=== PATIENT | male | born 1955 | race Caucasian/White ===

== ENCOUNTER → 2017-07-12 09:44 | Outpatient (CLI) | payer OTHER, SELFPAY ==
[2017-07-12 12:01] LABS: Absolute Lymphocyte Count 2.06 X10^3/ul (0.83-4.51); Absolute Neutrophil Count 3.8 X10^3/uL (2.0-7.7); Basophil# 0.01 X10^3/uL; Basophil% 0.1 % (0-1); Eosinophil# 0.33 X10^3/uL; Eosinophils% 4.7 % (0-5); Hematocrit 49.2 % (40-54); Hemoglobin 16.9 g/dl (13.0-16.5); Lymphocyte # 2.06 X10^3/ul (4.0); Lymphocyte % 29.3 % (19-41); Mean Corp Hgb Conc 34.3 g/gl (32-36); Mean Corpuscular Hgb 29.8 pg (27.0-32.0); Mean Corpuscular Volume 86.8 fL (80-94); Monocyte# 0.81 X10^3/uL; Monocyte% 11.5 % (0-10); Neutrophil # 3.81 X10^3/uL (2.7-7.7); Neutrophil % 54.1 % (47-70); Platelet Count 178 K/mm3 (150-450); RBC Distribution Width SD 41.5 fl (35.1-43.9); Red Blood Count 5.67 M/mm3 (4.6-6.2)
[2017-07-12 12:05] LABS: POSITIVE COUNT NO; POSITIVE DIFFERENTIAL NO; POSITIVE MORPHOLOGY NO
[2017-07-12 12:14] LABS: AST(SGOT) 24 U/L (15-37); Alanine Aminotransfer ALT/SGPT 28 U/L (16-61); Albumin, Serum 3.8 g/dL (3.2-5.0); Alkaline Phosphatase 68 U/L (45-117); Anion Gap 7 (5-15); BUN 14 mg/dL (7-18); BUN/Creat Ratio 14.7 RATIO (10-20); Calcium,Total 8.7 mg/dL (8.5-10.1); Chloride 104 mmol/L (98-107); Cholesterol 196 mg/dL (200); Creatinine, Serum 0.95 mg/dL (0.70-1.30); EST Glomerular Filtration Rate 85 mL/min (>60); Est Glom Filt Rate - Afr Amer 103 mL/min (>60); Globulin 3.7 g/dL (2.2-4.2); Glucose 91 mg/dL (74-106); High Density Lipoprotein 44 mg/dL; Potassium 3.9 mmol/L (3.5-5.1); Protein, Total 7.5 g/dL (6.4-8.2); Sodium Level 140 mmol/L (136-145); Triglycerides 233 mg/dL; Very Low Density Lipoprotein 47 mg/dL (5-40)
[2017-07-12 16:10] LABS: Hemoglobin A1c 5.9 % (4.2-6.3)
== END ==
PROVIDERS: Family Provider Family Medicine; PCP Family Medicine; Visit Provider Family Medicine
DX: Z00.00 Encounter for general adult medical examination without abnormal findings (principal); I10 Essential (primary) hypertension; R73.01 Impaired fasting glucose; Z12.5 Encounter for screening for malignant neoplasm of prostate
CPT/HCPCS: 36415; 80053; 80061; 83036; 85025

== ENCOUNTER → 2017-09-20 15:49 | Outpatient (CLI) | payer OTHER, SELFPAY ==
[2017-09-20 18:16] LABS: PSA,Total - Annual Screen 2.82 ng/mL (0.00-4.00)
== END ==
PROVIDERS: Family Provider Family Medicine; PCP Family Medicine; Visit Provider Family Medicine
DX: Z12.5 Encounter for screening for malignant neoplasm of prostate (principal)
CPT/HCPCS: 36415; 84153; G0103

== ENCOUNTER → 2018-09-21 | Outpatient (CLI) | payer OTHER, SELFPAY ==
[2018-09-21 12:05] LABS: Absolute Lymphocyte Count 2.36 X10^3/ul (0.83-4.51); Absolute Neutrophil Count 4.3 X10^3/uL (2.0-7.7); Basophil# 0.02 X10^3/uL; Basophil% 0.3 % (0-1); Eosinophil# 0.28 X10^3/uL; Eosinophils% 3.6 % (0-5); Hematocrit 48.8 % (40-54); Hemoglobin 17.1 g/dl (13.0-16.5); Lymphocyte # 2.36 X10^3/ul (4.0); Lymphocyte % 30.2 % (19-41); Mean Corpuscular Hgb 29.6 pg (27.0-32.0); Mean Corpuscular Volume 84.6 fL (80-94); Mean Platelet Vol. 10.9 fl (6.2-12.0); Monocyte# 0.81 X10^3/uL; Monocyte% 10.4 % (0-10); Neutrophil # 4.33 X10^3/uL (2.7-7.7); Neutrophil % 55.2 % (47-70); Platelet Count 208 K/mm3 (150-450); RBC Distribution Width CV 12.9 % (11.6-14.6); RBC Distribution Width SD 39.6 fl (35.1-43.9); Red Blood Count 5.77 M/mm3 (4.6-6.2); White Blood Count 7.8 K/mm3 (4.4-11.0)
[2018-09-21 12:19] LABS: POSITIVE COUNT NO; POSITIVE DIFFERENTIAL NO; POSITIVE MORPHOLOGY NO
[2018-09-21 12:20] LABS: Microalbumin,Random Urine 17.1 mg/L (NO RANGE EST.); Microalbumin:Creatinine Ratio 18.4 mg/g CRE (<30 mg/g CRE)
[2018-09-21 12:47] LABS: AST(SGOT) 19 U/L (15-37); Alanine Aminotransfer ALT/SGPT 27 U/L (16-61); Albumin, Serum 3.7 g/dL (3.2-5.0); Alkaline Phosphatase 81 U/L (45-117); Anion Gap 7 (5-15); BUN 12 mg/dL (7-18); BUN/Creat Ratio 12.9 RATIO (10-20); Calcium,Total 8.9 mg/dL (8.5-10.1); Chloride 107 mmol/L (98-107); Cholesterol 182 mg/dL (200); Creatinine, Serum 0.93 mg/dL (0.70-1.30); EST Glomerular Filtration Rate 87 mL/min (>60); Est Glom Filt Rate - Afr Amer 105 mL/min (>60); Globulin 3.6 g/dL (2.2-4.2); Glucose 92 mg/dL (74-106); High Density Lipoprotein 46 mg/dL; Potassium 3.7 mmol/L (3.5-5.1); Protein, Total 7.3 g/dL (6.4-8.2); Sodium Level 141 mmol/L (136-145); Triglycerides 99 mg/dL; Very Low Density Lipoprotein 20 mg/dL (5-40)
== END | disposition home or self-care (01) ==
PROVIDERS: Family Provider Family Medicine; PCP Family Medicine; Visit Provider Family Medicine
DX: Z00.00 Encounter for general adult medical examination without abnormal findings (principal); I10 Essential (primary) hypertension; E78.1 Pure hyperglyceridemia
CPT/HCPCS: 36415; 80053; 80061; 82043; 82570; 85025

== ENCOUNTER 2018-12-02 05:30 | Emergency (ER) | payer OTHER, SELFPAY ==
[2018-12-02 05:31] VITALS: BP 185/113; PULSE 96; RESP 15; TEMP 36.7; O2SAT 96; BMI 29.2
--- NOTE | 2018-12-02 05:37 | EKG12_ITS ---
Test Reason : CP Blood Pressure : / mmHG Vent. Rate : 094 BPM Atrial Rate : 094 BPM P-R Int : 140 ms QRS Dur : 084 ms QT Int : 376 ms P-R-T Axes : 049 041 029 degrees QTc Int : 470 ms Normal sinus rhythm Nonspecific ST abnormality Abnormal ECG Confirmed by RUSSELL DEL TORO, PRASHANTH ([id number]), tape editor SHOBHA WOODRUFF ([id number]) on 12/04/2018 11:26:34 AM Referred By: LIVIA Confirmed By:PRASHANTH WELLS MD
--- NOTE | 2018-12-02 05:37 | RAD_ITS ---
STUDY: X-RAY CHEST REASON FOR EXAM: Male, 63 years old. Abdominal pain and pressure getting worse TECHNIQUE: Single AP portable view of the chest. 2 images COMPARISON: 04/05/2017 FINDINGS: There are superimposed monitor leads. The lungs are clear and expanded. There is no demonstrated pleural abnormality. Normal size heart. Normal mediastinum and cassidy. Normal visualized pulmonary arteries. Normal visualized aortic arch and descending thoracic aorta. There are diffuse degenerative changes of the visualized thoracic spine. Normal visualized ribs, clavicles, and shoulders. There is no demonstrated abnormality of the visualized soft tissue structures of the upper abdomen. RAD/Chest 1 View (Portable) IMPRESSION: No acute cardiopulmonary disease. No significant interval change. Electronically Signed: Micki Singleton MD at 6:04 EDT , Service support ,
--- NOTE | 2018-12-02 05:39 | ED.DCSUM_ITS ---
History of Present Illness Chief Complaint: Chest Pain Detail of Chief Complaint: Chest and upper abdominal pain Informant: Patient Onset: - - Years Current Severity: Mild Maximum Severity: Mild Narrative: Patient presents with complaint of chest pressure. He states he has chronic pressure in his upper abdomen that is been ongoing for years. He feels recently he has been getting more pressure into his lower chest and wanted to have it checked. He is also concerned about his blood pressure being high. He states that he was taken off of his blood pressure medication a year and a half ago because they thought it was causing problems with his stomach, but he has not been placed on anything else. He states when he goes to his doctor's office his systolic pressure is usually around 160. Patient denies personal history of cardiac disease. His last stress test was in 2012. He has not had recent change with activity tolerance. Past Medical History - Allergies and Home Meds Allergies/Adverse Reactions: Allergies Penicillins Allergy (Verified 04/05/17 07:06) Rash Primary Care Physician: Mckinley Ly DO [Primary Care Provider] - Prior records reviewed: Yes Past Medical History: - - Reviewed Smoking Status: Never smoker Review of Systems General: Denies: Chills, Fever Eyes: Denies: Visual changes - bilaterally ENT: Denies: Bilateral ear pain Cardiovascular: Reports: Chest pain, Palpitations - Palpitations in the right upper chest Respiratory: Denies: Dyspnea Gastrointestinal: Reports: Abdominal pain. Denies: Nausea, Vomiting, Diarrhea Genitourinary: Denies: Dysuria Musculoskeletal: Denies: Neck pain, Back pain Skin: Denies: Rash Neurological: Denies: Headache Endocrine: Denies: Polyuria, Polydipsia Hematologic: Denies: Easy bruising Allergy: Denies: Uticaria Physical Exam Vital Signs/Narrative: Vital Signs Temp Pulse Resp BP Pulse Ox 12/02/18 05:31 98.1 F 96 15 185/113 H 96 Inital Vital Signs reviewed: Yes General: Well nourished, Well developed Head: Normocephalic Eyes: EOMI ENT: Moist mucous membranes Neck: Supple Cardiovascular: Regular rate, Regular rhythm Respiratory: No distress, CTA bilaterally, Chest nontender Abdomen: Soft, Nontender Extremities: Nontender Skin: Normal color, No rash Neurological: Alert, Oriented x3, Normal Strength, Normal Sensation Psychological: Normal affect Diagnostic/Tx/Re-eval Impressions Chest X-Ray 12/02/18 05:37 IMPRESSION: No acute cardiopulmonary disease. No significant interval change. Electronically Signed: Micki Singleton MD at 6:04 EDT , Service support , 12/02/18 05:37 Chest 1 View (Portable) [RAD] Stat Laboratory Results 12/02/18 12/02/18 05:35 05:35 WBC 9.8 RBC 5.99 Hgb 18.2 H* Hct 52.0 MCV 86.8 MCH 30.4 MCHC 35.0 RDW Std Deviation 38.9 RDW Coeff of Alvaro 12.3 Plt Count 192 MPV 10.2 Immature Gran % (Auto) 0.300 Neut % (Auto) 47.1 Lymph % (Auto) 38.0 Edmonson % (Auto) 9.3 Eos % (Auto) 4.9 Baso % (Auto) 0.4 Absolute Neuts (auto) 4.6 Absolute Lymphs (auto) 3.72 Nucleated RBC % 0 Diff Path Review May foll Sodium 143 Potassium 3.6 Chloride 108 H Carbon Dioxide 28.0 Anion Gap 7 BUN 12 Creatinine 1.06 Estim Creat Clear Calc 66.69 Est GFR (MDRD) Af Amer 91 Est GFR (MDRD) Non-Af 75 BUN/Creatinine Ratio 11.3 Glucose 103 Calcium 8.6 Total Bilirubin 0.60 Direct Bilirubin 0.13 AST 26 ALT 36 Alkaline Phosphatase 80 Troponin I < 0.015 Total Protein 7.5 Albumin 3.6 Globulin 3.9 Lipase 252 - EKG Initial EKG Interpretation: Sinus Rhythm - Sinus at 94 with no acute change. - Medical Decision Making She was given aspirin on arrival. With no further intervention blood pressure went from 185/113 to 159/102. Patient has had no symptoms while here. I spoke with patient's primary care physician, Dr. Ly. He will review the patient's history when he goes to the office today and send a prescription in for blood pressure medication. Patient is to follow-up with him in the office in approximately 1 week. We also discussed the patient's elevated hemoglobin level and trends to run high. ED Disposition - Plan for ED Patient: Disposition: Home or Assisted Living Diagnosis: Atypical chest pain, Hypertension Instructions: HYPERTENSION, To Be Confirmed, CHEST PAIN, Uncertain Cause Referrals: Mckinley Ly DO [Primary Care Provider] - 1 Week Additional Instructions: Dr Ly will review your records and call in a prescription for your blood pressure.
[2018-12-02] MEDS: Aspirin 81 MG TAB.CHEW 324 MG PO (05:44)
[2018-12-02 05:46] LABS: Absolute Lymphocyte Count 3.72 X10^3/uL (0.83-4.51); Absolute Neutrophil Count 4.6 X10^3/uL (2.0-7.7); Basophil# 0.04 X10^3/uL; Basophil% 0.4 % (0-1); Eosinophil# 0.48 X10^3/uL; Eosinophils% 4.9 % (0-5); Lymphocyte # 3.72 X10^3/ul (4.0); Mean Corpuscular Hgb 30.4 pg (27.0-32.0); Mean Corpuscular Volume 86.8 fL (80-94); Mean Platelet Vol. 10.2 fl (6.2-12.0); Monocyte# 0.91 X10^3/uL; Monocyte% 9.3 % (0-10); NRBC Flagged by Analyzer 0 % (0-5); Neutrophil # 4.61 X10^3/uL (2.7-7.7); Neutrophil % 47.1 % (47-70); Platelet Count 192 K/mm3 (150-450); RBC Distribution Width CV 12.3 % (11.6-14.6); RBC Distribution Width SD 38.9 fl (35.1-43.9); Red Blood Count 5.99 M/mm3 (4.6-6.2); White Blood Count 9.8 K/mm3 (4.4-11.0)
[2018-12-02 05:57] LABS: Hemoglobin 18.2 g/dL (13.0-16.5)
[2018-12-02 06:01] LABS: AST(SGOT) 26 U/L (15-37); Alanine Aminotransfer ALT/SGPT 36 U/L (16-61); Albumin, Serum 3.6 g/dL (3.2-5.0); Alkaline Phosphatase 80 U/L (45-117); Anion Gap 7 (5-15); BUN 12 mg/dL (7-18); BUN/Creat Ratio 11.3 RATIO (10-20); Bilirubin, Direct 0.13 mg/dL (0.00-0.30); Calcium,Total 8.6 mg/dL (8.5-10.1); Chloride 108 mmol/L (98-107); Creatinine, Serum 1.06 mg/dL (0.70-1.30); EST Glomerular Filtration Rate 75 mL/min (>60); Est Glom Filt Rate - Afr Amer 91 mL/min (>60); Estimated Creatinine Clearance 66.69 ml/min; Globulin 3.9 g/dL (2.2-4.2); Glucose 103 mg/dL (74-106); Lipase 252 U/L (73-393); Potassium 3.6 mmol/L (3.5-5.1); Protein, Total 7.5 g/dL (6.4-8.2); Sodium Level 143 mmol/L (136-145)
[2018-12-02 06:29] VITALS: BP 159/102; PULSE 71; RESP 14; O2SAT 97
[2018-12-06 08:57] LABS: Pathologist Review Reviewed
== END 2018-12-02 06:34 | disposition home or self-care (01) ==
PROVIDERS: Emergency Provider Emergency Medicine; Family Provider Family Medicine; PCP Family Medicine
DX: R07.89 Other chest pain (principal); I10 Essential (primary) hypertension; Z79.899 Other long term (current) drug therapy
CPT/HCPCS: 71045; 80048; 80076; 83690; 84484; 85025; 93005; 99285; A4216

== ENCOUNTER → 2018-12-06 | Outpatient (CLI) | payer OTHER, SELFPAY ==
[2018-12-02 05:31] VITALS: BMI 29.2
[2018-12-08 13:08] LABS: Erythropoietin 6.1 mIU/mL (2.6-18.5)
[2018-12-09 09:32] LABS: Mumps Antibody,IgG 44.6 AU/mL (Immune >10.9); Rubeola IgG Ab 22.3 AU/mL (Immune >16.4)
== END | disposition home or self-care (01) ==
LOC: BFHLAB 10:01
PROVIDERS: Family Provider Family Medicine; PCP Family Medicine; Visit Provider Family Medicine
DX: D58.2 Other hemoglobinopathies (principal); Z91.89 Other specified personal risk factors, not elsewhere classified
CPT/HCPCS: 36415; 82668; 86735; 86762; 86765

== ENCOUNTER → 2018-12-21 | Outpatient (CLI) | payer OTHER, SELFPAY ==
[2018-12-02 05:31] VITALS: BMI 29.2
--- NOTE | 2018-12-21 08:07 | US_ITS ---
STUDY: ABDOMINAL ULTRASOUND REASON FOR EXAM: Male, 63 years old. Epigastric pain and pressure TECHNIQUE: Transabdominal ultrasound was performed with real-time and static boone scale imaging. TECHNICAL QUALITY: Limited. Examination limited by bowel gas. COMPARISON: None. FINDINGS: Liver: The liver measures 14.5 cm. There is increased echogenicity consistent with fatty infiltration. The bile ducts are within normal limits. There is hepatic color flow. The direction of portal flow is hepatopetal. There is no demonstrated mass lesion. Gallbladder: Normal distended gallbladder. The gallbladder wall measures 2.4 mm. There is a negative sonographic Hidalgo's sign. There is no pericholecystic fluid. There are no gallstones. Common Bile Duct (C.B.D.): The common bile duct measures 2.1 mm. Pancreas: There is suboptimal visualization of the pancreas. The visualized portions of pancreas appear within normal limits. Spleen: There is also limited visualization of the spleen. The spleen measures approximately 8.5 x 2.8 x 4.6 cm. Right Kidney: Normal size of the right kidney. The right kidney measures 11.2 x 5.5 x 6.1 cm. Normal renal cortex. The right cortex measures 1.5 cm. There is no demonstrated renal mass or cyst. There is no right hydronephrosis. There is a nonobstructing calculus of the mid pole measuring 7 x 4 x 4 mm. Left Kidney: Normal size of the left kidney. The left kidney measures 11.4 x 4.3 x 5.9 cm. Normal renal cortex. The left cortex measures 1.6 cm. There is a 1.0 cm cyst of the superior pole. There is no left hydronephrosis. Aorta: The abdominal aorta is normal in caliber and contour, and measures 1.9 x 1.8 cm in diameter proximally, 1.9 x 1.7 cm in the mid abdominal region, and 2.0 x 1.6 cm distally. I.V.C.: The IVC is patent. There is no ascites. US/Abdomen Complete IMPRESSION: Limited visualization of the pancreas and spleen. Nonobstructing right nephrolithiasis. 1.0 cm cyst of the left kidney. Increased hepatic echogenicity suggestive of steatosis. Electronically Signed: Xiang Valera MD at 21:27 EDT , Service support ,
== END | disposition home or self-care (01) ==
PROVIDERS: Family Provider Family Medicine; PCP Family Medicine; Referring Provider Family Medicine; Visit Provider Family Medicine
DX: R10.9 Unspecified abdominal pain (principal)
CPT/HCPCS: 76700

== ENCOUNTER → 2019-01-17 | Outpatient (CLI) | payer OTHER, SELFPAY | END | disposition home or self-care (01) | PROVIDERS: Family Provider Family Medicine; PCP Family Medicine; Referring Provider Family Medicine; Visit Provider Family Medicine | DX: G47.10 Hypersomnia, unspecified (principal) | CPT/HCPCS: 95810 ==

== ENCOUNTER → 2019-10-02 | Outpatient (CLI) | payer OTHER, SELFPAY ==
[2019-10-02 17:40] LABS: Basophil# 0.04 X10^3/uL; Basophil% 0.5 % (0-1); Eosinophil# 0.41 X10^3/uL; Eosinophils% 5.4 % (0-5); Hematocrit 48.1 % (40-54); Hemoglobin 16.3 g/dL (13.0-16.5); Lymphocyte % 32.7 % (19-41); Mean Corp Hgb Conc 33.9 g/dL (32-36); Mean Corpuscular Hgb 29.4 pg (27.0-32.0); Mean Corpuscular Volume 86.8 fL (80-94); Mean Platelet Vol. 10.8 fl (6.2-12.0); Monocyte# 0.74 X10^3/uL; Monocyte% 9.7 % (0-10); NRBC Flagged by Analyzer 0 % (0-5); Neutrophil # 3.95 X10^3/uL (2.7-7.7); Neutrophil % 51.6 % (47-70); Platelet Count 225 K/mm3 (150-450); RBC Distribution Width CV 12.7 % (11.6-14.6); Red Blood Count 5.54 M/mm3 (4.6-6.2); White Blood Count 7.7 K/mm3 (4.4-11.0)
[2019-10-02 18:10] LABS: Anion Gap 6 (5-15); BUN 12 mg/dL (7-18); BUN/Creat Ratio 12.8 RATIO (10-20); Calcium,Total 8.9 mg/dL (8.5-10.1); Chloride 106 mmol/L (98-107); Creatinine, Serum 0.94 mg/dL (0.70-1.30); EST Glomerular Filtration Rate 86 mL/min (>60); Est Glom Filt Rate - Afr Amer 104 mL/min (>60); Glucose 89 mg/dL (74-106); PSA,Total - Annual Screen 3.96 ng/mL (0.00-4.00); Potassium 3.3 mmol/L (3.5-5.1); Sodium Level 140 mmol/L (136-145)
[2019-10-02 18:12] LABS: Hemoglobin A1c 5.5 % (3.8-5.6)
== END | disposition home or self-care (01) ==
LOC: BFHLAB 15:52
PROVIDERS: PCP Family Medicine; Visit Provider Family Medicine
DX: I10 Essential (primary) hypertension (principal); D58.2 Other hemoglobinopathies; R73.01 Impaired fasting glucose; Z12.5 Encounter for screening for malignant neoplasm of prostate
CPT/HCPCS: 36415; 80048; 83036; 84153; 85025; G0103

== ENCOUNTER → 2020-03-19 16:12 | Outpatient (CLI) | payer OTHER, SELFPAY | PROVIDERS: PCP Family Medicine; Visit Provider Family Medicine | DX: Z20.828 Contact with and (suspected) exposure to other viral communicable diseases (principal) | CPT/HCPCS: 36415; 86769 ==

== ENCOUNTER → 2021-01-21 07:00 | Outpatient (CLI) | payer OTHER, SELFPAY ==
--- NOTE | 2021-01-21 12:50 | STRESSREP_ITS ---
Stress Test Report Exercise myocardial perfusion stress test. Resting EKG demonstrates sinus bradycardia with a rate of 59 bpm normal intervals are noted resting blood pressure is 138/78 mmHg. The patient exercised according to the regular Jayant protocol for total duration of 8 minutes. The maximum heart rate attained was 142 bpm which was 91% of maximum predicted heart rate the maximum workload was 10.1 metabolic equivalents. At rest there were no ST or T wave changes noted to suggest ischemia and at peak exercise upsloping ST changes were noted in lead II and aVF of approximately 1.9 mm. There was [address] depression noted in lead III. This however normalized during rest. No chest pain was noted the test was terminated due to dyspnea. The peak blood pressure was 200/62 mmHg which was a hypertensive response to exercise. Myocardial perfusion protocol. 13.6 mCi of technetium 99m sestamibi was injected at rest. The patient exe rcised according to regular Jayant protocol for 8 minutes and at peak exercise 39.1 mCi of technetium 99m sestamibi was injected stress images were obtained stress and rest images were reconstructed and compared in the short axis vertical long and horizontal long axis. Gated images were also obtained. Perfusion SPECT analysis: Review of the stress images demonstrate normal uptake of tracer noted in all areas of the myocardium. The resting images similarly demonstrate normal uptake of tracer noted in all areas of the myocardium. No areas of reversibility are noted to suggest ischemia and no previous infarct is noted. Gated SPECT analysis: The gated ejection fraction is 66%. Conclusion: Normal exercise myocardial perfusion stress test with no evidence of ischemia at a high workload. Preserved ejection fraction.
== END ==
PROVIDERS: PCP Family Medicine; Referring Provider Family Medicine; Visit Provider Family Medicine
DX: R07.9 Chest pain, unspecified (principal); I10 Essential (primary) hypertension
CPT/HCPCS: 78452; 93017; A9500

== ENCOUNTER → 2021-03-31 | Outpatient (CLI) | payer MEDICARE, BC, SELFPAY | END | disposition home or self-care (01) | LOC: LABSPEC 09:45 | PROVIDERS: PCP Family Medicine; Referring Provider Physician Assistant Surgical; Visit Provider Physician Assistant Surgical | DX: Z11.52 Encounter for screening for COVID-19 (principal) | CPT/HCPCS: 87635; U0005; U0003 ==

== ENCOUNTER → 2022-02-16 | Outpatient (CLI) | payer MEDICARE, BC, SELFPAY ==
[2022-02-16 13:02] LABS: Absolute Lymphocyte Count 2.82 X10^3/uL (0.83-4.51); Absolute Neutrophil Count 3.6 X10^3/uL (2.0-7.7); Basophil# 0.04 X10^3/uL; Basophil% 0.5 % (0-1); Eosinophil# 0.37 X10^3/uL; Eosinophils% 4.8 % (0-5); Hematocrit 51.4 % (40-54); Hemoglobin 17.8 g/dL (13.0-16.5); Lymphocyte # 2.82 X10^3/ul (0.83-4.51); Lymphocyte % 36.8 % (19-41); Mean Corp Hgb Conc 34.6 g/dL (32-36); Mean Corpuscular Hgb 30.2 pg (27.0-32.0); Mean Corpuscular Volume 87.3 fL (80-94); Mean Platelet Vol. 10.7 fl (6.2-12.0); Monocyte# 0.83 X10^3/uL; Monocyte% 10.8 % (0-10); NRBC Flagged by Analyzer 0 % (0-5); Neutrophil # 3.56 X10^3/uL (2.7-7.7); Neutrophil % 46.4 % (47-70); Platelet Count 211 K/mm3 (150-450); RBC Distribution Width CV 12.5 % (11.6-14.6); RBC Distribution Width SD 39.7 fl (35.1-43.9); Red Blood Count 5.89 M/mm3 (4.6-6.2); White Blood Count 7.7 K/mm3 (4.4-11.0)
[2022-02-16 13:15] LABS: ALB/GLOB Ratio 0.9 RATIO (0.9-2.4); AST(SGOT) 21 U/L (15-37); Alanine Aminotransfer ALT/SGPT 30 U/L (16-61); Albumin, Serum 3.6 g/dL (3.2-5.0); Alkaline Phosphatase 81 U/L (45-117); Anion Gap 4 (5-15); BUN 12 mg/dL (7-18); BUN/Creat Ratio 11.3 RATIO (10-20); Calcium,Total 8.7 mg/dL (8.5-10.1); Chloride 106 mmol/L (98-107); Cholesterol 179 mg/dL (200); Creatinine, Serum 1.06 mg/dL (0.70-1.30); EST Glomerular Filtration Rate 74 mL/min (>60); Est Glom Filt Rate - Afr Amer 90 mL/min (>60); Glucose 83 mg/dL (74-106); High Density Lipoprotein 49 mg/dL; PSA,Total - Annual Screen 5.64 ng/mL (0.00-4.00); Protein, Total 7.6 g/dL (6.4-8.2); Sodium Level 140 mmol/L (136-145); Triglycerides 129 mg/dL; Very Low Density Lipoprotein 26 mg/dL (5-40)
[2022-02-16 13:16] LABS: Hemoglobin A1c 5.5 % (3.8-5.6)
== END | disposition home or self-care (01) ==
LOC: BFHLAB 10:49
PROVIDERS: PCP Family Medicine; Visit Provider Family Medicine
DX: I10 Essential (primary) hypertension (principal); D58.2 Other hemoglobinopathies; K76.0 Fatty (change of) liver, not elsewhere classified; R73.01 Impaired fasting glucose; Z12.5 Encounter for screening for malignant neoplasm of prostate
CPT/HCPCS: 36415; 80053; 80061; 83036; 84153; 85025; G0103

== ENCOUNTER → 2022-07-02 | Outpatient (CLI) | payer MEDICARE, BC, SELFPAY ==
--- NOTE | 2022-07-02 14:50 | RAD_ITS ---
STUDY: X-RAY - PELVIS AND LEFT HIP REASON FOR EXAM: Male, 66 years old. Chronic left hip pain. TECHNIQUE: 3 views of the pelvis and hip. COMPARISON: None. FINDINGS: There is a non-specific bowel gas pattern. Normal visualized soft tissue structures. There are multiple calcified phleboliths. There is narrowing with cortical sclerosis and osteophyte formation of the sacroiliac joint consistent with degenerative osteoarthritic changes. Normal iliac wings and sacrum. Normal bilateral superior and inferior pubic rami. Normal pubic symphysis. Normal bilateral ischial tuberosities. Mild degenerative changes of the right hip. Normal visualized left femoral head. Normal left acetabulum. There is mild to moderate articular joint space narrowing of the left hip. RAD/HIP, UNI W/ Pelvis 2-3 Views IMPRESSION: Degenerative changes of the left hip. No fracture or dislocation. Electronically Signed: Yonatan Guevara DO at 17:28 EDT ,
[2022-07-02 18:12] LABS: PSA,Total- Diagnostic 6.02 ng/mL (0.0-4.0)
[2022-07-02 19:23] LABS: Vitamin B12 557 pg/mL (211-911)
== END | disposition home or self-care (01) ==
PROVIDERS: PCP Family Medicine; Referring Provider Family Medicine; Visit Provider Family Medicine
DX: R20.2 Paresthesia of skin (principal); R97.20 Elevated prostate specific antigen [PSA]; R10.32 Left lower quadrant pain
CPT/HCPCS: 36415; 73502; 82607; 84153

== ENCOUNTER → 2022-10-13 | Outpatient (CLI) | payer MEDICARE, BC, SELFPAY ==
--- NOTE | 2022-10-13 13:43 | MRI_ITS ---
STUDY: MR PELVIS WITH AND WITHOUT CONTRAST (PROSTATE) REASON FOR EXAM: Male, 67 years old. Elevated PSA with enlarged prostate gland TECHNIQUE: Standardized multiparametric prostate MRI with T1, T2, DWI/ADC sequences were obtained in 3 orthogonal planes, and dynamic contrast enhancement sequences. 15 ml of CLARISCAN contrast material was administered intravenously for the contrast portion of the examination. COMPARISON: None. FINDINGS: The prostate volume measures 52 mm3. The contours of the prostate gland are lobulated. There is mass effect on the bladder base. The transition zone is heterogenous. PI-RADS DWI score 1 - No abnormality (normal) on ADC or high b-value DWI. PI-RADS T2W score 2 - A mostly encapsulated nodule OR a homogeneous circumscribed nodule without encapsulation (atypical nodule) or a homogeneous mildly hypointense area between nodules.. Contrast enhancement no early or contemporaneous enhancement; or diffuse multifocal enhancement NOT corresponding to a focal finding on T2W and/or DWI or focal ehancement responding to a lesion demonstrating features of BPH onT2WI (including features of extruded BPH in the PZ). The peripheral zone is homogenous. PI-RADS DWI score 4 - Focal moderately hypointense on ADC and markedly hyperintense on high b-value DWI; <1.5cm on axial. PI-RADS T2W score 4 - Circumscribed, homogenous moderate hypointense focus/mass confined to prostate and < 1.5 cm in greatest dimension. Contrast enhancement (+) Focal, earlier or contemporaneous with enhancement of adjacent normal prostatic tissues, and corresponding to a suspicious finding on T2WI and/or DWI. 8.3 x 14.2 mm hypointense T2 nodule of the left mid to apical posterior peripheral zone evident on image 32 series 10 demonstrates restricted diffusion (image 109 and series 7, image 6 series 701. The seminal vesicles demonstrate normal margins and T2 signal pattern. No mass lesion or invasion depicted. The rectoprostatic angles are normal. Trabeculated urinary bladder suggesting chronic bladder outlet obstruction. Nonenhancing T1 dark and T2 dark dependent nodule the urinary bladder measures 8 mm on image 16 of series 10 without associated contrast enhancement. The vascular structures of the are normal. Small bilateral fat-containing inguinal hernias. Mildly enlarged left external iliac chain lymph node measures 1.1 x 1.5 cm on image 3 of series 10. The visualized hollow viscus structures are normal. No bone marrow edema or mass lesion depicted. MRI/Pelvis W/WO Contrast IMPRESSION: 1. PIRADS v2.1 2019 -- 4 - High (clinically significant cancer is likely). 2. Left posterior peripheral zone nodule, as above. 3. Subcentimeter left urinary bladder calculus versus wall nodule. 4. Mild left iliac chain adenopathy. Electronically Signed: Harrison Anaya (Brooks), at 15:42 EDT ,
[2022-10-13 14:15] LABS: EGFR FINGERSTICK > 60.0000 mL/min (>60)
== END | disposition home or self-care (01) ==
LOC: MRI 13:36
PROVIDERS: PCP Family Medicine; Referring Provider Urology; Visit Provider Urology
DX: R97.20 Elevated prostate specific antigen [PSA] (principal)
CPT/HCPCS: 72197; A9575

== ENCOUNTER → 2022-11-01 | Outpatient (CLI) | payer MEDICARE, BC, SELFPAY ==
--- NOTE | 2022-11-01 | IMM_PTH ---
PATIENT: CARYL LIAO LOC: [facility] U#:[id number] AGE/SX: 67/M ROOM: RE11/01/[address]: Dr. Deandre Davison MD : 1955 BED: DIS: 11/01/2022 SPEC #: [id number] RECD: 11/03/22 13:55 STATUS: MARZENA REQ #: [id number] MAKENNA: 11/01/22 00:[address]: Deandre Davison DEPT: IMMUNOHISTOCHEMISTRY RECD BY: Carmella Cole ENTERED: 11/03/22 13:56 SP TYPE: IMMUNO OTHR DR: Dr. Mckinley Ly DO Tissues: A - PROSTATE RIGHT B - PROSTATE RIGHT D - PROSTATE LEFT E - PROSTATE LEFT F - PROSTATE LEFT Procedures: 34BE12 (add) P40 (add) 34BE12 (initial) PHYSICIAN & INSTITUTION [place] [id number] SPECIMEN INFORMATION: Tissue Source: A - Right apex, B - Right mid, D - Left apex, E - Left mid, F - Left base Clinical Info: Elevated PSA Specimen Number: [id number] A, B, D-F CPT code: 17345, 24490 x9 METHODOLOGY: Deparaffinized sections of prefer/formalin-fixed tissue or PAP/DQ stained slides are incubated with monoclonal/polyclonal antibodies/oligonucleotide probes. Localization is made via biotin free immunoperoxidase method. Appropriate controls are performed and reacted as expected. Results on target cell population are indicated in the following table: RESULTS: ANTIBODY / CLONE RESULT Block A P40 (BC28) positive 34BE12 (34BE12) positive Block B P40 (BC28) positive 34BE12 (34BE12) positive Block D P40 (BC28) negative 34BE12 (34BE12) negative Block E P40 (BC28) positive 34BE12 (34BE12) positive Block F P40 (BC28) negative 34BE12 (34BE12) negative These tests were developed and their performance characteristics determined by [facility]. They may not have been cleared or approved by the U.S. Food and Drug Administration. The FDA has determined that such clearance or approval is not necessary. The above immunohistochemical/dualISH markers are ordered and reviewed by the Pathologist. INTERPRETATION: A. Right prostate, apex, core biopsy: Benign prostatic tissue. B. Right prostate, mid, core biopsy: Benign prostatic tissue. D. Left prostate, apex, core biopsy: Minute focus of adenocarcinoma. E. Left prostate, mid, core biopsy: Intraductal carcinoma. F. Left prostate, base, core biopsy: Adenocarcinoma. Intraductal carcinoma. AM:pako 11/04/2022 Case has been reviewed in consultation with Dr. Jacobo who concurs with the above diagnosis. IDC:SJ
--- NOTE | 2022-11-01 | PROSBIL_PTH ---
PATIENT: CARYL LIAO LOC: [facility] U#:[id number] AGE/SX: 67/M ROOM: RE11/01/[address]: Dr. Deandre Davison MD : 1955 BED: DIS: 11/01/2022 SPEC #: [id number] RECD: 11/01/22 15:00 STATUS: MARZENA AGUDELO #: [id number] MAKENNA: 11/01/22 00:[address]: Deandre Davison DEPT: SURGICAL PATHOLOGY RECD BY: Kellee Moreira ENTERED: 11/02/22 08:45 SP TYPE: PROST BX DARIO DR: Dr. Mckinley Ly, [facility] Tissues: A - PROSTATE RIGHT B - PROSTATE RIGHT C - PROSTATE RIGHT D - PROSTATE LEFT E - PROSTATE LEFT F - PROSTATE LEFT Procedures: PROSTATE BX HEADER OPERATION: Prostate biopsy PRE-OP DIAGNOSIS: Elevated PSA TISSUE SUBMITTED: A - Right apex, B - Right mid, C - Right base, D - Left apex, E - Left mid, F - Left base MICROSCOPIC DIAGNOSIS A. Right prostate, apex, core biopsy: Glandular atrophy and mild chronic inflammation. See comment. B. Right prostate, mid, core biopsy: Glandular atrophy and mild chronic inflammation. See comment. C. Right prostate, base, core biopsy: Glandular atrophy and mild chronic inflammation. D. Left prostate, apex, core biopsy: Adenocarcinoma. [place] grade: 6 (3+3) Cores involved: 2 out of 2 cores Tissue involved: 1.7%, discontinuous Greatest tumor length: 1.6 millimeters Focal high-grade prostatic intraepithelial neoplasia (HGPIN). See comment. E. Left prostate, mid, core biopsy: Intraductal carcinoma. Cores involved: 2 out of 2 cores Tissue involved: 50%, discontinuous Greatest tumor length: 4.5 millimeters See comment. F. Left prostate, base, core biopsy: Adenocarcinoma. [place] grade: 10 ((5+5) Cores involved: 2 out of 2 cores Tissue involved: 75% Greatest tumor length: 0.7 millimeters Other findings: Intraductal carcinoma.(5.0 mm in greatest length) See comment. AM:pako 11/03/2022 COMMENT A, B, D-F - Immunohistochemistry ([id number]) supports the above diagnosis. Case has been reviewed in consultation with Dr. Jacobo who concurs with the above diagnosis. IDC:SJ MICROSCOPIC DESCRIPTION Slides are reviewed. GROSS DESCRIPTION A - Received is one container designated prostate, right apex. The specimen consists of two elongated fragments of light correa-white soft tissue each measuring 1.5 cm in length and 0.1 cm in diameter. The specimen is totally submitted in one cassette. B - Received is one container designated prostate, right mid. The specimen consists of two elongated fragments of light correa-white soft tissue measuring 0.8 and 1.0 cm in length and 0.1 cm in diameter. The specimen is totally submitted in one cassette. C - Received is one container designated prostate, right base. The specimen consists of two elongated fragments of light correa-white soft tissue each measuring 1.5 cm in length and 0.1 cm in diameter. The specimen is totally submitted in one cassette. D - Received is one container designated prostate, left apex. The specimen consists of two elongated fragments of light correa-white soft tissue measuring 0.4 and 0.6 cm in length and 0.1 cm in diameter. The specimen is totally submitted in one cassette. E - Received is one container designated prostate, left mid. The specimen consists of two elongated fragments of light correa-white soft tissue each measuring 1.0 cm in length and 0.1 cm in diameter. The specimen is totally submitted in one cassette. F - Received is one container designated prostate, left base. The specimen consists of two elongated fragments of light correa-white soft tissue measuring 1.0 and 1.2 cm in length and 0.1 cm in diameter. The specimen is totally submitted in one cassette. / SJ:rg 11/02/2022 TC:0 CPT: G0146
== END | disposition home or self-care (01) ==
LOC: LABSPEC 16:55
PROVIDERS: PCP Family Medicine; Referring Provider Urology; Visit Provider Urology
DX: C61 Malignant neoplasm of prostate (principal); R97.20 Elevated prostate specific antigen [PSA]; N42.31 Prostatic intraepithelial neoplasia
CPT/HCPCS: 88305; 88341; 88342; G0416

== ENCOUNTER → 2022-11-16 | Outpatient (CLI) | payer MEDICARE, BC, SELFPAY ==
--- NOTE | 2022-11-16 07:50 | NM_ITS ---
CLINICAL: 67-year-old male with history of primary prostate carcinoma. WHOLE BODY 99m Tc MDP RADIONUCLIDE BONE SCINTIGRAPHY COMPARISON: None available FINDINGS: Following the intravenous administration of 25.4 mCi of 99m Tc MDP, whole body bone images reveal: 1. Increased tracer uptake is noted in the sternoclavicular compartment of the right shoulder, acromioclavicular compartments of both shoulders, the patellofemoral compartment of the right knee, the medial and lateral compartment of the left ankle, the fourth lumbar vertebra posteriorly on the right, fifth lumbar vertebra posteriorly on the left and right, the left hip, the mid cervical spine posteriorly on the left and right. 2. The remaining skeletal structures are scintigraphically unremarkable with normal-appearing renal images and urinary bladder activity identified. NM/Bone Scan Whole Body IMPRESSION: 1. Increased radiopharmaceutical concentration defined in the bilateral shoulder articulations, the right knee, the left ankle, the cervical and lumbar spine, the left hip articulation is most consistent with degenerative arthrosis. 2. There is no definitive scintigraphic evidence of distant metastatic disease on the current examination. Electronically Signed: Oneal Elliott, at 23:16 EDT ,
== END | disposition home or self-care (01) ==
LOC: NM 07:48
PROVIDERS: PCP Family Medicine; Referring Provider Urology; Visit Provider Urology
DX: C61 Malignant neoplasm of prostate (principal)
CPT/HCPCS: 78306; A9503

== ENCOUNTER → 2022-11-22 | Outpatient (CLI) | payer MEDICARE, BC, SELFPAY ==
--- NOTE | 2022-11-22 18:55 | CT_ITS ---
EXAM: CT ABDOMEN AND PELVIS WITH INTRAVENOUS CONTRAST CLINICAL INDICATION: PROSTATE CANCER TECHNIQUE: Helically acquired images were obtained of the abdomen and pelvis with intravenous contrast. This CT exam was performed using one or more of the following dose reduction techniques: automated exposure control, adjustment of the mA and/or kV according to patient size, and/or use of iterative reconstruction technique. CONTRAST: 100 cc of Isovue-370 IV. RADIATION DOSE: CTDIvol = 17.10 mGy, DLP = 1480.93 mGy-cm COMPARISON: No relevant prior studies available. FINDINGS: LOWER THORAX: Small hiatal hernia. Coronary artery calcifications. Lung bases are clear. No cardiomegaly. No significant pericardial effusion. ABDOMEN: LIVER: There is diffuse low-attenuation of the liver. GALLBLADDER AND BILE DUCTS: Unremarkable. No calcified gallstones. No gallbladder distention or wall edema. No intra- or extrahepatic biliary ductal dilation. PANCREAS: Unremarkable. No focal cystic or solid mass. SPLEEN: Unremarkable. Normal size without focal cystic or solid mass. ADRENALS: Unremarkable. No nodules. KIDNEYS AND URETERS: Unremarkable. Normal renal size and position. No hydronephrosis. STOMACH AND BOWEL: Unremarkable. No stomach or bowel distention. No focal inflammatory change. PELVIS: APPENDIX: No evidence of acute appendicitis. BLADDER: Small bladder stone measuring 8 x 4 x 8 mm. REPRODUCTIVE: Unremarkable as visualized. No mass. ABDOMEN and PELVIS: INTRAPERITONEAL SPACE: Unremarkable. No ascites or other fluid collection. No free air. BONES/JOINTS: Unremarkable. No suspicious lytic or blastic abnormality. SOFT TISSUES: Unremarkable. No discrete abdominal or pelvic wall hernia. VASCULATURE: See above. LYMPH NODES: Unremarkable. No enlarged lymph nodes. CT/Abdomen/Pelvis WITH Contrast IMPRESSION: 1. Fatty liver. 2. Small hiatal hernia. 3. Small bladder stone measuring 8 x 4 x 8 mm. 4. Coronary artery disease. 5. No acute abdominal pelvic abnormality. Electronically Signed: Carroll Alvarez MD at 6:03 EDT ,
[2022-11-22 19:18] LABS: EGFR FINGERSTICK > 60.0000 mL/min (>60)
== END | disposition home or self-care (01) ==
LOC: CT 18:53
PROVIDERS: PCP Family Medicine; Referring Provider Urology; Visit Provider Urology
DX: C61 Malignant neoplasm of prostate (principal)
CPT/HCPCS: 74177; Q9967

== ENCOUNTER 2023-01-05 14:38 | Observation (INO) | payer MEDICARE, BC, SELFPAY ==
--- NOTE | 2022-12-28 07:59 | EKG12_ITS ---
Test Reason : PREOP Blood Pressure : / mmHG Vent. Rate : 068 BPM Atrial Rate : 068 BPM P-R Int : 146 ms QRS Dur : 080 ms QT Int : 432 ms P-R-T Axes : 067 039 -13 degrees QTc Int : 459 ms Normal sinus rhythm Normal ECG Confirmed by RUSSELL DEL TORO, PRASHANTH ([id number]), commissioning editor JASWINDER SILVERIO ([id number]) on 12/28/2022 1:57:08 PM Referred By: Deandre Davison Confirmed By:PRASHANTH WELLS MD
[2022-12-28 10:12] LABS: Hemoglobin 17.6 g/dL (13.0-16.5); Mean Corp Hgb Conc 33.2 g/dL (32-36); Mean Corpuscular Hgb 29.4 pg (27.0-32.0); Mean Corpuscular Volume 88.6 fL (80-94); Mean Platelet Vol. 10.4 fl (6.2-12.0); Platelet Count 221 K/mm3 (150-450); RBC Distribution Width CV 12.5 % (11.6-14.6); RBC Distribution Width SD 40.6 fl (35.1-43.9); Red Blood Count 5.98 M/mm3 (4.6-6.2); White Blood Count 8.3 K/mm3 (4.4-11.0)
[2023-01-05] VITALS (11 sets, daily range): BP systolic 120–159; BP diastolic 60–92; PULSE 59–78; RESP 16–18; TEMP 36.6–37.1; O2SAT 93–99; BMI 27.2
[2023-01-05] MEDS: Lactated Ringers 1,000 ML 15 ML IV (09:32)
--- NOTE | 2023-01-05 10:48 | HP.PCM_ITS ---
HPI - General General Date of Service: 01/05/23 Chief Complaint: Prostate cancer HPI Narrative CARYL LIAO, is a 67 M who presents for a robotic prostatectomy bilateral nerve sparing he has prostate cancer we talked with the options of management with robotic surgery and radical move of the prostate to talk with the potential for bladder control problems incontinence leakage and loss of erections also understands is possible that surgery may not cure him of cancer and he may need more treatment in the future such as hormone therapy radiation therapy or chemotherapy. [facility] Medical History Arthritis Cancer Colitis Gastric reflux History of hiatal hernia History of stress test Hypertension Kidney stone Non-smoker Wears glasses Home Medications lansoprazole 30 mg capsule,delayed release 30 mg PO DAILY 12/02/18 [History Last Taken 01/03/23] amlodipine 5 mg tablet 5 mg PO DAILY 12/21/22 [History Last Taken 01/03/23] docusate sodium 100 mg capsule (DOK) 100 mg PO DAILY 12/21/22 [History Last Leonidas en 01/04/23] multivitamin (Daily Multi-Vitamin tablet) 1 tab PO DAILY 12/21/22 [History Last Taken 01/03/23] ciprofloxacin HCl 500 mg tablet (Cipro) 500 mg PO BID #20 tabs 01/05/23 [Rx Last Taken Unknown] docusate sodium 100 mg capsule (Colace) 100 mg PO BID #20 caps 01/05/23 [Rx Last Taken Unknown] oxycodone 5 mg tablet 5 mg PO Q6H PRN pain 7 days #14 tabs 01/05/23 [Rx Last Taken Unknown] Allergy/AdvReac Type Severity Reaction Status Date / Time Penicillins Allergy Rash Verified 01/05/23 09:14 Surgical History Hx of surgical procedure Social History Smoking Status: Never smoker ROS Constitutional Constitutional: Denies chills, fever(s) or malaise Eyes Eyes: Denies blurry vision or change in vision ENT HEENT: Reports none Cardiovascular Cardiovascular: Denies chest pain or palpitations Respiratory/Chest Respiratory/Chest: Denies cough or shortness of breath with exertion Gastrointestinal Gastrointestinal: Denies abdominal pain, constipation or diarrhea Musculoskeletal Musculoskeletal: Denies back pain, joint stiffness or joint swelling Integumentary Integumentary: Denies dry skin, jaundice, lesions or rash Neurologic Neurologic: Denies confusion, syncope or weakness Psychiatric Psychiatric: Reports none; Denies anxiety or depression Endocrine Endocrinology: Denies excessive sweating, fatigue or flushing Hematologic/Lymphatic Hematologic/Lymphatic: Denies anemia, easy bleeding or easy bruising Vital Signs Vital Signs Vital Signs: 01/05/23 09:26 01/05/23 09:26 Temperature 98.8 F Temperature Source Temporal Pulse Rate 77 Respiratory Rate 16 Respiratory Pattern Normal Blood Pressure 159/89 H Blood Pressure Mean 112 Blood Pressure Source Monitor Blood Pressure Position Semi-Fowlers Blood Pressure Location Left Arm Pulse Ox 99 Oxygen Delivery Method Room Air Weight Weight: 79 kg Body Mass Index (BMI) 27.2 Physical Exam Const alert and oriented x3 General Appearance: cooperative HEENT normocephalic, head/scalp atraumatic, EAC's normal and TM's normal bilaterally Eyes PERRL and EOMs intact bilaterally Pupil: sluggish Neck no lymphadenopathy, supple and no JVD General: trachea midline Lymph Lymphatic: no lymphadenopathy noted, lymphedema and lymphadenopathy Resp normal respiratory effort, normal air movement and clear to auscultation bilaterally Cardio regular rate, regular rhythm and peripheral pulses 2+ throughout GI soft to palpation, non-tender and non-distended Extremity normal capillary refill and no clubbing, cyanosis or edema General Extremity: no tenderness to palpation of joints or extremities Skin no rashes or lesions noted General Skin Exam: turgor normal Lesions: no lesions Rashes: no rashes Neuro CN's II-XII intact bilaterally Speech: speech normal Motor Exam: strength 5/5 throughout; Negative for general weakness Psych thought process normal, cooperative and affect normal Appearance: appropriate Results Medical Records Data Attestation: I reviewed the patient's medical records Lab / Micro Data 12/28/22 08:54 Assessment & Plan Assessment/Plan (1) Prostate cancer: PLAN: Plan for robotic radical prostatectomy
--- NOTE | 2023-01-05 10:50 | DCINST_ITS ---
Discharge Instructions Diet Discharge Diet: No restrictions, Light diet - advance as tolerated and Soft diet Activity Discharge Activity: Return to Normal Activity Lifting Restrictions: No lifting for 6 weeks Dressing / Incision Catheter: Coello to leg bag and Coello to large bag Drain: Iron Belt Follow Up Care Please Follow Up With: Deandre Davison MD When: 2 weeks for cath removal Test Results: Test results from this visit will be discussed in further detail at your follow- up appointment, if applicable. Discharge Plan Admission Primary Reason for Your Visit: Robotic radical prostatectomy Attending Provider: Deandre Davison Primary Care Provider: Mckinley Ly Discharge Orders/Prescriptions Prescriptions: New oxycodone 5 mg tablet 5 mg PO Q6H PRN (Reason: pain) 7 Days Qty: 14 0RF ciprofloxacin HCl [Cipro] 500 mg tablet 500 mg PO BID Qty: 20 0RF docusate sodium [Colace] 100 mg capsule 100 mg PO BID Qty: 20 0RF Continued lansoprazole 30 MG capsule,delayed release(DR/EC) 30 mg PO DAILY Patient Comments: TAKE 1 CAPSULE BY MOUTH EVERY DAY amlodipine 5 mg tablet 5 mg PO DAILY multivitamin [Daily Multi-Vitamin] Tablet 1 tab PO DAILY docusate sodium [DOK] 100 mg capsule 100 mg PO DAILY Referrals / Follow Up: Deandre Davison MD [Med Staff - Active Staff] - Mckinley Ly DO [Primary Care Provider] - Disposition Disposition (needs filled in before D/C Order can be placed): Home, Self Care
--- NOTE | 2023-01-05 11:05 | PROST_PTH ---
PATIENT: CARYL LIAO LOC: MS3 U#:[id number] AGE/SX: 67/M ROOM: [facility] RE01/05/[address]: Dr. Deandre Davison MD : 1955 BED: 1 DIS: 01/06/2023 SPEC #: [id number] RECD: 01/05/23 16:20 STATUS: MARZENA AGUDELO #: [id number] MAKENNA: 01/05/23 11:[address]: Deandre Davison DEPT: SURGICAL PATHOLOGY RECD BY: Kellee Moreira ENTERED: 01/06/23 07:36 SP TYPE: PROSTATE OTHR DR: Dr. Mckinley Ly, DO Tissues: A - Prostate, NOS B - Adipose tissue C - Lymph node of pelvis, NOS D - Lymph node of pelvis, NOS Procedures: Surgery Specimen Level IV Surgery Specimen Level V Surgery Specimen Level HEADER OPERATION: Lap robotic radical prostatectomy PRE-OP DIAGNOSIS: Prostate cancer TISSUE SUBMITTED: A - Prostate, B - Fat over prostate, C - Left pelvic lymph node, D - Right pelvic lymph node MICROSCOPIC DIAGNOSIS A. Prostate, radical prostatectomy: Prostatic adenocarcinoma. See cancer summary in the comment section. B. Fat over prostate, excision: Adipose tissue, negative for carcinoma. C. Left pelvic lymph node, regional dissection: Twelve out of twelve lymph nodes, negative for metastatic carcinoma. D. Right pelvic lymph node, regional dissection: Three out of three lymph nodes, negative for metastatic carcinoma. SJ:pako 01/10/2023 COMMENT A. PROSTATE CANCER (RADICAL) SUMMARY: Procedure: Radical Prostatectomy Prostate Size: Weight: 63 gm Size: 5.5 cm transversely, 3.8 cm anterior-posteriorly and 4.3 cm craniocaudally Histologic Type: Acinar adenocarcinoma Histologic Grade: Grade group 5, Katlin score 5+4=9 Focal area of tertiary pattern 3 is also noted. Invasive tumor, intraductal carcinoma and high-grade prostatic intraepithelial neoplasia are extensively intermixed with one another. Extensive intraductal carcinoma and high grade prostatic intraepithelial neoplasia are noted. Intraductal Carcinoma: Present, extensive Tumor Quantitation: Estimated percentage of prostate involved by tumor: ~25% Tumor size: Tumor predominantly involves left lobe of the prostate. Ii present in the apical, mid and basal portion of the left lobe measures approximately 3.0 x 2.0 x 1.5 cm (measured microscopically) and focal areas of apical and basal portion of the right lobe in discontinuous manner, measures approximately 0.5 x 0.5 cm (measured microscopically). Extraprostatic Extension: Present, focal Location of Extraprostatic Extension: Left posterior lateral (neurovascular bundle) Urinary Bladder Neck Invasion: Not identified Seminal Vesicle Invasion: Present, left Lymphvascular Invasion: Not identified Perineural Invasion: Present, frequent Margins: Uninvolved by invasive carcinoma. Focal area of intraductal carcinoma is present at the apical margin of the specimen. Treatment Effect: No known presurgical therapy. Regional Lymph Nodes: Number of lymph nodes involved by carcinoma: 0 Total number of lymph nodes examined: 15 Additional Pathologic Findings: - High-grade prostatic intraepithelial neoplasia (HGPIN). - Chronic inflammation. Ancillary Studies: Not performed Clinical History: Please make reference to previous specimen ([id number]) Left prostate, apex and base with diagnosis of adenocarcinoma and left prostate, mid with diagnosis of intraductal carcinoma. PATHOLOGIC STAGE: pT3a+b pN0 pMx The above summary is in compliance with [employer] (CAP) Cancer Protocols Checklist and [place] [employer] Committee on Cancer (AJCC), Staging Manual, 8th Ed. Case has been reviewed in consultation with Dr. Tom who concurs with the above diagnosis. IDC:AM MICROSCOPIC DESCRIPTION Slides are reviewed. GROSS DESCRIPTION A - Received in fixative is one container labeled with the patient's name and designated prostate. The specimen consists of a prostate and attached seminal vesicles. The prostate gland measures 5.5 cm transversely, 3.8 cm anterior-posteriorly and 4.3 cm craniocaudally. Palpation does not reveal distinct mass lesions. The gland weighs 63 gm. The specimen is differentially inked as follows: anterior surface - red, right half of gland - blue, left half - green and the entire posterior surface - black. Serial sections of the gland does not reveal mass lesions. [employer] sections are submitted as follows: 1 - seminal vesicles, 2 - distal urethral shaved margin, 3 - proximal urethral/bladder shave margin, 4 & 5 - most basal section of prostate, 6-11 - apical portion of gland, 12-15 - mid portion of gland, 16-20 - basal portion of gland. Note, serial sections are approximately 3-4 mm apart. The specimen is processed after additional fixation. / AM: 01/06/2023 B - Received in fixative is one container labeled with the patient's name and designated fat over prostate. The specimen consists of an irregular fragment of yellow fatty tissue measuring 3.5 x 2.2 x 0.7 cm. The specimen is totally submitted in one cassette. / AM: 01/06/2023 C - Received in fixative is one container labeled with the patient's name and designated left pelvic lymph node. The specimen consists of two irregular fragments of correa-yellow fatty tissue measuring in aggregate 5.5 x 4.0 x 1.2 cm. Sections reveal multiple nodules ranging in size from 0.3 to 2.0 cm. [employer] sections are submitted in five cassettes as follows: 1-4 - multiple nodules in each cassette, 5 - one nodule, bisected. / AM: 01/06/2023 D - Received in fixative is one container labeled with the patient's name and designated right pelvic lymph node. The specimen consists of a single irregular fragment of yellow fatty tissue measuring 4.0 x 4.0 x 1.0 cm. Serial sections reveal two firm nodules ranging in size from 1.5 to 3.6 cm. The specimen is totally submitted in four cassettes as follows: 1 & 2 - one nodule bisected, 3 - one nodule, 4 - remainder of the specimen. / AM: 01/06/2023 TC:0 CPT: 97872, 43650, 64994 x2
[2023-01-05] MEDS: Cefazolin 2 GM in 0.9% Normal Saline (100mL Bag) 100 ML IV (11:25)
--- NOTE | 2023-01-05 14:28 | PCM.OPRPT ---
Report of Operation Date of Procedure: 01/05/23 Pre-Operative Diagnosis: Prostate cancer, bladder stone BPH with obstruction Post-Operative Diagnosis: The same Surgery/Procedure Performed:: Laparoscopic robotic assisted radical prostatectomy with bilateral pelvic lymph node dissection and removal of bladder stones large Description of Surgical Findings:: This is a 67-year-old male was found to have Katlin 10 prostate cancer involving the left base of the prostate we talked about options of management including radiation and hormone therapy versus radical prostatectomy. He also has a bladder stone we plan to remove the bladder stones at the same time. He does have a very large prostate. Plan to proceed with removal of the prostate preop imaging with bone scan and CAT scan both demonstrated no evidence of metastatic disease. Patient understands with a high risk cancer is always possible he had [employer] metastatic disease always possible he is can need further treatment such as radiation treatment hormone therapy and other treatments in the future. Patient is taken back to the operating room and is with duction of general anesthesia he was placed in dorsolithotomy position. The penis and testicle and abdomen were shaved prepped and draped in usual sterile fashion. First made a infiltrated above the umbilicus with lidocaine, made a small incision and then placed the port above the umbilicus we then went into the abdomen inflate insufflated the abdomen and we placed a right arm trocar to left arm trocars air seal port and suction trocar. We then proceeded with the dissection. I first mobilized the colon off the lateral wall was able then then retract the colon out of the pelvis we then went below the bladder incised the peritoneum over the vas deferens traced the vas deferens down to the connection to the prostate on the right side and then also on the left side. I then dissected posterior to the prostate above Denonvilliers' fascia all the way to the apex and then carried this dissection laterally as far as possible and came back and then transected through the vas deferens and released the several vesicle using electrocautery on the blood vessels and then the same thing on the other side transected the vas deferens and released the seminal vesicles on the left side, we then pulled out of the pelvis we dropped the bladder created the space of Retzius with the bladder on traction I then went to the lymph nodes on the right side and performed a lymph node dissection using the vessel sealer and took out a large segment of lymph node and fatty tissue off the iliac veins and obturator space the limits of the dissection with the iliac vein internal iliac vein lateral wall and the obturator nerve once this was done on both sides we did a complete lymph node dissection on both sides and this was handed off as a specimen. We then pushed the prostate on traction laterally and dissected the endopelvic fascia freeing up the prostate laterally the lateral attachments and then we did this on the right both the right and left side I then opened up the peritoneum over the prostate and then opened up the endopelvic fascia over the dorsal vein complex we placed the placed a clamp on the dorsal vein complex and then then suture-ligated dorsal vein complex I then went back to the bladder prostate junction I then pulled the bladder on traction we then opened up the bladder away from the prostate in nature as far enough away not to get into the base of the prostate since there was a lot of high-grade cancer in the base of the prostate and then open the bladder and then there was a very large protruding prostate into the bladder. I did dissect around this very large cystotomy had to be made then the stone was also identified within the bladder the stone was then removed and put in an Endo Catch bag and this was done. And then I continued dissecting the prostate off the muscles of the bladder I think inferior and then we went to the left side we took the pedicle to the bladder and prostate junction with the vessel sealer and then I took the small vessels to the prostate with clips and then was able to free up the neurovascular bundle on the right side all the way up to the apex and freed this up so was able to spare the nerve on the right side. We then went to the left side we took the pedicle with the vessel sealer and then I was able to come through on the left side count of a more of a wider dissection but there was not any hard or sticky tissue but then weeks just To the prostate and then a nerve partial nerve sparing on the left side again he had very high-grade cancer in the left side so did not get as close to the prostate to do a full nerve sparing just a partial nerve sparing the left side we then transected through the dorsal vein complex circumflex circumferentially dissected around the urethra and then transected the urethra and had a nice urethral stump with good length prostate was then put in Endo Catch bag I then reconstructed the bladder neck on the bladder side and then the stone and I been removed and put in the Endo Catch bag and then at this point then we did anastomosis suspension of the urethra to the prostate after the reconstruction was done running stitches from the urethra to the bladder neck in a continuous fashion over a catheter after this was accomplished then robot was then docked we put the prostate on the middle trocar and then we extracted the prostate to the umbilicus the extraction site was closed with 2 [id number] stitches with 0 Vicryl we then closed all the other stitches with subcuticular stitches we closed a Marc Pitt was used to close the 1012 Marc 1012 trocar where the air seal port was and then the patient's anesthetic was reversed we flushed out the catheter blood loss was 200 cc and I was present for the entire case patient did well go talk to the family Surgeon: Deandre Davison Type of Anesthesia: General Drains: 18 fr chickaloon Estimated Blood Loss (mL): 200 Admit VTE Documentation VTE Present on Admission: No VTE Mechan Device Prophylaxis: SCD's VTE Pharm Prophylaxis ordered?: No
[2023-01-05] MEDS: Bupivacaine Mpf 0.5% 30 ML VIAL (14:30)
[2023-01-05] MEDS: 0.9% Saline Lock 10 ML Syringe IV (16:56)
[2023-01-05] MEDS: Ketorolac 30 MG/ML Syringe 15 MG IV ×2 (16:56→20:56)
[2023-01-05] MEDS: 0.9% Normal Saline (1000mL) 1,000 ML 125 ML IV (16:57)
[2023-01-05] MEDS: Docusate Sodium 100 MG Capsule 200 MG PO (20:55)
[2023-01-05] MEDS: Ciprofloxacin 500 MG Tablet PO (20:56)
[2023-01-06] MEDS: 0.9% Normal Saline (1000mL) 1,000 ML 125 ML IV (01:06)
[2023-01-06 03:06] VITALS: BP 137/81; PULSE 60; RESP 18; TEMP 36.8; O2SAT 96
[2023-01-06] MEDS: Ketorolac 30 MG/ML Syringe 15 MG IV ×2 (03:09→09:53)
[2023-01-06 06:35] LABS: Hematocrit 41.5 % (40-54); Hemoglobin 14.5 g/dL (13.0-16.5); Mean Corp Hgb Conc 34.9 g/dL (32-36); Mean Corpuscular Volume 88.9 fL (80-94); Mean Platelet Vol. 10.2 fl (6.2-12.0); Platelet Count 156 K/mm3 (150-450); RBC Distribution Width CV 12.6 % (11.6-14.6); RBC Distribution Width SD 40.9 fl (35.1-43.9); Red Blood Count 4.67 M/mm3 (4.6-6.2); White Blood Count 10.6 K/mm3 (4.4-11.0)
[2023-01-06 07:27] LABS: Anion Gap 5 (5-15); BUN 13 mg/dL (7-18); BUN/Creat Ratio 12.7 RATIO (10-20); Calcium,Total 7.6 mg/dL (8.5-10.1); Chloride 109 mmol/L (98-107); Creatinine, Serum 1.02 mg/dL (0.70-1.30); EST Glomerular Filtration Rate 77 mL/min (>60); Est Glom Filt Rate - Afr Amer 94 mL/min (>60); Glucose 97 mg/dL (74-106); Potassium 3.9 mmol/L (3.5-5.1); Sodium Level 140 mmol/L (136-145)
--- NOTE | 2023-01-06 07:29 | PN.URO_ITS ---
Subjective Subjective Postop day #1 status post radical prostatectomy he is doing well, we can Hep- Lock his IV fluids, out of bed ambulate regular diet. He can go home today with a catheter to leg bag he will need leg bag teaching follow-up in 2 weeks to cath catheter removed. Objective Data Objective Data Vital Signs: Vital Signs Temp Pulse Resp BP Pulse Ox O2 Del Method 98.2 F 60 18 137/81 H 96 Room Air 01/06/23 03:06 01/06/23 03:06 01/06/23 03:06 01/06/23 03:06 01/06/23 03:06 01/06/23 03:06 Oxygen Delivery Method Room Air Weight: 82.1 kg Body Mass Index (BMI) 27.2 Intake & Output: Intake and Output for Last 24 Hours 01/04/23 01/05/23 01/06/23 23:59 23:59 23:59 Intake Total 243.25 / 243.25 1000 / 1000 Output Total 1750 / 1750 350 / 350 Balance -1506.75 / -1506.75 650 / 650 Lab / Micro Data 01/06/23 05:25 01/06/23 05:25 Labs: Laboratory Results - last 24 hr 01/06/23 05:25: WBC 10.6, RBC 4.67, Hgb 14.5, Hct 41.5, MCV 88.9, MCH 31.0, MCHC 34.9, RDW Std Deviation 40.9, RDW Coeff of Alvaro 12.6, Plt Count 156, MPV 10.2, Sodium 140, Potassium 3.9, Chloride 109 H, Carbon Dioxide 26.0, Anion Gap 5, BUN 13, Creatinine 1.02, Estim Creat Clear Calc 65.70, Est GFR (MDRD) Af Amer 94, Est GFR (MDRD) Non-Af 77, BUN/Creatinine Ratio 12.7, Glucose 97, Calcium 7.6 L
[2023-01-06 08:13] VITALS: BP 132/79; PULSE 60; TEMP 36.9; O2SAT 95
[2023-01-06 09:00] VITALS: BP 141/83; PULSE 80; RESP 18; TEMP 36.4; O2SAT 97
--- NOTE | 2023-01-06 09:31 | CASEMGMT ---
RN CM into pt room, pt sitting up in chair with at bedside. Pt states he feels comfortable dc'ing with the sarabia catheter. states that she is going to learn to care for it. Pt is otherwise SBA and denies any homegoing needs.
[2023-01-06] MEDS: Docusate Sodium 100 MG Capsule 200 MG PO (09:42)
[2023-01-06] MEDS: Multivitamins,Therapeutic Tablet 1 TABLET PO (09:42)
[2023-01-06] MEDS: Ciprofloxacin 500 MG Tablet PO (09:42)
[2023-01-06] MEDS: amLODIPine 5 MG Tablet PO (09:42)
[2023-01-06] MEDS: Pantoprazole Sodium 40 MG Tablet PO (09:43)
--- NOTE | 2023-01-06 11:24 | PHA.DC_ITS ---
Pharmacy [facility] Pharmacy Service has performed discharge medication reconciliation and counseling for this patient. The patient was counseled on the following discharge medications and changes in medications for homegoing were reviewed. 1. CIPRO 2. OXYCODONE 3. DOCUSATE The Reason for Use, instructions for use, and potential side effects were reviewed for all new medications. The patient's questions regarding all of their medications were answered. The patient was able to verbally demonstrate an understanding of their discharge medications. The patient's discharge medication list was reviewed for discrepancies and discrepancies were resolved. Medications at Discharge Home Medications lansoprazole 30 mg capsule,delayed release 30 mg PO DAILY 12/02/18 amlodipine 5 mg tablet 5 mg PO DAILY 12/21/22 docusate sodium 100 mg capsule (DOK) 100 mg PO DAILY 12/21/22 multivitamin (Daily Multi-Vitamin tablet) 1 tab PO DAILY 12/21/22 ciprofloxacin HCl 500 mg tablet (Cipro) 500 mg PO BID #20 tabs 01/05/23 docusate sodium 100 mg capsule (Colace) 100 mg PO BID #20 caps 01/05/23 oxycodone 5 mg tablet 5 mg PO Q6H PRN pain 7 days #14 tabs 01/05/23
[2023-01-06 12:17] VITALS: BP 137/80; PULSE 70; RESP 18; TEMP 37; O2SAT 98
== END 2023-01-06 12:25 | disposition home or self-care (01) ==
LOC: SDC 15:20 → MS3 15:20
PROVIDERS: Anesthesiology; Admitting Provider Urology; PCP Family Medicine; Referring Provider Urology; Visit Provider Urology
PROC: 0VT04ZZ Resection of Prostate, Percutaneous Endoscopic Approach (ICD-10-PCS; CPT 55866; principal; 2023-01-05 10:45)
DX: C61 Malignant neoplasm of prostate (principal); N40.1 Benign prostatic hyperplasia with lower urinary tract symptoms; I10 Essential (primary) hypertension; N13.8 Other obstructive and reflux uropathy; M19.90 Unspecified osteoarthritis, unspecified site; K21.9 Gastro-esophageal reflux disease without esophagitis; Z79.899 Other long term (current) drug therapy
CPT/HCPCS: 55866; 00865; 51050; 36415; 80048; 85027; 86850; 86900; 86901; 88304; 88305; 88307; 88309; 93005; 94668; 96361; 96374; 96376; 99221; J7030; J7120; A4216; G0378; J2405

== ENCOUNTER → 2023-03-02 | Outpatient (CLI) | payer MEDICARE, BC, SELFPAY ==
[2023-03-02 12:57] LABS: PSA,Total- Diagnostic 3.16 ng/mL (0.0-4.0)
== END | disposition home or self-care (01) ==
PROVIDERS: PCP Family Medicine; Visit Provider Nurse Practitioner
DX: C61 Malignant neoplasm of prostate (principal)
CPT/HCPCS: 36415; 84153

== ENCOUNTER → 2023-04-28 | Outpatient (CLI) | payer MEDICARE, BC, SELFPAY ==
--- OUTSIDE RECORDS SUMMARY | 2023-04-28 12:14 | XMS RPT_ITS | CCD ---
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 Name Role Phone KATE SCHOFIELD Unavailable Unavailable KATE SCHOFIELD Unavailable Unavailable KIKE THRASHER (PRODUCT/DEVICE TECHNOLOGIST) Unavailable Unavailable Allergies Allergy Classification Reported Allergen(s) Allergy Type Date of Onset Reaction(s) Facility (1 source) Penicillins; Translations: [PENICILLINS] Propensity to adverse reactions to drug (disorder) 5 AOF [facility] Repository Problems Active Problems Problem Classification Problem Date Documented Da te Episodic/Chronic Esophageal disorders (1 source) Gastro-esophagea l reflux disease without esophagitis; Translations: [Gastro-esophage al reflux disease without esophagitis] Onset: 10-25-2016 Chronic Past or Other Problems Problem Classification Problem Date Documented Da te Episodic/Chronic Unclassified (1 source) Family history of malignant neoplasm of digestive organs; Translations: [Family history of malignant neoplasm of digestive organs] Onset: 10-25-2016 Episodic Results Test Name Value Interpretation Reference Range Facil ity Encounters Encounter Date Encounter Type Care Provider Facility Start: 10-25-2016 End: 10-25-2016 Ambulatory KATE SCHOFIELD [facility] Summary Purpose Family History No Family History Records Found Advance Directives No Advanced Directives Records Found Additional Source Comments (unrecognized sect ion and content) No Status Records Found INFORMATION SOURCE (unrecogn ized section and content) FOR RECORDS PERTAINING TO PATIENTS WHO ARE OR HAVE BEEN ENROLLED IN A CHEMICAL DEPENDENCY/SUBSTANCEABUSE PROGRAM, SOME INFORMATION MAY BE OMITTED. This clinical summary was aggregated from multiple sources. Caution should be exercised in using it in the provision of clinical care. This summary normalizes information from multiple sources, and as a consequence, information in this document may materially change the coding, format and clinical context of patient data. In addition, data may be omitted in some cases. CLINICAL DECISIONS SHOULD BE BASED ON THE PRIMARY CLINICAL RECORDS. [facility] provides no warranty or guarantee of the accuracy or completeness of information in this document.
--- NOTE | 2023-04-28 12:29 | MRI_ITS ---
STUDY: MR PROSTATE GLAND/ PELVIS WITH T WITHOUT CONTRAST REASON FOR EXAM: Male, 67 years old. persistent Post op PSA -- eval for pelvic prostate cancer INCREASING PSA LEVELS S/P SURGERY, NO NEW CONCERNS, 15CC CLARISCAN TECHNIQUE: Standardized fat and water weighted pulse sequences were obtained in all 3 orthogonal planes, pre-and post contrast administration. IV 15cc clariscan was administered for the contrast portion of the examination. COMPARISON: PET/CT dated March 29, 2023. CT of abdomen and pelvis dated April 28, 2023 FINDINGS: Prostate gland volume/size: Prior prostatectomy. No recurrent mass or cyst or fluid collection is seen in the prostate bed. No pelvic sidewall lymphadenopathy is present. Seminal vesicles: Small but grossly unremarkable Pelvic sidewall lymphadenopathy: None present on the current study Bony structures: No lytic or blastic lesions or marrow edema or abnormal enhancement. Mild circumferential bladder wall thickening and mild trabeculation. Surgical susceptibility artifact is seen in the base of the bladder. No bladder masses are present. Normal visualized small intestine. There are multiple colonic diverticula of the sigmoid colon consistent with chronic diverticulosis. There is no pelvic fluid. Normal osseous structures. Normal abdominal wall. MRI/Pelvis W/WO Contrast IMPRESSION: 1. Status post prostatectomy 2. No visualized recurrent prostate mass or cyst or fluid collection 3. PI-RADS 1: very low (clinically significant cancer is highly unlikely to be present) 4. No visualized pelvic lymphadenopathy or soft tissue masses. Reference information: Normal prostate tissue Benign prostatic hypertrophy cancer/tumor - low signal peripheral , transitional, and central zones malignancy appears as bright on DWI and low signal on ADC map Prostate imaging-reporting and data system (PI-RADS) PI-RADS 1: very low (clinically significant cancer is highly unlikely to be present) PI-RADS 2: low (clinically significant cancer is unlikely to be present) PI-RADS 3: intermediate (the presence of clinically significant cancer is equivocal) PI-RADS 4: high (clinically significant cancer is likely to be present) PI-RADS 5: very high (clinically significant cancer is highly likely to be present) PI-RADS X: component of exam technically inadequate or not performed Prostate malignancy distribution: Peripheral zone: 70-80% Transitional zone: 10-20% Central zone: 5% or less Electronically Signed: Yonatan Jean Baptiste MD at 13:12 EST Reading Location ID and State: [facility] / [place] , Service support ,
[2023-04-28 12:41] LABS: CREATININE FINGERSTICK < 1.0 mg/dL (0.70-1.30); EGFR FINGERSTICK > 60.0000 mL/min (>60)
== END | disposition home or self-care (01) ==
PROVIDERS: PCP Family Medicine; Referring Provider Student in an Organized Health Care Education/Training Program; Visit Provider Student in an Organized Health Care Education/Training Program
DX: C61 Malignant neoplasm of prostate (principal); R97.21 Rising PSA following treatment for malignant neoplasm of prostate; Z19.1 Hormone sensitive malignancy status
CPT/HCPCS: 72197; A9575

== ENCOUNTER → 2023-07-11 | Outpatient (CLI) | payer MEDICARE, BC, SELFPAY ==
[2023-07-11 16:28] LABS: PSA,Total- Diagnostic < 0.01 ng/mL (0.0-4.0)
== END | disposition home or self-care (01) ==
LOC: LAB 15:03
PROVIDERS: PCP Family Medicine; Visit Provider Nurse Practitioner
DX: C61 Malignant neoplasm of prostate (principal)
CPT/HCPCS: 36415; 84153

== ENCOUNTER 2023-07-14 16:38 | Inpatient (IN) | payer MEDICARE, BC, SELFPAY ==
[2023-07-14] VITALS (16 sets, daily range): BP systolic 89–148; BP diastolic 57–120; PULSE 48–87; RESP 14–22; TEMP 35.5–36.6; O2SAT 91–96; BMI 30.2; BMI 28.2
--- NOTE | 2023-07-14 16:40 | RAD_ITS ---
EXAM: XR CHEST, 1 VIEW CLINICAL INDICATION: stemi TECHNIQUE: Frontal view of the chest. COMPARISON: No relevant prior studies available. FINDINGS: LUNGS AND PLEURAL SPACES: Unremarkable. No consolidation or edema. No pneumothorax. No effusion. HEART: Unremarkable. Cardiac silhouette not enlarged. MEDIASTINUM: Central airways and mediastinal contour are unremarkable. BONES/JOINTS: Unremarkable. No acute fracture. SOFT TISSUES: Unremarkable. RAD/Chest 1 View (Portable) IMPRESSION: No radiographic evidence of acute cardiopulmonary disease. Electronically Signed: Noah Donovan MD at 17:29 EDT ,
--- NOTE | 2023-07-14 16:45 | EKG12_ITS ---
Test Reason : stemi Blood Pressure : / mmHG Vent. Rate : 052 BPM Atrial Rate : 052 BPM P-R Int : 148 ms QRS Dur : 094 ms QT Int : 476 ms P-R-T Axes : 089 035 -40 degrees QTc Int : 442 ms Critical Test Result: STEMI Sinus bradycardia Anteroseptal infarct , possibly acute Lateral injury pattern ACUTE NM / STEMI Abnormal ECG Confirmed by RUSSELL DEL TORO, PRASHANTH ([id number]), science editor SHOBHA WOODRUFF ([id number]) on 07/15/2023 9:15:03 AM Referred By: Kristin Jett Confirmed By:PRASHANTH WELLS MD
[2023-07-14] MEDS: 0.9% Normal Saline (1000mL) 1,000 ML 999 ML IV ×2 (16:53→16:57)
[2023-07-14] MEDS: Ondansetron 4 MG/2 ML Vial IV (16:54)
[2023-07-14] MEDS: Morphine 2 MG/ML Syringe IV ×2 (16:55→16:57)
--- NOTE | 2023-07-14 17:00 | EDS_ITS ---
HPI History of Present Illness Chief Complaint: Chest Pain Informant: patient and EMS Narrative Narrative: 67-year-old male presenting to the emergency room as a prehospital STEMI. Patient [employer] for lunch. He was at [employer] with a friend when he had a sudden onset of chest pain in the center of his chest. He notes diaphoresis and shortness of breath. Prehospital EKG showed ST elevation anteriorly with inferior depression. He received aspirin Brilinta and 4000 units heparin. Fluid bolus was started as he was hypotensive. Nitroglycerin was held. He is got a history of prostate cancer treated last fall. Not currently undergoing treatment. Patient denies any known coronary artery disease. He does note a history of hypertension. [facility] Medical History Arthritis Cancer Colitis Gastric reflux History of hiatal hernia History of stress test Hypertension Kidney stone Non-smoker Wears glasses Home Medications lansoprazole 30 mg capsule,delayed release 30 mg PO DAILY 12/02/18 [History Last Taken 01/03/23] amlodipine 5 mg tablet 5 mg PO DAILY 12/21/22 [History Last Taken 01/03/23] multivitamin (Daily Multi-Vitamin tablet) 1 tab PO DAILY 12/21/22 [History Last Taken 01/03/23] lutein 20 mg capsule 20 mg PO DAILY 03/24/23 [History Last Taken Unknown] losartan 50 mg tablet 50 mg PO DAILY 05/25/23 [History Last Taken Unknown] aspirin 81 mg chewable tablet 1 tab PO DAILY 07/14/23 [History Last Taken Unknown] Allergy/AdvReac Type Severity Reaction Status Date / Time lisinopril Allergy Unknown Nausea Verified 07/14/23 16:39 Penicillins Allergy Rash Verified 07/14/23 16:39 Family History Father Myocardial infarction Mother Cancer Surgical History Hx of surgical procedure Social History Smoking Status: Never smoker alcohol intake: never substance use type: does not use ROS ROS ED ROS Narrative Patient appears in significant mount of pain. Constitutional Constitutional ED: Denies chills, fever(s) or weight loss Eyes Eyes: Denies change in vision or diplopia ENT ENT ED: Denies ear pain, rhinorrhea or sore throat Cardiovascular Cardiovascular: Reports chest pain; Denies orthopnea, palpitations or racing heartbeat Respiratory/Chest Respiratory/Chest: Reports dyspnea; Denies cough or orthopnea Gastrointestinal Gastrointestinal: Denies abdominal pain, diarrhea, nausea or vomiting Genitourinary Genitourinary ED: Denies dysuria, hematuria or urinary frequency Musculoskeletal Musculoskeletal: Denies arthralgias or myalgias Integumentary Reports other Details: Diaphoresis ; Denies abscess or rash Neurologic Neurologic: Denies headache(s) or weakness Psychiatric Psychiatric: Denies anxiety, depression, suicidal ideation or suicidal thoughts Endocrine Endocrinology: Denies polydipsia, polyphagia or polyuria Allergic/Immunologic Allergic/Immunologic ED: Denies mouth swelling, tongue swelling or urticaria EXAM Physical Exam Narrative Exam Narrative: Patient appears in pain Const Vital Signs: 07/14/23 16:39 07/14/23 16:39 07/14/23 16:46 Temperature Temperature Source Pulse Rate 48 L Respiratory Rate 18 18 Respiratory Effort Normal Non-Labored Blood Pressure 148/120 H 148/120 H Blood Pressure Mean 129 Pulse Ox Oxygen Delivery Method Nasal Cannula Oxygen Flow Rate (L/min) 2 07/14/23 16:48 07/14/23 16:45 07/14/23 16:47 Temperature 96 F L Temperature Source Temporal Pulse Rate 68 Respiratory Rate 22 H Respiratory Effort Blood Pressure 148/120 H 98/57 L Blood Pressure Mean 129 70 Pulse Ox 91 Oxygen Delivery Method Nasal Cannula Nasal Cannula Oxygen Flow Rate (L/min) 3 4 07/14/23 16:58 07/14/23 17:02 07/14/23 17:09 Temperature 96 F L Temperature Source Pulse Rate 67 66 Respiratory Rate 21 H 18 Respiratory Effort Blood Pressure 89/67 L 92/68 92/68 Blood Pressure Mean 74 76 76 Pulse Ox 96 95 Oxygen Delivery Method Nasal Cannula Oxygen Flow Rate (L/min) 4 Positive well nourished and well developed General Appearance ED: well developed HEENT Reports normocephalic, head/scalp atraumatic and moist mucous membranes Eyes PERRL and EOMs intact bilaterally Neck no lymphadenopathy, supple and no JVD Resp normal respiratory effort and clear to auscultation bilaterally Cardio regular rate, regular rhythm and no murmurs GI normal to inspection, nondistended, normoactive bowel sounds and non-tender Palpation: soft Back/Spine no CVA tenderness and normal ROM Extremity normal to inspection General Extremety ED: Negative for edema General Extremity: Negative for edema Neuro oriented x3 and CN's II-XII intact bilaterally Sensorium / Orientation: alert Motor Exam: strength 5/5 throughout Psych mental status grossly normal Mood & Affect: Negative for depressed or tearful Skin no rashes or lesions noted and no wounds Skin Narrative: Diaphoretic pale Heart Score History: Highly Suspicious ECG: Significant ST-Depression Age: >/= 65 years Risk Factors: 1 or 2 Risk Factors Score: 7 MDM MDM MDM Narrative Medical decision making narrative: Prehospital STEMI team was called. I met the patient in the resuscitation bay. Patient will fluid boluses were ordered. My independent interpretation of the chest x-ray is No acute process normal mediastinal silhouette. Patient received morphine and Zofran for pain. I spoke with on-call interventionalists Dr. Jett. Blood work was ordered. Distilling Department Supervisor was ready patient was transferred to the Distilling Department Supervisor. History & Record Review Discussion w/independent historian: EMS personnel, Patient and Significant other Lab Data Attestation: I reviewed the patient's lab results. Labs: Laboratory Results - last 24 hr 07/14/23 16:25 WBC 7.6 RBC 4.97 Hgb 14.8 Hct 42.7 MCV 85.9 MCH 29.8 MCHC 34.7 RDW Std Deviation 42.5 RDW Coeff of Alvaro 13.9 Plt Count 228 MPV 9.4 Immature Gran % (Auto) 0.400 Neut % (Auto) 41.9 L Lymph % (Auto) 40.2 [place] % (Auto) 11.4 H Eos % (Auto) 5.4 H Baso % (Auto) 0.7 Absolute Neuts (auto) 3.2 Absolute Lymphs (auto) 3.06 Nucleated RBC % 0 PT 13.0 INR 1.0 APTT 23.3 L Sodium 141 Potassium 3.0 L Chloride 109 H Carbon Dioxide 23.0 Anion Gap 9 BUN 11 Creatinine 1.07 Estim Creat Clear Calc 70.78 Est GFR (MDRD) Af Amer 88 Est GFR (MDRD) Non-Af 73 BUN/Creatinine Ratio 10.3 Glucose 123 H Calcium 9.5 Troponin I High Sens 7 Radiography Diagnostic Testing: Clinical Impression(s) from Imaging Studies Chest X-Ray 07/14/23 16:40 IMPRESSION: No radiographic evidence of acute cardiopulmonary disease. Electronically Signed: Noah Donovan MD at 17:29 EDT , EKG Initial EKG: Attestation: I personally reviewed and interpreted this EKG as follows: Comments: Sinus bradycardia with a ventricular rate of [address] segments inferiorly and elevation anteriorly. Management Discussion w/another healthcare provider: Hospitalist and Stave Inspector (Dr. Jett) Critical Care Time Critical Care Time: Yes Critical care time (excluding procedures): Including time spent:, Discussing w/Patient &/or Family/Spud Grader, Discussing w/Consultants, Arranging Admission or Transfer, Performing Direct Patient Care at Bedside and - (20 minutes) Discharge Plan Dx/Rx/DC Orders Clinical Impression: ST elevation (STEMI) myocardial infarction, Hypertension Disposition Disposition: Acute Care Hospital [facility] Discharge Date/Time: 07/14/23 17:14
[2023-07-14 17:01] LABS: Absolute Lymphocyte Count 3.06 X10^3/uL (0.83-4.51); Absolute Neutrophil Count 3.2 X10^3/uL (2.0-7.7); Basophil# 0.05 X10^3/uL; Basophil% 0.7 % (0-1); Eosinophil# 0.41 X10^3/uL; Eosinophils% 5.4 % (0-5); Hematocrit 42.7 % (40-54); Hemoglobin 14.8 g/dL (13.0-16.5); Lymphocyte # 3.06 X10^3/ul (0.83-4.51); Lymphocyte % 40.2 % (19-41); Mean Corp Hgb Conc 34.7 g/dL (32-36); Mean Corpuscular Hgb 29.8 pg (27.0-32.0); Mean Corpuscular Volume 85.9 fL (80-94); Mean Platelet Vol. 9.4 fl (6.2-12.0); Monocyte# 0.87 X10^3/uL; Monocyte% 11.4 % (0-10); NRBC Flagged by Analyzer 0 % (0-5); Neutrophil % 41.9 % (47-70); Platelet Count 228 K/mm3 (150-450); RBC Distribution Width CV 13.9 % (11.6-14.6); RBC Distribution Width SD 42.5 fl (35.1-43.9); Red Blood Count 4.97 M/mm3 (4.6-6.2); White Blood Count 7.6 K/mm3 (4.4-11.0)
[2023-07-14 17:11] LABS: Partial Thromboplast Time 23.3 Seconds (24.1-36.2)
--- NOTE | 2023-07-14 17:15 | HP.PCM.HOS_ITS ---
HPI - General General Date of Admission: 07/14/23 Date of Service: 07/14/23 Chief Complaint: Chest pressure with prehospital STEMI alert HPI Narrative CARYL LIAO, is a 67 M came to ED by EMS for prehospital STEMI alert. Prior to that patient was eating lunch at [employer] but did not feel well. After that, he went to [employer] with his friend where he felt chest pressure/tightness at midsternal, localized without radiation, severe and acute in onset. Did not feel similar chest pain in the past although he had mild chest pain and VT was ruled out. Patient also had associated shortness of breath, feeling dizzy and diaphoresis but no fainting or passing out. There was no aggravating or relieving factor. Patient states he does swimming for 20 minutes every day. He is not a smoker. In ED, initially BP was 148/120, heart rate 48/min. Later on his blood pressure dropped to 98/57, 89/67 and 92/68. Most recent blood pressure is 115/82 and heart rate 69/min Prehospital EKG shows ST elevation in V1 to V4 with depressions in inferior leads.Repeat EKG in ED also shows ST elevation V1 to V4 and aVL with reciprocal ST depression in inferior leads, sinus bradycardia at 52 bpm. Prehospital STEMI alert was called and patient was taken to [facility] and he had urgent cardiac cath. Coronary angiogram showed totally occluded proximal LAD for which successful revascularization with PTCA/DEBORAH of the proximal LAD. 70% lesion found in the mid LAD. Also required PCI. Subsequently patient admitted to ICU. In ICU patient feels better but he complains of mild upper abdominal discomfort. Shortness of breath and chest pressure is relieved [facility] Medical History Arthritis Cancer Colitis Gastric reflux History of hiatal hernia History of stress test Hypertension Kidney stone Non-smoker Wears glasses Home Medications lansoprazole 30 mg capsule,delayed release 30 mg PO DAILY 12/02/18 [History Last Taken 01/03/23] amlodipine 5 mg tablet 5 mg PO DAILY 12/21/22 [History Last Taken 01/03/23] multivitamin (Daily Multi-Vitamin tablet) 1 tab PO DAILY 12/21/22 [History Last Taken 01/03/23] lutein 20 mg capsule 20 mg PO DAILY 12/14/23 [History Last Taken Unknown] losartan 50 mg tablet 50 mg PO DAILY 05/25/23 [History Last Taken Unknown] aspirin 81 mg chewable tablet 1 tab PO DAILY 07/14/23 [History Last Taken Unknown] Allergy/AdvReac Type Severity Reaction Status Date / Time lisinopril Allergy Unknown Nausea Verified 07/14/23 16:39 Penicillins Allergy Rash Verified 07/14/23 16:39 Family History Father Myocardial infarction Mother Cancer Surgical History Hx of surgical procedure Social History Smoking Status: Never smoker alcohol intake: never substance use type: does not use ROS ROS Narrative Constitutional: Reports fatigue and weakness. No fever. HEENT: Reports systems reviewed and no addt'l complaints, except as documented Respiratory/Chest: No COPD or chronic lung disease. Non-smoker. Respiratory discrimination CVS: As described in HPI Gastrointestinal: Sometimes he gets constipation and abdominal discomfort, chronic from prostate cancer radiation. 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 Denies coffee ground emesis, hematemesis or vomiting Genitourinary: History of prostate cancer status postradiation. Denies burning urination or new urinary tract symptoms Musculoskeletal: Denies acute joint pain or limited range of motion. No acute injury Neurologic: Denies seizure-like symptoms. skin: No ulcer. No rash Endocrinology: Reports systems reviewed and no addt'l complaints, except as documented Hematologic/Lymphatic: Reports systems reviewed and no addt'l complaints, except as documented Rest 14 ROS are negative except as mentioned in HPI Vital Signs Vital Signs Vital Signs: 07/14/23 16:39 07/14/23 16:39 07/14/23 16:46 Temperature Temperature Source Pulse Rate 48 L Respiratory Rate 18 18 Respiratory Effort Normal Non-Labored Blood Pressure 148/120 H 148/120 H Blood Pressure Mean 129 Pulse Ox Oxygen Delivery Method Nasal Cannula Oxygen Flow Rate (L/min) 2 07/14/23 16:48 07/14/23 16:45 07/14/23 16:47 Temperature 96 F L Temperature Source Temporal Pulse Rate 68 Respiratory Rate 22 H Respiratory Effort Blood Pressure 148/120 H 98/57 L Blood Pressure Mean 129 70 Pulse Ox 91 Oxygen Delivery Method Nasal Cannula Nasal Cannula Oxygen Flow Rate (L/min) 3 4 07/14/23 16:58 07/14/23 17:02 07/14/23 17:09 Temperature 96 F L Temperature Source Pulse Rate 67 66 Respiratory Rate 21 H 18 Respiratory Effort Blood Pressure 89/67 L 92/68 92/68 Blood Pressure Mean 74 76 76 Pulse Ox 96 95 Oxygen Delivery Method Nasal Cannula Oxygen Flow Rate (L/min) 4 Weight Weight: 193 lb 1.999 oz Body Mass Index (BMI) 30.2 Physical Exam Narrative General: Alert, Oriented x3, Cooperative HEENT: Atraumatic, PERRLA, EOMI, Normocephalic Oral: Oral mucosa dry. No Gingival or Mucosal Lesions/ Ulcerations Neck: Supple, No JVD, Negative Carotid Bruits Chest wall/Lungs: Air entry diminished in bilateral lung bases. No crepitation/rhonchi Cardiovascular: Regular rate, Regular Rhythm, Normal S1, Normal S2, No M/G/R Abdomen: Bowel Sounds Present/hypoactive, Soft, Non Tender, Non-Distended : No dysuria. No renal angle tenderness. No suprapubic tenderness. Extremities: No edema, Capillary Refill Less than 3 Seconds Skin: No rashes, No breakdown Musculoskeletal: No Tenderness to Palpation of Joints or Extremities Neurological: Cranial nerves II-XII grossly intact, DTR 2+/4. No acute focal neurological deficit. Psych/Mental Status: Flat affect. Results Lab / Micro Data 07/14/23 16:25 07/14/23 16:25 Labs: Laboratory Results - last 24 hr 07/14/23 16:25: WBC 7.6, RBC 4.97, Hgb 14.8, Hct 42.7, MCV 85.9, MCH 29.8, MCHC 34.7, RDW Std Deviation 42.5, RDW Coeff of Alvaro 13.9, Plt Count 228, MPV 9.4, Immature Gran % (Auto) 0.400, Neut % (Auto) 41.9 L, Lymph % (Auto) 40.2, [place] % (Auto) 11.4 H, Eos % (Auto) 5.4 H, Baso % (Auto) 0.7, Absolute Neuts (auto) 3.2, Absolute Lymphs (auto) 3.06, Nucleated RBC % 0, PT 13.0, INR 1.0, APTT 23.3 L Assessment & Plan Assessment/Plan (1) ST elevation (STEMI) myocardial infarction: QUALIFIERS: Involved coronary artery: LAD coronary artery Qualified Code(s): I21.02 - ST elevation (STEMI) myocardial infarction involving left anterior descending coronary artery PLAN: Plan This is a 87-year-old gentleman being admitted for anterior wall STEMI. 1. Anterior wall STEMI: Patient had successful revascularization of proximal and mid LAD with PTCA/DEBORAH. Heart rate and blood pressure is stabilized. Patient on baby aspirin, Integrilin drip, Brilinta, low-dose metoprolol and losartan and high intensity atorvastatin. 2D echo tomorrow a.m. fasting profile tomorrow AM. First troponin was normal. 2. Mild hypokalemia: Potassium replacement ordered. Serum magnesium and phosphorus ordered. 3. 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 Clinically abdomen is soft and nontender. 4. Prostate cancer status postradiation: Clinically seems in remission. 5. Hypertension: Home medication shows patient on amlodipine and losartan. He restarted on losartan low-dose 25 mg daily and metoprolol 12.5 mg twice daily. 6. DVT prophylaxis: Patient was on heparin drip prior to taken to [facility]. Currently on Integrilin. Lovenox 40 mg subcu daily after 24 hours of cardiac cath. Living will/advanced directive/end of life care: Patient does have living will or advanced directive. After discussion of benefits/risks procedures involved with full code, DNR CC arrest and DNR CC, the patient opted for full code. Patient does want artificial life support including intubation, tube feed, ventilator and/chest compression, central venous catheter, vasopressor and DC shock if needed Total time spent in [id number] encounter in discussion of advanced di rective 17 minutes. Laboratory Results 07/14/23 16:25: WBC 7.6, RBC 4.97, Hgb 14.8, Hct 42.7, MCV 85.9, MCH 29.8, MCHC 34.7, RDW Std Deviation 42.5, RDW Coeff of Alvaro 13.9, Plt Count 228, MPV 9.4, Immature Gran % (Auto) 0.400, Neut % (Auto) 41.9 L, Lymph % (Auto) 40.2, [place] % (Auto) 11.4 H, Eos % (Auto) 5.4 H, Baso % (Auto) 0.7, Absolute Neuts (auto) 3.2, Absolute Lymphs (auto) 3.06, Nucleated RBC % 0, PT 13.0, INR 1.0, APTT 23.3 L, Sodium 141, Potassium 3.0 L, Chloride 109 H, Carbon Dioxide 23.0, Anion Gap 9, BUN 11, Creatinine 1.07, Estim Creat Clear Calc 70.78, Est GFR (MDRD) Af Amer 88, Est GFR (MDRD) Non-Af 73, BUN/Creatinine Ratio 10.3, Glucose 123 H, Calcium 9.5, Troponin I High Sens 7 07/14/23 17:17: Activated Clotting Time 163 H 07/14/23 18:05: Activated Clotting Time 239 H Charges/Coding Visit Charges Inpatient E&M: 73459 Init Hosp L3 Procedures Hospitalists Procedures: 55675 Advncd Care Plan 30 Min
[2023-07-14 17:19] LABS: Anion Gap 9 (5-15); BUN 11 mg/dL (7-18); BUN/Creat Ratio 10.3 RATIO (10-20); Calcium,Total 9.5 mg/dL (8.5-10.1); Chloride 109 mmol/L (98-107); Creatinine, Serum 1.07 mg/dL (0.70-1.30); EST Glomerular Filtration Rate 73 mL/min (>60); Est Glom Filt Rate - Afr Amer 88 mL/min (>60); Estimated Creatinine Clearance 70.78 ml/min; Glucose 123 mg/dL (74-106); Sodium Level 141 mmol/L (136-145); Troponin-I HS 7 pg/mL (3.0-78.0)
[2023-07-14] MEDS: EPTIFIBATIDE 75 MG/100 ML VIAL 13.1 MG CONT INF (17:55)
--- NOTE | 2023-07-14 18:15 | CON.PCM.CA_ITS ---
Assessment & Plan Assessment/Plan (1) ST elevation (STEMI) myocardial infarction: PLAN: Patient was taken emergently to the cardiac catheterization lab. Coronary angiography revealed totally occluded proximal LAD. Successful revascular ization was performed with balloon angioplasty and drug-eluting stent to the proximal LAD. Also noted to have about 70% lesion in the mid LAD. That was also intervened upon with a drug-eluting stent. Excellent results were noted. Continue aspirin lifelong. Brilinta for at least 1 year. (2) Coronary artery disease: PLAN: See #1 above. Aspirin, ticagrelor, beta-blockers, ACEI. Statins. (3) Hypertension: PLAN: Beta-blockers, VAISHNAVI inhibitors. (4) Prostate cancer: PLAN: As per oncology. HPI Consult Data Date of Consult: 07/14/23 HPI Narrative Reason for Consultation: STEMI HPI Narrative: This gentleman has past medical history significant for hypertension and prostate cancer. He started having anterior chest discomfort early this evening. EMS was called. An EKG done in the field showed changes compatible with acute anterior myocardial infarction. Subsequently a STEMI alert was called. Patient denies any radiation of the discomfort to the arm neck or jaw. Denies any associated shortness of breath. Denies any previous history of cardiac disease. FORMERLY [facility] Medical History Arthritis Cancer Colitis Gastric reflux History of hiatal hernia History of stress test Hypertension Kidney stone Non-smoker Wears glasses Home Medications lansoprazole 30 mg capsule,delayed release 30 mg PO DAILY 12/02/18 [History Last Taken 01/03/23] amlodipine 5 mg tablet 5 mg PO DAILY 12/21/22 [History Last Taken 01/03/23] multivitamin (Daily Multi-Vitamin tablet) 1 tab PO DAILY 12/21/22 [History Last Taken 01/03/23] lutein 20 mg capsule 20 mg PO DAILY 03/24/23 [History Last Taken Unknown] losartan 50 mg tablet 50 mg PO DAILY 05/25/23 [History Last Taken Unknown] aspirin 81 mg chewable tablet 1 tab PO DAILY 07/14/23 [History Last Taken Unknown] Allergy/AdvReac Type Severity Reaction Status Date / Time lisinopril Allergy Unknown Nausea Verified 07/14/23 16:39 Penicillins Allergy Rash Verified 07/14/23 16:39 Family History Father Myocardial infarction Mother Cancer Surgical History Hx of surgical procedure Social History Smoking Status: Never smoker alcohol intake: never substance use type: does not use Physical Exam Narrative Appears moderately distressed. Heart sounds 1 and 2 are noted. Chest examination shows decreased breath sounds at bases. Alert oriented x 3. No ankle edema. Risk Stratification Risk Stratification Applicable: No Objective Data Vital Signs: Vital Signs Temp Pulse Resp BP Pulse Ox O2 Del Method O2 Flow Rate 96 F L 66 18 92/68 95 Nasal Cannula 4 07/14/23 17:02 07/14/23 17:02 07/14/23 17:02 07/14/23 17:09 07/14/23 17:02 07/14/23 16:58 07/14/23 16:58 Oxygen Flow Rate (L/min) 4 Oxygen Delivery Method Nasal Cannula Weight: 193 lb 1.999 oz Body Mass Index (BMI) 30.2 Intake & Output: Intake and Output for Last 24 Hours 07/12/23 07/13/23 07/14/23 23:59 23:59 23:59 Intake Total 66.6 / 66.6 Balance 66.6 / 66.6 Lab / Micro Data 07/14/23 16:25 07/14/23 16:25 Labs: Laboratory Results - last 24 hr 07/14/23 16:25: WBC 7.6, RBC 4.97, Hgb 14.8, Hct 42.7, MCV 85.9, MCH 29.8, MCHC 34.7, RDW Std Deviation 42.5, RDW Coeff of Alvaro 13.9, Plt Count 228, MPV 9.4, Immature Gran % (Auto) 0.400, Neut % (Auto) 41.9 L, Lymph % (Auto) 40.2, [place] % (Auto) 11.4 H, Eos % (Auto) 5.4 H, Baso % (Auto) 0.7, Absolute Neuts (auto) 3.2, Absolute Lymphs (auto) 3.06, Nucleated RBC % 0, PT 13.0, INR 1.0, APTT 23.3 L, Sodium 141, Potassium 3.0 L, Chloride 109 H, Carbon Dioxide 23.0, Anion Gap 9, BUN 11, Creatinine 1.07, Estim Creat Clear Calc 70.78, Est GFR (MDRD) Af Amer 88, Est GFR (MDRD) Non-Af 73, BUN/Creatinine Ratio 10.3, Glucose 123 H, Calcium 9.5, Troponin I High Sens 7 Cardiology Labs/Tests 07/14/23 16:25: WBC 7.6, RBC 4.97, Hgb 14.8, Hct 42.7, MCV 85.9, MCH 29.8, MCHC 34.7, Plt Count 228, MPV 9.4, Immature Gran % (Auto) 0.400, Neut % (Auto) 41.9 L , Lymph % (Auto) 40.2, [place] % (Auto) 11.4 H, Eos % (Auto) 5.4 H, Baso % (Auto) 0.7, Absolute Neuts (auto) 3.2, Nucleated RBC % 0, PT 13.0, INR 1.0, APTT 23.3 L , Sodium 141, Potassium 3.0 L, Chloride 109 H, Carbon Dioxide 23.0, Anion Gap 9, BUN 11, Creatinine 1.07, Est GFR (MDRD) Af Amer 88, Est GFR (MDRD) Non-Af 73, BUN/Creatinine Ratio 10.3, Glucose 123 H, Calcium 9.5 Rhythm: EKG: ECG done in the emergency room changes consistent with acute anterior ST elevation myocardial infarction. ECHO: Stress Test: Cardiac Cath: PCI: CT Surgery: Holter monitor: EPS: PPM: CXR: Chest CT Scan: Radiography Diagnostic Testing: Radiology Impression Chest X-Ray 07/14/23 16:40 IMPRESSION: No radiographic evidence of acute cardiopulmonary disease. Electronically Signed: Noah Donovan MD at 17:29 EDT ,
--- NOTE | 2023-07-14 18:39 | CL.I_ITS ---
Patient Name: CARYL LIAO Study Date: 07/14/2023 Performing: Kristin Jett MD Ht: 67 inches 170.18 cm : 1955 Wt: 193.12 lbs 87.6 kg Age: 67 Gender: male BSA: 1.99 PROCEDURE(S) PERFORMED DC01-(28775)LHC/COR/LV IC16-([id number]/[id number])AMI, DEBORAH OR PTCA, ARTERY/GRAFT, SINGLE VESSEL CLINICAL PROFILE AND CO-MORBIDITIES Indications: ACS <= 24 hrs Heart Failure: None CAD Presentations: STEMI. Symptom onset Date/Time: 07/14/2023 Time Not Available CONCLUSIONS 100% Prox LAD 70% Prox OM1 60% Prox, 70% distal RCA LVEF 35-40%. Apical akinesis Successful PTCA/DEBORAH Prox LAD using Layo Macdoel 3.0x26 mm, optimized proximally using 3.5 mm balloon Successful DEBORAH Mid LAD using Layo Macdoel 3.0x8 mm RECOMMENDATIONS ASA Indefinitley Brilinta for at least 12 months DESCRIPTION OF PROCEDURE The patient arrived to the procedure lab. The risks and benefits of the procedure as well as a full description of our services here and lack of surgical backup were fully explained to the patient and/or their significant other prior to the catheterization. The Timeout was completed, verifying the correct patient and procedure. The patient's procedural site was prepped and draped in the usual fashion. Local anesthetic was given subcutaneously to right radial region with Lidocaine 2%. Using a modified Seldinger technique, arterial access was obtained via the right radial artery, a 6Fr sheath was inserted.. Left Coronary Artery selective angiography was performed in multiple views using a 5 Fr. 4.0 [place] catheter. Right Coronary Artery selective angiography was then performed in multiple views using a 5 Fr. 4.0 [place] catheter. Left Ventriculography was performed in DIAMOND projection using a 5 Fr. Pigtail catheter. LV to AO pullback pressures were then recordedThe images were reviewed and options discussed. A decision was then made to proceed with an Intervention, IVUS or other adjunct procedure. xb 3.0 Guide catheter was inserted and engaged into the LCA. runthrough Guide wire was advanced to the LAD. emerge 2.5 x 15 Balloon catheter was advanced across lesion in the LAD, proximal PTCA balloon inflated at 6 atms for 16 secs. PTCA balloon inflated at 8 atms for 14 secs. PTCA balloon inflated at 8 atms for 14 secs. PTCA balloon inflated at 8 atms for 12 secs. Angiogram performed post balloon dilatation. frontier 3.0 x 26 Drug Eluting stent was advanced across the lesion in the LAD, proximal. Angiogram performed post stent deployment. frontier 3.0 x 8 Drug Eluting stent was advanced across the lesion in the LAD, mid. Angiogram performed post stent deployment. nc emerge 3.00 x 8 Balloon catheter was inserted post stent. Angiogram performed post balloon dilatation. Angiogram performed post balloon dilatation. runthrough Guide wire was advanced to the 1st Diagonal. nc euphora 3.5 x 6 Balloon catheter was inserted post stent. The arterial sheath was pulled and a TR Band was applied for hemostasis CORONARY ANGIOGRAPHY DOMINANCE: Right Dominant LEFT HEART ASSESSMENT Left Ventricular Ejection Fraction: by LV Gram 35 % LVEDP: 36 mmHg Apical Akinesis LEFT ANTERIOR DESCENDING ARTERY: LAD: Thrombus Calcified 100% Proximal lesion in LAD OM 1: Tubular 70% Proximal lesion in MARG1 OM 2: Tubular 70% Proximal lesion in MARG1 RIGHT CORONARY ARTERY: RCA: Tubular 60% Ostial lesion in RCA Tubular 70% Distal lesion in RCA INTERVENTION INFORMATION LESION SITE: LAD (Proximal) Lesion Complexity: High/C, lesion length: 24 mm, culprit lesion: Yes, thrombus present: Yes Pre Stenosis: 100 % Pre intervention AYDEN flow: 0 PROCEDURE: Drug Eluting Stent with pre and post dilatation Post Stenosis: 0 % Post intervention AYDEN flow: 3 Lesion Devices: Terumo .014 180cm Runthrough Extra Floppy straight Cordis 5F XB3 100cm Guide Catheter Gumaro Sci EMERGE MR 2.50x15 BALLOON Medtronic 3.0 x 26 LAYO FRONTIER DEBORAH Gumaro Sci NC EMERGE MR 3.00x08 BALLOON Medtronic NC EUPHORA RX 3.5x06 BALLOON LESION SITE: LAD (Mid) Lesion Complexity: Non-High/Non-C, thrombus present: Yes, lesion length: 6 mm Pre Stenosis: 70 % Pre intervention AYDEN flow: 3 PROCEDURE: Drug Eluting Stent with post dilatation Post Stenosis: 0 % Post intervention AYDEN flow: 3 Lesion Devices: Medtronic 3.0 x 08 LAYO FRONTIER DEBORAH Medtronic NC EUPHORA RX 3.5x06 BALLOON Lesion Devices: Gumaro Sci EMERGE MR 2.00x08 BALLOON COMPLICATIONS No Complications PROCEDURE MEDICATIONS Fentanyl 50 mcg IV Versed 2 mg IV Versed 2 mg IV Oxygen: 2 L/min via nasal cannula Heparin 6000 unit(s) IV 07/14/2023 17:22:12 Lasix 20 mg IV 07/14/2023 17:55:45 Verapamil 2.5mg, Ntg 200mcgs, given IA 07/14/2023 17:14:23 SUMMARY OF HEMODYNAMIC DATA Time AIR REST ECG 17:10:39 AO 124/82 (103) SA 17:25:04 AO 85/60 (72) 18:02:52 LV 89/22, 36 18:05:34 LV 93/24, 36 18:05:43 LVp 91/34, 39 18:08:21 AOp 88/65 (76) 18:08:28 18:36:44 Signed By Kristin Jett MD On 07/14/2023 18:39:04 Kristin Jett MD
--- NOTE | 2023-07-14 18:40 | ECHOCS_ITS ---
Reason For Study: STEMI, CAD/ASHD Procedure This was a 2D Doppler, Color Flow transthoracic echocardiogram. The study was technically difficult. Contrast injection was performed. Exam performed portable in ICU/CCU. Left Ventricle Normal size and thickness. Cannot exclude small apical LV thrombus. The left ventricular ejection fraction is 45 %. LV apical akinesis. Severe anterior septal hypokinesis to akinesis. Right Ventricle Normal right ventricle. Atria The left and right atria are normal. Mitral Valve Mild (1+) mitral valve insufficiency. Tricuspid Valve Mild tricuspid valve insufficiency. Right ventricular systolic pressure estimated to be 54 mmHg. Aortic Valve Trisinus/trileaflet aortic valve. Pulmonic Valve The pulmonic valve is not well visualized. Mild (1+) pulmonic valve insufficiency. Great Vessels Mildly dilated aortic root. Pericardium/Pleural No pericardial effusion. Medication Diluted definity 2.5ml given slow IV push to enhance endocardial definition. MMode/2D Measurements & Calculations LVIDd: 4.5 cm IVSd: 1.1 cm Ao root diam: 3.8 cm LVIDs: 3.1 cm LVPWd: 1.1 cm LA dimension: 4.4 cm RVDd: 3.9 cm FS: 32.4 % LAV(MOD-bp): 56.6 ml LVAd ap4: 30.1 cm2 SV(MOD-sp4): 44.6 ml LAV(MOD-bp) Indexed: 29.3 ml/m2 LVLd ap4: 8.5 cm LAV(MOD-sp2): 59.2 ml EDV(MOD-sp4): 85.3 ml LAV(MOD-sp4): 50.9 ml EDV(sp4-el): 90.4 ml LVAs ap4: 19.7 cm2 LVLs ap4: 7.5 cm ESV(MOD-sp4): 40.6 ml ESV(sp4-el): 43.8 ml EF(MOD-sp4): 52.3 % EF(sp4-el): 51.6 % SV(sp4-el): 46.6 ml LA A4 area: 18.4 cm2 RA A4 area: 14.7 cm2 TAPSE: 2.1 cm Time Measurements MV dec time: 0.14 sec Doppler Measurements & Calculations MV E max eduard: 72.9 cm/sec Lat Peak E' Eduard: 9.4 cm/sec Med Peak E' Eduard: 9.4 cm/sec MV A max eduard: 36.1 cm/sec E/E' lat: 7.8 E/E' med: 7.8 MV E/A: 2.0 MV V2 max: 94.1 cm/sec MV P1/2t max eduard: 94.9 cm/sec Ao V2 max: 111.0 cm/sec MV max P.5 mmHg MV P1/2t: 54.8 msec Ao max P.9 mmHg MV V2 mean: 39.2 cm/sec Ao V2 mean: 79.0 cm/sec MV mean P.80 mmHg MV dec slope: 507.1 cm/sec2 Ao mean P.9 mmHg MV V2 VTI: 21.8 cm MVA(P1/2t): 4.0 cm2 Ao V2 VTI: 22.3 cm LV V1 max: 78.1 cm/sec MR max eduard: 351.2 cm/sec PA V2 max: 90.7 cm/sec LV V1 max P.4 mmHg MR max P.3 mmHg TR max eduard: 313.4 cm/sec TR max P.3 mmHg ECHO/Echo Complete W/ Contrast Interpretation Summary There is a large sized apical, septal, and anteroseptal wall motion abnormality with hypokinesis to akinesis of the segments. The left ventricular ejection fraction is 45 %. Cannot exclude small apical LV thrombus. Mild (1+) mitral valve insufficiency. Mild tricuspid valve insufficiency. Right ventricular systolic pressure estimated to be 54 mmHg. Ordering Physician: Kristin Jett Referring Physician: Mckinley Ly Performed By: Huey Avelar RCS
[2023-07-14 18:46] LABS: ACT Activated Clotting Time 163 sec (74-137)
[2023-07-14 18:46] LABS: ACT Activated Clotting Time 239 sec (74-137)
[2023-07-14 20:46] LABS: Magnesium 2.2 mg/dL (1.6-2.6); Phosphorus 2.8 mg/dL (2.5-4.9)
[2023-07-14] MEDS: Potassium Chloride Oral Tablet 20 MEQ 40 MEQ PO ×2 (21:13→22:12)
[2023-07-14] MEDS: Metoprolol Tartrate 25 MG Tablet 12.5 MG PO (21:13)
[2023-07-14] MEDS: Atorvastatin Calcium 80 MG Tablet PO (21:13)
[2023-07-14] MEDS: 0.9% Normal Saline (1000mL) 1,000 ML 75 ML IV (21:14)
[2023-07-15] VITALS (29 sets, daily range): BP systolic 87–117; BP diastolic 52–75; PULSE 66–79; RESP 9–22; TEMP 36.3–36.8; O2SAT 90–97; BMI 28.3
[2023-07-15] MEDS: 0.9% Saline Lock 10 ML Syringe IV (04:21)
[2023-07-15] MEDS: Morphine 2 MG/ML Syringe IV (04:21)
[2023-07-15 04:33] LABS: Hematocrit 38.2 % (40-54); Hemoglobin 13.2 g/dL (13.0-16.5); Mean Corp Hgb Conc 34.6 g/dL (32-36); Mean Corpuscular Volume 86.8 fL (80-94); Mean Platelet Vol. 9.6 fl (6.2-12.0); Platelet Count 200 K/mm3 (150-450); RBC Distribution Width CV 14.5 % (11.6-14.6); RBC Distribution Width SD 44.8 fl (35.1-43.9); White Blood Count 12.7 K/mm3 (4.4-11.0)
[2023-07-15 05:34] LABS: ALB/GLOB Ratio 0.9 RATIO (0.9-2.4); AST(SGOT) 929 U/L (15-37); Alanine Aminotransfer ALT/SGPT 114 U/L (16-61); Alkaline Phosphatase 64 U/L (45-117); Anion Gap 9 (5-15); BUN 12 mg/dL (7-18); BUN/Creat Ratio 11.1 RATIO (10-20); Calcium,Total 8.5 mg/dL (8.5-10.1); Chloride 110 mmol/L (98-107); Creatinine, Serum 1.08 mg/dL (0.70-1.30); EST Glomerular Filtration Rate 72 mL/min (>60); Est Glom Filt Rate - Afr Amer 88 mL/min (>60); Estimated Creatinine Clearance 67.99 ml/min; Globulin 3.2 g/dL (2.2-4.2); Glucose 134 mg/dL (74-106); Potassium 4.1 mmol/L (3.5-5.1); Protein, Total 6.2 g/dL (6.4-8.2); Sodium Level 142 mmol/L (136-145)
[2023-07-15] MEDS: Aspirin E.C. 81 MG Tablet PO (08:41)
[2023-07-15] MEDS: TICAGRELOR 90 MG TABLET PO (08:41)
[2023-07-15] MEDS: Multivitamins,Therapeutic Tablet 1 TABLET PO (08:41)
[2023-07-15] MEDS: Metoprolol Tartrate 25 MG Tablet 12.5 MG PO ×2 (08:41→22:27)
[2023-07-15] MEDS: Pantoprazole Sodium 40 MG Tablet PO (08:42)
--- NOTE | 2023-07-15 09:30 | CRPHASE1 ---
Patient Communication Patient Information PHII Cardiac Rehab Discussed with Patient:: Yes Guide to Cardiac Rehab Given to Patient:: Yes Cardiac Rehab Facility Choice List Given to Patient:: Yes Communication to Cardiac Rehab Choice Program [facility] CR PHII:: Communication Given to CR [employer] Supervisor:: Kristin Jett Phase II Cardiac Rehab:: Yes Sessions:: 36 sessions - 3 days/wk, 12 weeks Cardiac Rehabilitation Info Program Information Cardiac Rehabilitation Program Information: Cardiac Rehab The cardiac rehab team at [facility] consists of highly skilled exercise physiologists, nurses, respiratory therapists and physicians working together with you. Our purpose is to help you have a full recovery and achieve the goals you set for yourself. Over the years many of our patients have returned to activities they assumed they would never do again! We can help restore your confidence and motivation to make lifestyle changes that can have a significant impact on your health and quality of life! We can help answer questions and concerns you may have about exercise, lifestyle, medications, diet, stress and anxiety which are common following a hospitalization. WE monitor ECG and vital signs during exercise and discuss your progress with you and report to your physician(s). Cardiac Rehab is proven to help reduce readmissions, improve functional capacity and lower recurrence of problems with your heart. Our Cardiac Rehab program is Certified by the [place] [employer]io-Vascular and Pulmonary [employer] (AACVPR) and Accredited by the [place] [employer] through our [facility]. You can contact us at . We invite you to call us with your questions or to get started in our program. If you have other questions or concerns be sure to ask your physician/provider during your follow-up visit. WE look forward to seeing you!
--- NOTE | 2023-07-15 09:31 | PN.CARD_ITS ---
Subjective Subjective Some chest pain overnight. Mild according to patient. No shortness of breath. Objective Data Vital Signs: Vital Signs Temp Pulse Resp BP Pulse Ox O2 Del Method O2 Flow Rate 97.8 F 73 15 108/72 93 Nasal Cannula 5 07/15/23 06:00 07/15/23 08:41 07/15/23 06:00 07/15/23 06:00 07/15/23 08:09 07/15/23 08:09 07/15/23 08:09 Oxygen Flow Rate (L/min) 5 Oxygen Delivery Method Nasal Cannula Weight: 180 lb 8.937 oz Body Mass Index (BMI) 28.3 Intake & Output: Intake and Output for Last 24 Hours 07/13/23 07/14/23 07/15/23 23:59 23:59 23:59 Intake Total 1345.2 / 1345.2 500 / 500 Output Total 550 / 550 950 / 950 Balance 795.2 / 795.2 -450 / -450 Lab / Micro Data 07/15/23 04:00 07/15/23 04:00 Labs: Laboratory Results - last 24 hr 07/14/23 16:25: WBC 7.6, RBC 4.97, Hgb 14.8, Hct 42.7, MCV 85.9, MCH 29.8, MCHC 34.7, RDW Std Deviation 42.5, RDW Coeff of Alvaro 13.9, Plt Count 228, MPV 9.4, Immature Gran % (Auto) 0.400, Neut % (Auto) 41.9 L, Lymph % (Auto) 40.2, [place] % (Auto) 11.4 H, Eos % (Auto) 5.4 H, Baso % (Auto) 0.7, Absolute Neuts (auto) 3.2, Absolute Lymphs (auto) 3.06, Nucleated RBC % 0, PT 13.0, INR 1.0, APTT 23.3 L, Sodium 141, Potassium 3.0 L, Chloride 109 H, Carbon Dioxide 23.0, Anion Gap 9, BUN 11, Creatinine 1.07, Estim Creat Clear Calc 70.78, Est GFR (MDRD) Af Amer 88, Est GFR (MDRD) Non-Af 73, BUN/Creatinine Ratio 10.3, Glucose 123 H, Calcium 9.5, Phosphorus 2.8, Magnesium 2.2, Troponin I High Sens 7 07/14/23 17:17: Activated Clotting Time 163 H 07/14/23 18:05: Activated Clotting Time 239 H 07/15/23 04:00: WBC 12.7 H, RBC 4.40 L, Hgb 13.2, Hct 38.2 L, MCV 86.8, MCH 30.0, MCHC 34.6, RDW Std Deviation 44.8 H, RDW Coeff of Alvaro 14.5, Plt Count 200, MPV 9.6, Sodium 142, Potassium 4.1, Chloride 110 H, Carbon Dioxide 23.0, Anion G ap 9, BUN 12, Creatinine 1.08, Estim Creat Clear Calc 67.99, Est GFR (MDRD) Af Amer 88, Est GFR (MDRD) Non-Af 72, BUN/Creatinine Ratio 11.1, Glucose 134 H, Calcium 8.5, Total Bilirubin 0.80, AST 929 H, ALT 114 H, Alkaline Phosphatase 64, Total Protein 6.2 L, Albumin 3.0 L, Globulin 3.2, Albumin/Globulin Ratio 0.9 Cardiology Labs/Tests 07/14/23 16:25: WBC 7.6, RBC 4.97, Hgb 14.8, Hct 42.7, MCV 85.9, MCH 29.8, MCHC 34.7, Plt Count 228, MPV 9.4, Immature Gran % (Auto) 0.400, Neut % (Auto) 41.9 L , Lymph % (Auto) 40.2, [place] % (Auto) 11.4 H, Eos % (Auto) 5.4 H, Baso % (Auto) 0.7, Absolute Neuts (auto) 3.2, Nucleated RBC % 0, PT 13.0, INR 1.0, APTT 23.3 L , Sodium 141, Potassium 3.0 L, Chloride 109 H, Carbon Dioxide 23.0, Anion Gap 9, BUN 11, Creatinine 1.07, Est GFR (MDRD) Af Amer 88, Est GFR (MDRD) Non-Af 73, BUN/Creatinine Ratio 10.3, Glucose 123 H, Calcium 9.5, Phosphorus 2.8, Magnesium 2.2 07/15/23 04:00: WBC 12.7 H, RBC 4.40 L, Hgb 13.2, Hct 38.2 L, MCV 86.8, MCH 30.0, MCHC 34.6, Plt Count 200, MPV 9.6, Sodium 142, Potassium 4.1, Chloride 110 H, Carbon Dioxide 23.0, Anion Gap 9, BUN 12, Creatinine 1.08, Est GFR (MDRD) Af Amer 88, Est GFR (MDRD) Non-Af 72, BUN/Creatinine Ratio 11.1, Glucose 134 H, Calcium 8.5, Total Bilirubin 0.80 Rhythm: EKG: Sinus rhythm. ST changes resolved. ECHO: Stress Test: Cardiac Cath: PCI: CT Surgery: Holter monitor: EPS: PPM: CXR: Chest CT Scan: Radiography Diagnostic Testing: Radiology Impression Chest X-Ray 07/14/23 16:40 IMPRESSION: No radiographic evidence of acute cardiopulmonary disease. Electronically Signed: Noah Donovan MD at 17:29 EDT Reading Location ID and State: [facility] / [place] , Service support , Physical Exam Narrative Comfortable. Lying flat in the bed. No apparent distress. Heart sounds 1 and 2 normal. No murmurs or rubs noted. Chest clear to auscultation bilaterally. Alert oriented x 3. No ankle edema. Assessment & Plan Assessment/Plan (1) ST elevation (STEMI) myocardial infarction: QUALIFIERS: Involved coronary artery: LAD coronary artery Qualified Code(s): I21.02 - ST elevation (STEMI) myocardial infarction involving left anterior descending coronary artery PLAN: Patient was taken emergently to the cardiac catheterization lab. Coronary angiography revealed totally occluded proximal LAD. Successful revascularization was performed with balloon angioplasty and drug-eluting stent to the proximal LAD. Also noted to have about 70% lesion in the mid LAD. That was also intervened upon with a drug-eluting stent. Excellent results were noted. Continue aspirin lifelong. Brilinta for at least 1 year. Residual chest discomfort. Apical LAD was totally occluded with no reflow. Also slow flow in the diagonal branch. Start on nitrates. (2) Coronary artery disease: PLAN: See #1 above. Aspirin, ticagrelor, beta-blockers, ACEI. Statins. (3) Hypertension: PLAN: Beta-blockers, VAISHNAVI inhibitors. (4) Prostate cancer: PLAN: As per oncology.
--- NOTE | 2023-07-15 09:31 | CRPH1.INSTRU ---
General Education Discussed with Patient CAD and cardiac anatomy and function:: Patient communicates acknowledgment Explanation of diagnoses and procedures:: Patient communicates acknowledgment Sign/Symptoms of AL:: Patient communicates acknowledgment Antiplatelet therapy: Patient communicates acknowledgment Proper use of NTG-SL: Patient communicates acknowledgment Emergency procedures and activation of EMS: Patient communicates acknowledgment Compliance of all prescribed medications: Patient communicates acknowledgment Dyslipidemia Risk Factors Patient Dyslipidemia Risk Factors Are:: Total Cholesterol, Triglycerides, HDL and LDL Recommendations Recommendations Include:: Lipid profile not available, Reviewed NCEP/ATP guidelines and Therapeutic Lifestyle Change dietary guidelines Response Code Dyslipidemia Response Code:: Patient communicates acknowledgment Overweight/Obesity Risk Factors Patient Overweight/Obesity Risk Factors Are:: Overweight = 26-29 Recommendations Recommendations Include:: Weight loss of 5-10%, Reduced calorie diet and Exercise 5-7 times/week Response Code Overweight/Obesity:: Patient communicates acknowledgment Hypertension Recommendations Recommendations Include:: Maintain BP <130/85, DASH dietary guidelines, Decrease/maintain normal body weight and Moderation of ETOH Response Code Hypertension:: Patient communicates acknowledgment Diabetes Risk Factors Patient Diabetes Risk Factors Are:: No documented hx of diabetes Metabolic Syndrome Risk Factors Patient Metabolic Syndrome Risk Factors Are [3 of 5]:: Fasting blood sugar > 100 mg/dL, Waist circumference > 35 [female] or 40 [male], High triglyceride >150, Hypertension and Low HDL <40 [male] or < 50 [female] Recommendations Recommendations Include:: Reinforce compliance to risk factor modifications and Encouraged follow-up with Primary Care Physician Response Code Metabolic Syndrome Response Code:: Patient communicates acknowledgment Sedentary Risk Factors Patient Sedentary Risk Factors Are:: Lack of regular exercise Recommendations Recommendations Include:: Aerobic exercise 5-7 times/week for 20-30 minutes continuously, Benefits of regular exercise, Discussed home walking program and Monitored Outpatient Cardiac Rehab Response Code Sedentary Response Code:: Patient communicates acknowledgment Stress Recommendations Recommendations Include:: Identification of stressors, and assessment of coping skills and Stress management techniques Response Code Stress Response Code:: Patient communicates acknowledgment
--- NOTE | 2023-07-15 09:35 | RAD_ITS ---
STUDY: X-RAY CHEST REASON FOR EXAM: Male, 67 years old. SOB, COUGH TECHNIQUE: Single AP portable view of the chest. COMPARISON: Comparison is made with prior examination dated July 14, 2023. FINDINGS: EKG electrodes are seen. Early right upper lobe infiltrate. There is no demonstrated pleural abnormality. Normal size heart. Normal mediastinum and cassidy. Normal visualized pulmonary arteries. Normal visualized aortic arch and descending thoracic aorta. Normal visualized thoracic spine. Normal visualized ribs, clavicles, and shoulders. There is no demonstrated abnormality of the visualized soft tissue structures of the upper abdomen. RAD/Chest 1 View (Portable) IMPRESSION: Early right upper lobe infiltrate. Electronically Signed: Varinder Maurice MD at 10:12 EDT ,
--- NOTE | 2023-07-15 10:34 | PCM.PN.BLA ---
Progress Note Possible small LV apical thrombus on echocardiogram. Will start on apixaban.
--- NOTE | 2023-07-15 10:41 | CASEMGMT ---
KEILA CHEUNG Assessment: Face to Face with pt for initial transition planning/care coordination assessment. KEILA CHEUNG introduced self and role at [facility], pt voices understanding and consents to assessment. Pt is A&O x4 and answers all questions appropriately at this time. Pt sitting up in chair in no distress, oxygen on, with and dtr at bedside. Care providers, pharmacy, and demographics verified/updated. Admitting Dx: STEMI PCP:Malachi Specialists:jenni Wood; iraida Davison Preferred Pharmacy: [facility] Prescription Benefit: yes LNOK: Cristina Thakur, Living Arrangements: Pt lives with in a split level home with 2 steps to enter. Pt reports he is I in ADL's and denies concerns at home. Transportation: Pt drives self and denies concerns with transportation. DME:Denies HHC/SNF: Denies hx of Pt states no concerns with going home at time of dc. Pt states he received information on cardiac rehab and plans to pursue this. Pt states no further concerns/needs. CM to follow. Advised pt to ask CM if any further question/concerns/needs arise, voices understanding. Pt Goal: Home Plan: Home, plans to do cardiac rehab Ana Lilia PEDRAZA CM
[2023-07-15] MEDS: Furosemide 40 MG Tablet PO (11:48)
[2023-07-15] MEDS: Isosorbide Mononitrate 30 MG Tablet PO (11:48)
[2023-07-15] MEDS: APIXABAN 5 MG TABLET PO ×2 (11:48→22:27)
--- NOTE | 2023-07-15 14:39 | PN_ITS ---
Subjective Subjective Patient seen and examined. HE still complained of mild chest pain. He denied any fever, chills, nausea, vomiting or any other symptoms. He had a stent inserted. Review of systems is otherwise negative. Review of systems is otherwise negative. Objective Data Objective Data Vital Signs: Vital Signs Temp Pulse Resp BP Pulse Ox O2 Del Method O2 Flow Rate 97.7 F L 69 14 95/63 96 Nasal Cannula 3 07/15/23 10:00 07/15/23 12:00 07/15/23 12:00 07/15/23 12:00 07/15/23 12:00 07/15/23 12:00 07/15/23 12:00 Oxygen Flow Rate (L/min) 3 Oxygen Delivery Method Nasal Cannula Weight: 180 lb 8.937 oz Body Mass Index (BMI) 28.3 Intake & Output: Intake and Output for Last 24 Hours 07/13/23 07/14/23 07/15/23 23:59 23:59 23:59 Intake Total 1345.2 / 1345.2 1000 / 1000 Output Total 550 / 550 950 / 950 Balance 795.2 / 795.2 50 / 50 Lab / Micro Data 07/15/23 04:00 07/15/23 04:00 Labs: Laboratory Results - last 24 hr 07/14/23 16:25: WBC 7.6, RBC 4.97, Hgb 14.8, Hct 42.7, MCV 85.9, MCH 29.8, MCHC 34.7, RDW Std Deviation 42.5, RDW Coeff of Alvaro 13.9, Plt Count 228, MPV 9.4, Immature Gran % (Auto) 0.400, Neut % (Auto) 41.9 L, Lymph % (Auto) 40.2, Glynn % (Auto) 11.4 H, Eos % (Auto) 5.4 H, Baso % (Auto) 0.7, Absolute Neuts (auto) 3.2, Absolute Lymphs (auto) 3.06, Nucleated RBC % 0, PT 13.0, INR 1.0, APTT 23.3 L, Sodium 141, Potassium 3.0 L, Chloride 109 H, Carbon Dioxide 23.0, Anion Gap 9, BUN 11, Creatinine 1.07, Estim Creat Clear Calc 70.78, Est GFR (MDRD) Af Amer 88, Est GFR (MDRD) Non-Af 73, BUN/Creatinine Ratio 10.3, Glucose 123 H, Calcium 9.5, Phosphorus 2.8, Magnesium 2.2, Troponin I High Sens 7 07/14/23 17:17: Activated Clotting Time 163 H 07/14/23 18:05: Activated Clotting Time 239 H 07/15/23 04:00: WBC 12.7 H, RBC 4.40 L, Hgb 13.2, Hct 38.2 L, MCV 86.8, MCH 30.0, MCHC 34.6, RDW Std Deviation 44.8 H, RDW Coeff of Alvaro 14.5, Plt Count 200, MPV 9.6, Sodium 142, Potassium 4.1, Chloride 110 H, Carbon Dioxide 23.0, Anion Gap 9, BUN 12, Creatinine 1.08, Estim Creat Clear Calc 67.99, Est GFR (MDRD) Af Amer 88, Est GFR (MDRD) Non-Af 72, BUN/Creatinine Ratio 11.1, Glucose 134 H, Calcium 8.5, Total Bilirubin 0.80, AST 929 H, ALT 114 H, Alkaline Phosphatase 64, B-Natriuretic Peptide 117.0 H, Total Protein 6.2 L, Albumin 3.0 L, Globulin 3.2, Albumin/Globulin Ratio 0.9 Radiography Diagnostic Testing: Radiology Impression Chest X-Ray 07/14/23 16:40 IMPRESSION: No radiographic evidence of acute cardiopulmonary disease. Electronically Signed: Noah Donovan MD at 17:29 EDT Reading Location ID and State: [facility][note 3] / [place] , Service support , Echocardiogram 07/14/23 18:40 Interpretation Summary There is a large sized apical, septal, and anteroseptal wall motion abnormality with hypokinesis to akinesis of the segments. The left ventricular ejection fraction is 45 %. Cannot exclude small apical LV thrombus. Mild (1+) mitral valve insufficiency. Mild tricuspid valve insufficiency. Right ventricular systolic pressure estimated to be 54 mmHg. Ordering Physician: Kristin Jett Referring Physician: Mckinley Ly Performed By: Huey Avelar RCS Chest X-Ray 07/15/23 09:35 IMPRESSION: Early right upper lobe infiltrate. Electronically Signed: Varinder Maurice MD at 10:12 EDT , Physical Exam Const alert, oriented x3 and well nourished General Appearance: cooperative and well developed HEENT normocephalic, head/scalp atraumatic, moist oral mucous membranes and oropharynx normal Eyes PERRL and EOMs intact bilaterally Neck no lymphadenopathy and supple Lymph Lymphatic: no lymphadenopathy noted and no lymphedema noted Resp normal respiratory effort, normal air movement and clear to auscultation bilaterally Cardio regular rate, regular rhythm, S1 normal heart sound, S2 normal heart sound and no murmurs GI normal to inspection, nondistended, normoactive bowel sounds, soft to palpation and non-tender Extremity normal capillary refill, no clubbing, cyanosis or edema and no calf tenderness General Extremity: no tenderness to palpation of joints or extremities Skin General Skin Exam: no breakdown Neuro CN's II-XII intact bilaterally, no focal motor deficits, no sensory deficits noted and deep tendon reflexes 2+ bilaterally Motor Exam: strength 5/5 throughout and general weakness Psych thought process normal, cooperative and affect normal Appearance: appropriate Assessment & Plan Assessment/Plan (1) Coronary artery disease: (2) Hypertension: (3) ST elevation (STEMI) myocardial infarction: QUALIFIERS: Involved coronary artery: LAD coronary artery Qualified Code(s): I21.02 - ST elevation (STEMI) myocardial infarction involving left anterior descending coronary artery PLAN: Plan #STEMI * admitted with a complaint of chest pain. He was found to have STEMI * on aspirin, metoprolol and high intensity statin. * he had cardiac cath with PCI to proximal and mid LAD and DEBORAH. * on metoprolol and losartan. * 2D echo ordered: * cardiology on board. 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 #Prostate cancer s/p radiation: Stable. Hypertension: On amlodipine and losartan. #DVT prophylaxis: on eliquis Disposition: for likely dc tomorrow. Charges/Coding Visit Charges Inpatient E&M: 49502 Subs Hosp L2
--- NOTE | 2023-07-15 16:02 | CHAPLAIN ---
Type of Pastoral Visit _x__ Initial Visit ___ Follow-up Visit ___ On-call Visit ___ General Patient Visit ___ Spiritual Assessment ___ Family Conference ___ Bereavement ___ Rapid Response ___ Code Blue ___ Other (describe below) Pastoral Care Referral From _x__ Patient ___ Family ___ Nurse ___ Physician ___ Sales Broker ___ Business Department Chair ___ Other (describe below) Sacrament/Intervention _x__ Active listening ___ Anointing ___ Methodist ___ Bereavement ___ Communion ___ Meg exploration ___ _x__ Life review _x__ Prayer ___ Reconciliation ___ Sacrament of Sick ___ Supportive presence ___ Wedding ___ Other (describe below) Pastoral Comments 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
[2023-07-15] MEDS: Atorvastatin Calcium 80 MG Tablet PO (22:27)
[2023-07-15] MEDS: Clopidogrel Bisulfate 300 MG Tablet PO (22:27)
[2023-07-16] VITALS (12 sets, daily range): BP systolic 89–112; BP diastolic 53–73; PULSE 63–84; RESP 12–25; TEMP 36.5–36.6; O2SAT 90–97; BMI 28.2
--- NOTE | 2023-07-16 04:20 | EKG12_ITS ---
Test Reason : AM EKG Blood Pressure : / mmHG Vent. Rate : 072 BPM Atrial Rate : 072 BPM P-R Int : 154 ms QRS Dur : 078 ms QT Int : 458 ms P-R-T Axes : 056 069 100 degrees QTc Int : 501 ms Critical Test Result: STEMI Normal sinus rhythm Anteroseptal infarct , possibly acute T wave abnormality, consider lateral ischemia Prolonged QT ACUTE MS / STEMI Confirmed by Carroll Oreilly ([id number]), general expeditor SHAW NORMAN ([id number]) on 07/18/2023 1:56:54 PM Referred By: Kristin Jett Confirmed By:Carroll Oreilly
[2023-07-16 05:27] LABS: Absolute Lymphocyte Count 0.79 X10^3/uL (0.83-4.51); Absolute Neutrophil Count 7.5 X10^3/uL (2.0-7.7); Basophil# 0.02 X10^3/uL; Basophil% 0.2 % (0-1); Eosinophil# 0.07 X10^3/uL; Eosinophils% 0.7 % (0-5); Hematocrit 35.1 % (40-54); Hemoglobin 12.1 g/dL (13.0-16.5); Lymphocyte # 0.79 X10^3/ul (0.83-4.51); Lymphocyte % 8.3 % (19-41); Mean Corp Hgb Conc 34.5 g/dL (32-36); Mean Corpuscular Volume 87.1 fL (80-94); Mean Platelet Vol. 9.5 fl (6.2-12.0); Monocyte# 1.15 X10^3/uL; NRBC Flagged by Analyzer 0 % (0-5); Neutrophil # 7.49 X10^3/uL (2.7-7.7); Neutrophil % 78.4 % (47-70); Platelet Count 153 K/mm3 (150-450); RBC Distribution Width CV 14.4 % (11.6-14.6); RBC Distribution Width SD 45.1 fl (35.1-43.9); Red Blood Count 4.03 M/mm3 (4.6-6.2); White Blood Count 9.6 K/mm3 (4.4-11.0)
[2023-07-16 05:41] LABS: Anion Gap 5 (5-15); BUN 13 mg/dL (7-18); BUN/Creat Ratio 14.4 RATIO (10-20); Chloride 109 mmol/L (98-107); EST Glomerular Filtration Rate 89 mL/min (>60); Est Glom Filt Rate - Afr Amer 108 mL/min (>60); Glucose 114 mg/dL (74-106); Potassium 3.5 mmol/L (3.5-5.1); Sodium Level 140 mmol/L (136-145)
[2023-07-16] MEDS: Potassium Chloride Oral Tablet 20 MEQ PO (07:57)
[2023-07-16] MEDS: APIXABAN 5 MG TABLET PO (07:58)
[2023-07-16] MEDS: Losartan Potassium 25 MG Tablet PO (07:58)
[2023-07-16] MEDS: Multivitamins,Therapeutic Tablet 1 TABLET PO (07:58)
[2023-07-16] MEDS: Pantoprazole Sodium 40 MG Tablet PO (07:59)
[2023-07-16] MEDS: Furosemide 40 MG Tablet PO (07:59)
[2023-07-16] MEDS: Isosorbide Mononitrate 30 MG Tablet PO (07:59)
[2023-07-16] MEDS: Metoprolol Tartrate 25 MG Tablet 12.5 MG PO (08:00)
[2023-07-16] MEDS: Clopidogrel Bisulfate 75 MG Tablet PO (08:03)
--- NOTE | 2023-07-16 10:04 | PCM.PN.CARD ---
Subjective Subjective Feels good. Denies any chest pains or shortness of breath. No palpitations. No orthopnea or PND. Objective Data Vital Signs: Vital Signs Temp Pulse Resp BP Pulse Ox O2 Del Method O2 Flow Rate 98 F 73 25 H 103/68 94 Room Air 1 07/16/23 04:00 07/16/23 08:00 07/16/23 07:00 07/16/23 08:00 07/16/23 07:00 07/16/23 07:00 07/15/23 21:00 Oxygen Flow Rate (L/min) 1 Oxygen Delivery Method Room Air Weight: 179 lb 10.828 oz Body Mass Index (BMI) 28.2 Intake & Output: Intake and Output for Last 24 Hours 07/14/23 07/15/23 07/16/23 23:59 23:59 23:59 Intake Total 1345.2 / 1345.2 1000 / 1000 Output Total 550 / 550 2250 / 2250 600 / 600 Balance 795.2 / 795.2 -1250 / -1250 -600 / -600 Lab / Micro Data 07/16/23 05:20 07/16/23 05:20 Labs: Laboratory Results - last 24 hr 07/15/23 04:00: WBC 12.7 H, RBC 4.40 L, Hgb 13.2, Hct 38.2 L, MCV 86.8, MCH 30.0, MCHC 34.6, RDW Std Deviation 44.8 H, RDW Coeff of Alvaro 14.5, Plt Count 200, MPV 9.6, B-Natriuretic Peptide 117.0 H 07/16/23 05:20: WBC 9.6, RBC 4.03 L, Hgb 12.1 L, Hct 35.1 L, MCV 87.1, MCH 30.0, MCHC 34.5, RDW Std Deviation 45.1 H, RDW Coeff of Alvaro 14.4, Plt Count 153, MPV 9.5, Immature Gran % (Auto) 0.400, Neut % (Auto) 78.4 H, Lymph % (Auto) 8.3 L, [place] % (Auto) 12.0 H, Eos % (Auto) 0.7, Baso % (Auto) 0.2, Absolute Neuts (auto) 7.5, Absolute Lymphs (auto) 0.79 L, Nucleated RBC % 0, Sodium 140, Potassium 3.5, Chloride 109 H, Carbon Dioxide 26.0, Anion Gap 5, BUN 13, Creatinine 0.90, Estim Creat Clear Calc 81.40, Est GFR (MDRD) Af Amer 108, Est GFR (MDRD) Non-Af 89, BUN/Creatinine Ratio 14.4, Glucose 114 H, Calcium 8.0 L Cardiology Labs/Tests 07/15/23 04:00: WBC 12.7 H, RBC 4.40 L, Hgb 13.2, Hct 38.2 L, MCV 86.8, MCH 30.0, MCHC 34.6, Plt Count 200, MPV 9.6, B-Natriuretic Peptide 117.0 H 07/16/23 05:20: WBC 9.6, RBC 4.03 L, Hgb 12.1 L, Hct 35.1 L, MCV 87.1, MCH 30.0, MCHC 34.5, Plt Count 153, MPV 9.5, Immature Gran % (Auto) 0.400, Neut % (Auto) 78.4 H, Lymph % (Auto) 8.3 L, [place] % (Auto) 12.0 H, Eos % (Auto) 0.7, Baso % (Auto) 0.2, Absolute Neuts (auto) 7.5, Nucleated RBC % 0, Sodium 140, Potassium 3.5, Chloride 109 H, Carbon Dioxide 26.0, Anion Gap 5, BUN 13, Creatinine 0.90, Est GFR (MDRD) Af Amer 108, Est GFR (MDRD) Non-Af 89, BUN/Creatinine Ratio 14.4, Glucose 114 H, Calcium 8.0 L Rhythm: EKG: ECG with evolutionary changes from his anterior IN. ECHO: Stress Test: Cardiac Cath: PCI: CT Surgery: Holter monitor: EPS: PPM: CXR: Chest CT Scan: Radiography Diagnostic Testing: Radiology Impression Echocardiogram 07/14/23 18:40 Interpretation Summary There is a large sized apical, septal, and anteroseptal wall motion abnormality with hypokinesis to akinesis of the segments. The left ventricular ejection fraction is 45 %. Cannot exclude small apical LV thrombus. Mild (1+) mitral valve insufficiency. Mild tricuspid valve insufficiency. Right ventricular systolic pressure estimated to be 54 mmHg. Ordering Physician: Kristin Jett Referring Physician: Mckinley Ly Performed By: Huey Avelar RCS Chest X-Ray 07/15/23 09:35 IMPRESSION: Early right upper lobe infiltrate. Electronically Signed: Varinder Maurice MD at 10:12 EDT , Assessment & Plan Assessment/Plan (1) ST elevation (STEMI) myocardial infarction: QUALIFIERS: Involved coronary artery: LAD coronary artery Qualified Code(s): I21.02 - ST elevation (STEMI) myocardial infarction involving left anterior descending coronary artery PLAN: Status post drug-eluting stents to the proximal and mid LAD. Stable. Continue clopidogrel. Started on apixaban for possible LV apical thrombus. (2) Coronary artery disease: PLAN: See #1 above. Apixaban, clopidogrel, beta-blockers, ARB, statins and nitrates (3) Left ventricular apical thrombus following IN: PLAN: Possible LV apical thrombus with apical akinesis. Started on apixaban. Discussed with patient. Risks benefits of apixaban explained. Understands and agrees. (4) Left ventricular systolic dysfunction (LVSD): PLAN: Apical akinesis on echocardiogram. Overall left ventricular systolic ejection fraction estimated at 45%. Beta-blockers. Changed to metoprolol extended release 25 mg once daily. Continue losartan. Start on Aldactone. (5) Hypertension: PLAN: Beta-blockers, ARB, nitrates, Aldactone (6) Prostate cancer: PLAN: As per oncology. PLAN: Plan Monitor blood pressure after first dose of Aldactone. If no significant drop in blood pressure, may discharge home later today. Recommend checking basic metabolic panel in 2 to 3 days. Follow-up in the office in 2 to 3 weeks.
--- NOTE | 2023-07-16 10:24 | DCINST_ITS ---
Discharge Instructions Diet Discharge Diet: Low fat / Low cholesterol Activity Discharge Activity: Return to Normal Activity Weight Bearing Status: Weight bearing as tolerated Dressing / Incision Call your doctor if you observe: Fever of 101 or Higher, Shortness of breath, Dizziness, Swelling in the ankles and Chest pain Follow Up Care Test Results: Test results from this visit will be discussed in further detail at your follow- up appointment, if applicable. Discharge Plan Admission Admit Date/Time: 07/14/23 17:16 Primary Reason for Your Visit: stemi Attending Provider: Meredith Sosa Primary Care Provider: Mckinley Ly Consulting Providers: Alpesh Jackson Instructions Patient Instructions: Heart Attack Dc, Exercising After a Heart Attack, Heart Attack Meds, Heart Attack: Leaving the Hospital, Heart Attack: Back at Home Discharge Orders/Prescriptions Prescriptions: New furosemide 40 mg Tablet 40 mg PO DAILY Qty: 30 2RF atorvastatin 80 mg Tablet 80 mg PO QHS Qty: 30 2RF isosorbide mononitrate 30 mg Tablet Extended Release 24 Hr 30 mg PO DAILY Qty: 30 2RF clopidogrel 75 mg Tablet 75 mg PO DAILY Qty: 30 2RF losartan 25 mg Tablet 25 mg PO DAILY Qty: 30 2RF metoprolol succinate 25 mg Tablet Extended Release 24 Hr 25 mg PO DAILY Qty: 30 2RF spironolactone 25 mg Tablet 12.5 mg PO DAILY Qty: 30 2RF potassium chloride 20 mEq Tablet,Er Particles/Crystals 20 meq PO DAILYCM Qty: 30 2RF Eliquis 5 mg Tablet 5 mg PO BID Qty: 60 2RF Continued lutein 20 mg capsule 20 mg PO DAILY Rx Instructions: give with meal/snack lansoprazole 30 MG capsule,delayed release(DR/EC) 30 mg PO DAILY Patient Comments: TAKE 1 CAPSULE BY MOUTH EVERY DAY multivitamin [Daily Multi-Vitamin] Tablet 1 tab PO DAILY Discontinued losartan 50 mg tablet 50 mg PO DAILY amlodipine 5 mg tablet 5 mg PO DAILY aspirin 81 mg tablet,chewable 1 tab PO DAILY Referrals / Follow Up: Kristin Jett MD [Med Staff - Active Staff] - Within 2 Weeks Mckinley Ly DO [Primary Care Provider] - Within 2 Weeks Disposition Disposition (needs filled in before D/C Order can be placed): Home, Self Care
--- NOTE | 2023-07-16 10:27 | DS.PCM_ITS ---
Providers Date of Admission: 07/14/23 Date of Discharge: 07/16/23 Primary Care Physician: Dr. Mckinley Ly DO Reason For Visit: STEMI Diagnosis Discharge Diagnosis (1) ST elevation (STEMI) myocardial infarction: Status: Acute Code(s): I21.3 - ST elevation (STEMI) myocardial infarction of unspecified site Qualifiers: Involved coronary artery: LAD coronary artery Qualified Code(s): I21.02 - ST elevation (STEMI) myocardial infarction involving left anterior descending coronary artery (2) Coronary artery disease: Status: Acute Code(s): I25.10 - Atherosclerotic heart disease of [place] coronary artery without angina pectoris (3) Left ventricular apical thrombus following [place]: Status: Acute Code(s): I23.6 - Thrombosis of atrium, auricular appendage, and ventricle as current complications following acute myocardial infarction (4) Left ventricular systolic dysfunction (LVSD): Status: Acute Code(s): I51.9 - Heart disease, unspecified (5) Hypertension: Status: Chronic Code(s): I10 - Essential (primary) hypertension (6) Prostate cancer: Status: Acute Code(s): C61 - Malignant neoplasm of prostate Plan #STEMI * admitted with a complaint of chest pain. He was found to have STEMI * on aspirin, metoprolol and high intensity statin. * he had cardiac cath with PCI to proximal and mid LAD and DEBORAH. * on metoprolol and losartan. * 2D echo ordered: * cardiology on board. 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 #Prostate cancer s/p radiation: Stable. Hypertension: On amlodipine and losartan. #DVT prophylaxis: on eliquis Disposition: for likely dc tomorrow. Medications at Discharge Home Medications lansoprazole 30 mg capsule,delayed release 30 mg PO DAILY 12/02/18 multivitamin (Daily Multi-Vitamin tablet) 1 tab PO DAILY 12/21/22 lutein 20 mg capsule 20 mg PO DAILY 03/24/23 apixaban 5 mg tablet (Eliquis) 5 mg PO BID #60 tabs 07/16/23 atorvastatin 80 mg tablet 80 mg PO QHS #30 tabs 07/16/23 clopidogrel 75 mg tablet 75 mg PO DAILY #30 tabs 07/16/23 furosemide 40 mg tablet 40 mg PO DAILY #30 tabs 07/16/23 isosorbide mononitrate 30 mg tablet,extended release 24 hr 30 mg PO DAILY #30 tabs 07/16/23 losartan 25 mg tablet 25 mg PO DAILY #30 tabs 07/16/23 metoprolol succinate 25 mg tablet,extended release 24 hr 25 mg PO DAILY #30 tabs 07/16/23 potassium chloride 20 mEq tablet,extended release(part/cryst) 20 meq PO DAILYCM #30 tabs 07/16/23 spironolactone 25 mg tablet 12.5 mg (1/2 x 25 mg) PO DAILY #30 tabs 07/16/23 Hospital Course Operations None Procedures 2-D Echocardiogram and Cardiac catheterization Summary of Care Provided Minutes Spent on Discharge: 55 Hospital Course: Patient is a 67 yea old male with a PMH as outlined who was admitted via the ED on 07/14/2023 STEMI alert was called outside the hospital. He was eating lunch at [employer] and did not feel well. He went to a [employer]'s restaurant with his friend later and said she felt chest tightness and pressure, without any radiation. He also had associated shortness of breath and felt dizzy with increased sweating. Review of systems was otherwise negative. Blood pressure was initially elevated at 148/120 but patient subsequently became hypotensive with blood pressure dropping as low as 92/68. He was also bradycardic with heart rate of 48. Prehospital EKG done in the community by the EMS showed ST e levation in V1 to V4 with depressions in inferior leads. On admission the ED, EKG showed ST elevation in V1 to V4 and aVL. He also had mild sinus bradycardia with heart rate of 52. STEMI alert was called he was taken emergently to the [facility] where coronary angiogram showed totally occluded proximal LAD for successful vascularization with drug-eluting stent insertion the proximal LAD was done. He also had a 70% occlusion in the mid LAD and required PCI. Was subsequently admitted to the ICU. He was placed on Plavix and also on Eliquis on account of concern for left apical thrombus. Consults were placed on high intensity statin and was started on p.o. metoprolol and losartan as well as spironolactone. 2D echo done showed EF of 45%, with LV apical kinesis and severe anterior septal hypokinesis to kinesis and RVSP of 54mmHg. He was also placed on PO furosemide 40mg daily. He is to follow up with his PCP within 1-2 weeks. Patient seen and examined prior to discharge. He had no complaints and had an uneventful night. Review of systems is otherwise negative. Labs and vitals revie tue. Home meds reviewed and reconciled. Physical Exam Const alert, oriented x3, no apparent distress and well nourished General Appearance: cooperative, comfortable, well kempt and well developed HEENT normocephalic, head/scalp atraumatic, hearing grossly normal bilaterally, moist oral mucous membranes and oropharynx normal Mouth: oral and palatal mucosa normal Eyes PERRL, EOMs intact bilaterally and conjunctivae normal Neck no lymphadenopathy, supple and no JVD Lymph Lymphatic: no lymphadenopathy noted and no lymphedema noted Resp normal respiratory effort, normal air movement and clear to auscultation bilaterally Cardio regular rate, regular rhythm, S1 normal heart sound, S2 normal heart sound and no murmurs GI normal to inspection, nondistended, normoactive bowel sounds, soft to palpation and non-tender Extremity normal to inspection, full ROM, normal capillary refill, no clubbing, cyanosis or edema and no calf tenderness General Extremity: no tenderness to palpation of joints or extremities Skin no rashes or lesions noted General Skin Exam: no breakdown Neuro oriented x3, CN's II-XII intact bilaterally, moves all extremities, no focal motor deficits, no sensory deficits noted and deep tendon reflexes 2+ bilaterally Sensorium / Orientation: awake Motor Exam: strength 5/5 throughout and general weakness Psych thought process normal, cooperative and affect normal Appearance: appropriate Weight / BMI Weight Weight: 179 lb 10.828 oz Body Mass Index (BMI) 28.2 ABG / Lab / Microbiology Data 07/16/23 05:20 07/16/23 05:20 Laboratory: Laboratory Results - last 24 hr 07/15/23 04:00: B-Natriuretic Peptide 117.0 H 07/16/23 05:20: WBC 9.6, RBC 4.03 L, Hgb 12.1 L, Hct 35.1 L, MCV 87.1, MCH 30.0, MCHC 34.5, RDW Std Deviation 45.1 H, RDW Coeff of Alvaro 14.4, Plt Count 153, MPV 9.5, Immature Gran % (Auto) 0.400, Neut % (Auto) 78.4 H, Lymph % (Auto) 8.3 L, [place] % (Auto) 12.0 H, Eos % (Auto) 0.7, Baso % (Auto) 0.2, Absolute Neuts (auto) 7.5, Absolute Lymphs (auto) 0.79 L, Nucleated RBC % 0, Sodium 140, Potassium 3.5, Chloride 109 H, Carbon Dioxide 26.0, Anion Gap 5, BUN 13, Creatinine 0.90, Estim Creat Clear Calc 81.40, Est GFR (MDRD) Af Amer 108, Est GFR (MDRD) Non-Af 89, BUN/Creatinine Ratio 14.4, Glucose 114 H, Calcium 8.0 L Radiography Diagnostic Testing: Radiology Impression Echocardiogram 07/14/23 18:40 Interpretation Summary There is a large sized apical, septal, and anteroseptal wall motion abnormality with hypokinesis to akinesis of the segments. The left ventricular ejection fraction is 45 %. Cannot exclude small apical LV thrombus. Mild (1+) mitral valve insufficiency. Mild tricuspid valve insufficiency. Right ventricular systolic pressure estimated to be 54 mmHg. Ordering Physician: Kristin Jett Referring Physician: Mckinley Ly Performed By: Huey Avelar RCS D/C Instructions Discharge Diet: Low fat / Low cholesterol Discharge Activity: Return to Normal Activity Weight Bearing Status: Weight bearing as tolerated Call your doctor if you observe: Fever of 101 or Higher, Shortness of breath, Dizziness, Swelling in the ankles and Chest pain Meaningful Use Info Meaningful Use Diagnoses (Choose all that apply): AMI AMI/Post PCI/Angioplasty Aspirin given w/in 24hrs of arrival?: Yes ASA at discharge?: No Reason ASA not ordered:: Drug Interaction Antiplatelet Therapy at Discharge:: Yes Statins at discharge?: Yes Roberto/ARB at discharge?: Yes Beta Chiki at discharge?: Yes Done w/ Acute [place] measure.: Yes Documented LVEF (%): 45 Discharge Plan Admission Admit Date/Time: 07/14/23 17:16 Primary Reason for Your Visit: stemi Attending Provider: Meredith Sosa Primary Care Provider: Mckinley Ly Consulting Providers: Alpesh Jackson Instructions Patient Instructions: Heart Attack Dc, Exercising After a Heart Attack, Heart Attack Meds, Heart Attack: Leaving the Hospital, Heart Attack: Back at Home Discharge Orders/Prescriptions Prescriptions: New furosemide 40 mg Tablet 40 mg PO DAILY Qty: 30 2RF atorvastatin 80 mg Tablet 80 mg PO QHS Qty: 30 2RF isosorbide mononitrate 30 mg Tablet Extended Release 24 Hr 30 mg PO DAILY Qty: 30 2RF clopidogrel 75 mg Tablet 75 mg PO DAILY Qty: 30 2RF losartan 25 mg Tablet 25 mg PO DAILY Qty: 30 2RF metoprolol succinate 25 mg Tablet Extended Release 24 Hr 25 mg PO DAILY Qty: 30 2RF spironolactone 25 mg Tablet 12.5 mg PO DAILY Qty: 30 2RF potassium chloride 20 mEq Tablet,Er Particles/Crystals 20 meq PO DAILYCM Qty: 30 2RF Eliquis 5 mg Tablet 5 mg PO BID Qty: 60 2RF Continued lutein 20 mg capsule 20 mg PO DAILY Rx Instructions: give with meal/snack lansoprazole 30 MG capsule,delayed release(DR/EC) 30 mg PO DAILY Patient Comments: TAKE 1 CAPSULE BY MOUTH EVERY DAY multivitamin [Daily Multi-Vitamin] Tablet 1 tab PO DAILY Discontinued losartan 50 mg tablet 50 mg PO DAILY amlodipine 5 mg tablet 5 mg PO DAILY aspirin 81 mg tablet,chewable 1 tab PO DAILY Referrals / Follow Up: Kristin Jett MD [Med Staff - Active Staff] - Within 2 Weeks Mckinley Ly DO [Primary Care Provider] - Within 2 Weeks Disposition Disposition (needs filled in before D/C Order can be placed): Home, Self Care Charges/Coding Visit Charges Inpatient E&M: 55477 Disch Hosp >30min
[2023-07-16] MEDS: Spironolactone 25 MG Tablet 12.5 MG PO (10:38)
--- NOTE | 2023-07-16 10:57 | CASEMGMT ---
Pt DC order placed. Pt prescribed Eliquis (new). TC to [facility]. [facility] states that she savings card has been applied.
--- NOTE | 2023-08-29 11:54 | ECQM.STEMI ---
STEMI STEMI ED Door Time / Other REG STEMI EKG Time (1) ST elevation (STEMI) myocardial infarction: Acute ~07/14/23 16:38 Balloon/Aspiration Date-Time Date of Balloon/Aspiration:: 07/14/23 Time of Balloon/Aspiration:: 17:29
== END 2023-07-16 12:07 | disposition home or self-care (01) | DRG 322 ==
LOC: ED 17:05 → ICU 17:14
PROVIDERS: Admitting Provider Internal Medicine; Emergency Provider Emergency Medicine; PCP Family Medicine; Referring Provider Internal Medicine Cardiovascular Disease; Visit Provider Student in an Organized Health Care Education/Training Program
DX: I21.02 ST elevation (STEMI) myocardial infarction involving left anterior descending coronary artery (principal); I23.6 Thrombosis of atrium, auricular appendage, and ventricle as current complications following acute myocardial infarction; I10 Essential (primary) hypertension; E87.6 Hypokalemia; I25.10 Atherosclerotic heart disease of native coronary artery without angina pectoris; K21.9 Gastro-esophageal reflux disease without esophagitis; R00.1 Bradycardia, unspecified; Z95.5 Presence of coronary angioplasty implant and graft; Z79.899 Other long term (current) drug therapy; Z85.46 Personal history of malignant neoplasm of prostate; Z92.3 Personal history of irradiation
CPT/HCPCS: 36415; 71045; 80048; 80053; 83735; 83880; 84100; 84153; 84484; 85025; 85027; 85347; 85610; 85730; 92941; 93005; 93306; 93458; 97802; 99152; 99153; 99284; C1725; C1887; J7030; Q9957; Q9967; A4216; C1769; C1874; C1894; C8929; C9606; J1327; J1940; J2405

== ENCOUNTER → 2023-07-18 | Outpatient (CLI) | payer MEDICARE, BC, SELFPAY ==
[2023-07-18 15:24] LABS: Absolute Lymphocyte Count 1.28 X10^3/uL (0.83-4.51); Absolute Neutrophil Count 4.5 X10^3/uL (2.0-7.7); Basophil# 0.03 X10^3/uL; Basophil% 0.4 % (0-1); Eosinophils% 4.2 % (0-5); Hematocrit 37.4 % (40-54); Hemoglobin 12.7 g/dL (13.0-16.5); Lymphocyte # 1.28 X10^3/ul (0.83-4.51); Lymphocyte % 18.1 % (19-41); Mean Corpuscular Hgb 30.5 pg (27.0-32.0); Mean Corpuscular Volume 89.7 fL (80-94); Mean Platelet Vol. 10.2 fl (6.2-12.0); Monocyte# 0.96 X10^3/uL; Monocyte% 13.6 % (0-10); NRBC Flagged by Analyzer 0 % (0-5); Neutrophil # 4.49 X10^3/uL (2.7-7.7); Neutrophil % 63.4 % (47-70); Platelet Count 208 K/mm3 (150-450); RBC Distribution Width CV 14.5 % (11.6-14.6); Red Blood Count 4.17 M/mm3 (4.6-6.2); White Blood Count 7.1 K/mm3 (4.4-11.0)
[2023-07-18 15:38] LABS: Anion Gap 7 (5-15); BUN 23 mg/dL (7-18); BUN/Creat Ratio 19.3 RATIO (10-20); Calcium,Total 8.7 mg/dL (8.5-10.1); Chloride 106 mmol/L (98-107); Creatinine, Serum 1.19 mg/dL (0.70-1.30); EST Glomerular Filtration Rate 65 mL/min (>60); Est Glom Filt Rate - Afr Amer 78 mL/min (>60); Glucose 90 mg/dL (74-106); Potassium 3.5 mmol/L (3.5-5.1); Sodium Level 138 mmol/L (136-145)
== END | disposition home or self-care (01) ==
LOC: BFHLAB 11:44
PROVIDERS: PCP Family Medicine; Visit Provider Family Medicine
DX: I25.10 Atherosclerotic heart disease of native coronary artery without angina pectoris (principal); D58.2 Other hemoglobinopathies
CPT/HCPCS: 36415; 80048; 85025

== ENCOUNTER → 2023-07-20 | Outpatient (CLI) | payer MEDICARE, BC, SELFPAY | END | disposition home or self-care (01) | LOC: BFHLAB 10:08 | PROVIDERS: PCP Family Medicine; Visit Provider Family Medicine | DX: I25.10 Atherosclerotic heart disease of native coronary artery without angina pectoris (principal) | CPT/HCPCS: 36415; 83695 ==

== ENCOUNTER → 2023-08-03 | Outpatient (CLI) | payer MEDICARE, BC, SELFPAY ==
--- NOTE | 2023-08-03 13:08 | PCM.CR.HP2 ---
CR - History & Physical General Arrival date:: 08/03/23 Arrival time:: 13:09 Date of Referral:: 07/20/23 Date of CR Evaluation:: 08/03/23 Referring Physician: Dr. Jett Primary Diagnosis: STEMI, PCI with coronary stent History of Present Cardiac Event Onset Date Acute Myocardial Infarction within 12 months:: Yes PTCA or coronary stenting:: Yes Vessel: onset 07/14/23 Medications Ambulatory Orders Medication Instructions Recorded lansoprazole 30 mg capsule,delayed 30 mg PO DAILY 12/02/18 release multivitamin (Daily Multi-Vitamin 1 tab PO DAILY 12/21/22 tablet) lutein 20 mg capsule 20 mg PO DAILY 03/24/23 apixaban 5 mg tablet (Eliquis) 5 mg PO BID #60 tabs 08/02/23 atorvastatin 80 mg tablet 80 mg PO QHS #90 tabs 08/02/23 clopidogrel 75 mg tablet 75 mg PO DAILY #90 tabs 08/02/23 furosemide 40 mg tablet 40 mg PO DAILY #90 tabs 08/02/23 isosorbide mononitrate 30 mg 30 mg PO DAILY #90 tabs 08/02/23 tablet,extended release 24 hr leuprolide 7.5 mg (1 month) 7.5 mg subcut .Q12 weeks 08/02/23 subcutaneous syringe ([employer]) losartan 25 mg tablet 25 mg PO DAILY #90 tabs 08/02/23 metoprolol succinate 25 mg 25 mg PO DAILY #90 tabs 08/02/23 tablet,extended release 24 hr potassium chloride 20 mEq 20 meq PO DAILYCM #90 tabs 08/02/23 tablet,extended release(part/cryst) spironolactone 25 mg tablet 12.5 mg (1/2 x 25 mg) PO DAILY #45 08/02/23 tabs Allergies Allergies lisinopril Allergy (Unknown, Verified 08/02/23 14:00) Nausea Penicillins Allergy (Verified 08/02/23 14:00) Rash Sleep Disorder Evaluation Hx of Sleep Apnea: No Do you snore loudly (louder than talking or can be heard through closed doors)?: No Do you often feel tired/ fatigued/ sleepy during daytime?: No Has anyone observed you stop breathing during sleep?: No History of Hypertension (for STOP score): Yes STOP Results: Negative Advanced Directives Advanced Directives Power of Claims Support Specialist: Yes Living Will: Yes Advance Directives Information Provided: Yes Advance Directives on File: Yes DNR Order?:: No Past Medical History Covid-19 Screening Physicial Symptoms Other Clinical Concerns Exposure Risk Pertinent Comorbidities 65 years or older:: Yes Past Medical Illness Past Medical History (Updated 08/02/23 @ 14:28 by Chelo Blackmon CROZE MACHINE OPERATOR, CROZE MACHINE OPERATOR-C) Arthritis M19.90 Cancer C80.1 SKIN CA Colitis K52.9 20 YRS AGO Coronary artery disease I25.10 Gastric reflux K21.9 History of hiatal hernia Z87.19 History of stress test Z92.89 01/21/2021 Hypertension I10 CONTROLLED ON MED Hypertension I10 Kidney stone N20.0 1992 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 Left ventricular systolic dysfunction (LVSD) I51.9 Non-smoker Z78.[address] elevation (STEMI) myocardial infarction I21.3 Wears glasses Z97.3 Past Surgical History Past Surgical History (Reviewed 08/02/23 @ 14:14 by Chelo Blackmon CROZE MACHINE OPERATOR, CROZE MACHINE OPERATOR-C) Hx of cardiac catheterization (~07/14/23) Z98.890 Hx of surgical procedure Z98.890 1965 ON TESTICLES UNSURE OF SURGERY Stented coronary artery (07/14/23) Z95.5 PTCA/DEBORAH Prox LAD using [place] 3.0x26 mm and DEBORAH Mid LAD using [place]ine [place] 3.0x 8 mm 07/14/23 Family History Summary Family History (Reviewed 08/02/23 @ 14:00 by Chelo Blackmon CROZE MACHINE OPERATOR, CROZE MACHINE OPERATOR-C) Father Myocardial infarction Mother Cancer Social History Smoking History Smoking Status: Never smoker Alcohol Use Alcohol Usage: No Substance Abuse Hx Substance Use: No Occupation Occupation (List type of work in comments):: Employed Hours worked per day:: 5 Hobbies, Recreation, Social Activities Hobbies: Sports Recreational Activities: I am able to engage in most, but not all activities Social Environment Status Marital Status: Current Living Arrangements Living Environment:: Spouse Children How many children do you have?: 2 Do any of your children live nearby?: No Safety Do you feel safe in your surroundings?: Yes Assistance Do you need any assistance at home?: no Review of Systems Review of Systems Hints Review of Present Symptoms: Reports Shortness of Breath with Exertion, Fatigue, Appetite - Normal and Sleep - Normal; Denies Shortness of Breath at Rest, PVD, Operative Discomfort, Angina, Wound Healing, Dizziness/Lightheadedness, Heart Arrhythmia/Irregularities, Appetite - Special Diet or Sexual Changes Pain Is Patient Pain Free?: No Pain Location: lower extremity Risk Factor Assessment Chief Complaint Chief Complaint: STEMI, PCI with coronary stent Vital Signs Pulse Ox: 94 Blood Pressure: 103/68 Pulse Pulse Rate: 73 Obesity Height: 5 ft 7 in Weight:: 179 lb Weight in Pounds: 179.0 lbs Body Mass Index (BMI): 28.0 Nutritional Referral for Obesity: No Physical Inactivity Physical Inactivity: Reg Exercise 30 min/day Risk Stratification Risk Guidelines: Lowest Risk: Risk Factor for Smoking, Risk Factor for Diabetes, Risk Factor for Obesity, Risk Factor for Hypertension, Risk Factor for Sedentary Lifestyle and Risk Factor for Depression and Moderate Risk: Risk Factor for Dyslipidemia For Smoking Smoking Risk Guidelines For Dyslipidemia Dyslipidemia Risk Guidelines For Diabetes Mellitus Diabetes Risk Guidelines For Obesity/Overweight Obesity/Overweight Risk Guidelines For Hypertension Hypertension Risk Guidelines For Sedentary Lifestyle Sedentary Lifestyle Risk Guidelines For Depression Depression Risk Guidelines Family History Family History Father Myocardial infarction Mother Cancer Motivation Motivation to Participate On a scale of 1 to 10, how prepared are you to commit to attending program?: 10 What do you see as barriers to successfully being able to complete the program?: nothing What do you see as the benefits of succesfully completing the program? In other words, what do you hope to get out of participating in the program?: healing of heart, confidence Are there issues you are dealing with that will interfere with completing the program?: no Do you have a spouse or signficant other, family or friends who will help support you to complete the program?: yes
[2023-08-03 13:16] VITALS: BP 103/68; PULSE 73; O2SAT 94
--- NOTE | 2023-08-03 13:16 | PCM.CR.ITP ---
Diagnosis General Information Admitting Diagnosis: STEMI, PCI with coronary stent Personal Learning Style:: Audio/Visual Stage of change r/t lifestyle modifications:: Contemplation Gave educational material for:: Treating Heart Disease, How The Heart Works, What it means to have Heart Disease, How Coronary Artery Disease is Diagnosed, Heart Procedures, What Heart Medications Do, Risk Factors & Modifications, Living an Active Life, Nutrition, Emotions & Heart Disease, Stress Management & Relaxation and Sleep Disorders & Heart Disease Education/Goals Cardiac Rehabilitation Goals Personal Goals: Initial Assessment: Improve management of stress and emotions, Improve energy level, Participate in home exercise program, Get back to work, or to resume activities faster, Improve knowledge of cardiac disease, Improve muscle strength and endurance, Improve diet and eating habits (eat healthier) and Control risk factors (learn risk factor modification) Scale for measuring improvement of personal goals Diagnosis & Disease Process Outcomes/Goals: Pt IDs own risk factors & lifestyle modifications by Session 10, Verbalizes symptoms of angina & response by session 3., Pt independently manages and Other Additional Outcomes/Goals: Plan/Interventions: Assist Pt to ID & engage in lifestyle modification to reduce CVD risk, Instruct on individual risk factors, Review symptoms of angina & emergency actions, Review secondary diagnosis & identify educational needs. and Other see comment 30 day Reassessments:: Not Met 30 day Reassessments:: Not Met 30 day Reassessments:: Not Met 30 day Reassessments:: Not Met Final Reassessments:: Not Met Safety Referral to Physical Therapy: No Referral to [facility] Case Management: No Fall Risk Assessed:: Yes Assistive Devices:: None Exercise - Initial Assessment Visit Date of Eval: 08/03/23 (initial eval ) Mets: Pre-: >3 METS for 30 minutes by discharge, >5 METS for 30 minutes by discharge, >7 METS for 30 minutes by discharge and Unable to meet goal due to: (see comment below) Physician Prescribed Exercise Modalities: Treadmill, Rower, Airdyne, NuStep, SciFit and Lateral Usps Letter Carrier Frequency: 2x/week for 18 weeks [36 sessions] and 3x/week for 12 weeks [36 sessions] Intensity: 60-80% of age predicted maximum heart rate reserve Duration: 30 - 45 minutes Current METSs:: 3 Target Heart Rate:: 100-115 Resting Blood Pressure: 103/68 EKG Type: SR Outcomes & Goals Goals:: Verbalizes understanding of THR, RPE & goal METS by session 6, Documents in home exercise log/reports 30 min aerobic 5 day/wk by DC, Demonstrates accurate pulse taking by DC and Other additional outcome/goals: see below Intervention & Plan Exercise Program Goals: Instruct on personal THR & RPE, Instruct on MET level & personal MET goal, Show patient to take own pulse /validate performance until accurate, Instruct on home exercise and Other additional plan/int Physical Activity Home Exercise Physical Activity - Home Exercise: Safe Exercise, Warm-up, Self-monitoring, Cool-Down, Home Exercise > 30 min Daily and Sitting Time <3 hours/daily Outcomes & Goals Outcomes/Goals: Demonstrates correct Warm-up/exercise Cool-Down (S3) if = 2.5 METs, Verbalizes symptoms of exercise intolerance by Session 3 (S3), Demonstrate safe equipment use (S3) & follows exercise prescrition (6) and Other: See below Intervention & Plan Plan/Intervention: Instruct warm-up & cool-down if exercising at > 2 METs, Instruct on symptoms of exercise intolerance & actions to take, Instruct & monitor on saf, Assess intial functional capacity & safety risk and Other See below Nutrition - Initial Assessment Program Goals Nutrition Program Goals Patient has diagnosis of Hyperlipidemia (ICD E78)?: No Visit Date of Eval: 08/03/23 (initial eval ) Cholesterol/Lipids (Other Core Measures) Determine presence & major risk factors that modify LDL goal: Hypertension or hypertensive medication, Low HDL cholesterol <40 mg/dL*, Family history of premature CHD in Male < 55 years: female <65 yearsFa and Age men > 45 years; women >/= 55 years Outcomes/Goals: Pt IDs own risk factors & lifestyle modifications by Session 10, Verbalizes symptoms of angina & response by session 3., Pt independently manages and Other Additional Outcomes/Goals: Intervention/Plan: Advocate for lipid panel cholesterol medication if applicable, Instruct on personal lipid levels & lipid goals/NCEP guidelines, Instruct on cholesterol and Other additional plan/int Referral to dietitian:: No Diabetes (Other Core Measures) Diabetes Type: Not Applicable Weight Mgt (Other Care) Height: 5 ft 7 in Weight:: 179 lb BMI: 28.0 Diagnosis Overweight/Obesity BMI> 30% ICD-10 E66: No Diagnosis High BMI/Morbid Obesity BMI> 35% ICD-10 Z68: No Outcomes/Goals: Pt sets, maintains & shows weight loss goal & trend during rehab and Other additional outcomes/goals Intervention/Plan: Instruct on ideal BMI & set weight loss goal w/patient, Assist pt to ID & incorporate diet changes for weight loss by S9, Refer to Structured Weight Loss program as appropriate, Encourage goal of using 250-300dcal per session for weight loss and Other additional plan/interventions Healthy Eating Habits Will attend diet classes:: Yes Outcomes/Goals:: Consume diet rich in vegs,fruits,whole grain/high fiber,fish,lean meat, Limit sat/trans fats,cholesterol & added salts & sugars and Other additional outcome/goals: Intervention/Plan:: Assess current eating habits and Other Additional plan/interventions Education Gave educational materials for:: Signs & symptoms of hypoglycemia, Signs & symptoms of hyperglycemia, Relate diabetes to coronary artery disease and Healthy eating Core - Initial Assessment Visit Date of Eval: 08/03/23 (initial eval ) Medication Compliance Preventative Medication(s):: Clopidogrel/P2Y12 inhibit, Statin/lipid, Beta heri and Eliquis H/O mental health issues: depression, anxiety, or addiction?: No Doesn?t believe in the benefits of treatment?: No Believes medications are unnecessary or harmful?: No Has a concern about medication side effects?: No Expresses concern over the cost of medications?: No Outcomes/Goals: Verbalizes medications,desired effect & common side effects @ DC, Pt self-reports following medication regimen, Keeps card in wallet w/medications listed by DC and Other additional outcome/goals: Interventions/plans: Instruct on medication effects & side effects, Review medication list w/patient every two weeks, Instruct importance of taking meds as ordered & assist problem solving and Other additional Tobacco Use Tobacco Use: Non-smoker Hypertension Resting Blood Pressure:: 103/68 [place] [employer] Hypertension Guidelines Outcomes/Goals: Able to verbalize/achieve optimal blood pressure <130/80, Incorporates diet changes & exercise for blood pressure control by DC and Other additional outcomes/goals Interventions/plan: Instruct on optimal blood pressure, hypertension & medications, Instruct on effects of sodium, alcohol, stress, exercise &hypertension and Other additional plan/interventions Tobacco Cessation Referral Smoking Cessation Referral:: No Individual Education/Counseling:: No Education Schedule Given:: Yes Psychosocial - Initial Assess VIsit Date of Eval: 08/03/23 (initial eval ) History of previous Mental disease:: No Target Goals Target Goals Outcomes/Goals: See list Psychosocial Outcomes/Goals:: ID's personal stressors & 2 strategies to manage stress by discharge and Other Additional outcome/goals: Intervention/Plan: See List Interventions/Plan:: Assess stressors,coping strategies & signs of derpression on admission, Instruct/assist pt to develop coping & personal stress Mgt strategies, Refer to Behavioral Health if appropriate, Refer to Physician if appropriate, Instruct patient to recognize signs & symptoms of depression, Instruct patient to recog and Other additional plan/intervention Patient Health Questionnaire PHQ-9 Screening Initial Assessment: 1. Little interest or pleasure in doing things: Not at all 2. Feeling down, depressed, or hopeless: Not at all 3. Trouble falling or staying asleep, or sleeping too much: Not at all 4. Feeling tired or having little energy: Several days 5. Poor appetite or overeating: Not at all 6. Feeling bad about yourself -- or that you are a failure or have let yourself or your family down: Not at all 7. Trouble concentrating on things, such as reading the newspaper or watching television: Not at all 8. Moving or speaking so slowly that other people could have noticed. Or the opposite - being so fidgety or restless that you have been moving around a lot more than usual: Not at all 9. Thoughts that you would be better off , or of hurting yourself in some way: Not at all How difficult have these problems made it for you to do your work, take care of things at home, or get along with other people?: Not difficult at all Total Score: 1 CRISTIANA-Q SV Test Statements CAD is a disease of the arteries in the heart: False Examples of risk factors for heart disease: True Angina is chest pain or discomfort: True The benefits of resistance training include: True Eating more meat and dairy products: False Anti-platelet medications such as aspirin are important: I Don't Know The only effective way to manage stress: False An exercise warm-up slowly increases heart rate: False Prepared, processed foods usually have high sodium: True Depression is common after a heart attack: I Don't Know The statin medications lower cholesterol: True To control blood pressure, lower the amount of sodium: True If someone gets chest discomfort during walking: False Transfats are partially hydrogenated vegetable oils: I Don't Know Sleep apnea that is not treated increases the risk: I Don't Know To control cholesterol, one should become a vegetarian: False Someone knows if he/she is exercising at the right level: True Diabetes cannot be prevented with exercise & health eating: False Stress is a large risk for heart attack: True A diet that can help lower blood pressure is rich in: True Total Score Total Correct Responses: 15 Self-Efficacy 6-Item Scale Initial Assessment: We would like to know how confident you are in doing certain activities. Please select your confidence level for: Fatigue Select Number: 9 Physical Discomfort or Pain Select Number: 8 Emotional Distress Select Number: 8 Other Symptoms or Health Problems Select Number: 8 Different Tasks and Activities Select Number: 8 Medication Select Number: 9 Total Score:: 8 Nutrition Survey Nutrition Survey Instructions Scoring Instructions Nutrition Survey Initial: Have you lost >10 lbs over the past 2 months without trying?: No Are you following a special diet at home for diabetes, low fat, or low salt?: No Are you interested in meeting with a dietitian for help understanding your diet?: Yes Do you eat less than 3 meals a day?: No Do you eat fatty meats (chen, sausage, ribs, etc), fried foods, desserts, large amounts of salad dressings, margarine, butter, or cheese most days?: No Do you have food allergies? [Enter types in comment field]: No Do you eat in restaurants more than 3 times a week?: Yes Do you season food with salt, seasoning salt, or garlic salt?: No Do you used canned, boxed, frozen meals, or soups, seasoning packets?: No Total Score:: 2 Exercise - Final/Discharge Physician Prescribed Exercise Modalities: Treadmill, Rower, Airdyne, NuStep, SciFit and Lateral Usps Letter Carrier Frequency: 2x/week for 18 weeks [36 sessions] and 3x/week for 12 weeks [36 sessions] Intensity: 60-80% of age predicted maximum heart rate reserve Current METSs:: 3 Target Heart Rate:: 100-115 Nutrition - 30-Day Assessment Weight Mgt (Other Care) Height: 5 ft 7 in Weight:: 179 lb BMI: 28.0 Nutrition - 60-Day Assessment Weight Mgt (Other Care) Height: 5 ft 7 in Weight:: 179 lb BMI: 28.0 Core - Final Assessment Hypertension Resting Blood Pressure:: 103/68 [place] [employer] Hypertension Guidelines Core - 60-Day Assessment Hypertension Resting Blood Pressure:: 103/68 [place] [employer] Hypertension Guidelines Psychosocial - 30-Day Assess Target Goals Target Goals Psychosocial - 60-Day Assess Target Goals Target Goals Psychosocial - 90-Day Assess Target Goals Target Goals Psychosocial - Final Assessmen Target Goals Target Goals Nutrition - 90-Day Assessment Weight Mgt (Other Care) Height: 5 ft 7 in Weight:: 179 lb BMI: 28.0 Nutrition - Final Assessment Program Goals Patient has diagnosis of Hyperlipidemia (ICD E78)?: No Weight Mgt (Other Care) Height: 5 ft 7 in Weight:: 179 lb BMI: 28.0
[2023-08-03 14:08] VITALS: BP 103/68; BMI 28.0
[2023-08-03 14:09] VITALS: BMI 28.0
== END | disposition home or self-care (01) ==
LOC: CR 13:03
PROVIDERS: PCP Family Medicine; Referring Provider Internal Medicine Cardiovascular Disease; Visit Provider Internal Medicine Cardiovascular Disease
DX: I21.3 ST elevation (STEMI) myocardial infarction of unspecified site (principal); Z95.5 Presence of coronary angioplasty implant and graft

== ENCOUNTER 2023-09-09 13:00 | Outpatient (RCR) | payer MEDICARE, BC, SELFPAY ==
[2023-08-03 14:08] VITALS: BMI 28.0
--- NOTE | 2023-08-22 14:00 | CRPH1.INSTRU ---
General Education Discussed with Patient CAD and cardiac anatomy and function:: Patient communicates acknowledgment Explanation of diagnoses and procedures:: Patient communicates acknowledgment Sign/Symptoms of MO:: Patient communicates acknowledgment Antiplatelet therapy: Patient communicates acknowledgment Proper use of NTG-SL: Patient communicates acknowledgment Emergency procedures and activation of EMS: Patient communicates acknowledgment Compliance of all prescribed medications: Patient communicates acknowledgment Dyslipidemia Response Code Dyslipidemia Response Code:: Patient communicates acknowledgment Hypertension Recommendations Recommendations Include:: Maintain BP <130/85 Response Code Hypertension:: Patient communicates acknowledgment
--- NOTE | 2023-09-02 08:56 | CR.ITP_ITS ---
Exercise - Initial Assessment Physician Prescribed Exercise Modalities: Treadmill, Rower and Schwinn Airdyne AD-7 Nutrition - Initial Assessment Weight Mgt (Other Care) Height: 5 ft 7 in Weight:: 170 lb BMI: 26.6 Psychosocial - Initial Assess Target Goals Target Goals Referral to Behavioral Health PS - Interventions: Yes: Attend Stress Management Classes and No: Referral to Behavioral Health if PHQ-9 score >9:, No: Referral to [facility] and No: Referral to Physician if PHQ-9 if score is 5-9: Patient Health Questionnaire PHQ-9 Screening 30-Day Re-eval Assessment: 1. Little interest or pleasure in doing things: Not at all 2. Feeling down, depressed, or hopeless: Not at all 3. Trouble falling or staying asleep, or sleeping too much: Not at all 4. Feeling tired or having little energy: Not at all 5. Poor appetite or overeating: Not at all 6. Feeling bad about yourself -- or that you are a failure or have let yourself or your family down: Not at all 7. Trouble concentrating on things, such as reading the newspaper or watching television: Not at all 8. Moving or speaking so slowly that other people could have noticed. Or the opposite - being so fidgety or restless that you have been moving around a lot more than usual: Not at all 9. Thoughts that you would be better off , or of hurting yourself in some way: Not at all How difficult have these problems made it for you to do your work, take care of things at home, or get along with other people?: Not difficult at all Total Score: 0 Self-Efficacy 6-Item Scale 30-Day Re-eval Assessment: We would like to know how confident you are in doing certain activities. Please select your confidence level for: Fatigue Select Number: 9 Physical Discomfort or Pain Select Number: 8 Emotional Distress Select Number: 8 Other Symptoms or Health Problems Select Number: 8 Different Tasks and Activities Select Number: 8 Medication Select Number: 9 Total Score:: 8 Nutrition Survey Nutrition Survey Instructions Scoring Instructions Exercise - 30-day Assessment Visit Date of Eval: 09/02/23 Session #:: 10 Physician Prescribed Exercise Modalities: Treadmill, Rower and Schwinn Airdyne AD-7 Frequency: 3x/week for 12 weeks [36 sessions] Intensity: 60-80% of age predicted maximum heart rate reserve Duration: 30 - 45 minutes Current METSs:: 5.0 Target Heart Rate:: 100-115 Current RPE:: 11-12 Maximum Excercise HR:: 103 Resting Blood Pressure: 96/60 Maximum Exercise Blood Pressure: 126/80 EKG Type: NSR w/ occasional PVCs, rare PAC Current Physical Activity or Exercising minutes: 35:40 Outcomes & Goals Goals:: Verbalizes understanding of THR, RPE & goal METS by session 6, Documents in home exercise log/reports 30 min aerobic 5 day/wk by DC and Demonstrates accurate pulse taking by DC Intervention & Plan Exercise Program Goals: Instruct on personal THR & RPE, Instruct on MET level & personal MET goal, Show patient to take own pulse /validate performance until accurate and Instruct on home exercise 30-day Reassessments 30 day Reassessments:: Met Physical Activity Home Exercise Physical Activity - Home Exercise: Safe Exercise, Warm-up, Self-monitoring, Cool-Down, Home Exercise > 30 min Daily and Sitting Time <3 hours/daily Outcomes & Goals Outcomes/Goals: Demonstrates correct Warm-up/exercise Cool-Down (S3) if = 2.5 METs, Verbalizes symptoms of exercise intolerance by Session 3 (S3) and Demonstrate safe equipment use (S3) & follows exercise prescrition (6) Intervention & Plan Plan/Intervention: Instruct warm-up & cool-down if exercising at > 2 METs, Instruct on symptoms of exercise intolerance & actions to take, Instruct & monitor on saf and Assess intial functional capacity & safety risk 30-day Reassessments 30 day Reassessments:: Met Exercise - 60-day Assessment Physician Prescribed Exercise Modalities: Treadmill, Rower and Schwinn Airdyne AD-7 Exercise - 90-day Assessment Physician Prescribed Exercise Modalities: Treadmill, Rower and Schwinn Airdyne AD-7 Exercise - Final/Discharge Physician Prescribed Exercise Modalities: Treadmill, Rower and Schwinn Airdyne AD-7 Nutrition - 30-Day Assessment Program Goals Nutrition Program Goals Patient has diagnosis of Hyperlipidemia (ICD E78)?: Yes Visit Date of Eval: 09/02/23 Session #:: 10 Cholesterol/Lipids (Other Core Measures) Lipid Medication: Yes, lab work not available on [place] Determine presence & major risk factors that modify LDL goal: Hypertension or hypertensive medication and Age men > 45 years; women >/= 55 years Outcomes/Goals: Pt IDs own risk factors & lifestyle modifications by Session 10, Verbalizes symptoms of angina & response by session 3. and Pt independently manages Intervention/Plan: Instruct on personal lipid levels & lipid goals/NCEP guidelines and Instruct on cholesterol Referral to dietitian:: Yes 30-day Reassessments:: Progressing Diabetes (Other Core Measures) Diabetes Type: Not Applicable Weight Mgt (Other Care) Not Applicable: Yes Height: 5 ft 7 in Weight:: 170 lb BMI: 26.6 Diagnosis Overweight/Obesity BMI> 30% ICD-10 E66: No Diagnosis High BMI/Morbid Obesity BMI> 35% ICD-10 Z68: No Outcomes/Goals: Pt sets, maintains & shows weight loss goal & trend during rehab Intervention/Plan: Instruct on ideal BMI & set weight loss goal w/patient 30 day Reassessments:: Met Healthy Eating Habits Will attend diet classes:: Yes Outcomes/Goals:: Consume diet rich in vegs,fruits,whole grain/high fiber,fish,lean meat and Limit sat/trans fats,cholesterol & added salts & sugars Intervention/Plan:: Assess current eating habits 30-day Reassessments:: Met Education Gave educational materials for:: Healthy eating Nutrition - 60-Day Assessment Weight Mgt (Other Care) Height: 5 ft 7 in Weight:: 170 lb BMI: 26.6 Core - 30-Day Assessment Visit Date of Eval: 09/02/23 Medication Compliance Preventative Medication(s):: Aspirin, Clopidogrel/P2Y12 inhibit, Statin/lipid, Beta heri and Eliquis H/O mental health issues: depression, anxiety, or addiction?: No Doesn?t believe in the benefits of treatment?: No Believes medications are unnecessary or harmful?: No Has a concern about medication side effects?: No Expresses concern over the cost of medications?: No Outcomes/Goals: Verbalizes medications,desired effect & common side effects @ DC, Pt self-reports following medication regimen and Keeps card in wallet w/medications listed by DC Interventions/plans: Instruct on medication effects & side effects, Review medication list w/patient every two weeks and Instruct importance of taking meds as ordered & assist problem solving 30-day Reassessments:: Met Tobacco Use Tobacco Use: Non-smoker Hypertension Hypertension Diagnosis:: Hypertension ICD-10 I10 Resting Blood Pressure:: 96/60 [place] [employer] Hypertension Guidelines Peak Exercise Blood Pressure:: 126/80 Outcomes/Goals: Able to verbalize/achieve optimal blood pressure <130/80 and Incorporates diet changes & exercise for blood pressure control by DC Interventions/plan: Instruct on optimal blood pressure, hypertension & medications and Instruct on effects of sodium, alcohol, stress, exercise &hypertension 30 day Reassessments:: Met Tobacco Cessation Referral Smoking Cessation Referral:: No Individual Education/Counseling:: No Education Schedule Given:: Yes Psychosocial - 30-Day Assess VIsit Date of Eval: 09/02/23 Session #:: 10 Not Applicable: Yes History of previous Mental disease:: No Target Goals Target Goals Psychosocial Test Tool Used:: PHQ-9 Questionnaire phq-9 Severity Referral to Behavioral Health PS - Interventions: Yes: Attend Stress Management Classes and No: Referral to Behavioral Health if PHQ-9 score >9:, No: Referral to [facility] and No: Referral to Physician if PHQ-9 if score is 5-9: Outcomes/Goals: See list Psychosocial Outcomes/Goals:: ID's personal stressors & 2 strategies to manage stress by discharge Intervention/Plan: See List Interventions/Plan:: Assess stressors,coping strategies & signs of derpression on admission, Instruct/assist pt to develop coping & personal stress Mgt strategies, Instruct patient to recognize signs & symptoms of depression and Instruct patient to recog 30-day Reassessments: 30 day Reassessments:: Met Psychosocial - 60-Day Assess Target Goals Target Goals Referral to Behavioral Health PS - Interventions: Yes: Attend Stress Management Classes and No: Referral to Behavioral Health if PHQ-9 score >9:, No: Referral to [facility] and No: Referral to Physician if PHQ-9 if score is 5-9: Outcomes/Goals: See list Psychosocial Outcomes/Goals:: ID's personal stressors & 2 strategies to manage stress by discharge Psychosocial - 90-Day Assess Target Goals Target Goals Referral to Behavioral Health PS - Interventions: Yes: Attend Stress Management Classes and No: Referral to Behavioral Health if PHQ-9 score >9:, No: Referral to [facility] and No: Referral to Physician if PHQ-9 if score is 5-9: Psychosocial - Final Assessmen Target Goals Target Goals Referral to Behavioral Health PS - Interventions: Yes: Attend Stress Management Classes and No: Referral to Behavioral Health if PHQ-9 score >9:, No: Referral to [facility] and No: Referral to Physician if PHQ-9 if score is 5-9: Nutrition - 90-Day Assessment Weight Mgt (Other Care) Height: 5 ft 7 in Weight:: 170 lb BMI: 26.6 Nutrition - Final Assessment Weight Mgt (Other Care) Height: 5 ft 7 in Weight:: 170 lb BMI: 26.6
[2023-09-02 08:58] VITALS: BP 96/60
[2023-09-02 09:02] VITALS: BMI 26.6
[2023-09-02 09:07] VITALS: BP 96/60
== END 2023-09-09 23:59 ==
LOC: CR 13:00
PROVIDERS: PCP Family Medicine; Referring Provider Internal Medicine Cardiovascular Disease; Visit Provider Internal Medicine Cardiovascular Disease
DX: I21.02 ST elevation (STEMI) myocardial infarction involving left anterior descending coronary artery (principal); Z95.5 Presence of coronary angioplasty implant and graft
CPT/HCPCS: 93798

== ENCOUNTER → 2023-10-06 | Outpatient (CLI) | payer MEDICARE, BC, SELFPAY ==
[2023-10-03 05:51] VITALS: BMI 26.6
[2023-10-06 18:31] LABS: AST(SGOT) 25 U/L (15-37); Alanine Aminotransfer ALT/SGPT 29 U/L (16-61); Albumin, Serum 3.6 g/dL (3.2-5.0); Alkaline Phosphatase 87 U/L (45-117); Bilirubin, Direct 0.18 mg/dL (0.00-0.30); Globulin 3.9 g/dL (2.2-4.2); Protein, Total 7.5 g/dL (6.4-8.2)
[2023-10-06 18:32] LABS: Vitamin B12 498 pg/mL (211-911)
== END | disposition home or self-care (01) ==
LOC: BFHLAB 16:35
PROVIDERS: PCP Family Medicine; Referring Provider Family Medicine; Visit Provider Family Medicine
DX: Z51.81 Encounter for therapeutic drug level monitoring (principal)
CPT/HCPCS: 36415; 80076; 82607

== ENCOUNTER 2023-10-07 13:00 | Outpatient (RCR) | payer MEDICARE, BC, SELFPAY ==
[2023-09-02 09:02] VITALS: BMI 26.6
[2023-09-10 00:21] VITALS: BP 96/60
--- NOTE | 2023-10-03 05:40 | CR.ITP_ITS ---
Exercise - Initial Assessment Physician Prescribed Exercise Modalities: Treadmill, Rower and Schwinn Airdyne AD-7 Nutrition - Initial Assessment Weight Mgt (Other Care) Height: 5 ft 7 in Weight:: 170 lb 8 oz BMI: 26.6 Psychosocial - Initial Assess Target Goals Target Goals Referral to Behavioral Health PS - Interventions: Yes: Attend Stress Management Classes and No: Referral to Behavioral Health if PHQ-9 score >9:, No: Referral to [facility] and No: Referral to Physician if PHQ-9 if score is 5-9: Patient Health Questionnaire PHQ-9 Screening 60-Day Re-eval Assessment: 1. Little interest or pleasure in doing things: Not at all 2. Feeling down, depressed, or hopeless: Not at all 3. Trouble falling or staying asleep, or sleeping too much: Not at all 4. Feeling tired or having little energy: Not at all 5. Poor appetite or overeating: Not at all 6. Feeling bad about yourself -- or that you are a failure or have let yourself or your family down: Not at all 7. Trouble concentrating on things, such as reading the newspaper or watching television: Not at all 8. Moving or speaking so slowly that other people could have noticed. Or the opposite - being so fidgety or restless that you have been moving around a lot more than usual: Not at all 9. Thoughts that you would be better off , or of hurting yourself in some way: Not at all How difficult have these problems made it for you to do your work, take care of things at home, or get along with other people?: Not difficult at all Total Score: 0 Self-Efficacy 6-Item Scale 60-Day Re-eval Assessment: We would like to know how confident you are in doing certain activities. Please select your confidence level for: Fatigue Select Number: 10 Physical Discomfort or Pain Select Number: 9 Emotional Distress Select Number: 9 Other Symptoms or Health Problems Select Number: 9 Different Tasks and Activities Select Number: 9 Medication Select Number: 10 Total Score:: 9 Nutrition Survey Nutrition Survey Instructions Scoring Instructions Exercise - 30-day Assessment Physician Prescribed Exercise Modalities: Treadmill, Rower and Schwinn Airdyne AD-7 Exercise - 60-day Assessment Visit Date of Eval: 10/03/23 Session #:: 19 Comments:: Patient has missed 3 sessions due to conflict with previous scheduled appointments. Physician Prescribed Exercise Modalities: Treadmill, Rower and Schwinn Airdyne AD-7 Frequency: 3x/week for 12 weeks [36 sessions] Intensity: 60-80% of age predicted maximum heart rate reserve Current METSs:: 6.5 Target Heart Rate:: Increased to 114-130 Current RPE:: 12 Maximum Excercise HR:: 114 Resting Blood Pressure: 108/62 Maximum Exercise Blood Pressure: 122/72 EKG Type: NSr to sinus tach wtih occasional PACs and PVCs. Current Physical Activity or Exercising minutes: 38:04 Outcomes & Goals Goals:: Verbalizes understanding of THR, RPE & goal METS by session 6, Documents in home exercise log/reports 30 min aerobic 5 day/wk by DC and Demonstrates accurate pulse taking by DC Intervention & Plan Exercise Program Goals: Instruct on personal THR & RPE, Instruct on MET level & personal MET goal, Show patient to take own pulse /validate performance until accurate and Instruct on home exercise 30-day Reassessments 30 day Reassessments:: Met Physical Activity Home Exercise Physical Activity - Home Exercise: Safe Exercise, Warm-up, Self-monitoring, Cool-Down, Home Exercise > 30 min Daily and Sitting Time <3 hours/daily Outcomes & Goals Outcomes/Goals: Demonstrates correct Warm-up/exercise Cool-Down (S3) if = 2.5 METs, Verbalizes symptoms of exercise intolerance by Session 3 (S3) and Demonstrate safe equipment use (S3) & follows exercise prescrition (6) Intervention & Plan Plan/Intervention: Instruct warm-up & cool-down if exercising at > 2 METs, Instruct on symptoms of exercise intolerance & actions to take, Instruct & monitor on saf and Assess intial functional capacity & safety risk 30-day Reassessments 30 day Reassessments:: Met Exercise - 90-day Assessment Physician Prescribed Exercise Modalities: Treadmill, Rower and Schwinn Airdyne AD-7 Exercise - Final/Discharge Physician Prescribed Exercise Modalities: Treadmill, Rower and Schwinn Airdyne AD-7 Nutrition - 30-Day Assessment Weight Mgt (Other Care) Height: 5 ft 7 in Weight:: 170 lb 8 oz BMI: 26.6 Nutrition - 60-Day Assessment Program Goals Nutrition Program Goals Patient has diagnosis of Hyperlipidemia (ICD E78)?: Yes Visit Date of Eval: 10/03/23 Session #:: 19 Cholesterol/Lipids (Other Core Measures) Determine presence & major risk factors that modify LDL goal: Hypertension or hypertensive medication and Age men > 45 years; women >/= 55 years Outcomes/Goals: Pt IDs own risk factors & lifestyle modifications by Session 10, Verbalizes symptoms of angina & response by session 3. and Pt independently manages Intervention/Plan: Instruct on personal lipid levels & lipid goals/NCEP juan jose bey and Instruct on cholesterol Referral to dietitian:: Yes 30-day Reassessments:: Progressing Diabetes (Other Core Measures) Diabetes Type: Not Applicable Weight Mgt (Other Care) Not Applicable: Yes Height: 5 ft 7 in Weight:: 170 lb 8 oz BMI: 26.6 Diagnosis Overweight/Obesity BMI> 30% ICD-10 E66: No Diagnosis High BMI/Morbid Obesity BMI> 35% ICD-10 Z68: No Outcomes/Goals: Pt sets, maintains & shows weight loss goal & trend during rehab Intervention/Plan: Instruct on ideal BMI & set weight loss goal w/patient 30 day Reassessments:: Met Healthy Eating Habits Will attend diet classes:: Yes Outcomes/Goals:: Consume diet rich in vegs,fruits,whole grain/high fiber,fish,lean meat and Limit sat/trans fats,cholesterol & added salts & sugars Intervention/Plan:: Assess current eating habits 30-day Reassessments:: Met Education Gave educational materials for:: Healthy eating Core - 60-Day Assessment Visit Date of Eval: 10/03/23 Session #:: 19 Medication Compliance Preventative Medication(s):: Aspirin, Clopidogrel/P2Y12 inhibit, Statin/lipid, Beta heri and Eliquis H/O mental health issues: depression, anxiety, or addiction?: No Doesn?t believe in the benefits of treatment?: No Believes medications are unnecessary or harmful?: No Has a concern about medication side effects?: No Expresses concern over the cost of medications?: No Outcomes/Goals: Verbalizes medications,desired effect & common side effects @ DC, Pt self-reports following medication regimen and Keeps card in wallet w/medications listed by DC Interventions/plans: Instruct on medication effects & side effects, Review medication list w/patient every two weeks and Instruct importance of taking meds as ordered & assist problem solving 30-day Reassessments:: Met Tobacco Use Tobacco Use: Non-smoker Hypertension Hypertension Diagnosis:: Hypertension ICD-10 I10 Resting Blood Pressure:: 108/62 [place] [employer] Hypertension Guidelines Peak Exercise Blood Pressure:: 122/72 Outcomes/Goals: Able to verbalize/achieve optimal blood pressure <130/80 and Incorporates diet changes & exercise for blood pressure control by DC Interventions/plan: Instruct on optimal blood pressure, hypertension & medications and Instruct on effects of sodium, alcohol, stress, exercise &hypertension 30 day Reassessments:: Met Tobacco Cessation Referral Smoking Cessation Referral:: No Individual Education/Counseling:: No Education Schedule Given:: Yes Psychosocial - 30-Day Assess Target Goals Target Goals Referral to Behavioral Health PS - Interventions: Yes: Attend Stress Management Classes and No: Referral to Behavioral Health if PHQ-9 score >9:, No: Referral to [facility] and No: Referral to Physician if PHQ-9 if score is 5-9: Outcomes/Goals: See list Psychosocial Outcomes/Goals:: ID's personal stressors & 2 strategies to manage stress by discharge Psychosocial - 60-Day Assess VIsit Date of Eval: 10/03/23 Session #:: 19 Not Applicable: Yes History of previous Mental disease:: No Target Goals Target Goals Psychosocial Test Tool Used:: PHQ-9 Questionnaire phq-9 Severity Referral to Behavioral Health PS - Interventions: Yes: Attend Stress Management Classes and No: Referral to Behavioral Health if PHQ-9 score >9:, No: Referral to [facility] and No: Referral to Physician if PHQ-9 if score is 5-9: Outcomes/Goals: See list Psychosocial Outcomes/Goals:: ID's personal stressors & 2 strategies to manage stress by discharge Intervention/Plan: See List Interventions/Plan:: Instruct/assist pt to develop coping & personal stress Mgt strategies, Instruct patient to recognize signs & symptoms of depression and Instruct patient to recog 30-day Reassessments: 30 day Reassessments:: Met Psychosocial - 90-Day Assess Target Goals Target Goals Referral to Behavioral Health PS - Interventions: Yes: Attend Stress Management Classes and No: Referral to Behavioral Health if PHQ-9 score >9:, No: Referral to [facility] and No: Referral to Physician if PHQ-9 if score is 5-9: Psychosocial - Final Assessmen Target Goals Target Goals Referral to Behavioral Health PS - Interventions: Yes: Attend Stress Management Classes and No: Referral to Behavioral Health if PHQ-9 score >9:, No: Referral to [facility] and No: Referral to Physician if PHQ-9 if score is 5-9: Nutrition - 90-Day Assessment Weight Mgt (Other Care) Height: 5 ft 7 in Weight:: 170 lb 8 oz BMI: 26.6 Nutrition - Final Assessment Weight Mgt (Other Care) Height: 5 ft 7 in Weight:: 170 lb 8 oz BMI: 26.6
[2023-10-03 05:51] VITALS: BP 108/62; BMI 26.6
== END 2023-10-09 23:59 ==
LOC: CR 13:00
PROVIDERS: PCP Family Medicine; Referring Provider Internal Medicine Cardiovascular Disease; Visit Provider Internal Medicine Cardiovascular Disease
DX: I21.02 ST elevation (STEMI) myocardial infarction involving left anterior descending coronary artery (principal); Z95.5 Presence of coronary angioplasty implant and graft; I21.3 ST elevation (STEMI) myocardial infarction of unspecified site
CPT/HCPCS: 93798

== ENCOUNTER → 2023-10-17 | Outpatient (CLI) | payer MEDICARE, BC, SELFPAY ==
[2023-10-03 05:51] VITALS: BMI 26.6
[2023-10-17 16:21] LABS: PSA,Total- Diagnostic < 0.01 ng/mL (0.0-4.0)
== END | disposition home or self-care (01) ==
LOC: LAB 15:08
PROVIDERS: PCP Family Medicine; Referring Provider Urology; Visit Provider Urology
DX: C61 Malignant neoplasm of prostate (principal)
CPT/HCPCS: 36415; 84153

== ENCOUNTER → 2023-11-01 | Outpatient (CLI) | payer MEDICARE, BC, SELFPAY ==
[2023-10-03 05:51] VITALS: BMI 26.6
--- NOTE | 2023-11-01 13:55 | ECHOLC_ITS ---
Reason For Study: ATRIAL THROMBOSIS Procedure This was a limited 2D transthoracic echocardiogram. The study was technically limited. Limited views were obtained. Exam performed in department. Left Ventricle Normal LV size. Anterior and apical akinesis. Estimated LVEF 35 to 40%. No LV thrombus noted. Right Ventricle Normal right ventricle. Atria The left and right atria are normal. Mitral Valve Mild mitral annular calcification. Tricuspid Valve Normal tricuspid valve. Aortic Valve Mild diffuse aortic valve thickening. Pulmonic Valve The pulmonic valve is not well visualized. Great Vessels Mildly dilated aortic root. Pericardium/Pleural No pericardial effusion. Medication 22 gauge I.V. with prn adaptor inserted into right arm. Diluted definity 2.5ml given slow IV push to enhance endocardial definition. MMode/2D Measurements & Calculations LVIDd: 5.0 cm IVSd: 0.82 cm Ao root diam: 3.7 cm LVIDs: 3.6 cm LVPWd: 0.98 cm RVDd: 3.4 cm FS: 28.1 % LAV(MOD-bp): 60.2 ml LVAd ap4: 34.4 cm2 SV(MOD-sp4): 56.3 ml LAV(MOD-bp) Indexed: 32.2 ml/m2 LVLd ap4: 9.1 cm LAV(MOD-sp2): 61.6 ml EDV(MOD-sp4): 105.2 ml LAV(MOD-sp4): 61.1 ml EDV(sp4-el): 110.0 ml LVAs ap4: 21.5 cm2 LVLs ap4: 7.7 cm ESV(MOD-sp4): 48.8 ml ESV(sp4-el): 51.0 ml EF(MOD-sp4): 53.6 % EF(sp4-el): 53.6 % SV(sp4-el): 59.0 ml LA A4 area: 20.2 cm2 LA dimension(2D): 4.6 cm RA A4 area: 12.5 cm2 ECHO/Echo Limited w/Contrast Interpretation Summary Anterior and apical akinesis. Estimated LVEF 35 to 40%. No LV thrombus noted. Mild mitral annular calcification. Mild diffuse aortic valve thickening. Ordering Physician: Chelo Blackmon Referring Physician: Mckinley Ly Performed By: Jessi Lino RDCS, RVT
== END | disposition home or self-care (01) ==
LOC: CVS 13:54
PROVIDERS: PCP Family Medicine; Referring Provider Nurse Practitioner Gerontology; Visit Provider Nurse Practitioner Gerontology
DX: I23.6 Thrombosis of atrium, auricular appendage, and ventricle as current complications following acute myocardial infarction (principal)
CPT/HCPCS: 93308; Q9957; A4216; C8924

== ENCOUNTER → 2023-11-07 | Outpatient (CLI) | payer MEDICARE, BC, SELFPAY ==
[2023-10-03 05:51] VITALS: BMI 26.6
--- NOTE | 2023-11-02 08:25 | PCM.CR.ITP ---
Exercise - Initial Assessment Physician Prescribed Exercise Modalities: Treadmill, Rower and Schwinn Airdyne AD-7 Nutrition - Initial Assessment Weight Mgt (Other Care) Height: 5 ft 7 in Weight:: 169 lb BMI: 26.4 Psychosocial - Initial Assess Target Goals Target Goals Patient Health Questionnaire PHQ-9 Screening 90-Day Re-eval Assessment: 1. Little interest or pleasure in doing things: Not at all 2. Feeling down, depressed, or hopeless: Not at all 3. Trouble falling or staying asleep, or sleeping too much: Not at all 4. Feeling tired or having little energy: Not at all 5. Poor appetite or overeating: Not at all 6. Feeling bad about yourself -- or that you are a failure or have let yourself or your family down: Not at all 7. Trouble concentrating on things, such as reading the newspaper or watching television: Not at all 8. Moving or speaking so slowly that other people could have noticed. Or the opposite - being so fidgety or restless that you have been moving around a lot more than usual: Not at all 9. Thoughts that you would be better off , or of hurting yourself in some way: Not at all How difficult have these problems made it for you to do your work, take care of things at home, or get along with other people?: Not difficult at all Total Score: 0 Self-Efficacy 6-Item Scale 90-Day Re-eval Assessment: We would like to know how confident you are in doing certain activities. Please select your confidence level for: Fatigue Select Number: 10 Physical Discomfort or Pain Select Number: 9 Emotional Distress Select Number: 9 Other Symptoms or Health Problems Select Number: 9 Different Tasks and Activities Select Number: 9 Medication Select Number: 10 Total Score:: 9 Nutrition Survey Nutrition Survey Instructions Scoring Instructions Exercise - 30-day Assessment Physician Prescribed Exercise Modalities: Treadmill, Rower and Pablo Perezne AD-7 Exercise - 60-day Assessment Physician Prescribed Exercise Modalities: Treadmill, Rower and Schwinjeny Perezne AD-7 Exercise - 90-day Assessment Visit Date of Eval: 11/02/23 Session #:: 33 Physician Prescribed Exercise Modalities: Treadmill, Rower and Schwinn dyne AD-7 Frequency: 3x/week for 12 weeks [36 sessions] Intensity: 60-80% of age predicted maximum heart rate reserve Duration: 30 - 45 minutes Current METSs:: 6.5 Target Heart Rate:: 114-130 Current RPE:: 12-13 Maximum Excercise HR:: 110 Resting Blood Pressure: 102/60 Maximum Exercise Blood Pressure: 110/60 EKG Type: NSR with occas PAC's/PVC's Outcomes & Goals Goals:: Verbalizes understanding of THR, RPE & goal METS by session 6, Documents in home exercise log/reports 30 min aerobic 5 day/wk by DC, Demonstrates accurate pulse taking by DC and Other additional outcome/goals: see below Intervention & Plan Exercise Program Goals: Instruct on personal THR & RPE, Instruct on MET level & personal MET goal, Show patient to take own pulse /validate performance until accurate, Instruct on home exercise and Other additional plan/int 30-day Reassessments 30 day Reassessments:: Met Physical Activity Home Exercise Physical Activity - Home Exercise: Safe Exercise, Warm-up, Self-monitoring, Cool-Down, Home Exercise > 30 min Daily and Sitting Time <3 hours/daily Outcomes & Goals Outcomes/Goals: Demonstrates correct Warm-up/exercise Cool-Down (S3) if = 2.5 METs, Verbalizes symptoms of exercise intolerance by Session 3 (S3), Demonstrate safe equipment use (S3) & follows exercise prescrition (6) and Other: See below Intervention & Plan Plan/Intervention: Instruct warm-up & cool-down if exercising at > 2 METs, Instruct on symptoms of exercise intolerance & actions to take, Instruct & monitor on saf, Assess intial functional capacity & safety risk and Other See below 30-day Reassessments 30 day Reassessments:: Met Exercise - Final/Discharge Physician Prescribed Exercise Modalities: Treadmill, Rower and Schwinn Airdyne AD-7 Nutrition - 30-Day Assessment Weight Mgt (Other Care) Height: 5 ft 7 in Weight:: 169 lb BMI: 26.4 Nutrition - 60-Day Assessment Weight Mgt (Other Care) Height: 5 ft 7 in Weight:: 169 lb BMI: 26.4 Core - 90 Day Assessment Visit Date of Eval: 11/02/23 Session #:: 33 Medication Compliance Preventative Medication(s):: Aspirin, Clopidogrel/P2Y12 inhibit, Statin/lipid, Beta heri and Eliquis H/O mental health issues: depression, anxiety, or addiction?: No Doesn?t believe in the benefits of treatment?: No Believes medications are unnecessary or harmful?: No Has a concern about medication side effects?: No Expresses concern over the cost of medications?: No Outcomes/Goals: Verbalizes medications,desired effect & common side effects @ DC, Pt self-reports following medication regimen, Keeps card in wallet w/medications listed by DC and Other additional outcome/goals: Interventions/plans: Instruct on medication effects & side effects, Review medication list w/patient every two weeks, Instruct importance of taking meds as ordered & assist problem solving and Other additional 30-day Reassessments:: Met Tobacco Use Tobacco Use: Non-smoker Hypertension Hypertension Diagnosis:: Hypertension ICD-10 I10 Resting Blood Pressure:: 102/60 [place] [employer] Hypertension Guidelines Peak Exercise Blood Pressure:: 110/60 Outcomes/Goals: Able to verbalize/achieve optimal blood pressure <130/80, Incorporates diet changes & exercise for blood pressure control by DC and Other additional outcomes/goals Interventions/plan: Instruct on optimal blood pressure, hypertension & medications, Instruct on effects of sodium, alcohol, stress, exercise &hypertension and Other additional plan/interventions 30 day Reassessments:: Met Tobacco Cessation Referral Smoking Cessation Referral:: No Individual Education/Counseling:: No Education Schedule Given:: Yes Psychosocial - 30-Day Assess Target Goals Target Goals Psychosocial - 60-Day Assess Target Goals Target Goals Psychosocial - 90-Day Assess VIsit Date of Eval: 11/02/23 Session #:: 33 History of previous Mental disease:: No Target Goals Target Goals Outcomes/Goals: See list Psychosocial Outcomes/Goals:: ID's personal stressors & 2 strategies to manage stress by discharge and Other Additional outcome/goals: Intervention/Plan: See List Interventions/Plan:: Assess stressors,coping strategies & signs of derpression on admission, Instruct/assist pt to develop coping & personal stress Mgt strategies, Refer to Behavioral Health if appropriate, Refer to Physician if appropriate, Instruct patient to recognize signs & symptoms of depression, Instruct patient to recog and Other additional plan/intervention 30-day Reassessments: 30 day Reassessments:: Met Psychosocial - Final Assessmen Target Goals Target Goals Nutrition - 90-Day Assessment Program Goals Nutrition Program Goals Patient has diagnosis of Hyperlipidemia (ICD E78)?: Yes Visit Date of Eval: 11/02/23 Session #:: 33 Cholesterol/Lipids (Other Core Measures) Determine presence & major risk factors that modify LDL goal: Hypertension or hypertensive medication, Low HDL cholesterol <40 mg/dL*, Family history of premature CHD in Male < 55 years: female <65 yearsFa and Age men > 45 years; women >/= 55 years Outcomes/Goals: Pt IDs own risk factors & lifestyle modifications by Session 10, Verbalizes symptoms of angina & response by session 3., Pt independently manages and Other Additional Outcomes/Goals: Intervention/Plan: Advocate for lipid panel cholesterol medication if applicable, Instruct on personal lipid levels & lipid goals/NCEP guidelines, Instruct on cholesterol and Other additional plan/int 30-day Reassessments:: Met Diabetes (Other Core Measures) Diabetes Type: Not Applicable Weight Mgt (Other Care) Height: 5 ft 7 in Weight:: 169 lb BMI: 26.4 Diagnosis Overweight/Obesity BMI> 30% ICD-10 E66: No Diagnosis High BMI/Morbid Obesity BMI> 35% ICD-10 Z68: No Outcomes/Goals: Pt sets, maintains & shows weight loss goal & trend during rehab and Other additional outcomes/goals Intervention/Plan: Instruct on ideal BMI & set weight loss goal w/patient, Assist pt to ID & incorporate diet changes for weight loss by S9, Refer to Structured Weight Loss program as appropriate, Encourage goal of using 250-300dcal per session for weight loss and Other additional plan/interventions 30 day Reassessments:: Met Healthy Eating Habits Will attend diet classes:: Yes Outcomes/Goals:: Consume diet rich in vegs,fruits,whole grain/high fiber,fish,lean meat, Limit sat/trans fats,cholesterol & added salts & sugars and Other additional outcome/goals: Intervention/Plan:: Assess current eating habits and Other Additional plan/interventions 30-day Reassessments:: Met Education Gave educational materials for:: Signs & symptoms of hypoglycemia, Signs & symptoms of hyperglycemia, Relate diabetes to coronary artery disease and Healthy eating Nutrition - Final Assessment Weight Mgt (Other Care) Height: 5 ft 7 in Weight:: 169 lb BMI: 26.4
[2023-11-02 08:33] VITALS: BP 102/60; BMI 26.4
--- NOTE | 2023-11-07 09:38 | ART_ITS ---
Reason For Study: PVD Procedure A bilateral lower extremity continuous wave Doppler with analog waveform analysis and ankle brachial indexes. Left Segmental Pressures Left brachial= 118mmHg. Left posterior tibial artery = 146mmHg. Left dorsalis pedis artery = 137mmHg. Left digit = 89 mmHg. Right Segmental Pressures Right brachial= 118mmHg. Right posterior tibial artery = 158mmHg. Right dorsalis pedis artery = 132mmHg. Right digit = 99 mmHg. Indices The right ankle brachial index by the posterior tibial artery is 1.34. The right ankle brachial index by the dorsalis pedis is 1.12. The right digital-brachial index is 0.84. The left ankle brachial index by the posterior tibial artery is 1.24. The left ankle brachial index by the dorsalis pedis is 1.16. The left digital-brachial index is 0.75. VL/Ankle Brachial Index Interpretation Summary Right ANDI 1.34, normal. TBI and Doppler/PVR waveforms of the right leg normal a t rest. Left ANDI 1.24, normal. TBI and Doppler/PVR waveforms of the left leg normal at rest. Ordering Physician: Neptali Ly Referring Physician: NEPTALI LY DO Performed By: Fara Guerrero RDCS/RVT
== END | disposition home or self-care (01) ==
LOC: CVS 09:38
PROVIDERS: PCP Family Medicine; Referring Provider Family Medicine; Visit Provider Family Medicine
DX: I73.9 Peripheral vascular disease, unspecified (principal); Z79.899 Other long term (current) drug therapy
CPT/HCPCS: 93922

== ENCOUNTER 2023-11-09 13:00 | Outpatient (RCR) | payer MEDICARE, BC, SELFPAY ==
[2023-10-03 05:51] VITALS: BMI 26.6
[2023-10-10 00:31] VITALS: BP 108/62; BP 96/60
[2023-11-02 08:33] VITALS: BMI 26.4
== END 2023-11-09 23:59 ==
LOC: CR 13:00
PROVIDERS: PCP Family Medicine; Referring Provider Internal Medicine Cardiovascular Disease; Visit Provider Internal Medicine Cardiovascular Disease
DX: I21.02 ST elevation (STEMI) myocardial infarction involving left anterior descending coronary artery (principal); Z95.5 Presence of coronary angioplasty implant and graft; I21.3 ST elevation (STEMI) myocardial infarction of unspecified site
CPT/HCPCS: 93798

== ENCOUNTER → 2023-11-10 | Outpatient (CLI) | payer MEDICARE, BC, SELFPAY ==
[2023-11-02 08:33] VITALS: BMI 26.4
[2023-11-10 10:00] LABS: ALB/GLOB Ratio 0.9 RATIO (0.9-2.4); AST(SGOT) 29 U/L (15-37); Alanine Aminotransfer ALT/SGPT 26 U/L (16-61); Albumin, Serum 3.2 g/dL (3.2-5.0); Alkaline Phosphatase 87 U/L (45-117); Anion Gap 5 (5-15); BUN 18 mg/dL (7-18); BUN/Creat Ratio 15.8 RATIO (10-20); Bilirubin, Direct 0.18 mg/dL (0.00-0.30); Chloride 109 mmol/L (98-107); Cholesterol 150 mg/dL (200); Creatinine, Serum 1.14 mg/dL (0.70-1.30); EST Glomerular Filtration Rate 68 mL/min (>60); Est Glom Filt Rate - Afr Amer 82 mL/min (>60); Globulin 3.6 g/dL (2.2-4.2); Glucose 109 mg/dL (74-106); High Density Lipoprotein 40 mg/dL; Protein, Total 6.8 g/dL (6.4-8.2); Sodium Level 141 mmol/L (136-145); Triglycerides 179 mg/dL; Very Low Density Lipoprotein 36 mg/dL (5-40)
== END | disposition home or self-care (01) ==
LOC: LAB 08:27
PROVIDERS: PCP Family Medicine; Referring Provider Nurse Practitioner Gerontology; Visit Provider Nurse Practitioner Gerontology
DX: I25.10 Atherosclerotic heart disease of native coronary artery without angina pectoris (principal); Z95.5 Presence of coronary angioplasty implant and graft
CPT/HCPCS: 36415; 80053; 80061; 82248

== ENCOUNTER 2023-11-11 07:13 | Outpatient (RCR) | payer MEDICARE, BC, SELFPAY ==
[2023-11-02 08:33] VITALS: BMI 26.4
[2023-11-10 00:42] VITALS: BP 108/62; BP 96/60
== END 2023-12-10 23:59 ==
LOC: CR 07:13
PROVIDERS: PCP Family Medicine; Referring Provider Internal Medicine Cardiovascular Disease; Visit Provider Internal Medicine Cardiovascular Disease
DX: I21.02 ST elevation (STEMI) myocardial infarction involving left anterior descending coronary artery (principal); Z95.5 Presence of coronary angioplasty implant and graft
CPT/HCPCS: 93798

== ENCOUNTER → 2023-12-23 | Outpatient (CLI) | payer MEDICARE, BC, SELFPAY ==
[2023-11-02 08:33] VITALS: BMI 26.4
== END | disposition home or self-care (01) ==
LOC: CVS 06:04
PROVIDERS: PCP Family Medicine; Referring Provider Nurse Practitioner Gerontology; Visit Provider Nurse Practitioner Gerontology
DX: R07.9 Chest pain, unspecified (principal); I23.6 Thrombosis of atrium, auricular appendage, and ventricle as current complications following acute myocardial infarction; I25.10 Atherosclerotic heart disease of native coronary artery without angina pectoris; Z95.5 Presence of coronary angioplasty implant and graft
CPT/HCPCS: 78452; 93017; A9500; A4216

== ENCOUNTER → 2024-02-08 | Outpatient (CLI) | payer MEDICARE, BC, SELFPAY ==
[2023-11-02 08:33] VITALS: BMI 26.4
--- NOTE | 2023-12-26 11:56 | STRESSREP ---
Stress Test Report Date: 12/23/2023 Procedure: Exercise tolerance test/imaging study Indications: CAD Consent: Per the patient Procedure: The patient exercised on a Jayant protocol for 8 minutes achieving a peak heart rate of 142 bpm (93% predicted maximal heart rate) with a peak blood pressure 122/62 mmHg and a peak MET capacity of 10.1 METs. The baseline ECG demonstrated sinus rhythm. The peak exercise ECG demonstrated no ischemic changes. No significant cardiac dysrhythmias pretest, during exercise or in recovery. The functional capacity was considered good. There was no complaint of chest discomfort during exercise or recovery. The examination was discontinued secondary to target heart rate being achieved. The patient was injected with 11.8 mCi of technetium 99m Cardiolite and subsequently rest SPECT Cardiolite nuclear imaging was obtained in the horizontal long, vertical long, and short axis views. Post-exercise, the patient was injected with 34.3 mCi of technetium 99m Cardiolite and subsequently stress SPECT Cardiolite nuclear imaging was obtained in the horizontal long, vertical long, and short axis views. A gated Cardiolite study at peak stress was obtained. Rest and stress SPECT Cardiolite nuclear imaging status post realignment, normalization, and attenuation correction, demonstrates a large fixed apical and anterior defect consistent with prior infarct. The gated Cardiolite study demonstrates apical akinesis with mid to distal anterior akinesis. The reported LVEF is 39%. Impression: 1. Technically adequate (percent predicted maximal heart rate greater than 85%) exercise tolerance test 2. Peak exercise ECG 3. There were no cardiac dysrhythmias pretest, during exercise, or recovery 4. Rest and stress SPECT Cardiolite nuclear imaging demonstrate prior anterior apical infarct with minimal gerson-infarct ischemia. 5. The gated Cardiolite study reports an LVEF of 39%. This note was generated with [employer] software. It may contain incorrect words, spelling, and punctuation that were not noted in checking the note before signing.
--- NOTE | 2024-02-08 08:03 | ECHOLC_ITS ---
Reason For Study: Left Ventricular Systolic Dysfunction Procedure This was a limited 2D transthoracic echocardiogram. Contrast injection was performed. Exam performed in department. Left Ventricle Normal LV size. Mild concentric left ventricular hypertrophy. Anterior septal and apical severe hypokinesis to akinesis. An approximately 2 x 2 cm pedunculated apical thrombus noted. LVEF estimated at 35%. Right Ventricle Normal right ventricle. Atria The left and right atria are normal. Mitral Valve The mitral valve is structurally normal. No prolapse or stenosis seen. Trivial mitral valve insufficiency. Tricuspid Valve Trivial tricuspid valve insufficiency. Aortic Valve Trisinus/trileaflet aortic valve. Pulmonic Valve The pulmonic valve is not well visualized. Great Vessels The aortic root is not well visualized. Medication 22 gauge I.V. with prn adaptor inserted into right arm. Diluted definity 3ml given slow IV push to enhance endocardial definition. MMode/2D Measurements & Calculations LVIDd: 4.0 cm IVSd: 1.1 cm LVAd ap4: 46.3 cm2 LVIDs: 3.3 cm LVPWd: 1.2 cm LVLd ap4: 9.0 cm RVDd: 4.0 cm FS: 19.0 % EDV(MOD-sp4): 192.1 ml EDV(sp4-el): 202.4 ml LVAs ap4: 31.3 cm2 LVLs ap4: 7.7 cm ESV(MOD-sp4): 104.0 ml ESV(sp4-el): 107.5 ml EF(MOD-sp4): 45.9 % EF(sp4-el): 46.9 % SV(MOD-sp4): 88.1 ml SV(sp4-el): 95.0 ml SI(MOD-sp4): 46.4 ml/m2 Doppler Measurements & Calculations MR max tony: 440.7 cm/sec MR max P.7 mmHg ECHO/Echo Limited w/Contrast Interpretation Summary Anterior septal and apical severe hypokinesis to akinesis. An approximately 2 x 2 cm pedunculated apical thrombus noted. LVEF estimated at 35%. Ordering Physician: Chelo Blackmon Referring Physician: Chelo Blackmon Performed By: Huey Avelar RCS
== END | disposition home or self-care (01) ==
LOC: CVS 08:03
PROVIDERS: PCP Family Medicine; Referring Provider Nurse Practitioner Gerontology; Visit Provider Nurse Practitioner Gerontology
DX: I51.9 Heart disease, unspecified (principal)
CPT/HCPCS: 93308; Q9957; A4216; C8924

== ENCOUNTER → 2024-03-12 | Outpatient (CLI) | payer MEDICARE, BC, SELFPAY ==
[2023-11-02 08:33] VITALS: BMI 26.4
[2024-03-12 17:56] LABS: Color, Urine Yellow (Yellow); Glucose, Dipstick 1000 mg/dl (Normal); Ketone-Dipstick Negative (Negative); Leukocyte Esterase-Dipstick Negative /ul (Negative); Nitrite-Dipstick Negative (Negative); Occult Blood-Urine 50 /ul (Negative); Protein-Dipstick 15 mg/dl (Negative); Specific Gravity, Urine 1.025 (1.002-1.030); Urine Bilirubin Dipstick Negative (Negative); Urine Clarity Sl. Cloudy (Clear); Urine Urobilinogen Normal (Normal)
== END | disposition home or self-care (01) ==
LOC: BFHLAB 13:13 → LABSPEC 13:15
PROVIDERS: PCP Family Medicine; Referring Provider Family Medicine; Visit Provider Family Medicine
DX: R31.9 Hematuria, unspecified (principal)
CPT/HCPCS: 81002

== ENCOUNTER → 2024-04-03 | Outpatient (CLI) | payer MEDICARE, BC, SELFPAY ==
[2023-11-02 08:33] VITALS: BMI 26.4
--- NOTE | 2024-04-03 13:44 | CT_ITS ---
STUDY: CT ABDOMEN AND PELVIS WITH AND WITHOUT CONTRAST REASON FOR EXAM: Male, 68 years old. Abdominal pain, hematuria RADIATION DOSAGE (If Supplied By Facility): CTDIvol = ( 20.16 ) mGy, DLP = ( 1696.29 ) mGycm TECHNIQUE: Transaxial images were obtained from the dome of the diaphragm to the symphysis pubis without oral contrast. IV 100mL Isovue-300 was administered. Sagittal and coronal images were reconstructed. Individualized dose optimization techniques were used for this CT. COMPARISON: None. FINDINGS: The visualized lung bases are unremarkable aside from dependent atelectasis.. The visualized portions of the heart are within normal limits. Normal liver. Normal gallbladder and extrahepatic biliary system. Normal spleen. Normal pancreas. Normal bilateral adrenal glands. No obstructive uropathy, or suspicious solid renal lesion, there are punctate nonobstructing renal stones. Normal visualized stomach. Nondistended fluid-filled small bowel loops are noted consistent with ileus. There are scattered colonic diverticula. In the mid sigmoid colon there is subtle submucosal thickening of the sigmoid colon with pericolonic inflammatory stranding consistent with acute focal diverticulitis. No perforation or abscess is noted. Appendix not visualized Normal abdominal aorta. Normal inferior vena cava. Normal retroperitoneum. Normal urinary bladder. Normal abdominal wall. There are diffuse degenerative changes of the visualized lumbar spine, and pelvis. CT/CT Abd/Pelvis W/WO Contrast IMPRESSION: Acute sigmoid diverticulitis without perforation or abscess Small bowel ileus Nonobstructing nephrolithiasis Electronically Signed: Federico Parra MD at 16:25 EST ,
[2024-04-03 14:17] LABS: CREATININE FINGERSTICK < 1.0 mg/dL (0.70-1.30); EGFR FINGERSTICK > 60.0000 mL/min (>60)
== END | disposition home or self-care (01) ==
LOC: CT 13:42
PROVIDERS: PCP Family Medicine; Referring Provider Family Medicine; Visit Provider Family Medicine
DX: R10.33 Periumbilical pain (principal); R31.9 Hematuria, unspecified; Z85.46 Personal history of malignant neoplasm of prostate
CPT/HCPCS: 74178; Q9967

== ENCOUNTER → 2024-05-03 | Outpatient (CLI) | payer MEDICARE, BC, SELFPAY ==
[2023-11-02 08:33] VITALS: BMI 26.4
[2024-05-03 16:09] LABS: PSA,Total- Diagnostic < 0.01 ng/mL (0.0-4.0)
== END | disposition home or self-care (01) ==
LOC: LAB 14:27
PROVIDERS: PCP Family Medicine; Referring Provider Urology; Visit Provider Urology
DX: C61 Malignant neoplasm of prostate (principal)
CPT/HCPCS: 36415; 84153

== ENCOUNTER → 2024-05-18 | Outpatient (CLI) | payer MEDICARE, BC, SELFPAY ==
[2023-11-02 08:33] VITALS: BMI 26.4
[2024-05-18 10:29] LABS: Absolute Lymphocyte Count 1.67 X10^3/uL (0.83-4.51); Basophil# 0.04 X10^3/uL; Basophil% 0.7 % (0-1); Eosinophil# 0.42 X10^3/uL; Eosinophils% 7.3 % (0-5); Hematocrit 43.7 % (40-54); Hemoglobin 14.6 g/dL (13.0-16.5); Lymphocyte # 1.67 X10^3/ul (0.83-4.51); Mean Corp Hgb Conc 33.4 g/dL (32-36); Mean Corpuscular Hgb 29.7 pg (27.0-32.0); Monocyte# 0.63 X10^3/uL; Monocyte% 10.9 % (0-10); NRBC Flagged by Analyzer 0 % (0-5); Neutrophil # 2.98 X10^3/uL (2.7-7.7); Neutrophil % 51.8 % (47-70); Platelet Count 208 K/mm3 (150-450); RBC Distribution Width SD 42.1 fl (35.1-43.9); Red Blood Count 4.91 M/mm3 (4.6-6.2); White Blood Count 5.8 K/mm3 (4.4-11.0)
[2024-05-18 10:48] LABS: International Normalized Ratio 1.1; Partial Thromboplast Time 27.5 Seconds (24.1-36.2); Prothrombin Time (Protime)PT. 14.2 SECONDS (11.7-14.9)
[2024-05-18 11:02] LABS: ALB/GLOB Ratio 0.9 RATIO (0.9-2.4); AST(SGOT) 19 U/L (15-37); Alanine Aminotransfer ALT/SGPT 22 U/L (16-61); Albumin, Serum 3.4 g/dL (3.2-5.0); Alkaline Phosphatase 102 U/L (45-117); Anion Gap 9 (5-15); BUN 14 mg/dL (7-18); BUN/Creat Ratio 13.2 RATIO (10-20); Calcium,Total 9.1 mg/dL (8.5-10.1); Chloride 104 mmol/L (98-107); Creatinine, Serum 1.06 mg/dL (0.70-1.30); EST Glomerular Filtration Rate 74 mL/min (>60); Est Glom Filt Rate - Afr Amer 89 mL/min (>60); Globulin 3.7 g/dL (2.2-4.2); Glucose 110 mg/dL (74-106); Magnesium 2.1 mg/dL (1.6-2.6); Potassium 3.8 mmol/L (3.5-5.1); Protein, Total 7.1 g/dL (6.4-8.2); Sodium Level 141 mmol/L (136-145)
[2024-05-20 15:23] LABS: Hemoglobin A1c 5.8 % (3.8-5.6)
== END | disposition home or self-care (01) ==
LOC: LAB 09:48
PROVIDERS: PCP Family Medicine; Referring Provider Family Medicine; Visit Provider Family Medicine
DX: R10.9 Unspecified abdominal pain (principal); R53.83 Other fatigue; R73.01 Impaired fasting glucose; E83.42 Hypomagnesemia; T14.8XXA Other injury of unspecified body region, initial encounter; X58.XXXA Exposure to other specified factors, initial encounter
CPT/HCPCS: 36415; 80053; 83036; 83735; 84443; 85025; 85610; 85730

== ENCOUNTER → 2024-06-29 | Outpatient (CLI) | payer MEDICARE, BC, SELFPAY ==
[2023-11-02 08:33] VITALS: BMI 26.4
[2024-06-29 11:50] LABS: ALB/GLOB Ratio 1.4 RATIO (0.9-2.4); AST(SGOT) 15 U/L (<=37); Alanine Aminotransfer ALT/SGPT 14 U/L (<=46); Alkaline Phosphatase 99 U/L (40-129); Anion Gap 10 (5-15); BUN 12 mg/dL (4-19); BUN/Creat Ratio 13.5 RATIO (10-20); CPK Total, Creatine Kinase 87 U/L (24-195); Calcium,Total 9.3 mg/dL (7.6-11.0); Carbon Dioxide 25.3 mmol/L (21.0-32.0); Chloride 104 mmol/L (98-108); Cholesterol 87 mg/dL (<=200); Creatinine, Serum 0.92 mg/dL (0.70-1.20); EST Glomerular Filtration Rate 91 (>60); Globulin 2.8 g/dL (2.2-4.2); Glucose 104 mg/dL (70-99); High Density Lipoprotein 47 mg/dL; Low Density Lipoprotein Calc. 9 mg/dL; Potassium 3.7 mmol/L (3.3-5.1); Protein, Total 6.8 g/dL (5.9-8.4); Sodium Level 139 mmol/L (133-145); Total Bilirubin 0.57 mg/dL (0.00-1.30); Triglycerides 160 mg/dL; Very Low Density Lipoprotein 32 mg/dL (5-40); cholesterol:hdl ratio screen 1.87
== END | disposition home or self-care (01) ==
LOC: LAB 09:38
PROVIDERS: PCP Family Medicine; Referring Provider Internal Medicine Cardiovascular Disease; Visit Provider Internal Medicine Cardiovascular Disease
DX: I10 Essential (primary) hypertension (principal); I21.02 ST elevation (STEMI) myocardial infarction involving left anterior descending coronary artery; I42.8 Other cardiomyopathies; I25.5 Ischemic cardiomyopathy; I25.10 Atherosclerotic heart disease of native coronary artery without angina pectoris; E78.5 Hyperlipidemia, unspecified
CPT/HCPCS: 36415; 80053; 80061; 82550

== ENCOUNTER → 2024-07-18 | Outpatient (CLI) | payer MEDICARE, BC, SELFPAY ==
[2023-11-02 08:33] VITALS: BMI 26.4
--- NOTE | 2024-07-18 06:49 | ECHOCS_ITS ---
Reason For Study Reason For Study: CAD/ASHD Procedure This was a 2D Doppler, Color Flow transthoracic echocardiogram. The study was technically difficult. Contrast injection was performed. Exam performed in department. Left Ventricle Normal size and thickness. Severe anterior septal hypokinesis to akinesis. Estimated LVEF 35%. Stage I diastolic dysfunction. LV apical thrombus. 1.2 x 1.2 cm. As compared to previous study from 02/08/2024, the clot size has significantly decreased. Right Ventricle Normal right ventricle. Atria The left atrium is mildly enlarged. Normal right atrium. Mitral Valve Mild (1+) mitral valve insufficiency. Tricuspid Valve Mild tricuspid valve insufficiency. Normal pulmonary artery pressure. Aortic Valve Trisinus/trileaflet aortic valve. Trivial aortic valve insufficiency. Pulmonic Valve The pulmonic valve is not well visualized. Great Vessels Mildly dilated aortic root. Pericardium/Pleural No pericardial effusion. Medication 22 gauge I.V. with prn adaptor inserted into right arm. Diluted definity 3.5ml given slow IV push to enhance endocardial definition. Patient has had Definity on previous echoes, this time they had a reaction with flank pain and chest discomfort. MMode/2D Measurements & Calculations LVIDd: 5.0 cm IVSd: 0.82 cm Ao root diam: 3.9 cm LVIDs: 3.6 cm LVPWd: 0.93 cm RVDd: 4.3 cm FS: 27.0 % LAV(MOD-bp): 70.1 ml LVAd ap4: 41.9 cm2 SV(MOD-sp4): 57.7 ml LAV(MOD-bp) Indexed: 37.0 ml/m2 LVLd ap4: 8.9 cm SI(MOD-sp4): 30.4 ml/m2 LAV(MOD-sp2): 79.7 ml EDV(MOD-sp4): 159.9 ml LAV(MOD-sp4): 52.7 ml EDV(sp4-el): 166.8 ml LVAs ap4: 32.7 cm2 LVLs ap4: 8.4 cm ESV(MOD-sp4): 102.2 ml ESV(sp4-el): 107.6 ml EF(MOD-sp4): 36.1 % EF(sp4-el): 35.5 % SV(sp4-el): 59.2 ml LA A4 area: 20.4 cm2 LA dimension(2D): 3.9 cm RA A4 area: 16.3 cm2 TAPSE: 2.1 cm Time Measurements MV dec time: 0.23 sec Doppler Measurements & Calculations MV E max eduard: 51.6 cm/sec Lat Peak E' Eduard: 6.7 cm/sec Med Peak E' Eduard: 7.4 cm/sec MV A max eduard: 48.5 cm/sec E/E' lat: 7.7 E/E' med: 7.0 MV E/A: 1.1 MV V2 max: 62.1 cm/sec MV P1/2t max eduard: 62.1 cm/sec Ao V2 max: 115.9 cm/sec MV max P.5 mmHg MV P1/2t: 90.2 msec Ao max P.4 mmHg MV V2 mean: 36.6 cm/sec MV dec slope: 201.7 cm/sec2 Ao V2 mean: 85.2 cm/sec MV mean P.62 mmHg MVA(P1/2t): 2.4 cm2 Ao mean P.3 mmHg MV V2 VTI: 22.6 cm Ao V2 VTI: 29.4 cm AV (velocity ratio): 0.88 LV V1 max: 116.8 cm/sec MR max eduard: 478.0 cm/sec PA V2 max: 97.9 cm/sec LV V1 max P.5 mmHg MR max P.4 mmHg PA V2 mean: 67.9 cm/sec LV V1 mean P.0 mmHg LV V1 mean: 81.3 cm/sec LV V1 VTI: 25.9 cm TR max eduard: 259.1 cm/sec TR max P.9 mmHg ECHO/Echo Complete W/ Contrast Interpretation Summary LV apical thrombus. 1.2 x 1.2 cm. As compared to previous study from 02/08/2024 , the clot size has significantly decreased. The left atrium is mildly enlarged. Mild (1+) mitral valve insufficiency. Mildly dilated aortic root. Severe anterior septal hypokinesis to akinesis. Estimated LVEF 35%. Stage I koko stolic dysfunction. Ordering Physician: Kristin Jett Referring Physician: Mckinley Ly Performed By: Huey Avelar RCS
--- NOTE | 2024-07-18 10:17 | STRESSREP ---
Stress Test Report Date: 07/18/2024 Procedure: Pharmacologic stress nuclear imaging study Indications: Coronary artery disease Consent: Per the patient Procedure: The patient underwent pharmacologic (Regadenoson 0.4mg ) evaluation with a peak heart rate of 76 beats per minute (50%predicted maximal heart rate) and a peak blood pressure of 110/68 mmHg. The baseline ECG demonstrated sinus rhythm. The peak pharmacologic ECG no ischemic change. There were no cardiac dysrhythmias pretest, during pharmacologic infusion, or recovery. There was no complaint of chest discomfort during pharmacologic infusion or recovery. The patient was injected with 11.5 millicuries of technetium 99m Cardiolite and subsequently rest SPECT Cardiolite nuclear imaging was obtained in the horizontal long, vertical long, and short axis views. The patient underwent pharmacologic (Regadenoson) evaluation. The patient was injected with 36.0 millicuries of technetium 99m Cardiolite and subsequently stress SPECT Cardiolite nuclear imaging was obtained in the horizontal long, vertical long, and short axis views. A gated Cardiolite study at peak stress was obtained. The examination was stopped secondary to completion of protocol. Rest and stress SPECT Cardiolite nuclear imaging status post realignment, normalization, and attenuation correction demonstrate large fixed perfusion defect of the anterior wall, apex and apical inferior wall compatible with prior infarct. No significant gerson-infarct ischemia. Anterior and apical severe hypokinesis to akinesis. The reported LVEF is 34%. Impression: 1. Pharmacologic (Regadenoson) evaluation 2. Peak pharmacologic ECG with no ischemic changes. 3. There were no cardiac dysrhythmias pretest, during pharmacologic infusion, or recovery. 5. Large anterior, apical and inferior apical fixed defect compatible with prior infarct. 6. The gated Cardiolite study reports an LVEF of 34%. This note was generated with [employer] software. It may contain incorrect words, spelling, and punctuation that were not noted in checking the note before signing.
== END | disposition home or self-care (01) ==
LOC: CVS 06:48
PROVIDERS: PCP Family Medicine; Referring Provider Internal Medicine Cardiovascular Disease; Visit Provider Internal Medicine Cardiovascular Disease
DX: I25.5 Ischemic cardiomyopathy (principal); I25.10 Atherosclerotic heart disease of native coronary artery without angina pectoris; Z95.5 Presence of coronary angioplasty implant and graft
CPT/HCPCS: 78452; 93017; 93306; A9500; Q9957; A4216; C8929; J2785

== ENCOUNTER → 2024-10-02 | Outpatient (CLI) | payer MEDICARE, BC, SELFPAY ==
[2023-11-02 08:33] VITALS: BMI 26.4
[2024-10-02 10:27] LABS: Anion Gap 10 (5-15); BUN 13 mg/dL (4-19); BUN/Creat Ratio 13.2 RATIO (10-20); Calcium,Total 9.4 mg/dL (7.6-11.0); Chloride 105 mmol/L (98-108); Creatinine, Serum 0.98 mg/dL (0.70-1.20); EST Glomerular Filtration Rate 83 (>60); Glucose 112 mg/dL (70-99); Sodium Level 140 mmol/L (133-145)
--- OUTSIDE RECORDS SUMMARY | 2024-10-02 20:40 | XMS RPT_ITS | CCD ---
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 Neptali Josue Primary Care Provider [phone] Dr. Arcadio Avila Attending Provider Dr. Deandre Davison Referring Provider Dr. Neptali Josue Primary Care Provider [phone] Iris Blackmon Attending Provider Unavailable Dr. Sal Wood Attending Provider Dr. Deandre Davison Referring Provider [phone] Dr. Neptali Josue Referring Provider SARAH Jansen Attending Provider Dr. Neptali Josue Primary Care Provider [phone] Iris Blackmon Attending Provider Unavailable Dr. Sal Wood Attending Provider [phone] Deandre Davison Referring Provider Dr. Neptali Josue Referring Provider [phone] SARAH Jansen Attending Provider Dr. Sal Wood Referring Provider [phone] Kristin Jett Attending Provider Dr. Kristin Jett Referring Provider Dr. Yared Whaley Emergency Provider Manuel, Dr. Betts Admit Provider Dr. Alpesh Jackson Other Provider Ian, Dr. Meredith Escobedo Other Provider Ian, Dr. Meredith Escobedo Attending Provider Dr. Neptali Josue Primary Care Provider Dr. Neptali Josue Primary Care Provider Dr. Sal Wood Attending Provider Dr. Neptali Josue Primary Care Provider Dr. Neptali Josue Referring Provider Neymar ANDRE, TIE TAMPER-C Chelo Attending Provider Malachi ORTA, Dr. Sen Primary Care Provider Malachi ORTA, Dr. Sen Attending Provider Malachi ORTA, Dr. Sen Referring Provider [phone] Adolfo Jansen Attending Provider Laney DEL TORO, Dr. Deandre Biswas Attending Provider [phone] Laney DEL TORO, Dr. Deandre Biswas Referring Provider Cesar ANDRE-Caryl August Other Provider Johnie DEL TORO, Dr. Foster Attending Provider Dr. Kristin Jett MD Referring Provider Dr. Neptali Josue DO Primary Care Provider Dr. Neptali Josue DO Attending Provider Malachi ORTA, Dr. Sen Referring Provider Dr. Kristin Jett MD Other Provider Malachi ORTA, Dr. Sen Primary Care Provider Dr. Neptali Josue DO Referring Provider Dr. Sal Wood DO Attending Provider Israel ORTA, Dr. Huang Referring Provider Kristin Jett Attending Unavailable Kristin Jett Referring Unavailable Malachi, Neptali Primary Care Unavailable Neymar TIE TAMPER, Chelo Referring Unavailable Cabrales TIE TAMPER, Chelo Attending Unavailable Malachi, Neptali Primary Care Unavailable Malachi, Neptali Primary Care Unavailable Deandre Davison Attending Unavailable Laney, Dimitry Referring Unavailable Malachi, Neptali Primary Care Unavailable Laney, Dimitry Referring Unavailable Laney, Deandre Biswas Attending Unavailable Johnie, Kristin Attending Unavailable Johnie, Kristin Referring Unavailable Malachi, Neptali Primary Care Unavailable Malachi, Neptali Attending Unavailable Malachi, Neptali Primary Care Unavailable Malachi, Neptali Referring Unavailable Malachi, Neptali Primary Care Unavailable Malachi, Neptali Attending Unavailable Malachi, Neptali Referring Unavailable Johnie, Kristin Attending Unavailable Malachi, Neptali Primary Care Unavailable Neymar TIE TAMPER, Chelo Referring Unavailable Neymar TIE TAMPER, Chelo Attending Unavailable Malachi, Neptali Primary Care Unavailable Neymar TIE TAMPER, Chelo Attending Unavailable Neymar TIE TAMPER, Chelo Referring Unavailable Malachi, Neptali Primary Care Unavailable Neymar TIE TAMPER, Chelo Attending Unavailable Cabrales TIE TAMPER, Chelo Referring Unavailable Malachi, Neptali Primary Care Unavailable Malachi, Neptali Primary Care Unavailable Malachi, Neptali Referring Unavailable Malachi Neptali Attending Unavailable Malachi, Neptali Primary Care Unavailable Malachi Neptali VEE Referring Unavailable Malachi, Neptali Attending Unavailable Johnie, Kristin Attending Unavailable Johnie, Kristin Referring Unavailable Malachi, Neptali Primary Care Unavailable IsraelSal hathaway Referring Unavailable Malachi, Neptali Primary Care Unavailable Sal Wood Attending Unavailable Johnie, Kristin Attending Unavailable Johnie, Kristin Referring Unavailable Malachi, Neptali Primary Care Unavailable Johnie, Kristin Attending Unavailable Malachi, Neptali Primary Care Unavailable Malachi, Neptali Referring Unavailable IsraelSal hathaway Attending Unavailable Malachi, Neptali Primary Care Unavailable Malachi, Neptali Referring Unavailable Johnie, Kristin Attending Unavailable Malachi, Neptali Primary Care Unavailable Malachi, Neptali Referring Unavailable IsraelSal hathaway Attending Unavailable Malachi, Neptali Primary Care Unavailable Malachi, Neptali Referring Unavailable Malachi, Neptali Referring Unavailable Malachi, Neptali Primary Care Unavailable Cesar ANDRE, Caryl Garland Unavailable MalachiNeptali Attending Unavailable Neymar TIE TAMPER, Chelo Attending Unavailable Malachi, Neptali Primary Care Unavailable Malachi, Neptali Referring Unavailable Maryanne Timmons Referring Unavail able Malachi, Neptali Primary Care Unavailable Maryanne Timmons Attending Unavail able Neymar ANDRE, Chelo Attending Unavailable Malachi, Neptali Primary Care Unavailable Neymar TIE TAMPER, Chelo Attending Unavailable Malachi, Neptali Primary Care Unavailable Neymar ANDRE, Chelo Referring Unavailable Johnie, Kristin Attending Unavailable Malachi, Neptali Primary Care Unavailable Neymar ANDRE, Chelo Consulting Unavailable Neymar TIE TAMPER, Chelo Referring Unavailable Johnie, Kristin Attending Unavailable Malachi, Neptali Primary Care Unavailable Johnie, Kristin Attending Unavailable Johnie, Kristin Consulting Unavailable Johnie, Kristin Referring Unavailable Malachi, Neptali Primary Care Unavailable William Hernandez Attending Unavailable Malachi, Neptali Primary Care Unavailable Malachi, Neptali Referring Unavailable Johnie, Kristin Attending Unavailable Malachi, Neptali Primary Care Unavailable Neymar ANDRE, Chelo Attending Unavailable Malachi, Neptali Primary Care Unavailable Maryanne Timmons Attending Unavail able Malachi, Neptali Primary Care Unavailable Malachi, Neptali Referring Unavailable Malachi, Neptali Referring Unavailable Malachi, Neptali Primary Care Unavailable Adolfo Jansen Attending Unavailable Johnie, Kristin Attending Unavailable Johnie, Kristin Referring Unavailable Malachi, Neptali Primary Care Unavailable Johnie, Kristin Referring Unavailable Malachi, Neptali Primary Care Unavailable Johnie, Kristin Attending Unavailable Allergies Allergy Classification Reported Allergen(s) Allergy Type Date of Onset Reaction(s) Facility (17 sources) Penicillins; Translations: [PENICILLINS] Propensity to adverse reactions to drug (disorder) 5 AOF, Rash [facility] Repository (10 sources) Lisinopril Drug Allergy 3 Nausea [facility] (1 source) Lisinopril Drug Allergy 5 [facility] Repository Medications Current Medications Medication Drug Class(es) Dates Sig (Normalized) Sig (Original) atorvastatin 80 mg oral tablet (14 sources) HMG-CoA Reductase Inhibitor Start: 01-31-2024 Atorvastatin 80 mg tablet Active 40 mg PO AT BEDTIME January 31, 2024 1:28pm Start: 07-16-2023 End: 01-31-2024 take 1 tablet by mouth at bedtime Atorvastatin 80 mg tablet Discontinued 80 mg PO AT BEDTIME August 02, 2023 2:29pm January 31, 2024 1:28pm clopidogrel 75 mg oral tablet (12 sources) P2Y12 Platelet Inhibitor Start: 07-16-2023 End: 08-27-2024 take 1 tablet by mouth once daily Clopidogrel 75 mg tablet Active 75 mg PO DAILY August 27, 2024 5:07pm dapagliflozin 10 mg oral tablet (3 sources) Sodium-Glucose Cotransporter 2 Inhibitor Start: 02-08-2024 take 1 tablet by mouth once daily in the morning Dapagliflozin Propanediol (Farxiga) 10 mg tablet Active 10 mg PO EVERY MORNING February 08, 2024 12:00am furosemide 40 mg oral tablet (12 sources) Loop Diuretic Start: 07-16-2023 End: 08-27-2024 take 1 tablet by mouth once daily Furosemide 40 mg tablet Active 40 mg PO DAILY August 27, 2024 5:07pm lansoprazole 30 mg delayed release oral capsule (15 sources) Proton Pump Inhibitor Start: 12-02-2018 take 1 capsule by mouth once daily Lansoprazole 30 MG capsule,delayed release(DR/EC) Active 30 mg PO DAILY December 02, 2018 12:00am 0.25 ml leuprolide acetate 30 mg/ml prefilled syringe (4 sources) Gonadotropin Releasing Hormone Receptor Agonist Start: 08-02-2023 Leuprolide (Eligard) 7.5 mg (1 month) syringe Active 7.5 mg SC .Q12 weeks August 02, 2023 12:00am lutein 20 mg oral capsule (10 sources) Start: 03-24-2023 take 1 capsule by mouth once daily Lutein 20 mg capsule Active 20 mg PO DAILY March 24, 2023 1:00am give with meal/snack 24 hr metoprolol succinate 25 mg extended release oral tablet (12 sources) beta-Adrenergic Chiki Start: 07-16-2023 End: 08-27-2024 take 1 tablet by mouth once daily Metoprolol Succinate 25 mg tablet extended release 24 hr Active 25 mg PO DAILY August 27, 2024 5:06pm Multivitamin (Daily Multi-Vitamin) tablet (11 sources) Start: 12-21-2022 Multivitamin (Daily Multi-Vitamin) tablet Active 1 {tbl} PO DAILY December 21, 2022 12:00am Start: 12-21-2022 take 1 tablet by hardik once daily Multivitamin (Daily Multi-Vitamin) tablet Active 1 TABLET PO DAILY December 21, 2022 12:00am Start: 12-21-2022 take 1 tablet by hardik th once daily Multivitamin (Daily Multi-Vitamin) tablet Active 1 TABLET PO DAILY December 20, 2022 11:00pm rivaroxaban 20 mg oral tablet (2 sources) Factor Xa Inhibitor Start: 07-19-2024 take 1 tablet by mouth once daily at dinner Rivaroxaban (Xarelto) 20 mg tablet Active 20 mg PO daily 60 July 19, 2024 12:00am must administer with evening meal sacubitril 49 mg / valsartan 51 mg oral tablet (13 sources) Angiotensin 2 Receptor Chiki Start: 09-20-2024 Sacubitril-Valsart an 49-51 mg tablet Active 1 {tbl} PO TWICE A DAY 180 September 20, 2024 4:43pm Start: 06-25-2024 End: 09-20-2024 Sacubitril-Valsartan 49-51 m g tablet Discontinued 1 {tbl} PO TWICE A DAY 180 June 25, 2024 12:00am September 20, 2024 4:43pm Start: 06-25-2024 Sacubitril-Miriam sartan 49-51 mg tablet Active 1 {tbl} PO TWICE A DAY 180 June 25, 2024 12:00am Start: 11-07-2023 End: 06-25-2024 Sacubitril-Valsartan (Entres to) 24-26 mg tablet Discontinued 1 {tbl} PO TWICE A DAY 180 February 08, 2024 11:46am June 25, 2024 3:23pm spironolactone 25 mg oral tablet (12 sources) Aldosterone Antagonist Start: 07-16-2023 End: 09-19-2024 Spironolactone 25 mg tablet Active 12.5 mg PO DAILY 45 September 19, 2024 12:39pm Start: 07-16-2023 End: 08-02-2023 take 12.5 mg by mouth once daily Spironolactone Active 12.5 MG PO DAILY 45 August 02, 2023 2:31pm Completed/Discontinued Medications Medication Drug Class(es) Dates Sig (Normalized) Sig (Original) amLODIPine 5 mg oral tablet (11 sources) Dihydropyridine Calcium Channel Chiki Start: 12-21-2022 End: 07-16-2023 take 1 tablet by mouth once daily Amlodipine 5 mg tablet Discontinued 5 mg PO DAILY December 21, 2022 12:00am July 16, 2023 10:13am apixaban 5 mg oral tablet (20 sources) Factor Xa Inhibitor Start: 02-08-2024 End: 07-19-2024 take 1 tablet by mouth twice daily Apixaban (Eliquis) 5 mg tablet Discontinued 5 mg PO TWICE A DAY 60 May 30, 2024 5:58pm July 19, 2024 3:59pm Start: 07-16-2023 End: 11-02-2023 take 1 tablet by mouth twice daily Apixaban (Eliquis) 5 mg tablet Discontinued 5 mg PO TWICE A DAY 60 August 15, 2023 1:19pm November 02, 2023 3:14pm aspirin 81 mg chewable tablet (9 sources) Platelet Aggregation Inhibitor, Nonsteroidal Anti-inflammatory Drug Start: 07-14-2023 End: 07-16-2023 Aspirin 81 mg tablet,chewable Discontinued 1 {tbl} PO DAILY July 14, 2023 12:00am July 16, 2023 10:23am ciprofloxacin 500 mg oral tablet (11 sources) Quinolone Antimicrobial Start: 01-05-2023 End: 03-24-2023 take 1 tablet by mouth twice daily Ciprofloxacin Hcl (Cipro) 500 mg tablet Discontinued 500 mg PO TWICE A DAY January 05, 2023 12:00am March 24, 2023 2:39pm docusate sodium 100 mg oral capsule (20 sources) Start: 01-05-2023 End: 04-01-2023 take 1 capsule by mouth twice daily Docusate Sodium (Colace) 100 mg capsule Discontinued 100 mg PO TWICE A DAY January 05, 2023 12:00am April 01, 2023 1:38pm Start: 12-21-2022 End: 03-24-2023 take 1 capsule by mouth once daily Docusate Sodium (Dok) 100 mg capsule Discontinued 100 mg PO DAILY December 21, 2022 12:00am March 24, 2023 2:39pm 1 ml evolocumab 140 mg/ml auto-injector (9 sources) PCSK9 Inhibitor Start: 11-07-2023 End: 01-31-2024 Evolocumab (Repatha Sureclick) 140 mg/mL pen injector Discontinued 140 mg SC every 2 weeks November 07, 2023 3:12pm January 31, 2024 1:24pm 24 hr isosorbide mononitrate 30 mg extended release oral tablet (11 sources) Nitrate Vasodilator Start: 07-16-2023 End: 08-27-2024 take 1 tablet by mouth once daily, then take 1 tablet by mouth every twenty-four hours Isosorbide Mononitrate 30 mg tablet extended release 24 hr Discontinued 30 mg PO DAILY August 02, 2023 2:30pm August 27, 2024 5:07pm On Hold: hypotension losartan potassium 25 mg oral tablet (20 sources) Angiotensin 2 Receptor Chiki Start: 07-16-2023 End: 11-07-2023 take 1 tablet by mouth once daily Losartan 25 mg tablet Discontinued 25 mg PO DAILY August 02, 2023 2:30pm November 07, 2023 1:37pm Start: 05-25-2023 End: 07-16-2023 take 1 tablet by mouth once daily Losartan 50 mg tablet Discontinued 50 mg PO DAILY May 25, 2023 1:00am July 16, 2023 10:13am oxyCODONE hydrochloride 5 mg oral tablet (11 sources) Opioid Agonist Start: 01-05-2023 End: 03-24-2023 take 1 tablet by mouth every six hours as needed for pain Oxycodone 5 mg tablet Discontinued 5 mg PO EVERY 6 HOURS as needed for pain 14 7 January 05, 2023 March 24, 2023 2:39pm microencapsulated potassium chloride 20 meq extended release oral tablet (11 sources) Start: 07-16-2023 End: 03-02-2024 take 1 tablet by mouth once daily at mealtime Potassium Chloride 20 mEq tablet,ER particles/crystals Discontinued 20 meq PO DAILY WITH MEALS August 02, 2023 2:32pm March 02, 2024 5:06pm Problems Active Problems Problem Classification Problem Date Documented Da te Episodic/Chronic Acute myocardial infarction (15 sources) Myocardial infarction; Translations: [ST elevation (STEMI) myocardial infarction of unspecified site] Onset: 07-11-2023 07-14-2023 Chronic Cancer of prostate (20 sources) Malignant tumor of prostate; Translations: [Malignant neoplasm of prostate] Onset: 07-26-2024 01-05-2023 Chronic Coronary atherosclerosis and other heart disease (20 sources) Coronary arteriosclerosis; Translations: [Atherosclerotic heart disease of [place] coronary artery without angina pectoris] Onset: 08-02-2024 07-14-2023 Chronic Comment on above: Status post anterior [place]. Status post DEBORAH to the proximal and mid LAD. Coronary atherosclerosis and other heart disease (13 sources) Stented coronary artery; Translations: [Presence of coronary angioplasty implant and graft] Onset: 07-14-2023 07-20-2023 Episodic Comment on above: PTCA/DEBORAH Prox LAD us ing Kristopher [place] 3.0x26 mm and DEBORAH Mid LAD using Kristopher [place] 3.0x 8 mm 07/14/23 Disorders of lipid metabolism (8 sources) Dyslipidemia; Translations: [Hyperlipidemia, unspecified] Onset: 09-25-2024 06-25-2024 Chronic Esophageal disorders (1 source) Gastro-esophageal reflux disease without esophagitis; Translations: [Gastro-esophageal reflux disease without esophagitis] Onset: 10-25-2016 Chronic Essential hypertension (20 sources) Hypertensive disorder; Translations: [Essential (primary) hypertension] Onset: 09-25-2024 12-03-2018 Chronic Other and ill-defined heart disease (7 sources) Left ventricular systolic dysfunction; Translations: [Heart disease, unspecified] 07-16-2023 Chronic Other and ill-defined heart disease (11 sources) Mural thrombus of left ventricle; Translations: [Thrombosis of atrium, auricular appendage, and ventricle as current complications following acute myocardial infarction] 07-16-2023 Chronic Other and ill-defined heart disease (5 sources) Thrombosis of atrium, auricular appendage, and ventricle as current complications following acute myocardial infarction; Translations: [Certain sequelae of myocardial infarction, not elsewhere classified, other] Onset: 09-25-2024 07-16-2023 Chronic Other and ill-defined heart disease (5 sources) Heart disease, unspecified; Translations: [Heart disease, unspecified] Onset: 02-29-2024 07-16-2023 Chronic Other ear and sense organ disorders (10 sources) Impacted cerumen; Translations: [Impacted cerumen, bilateral] 04-01-2023 Episodic Other ear and sense organ disorders (6 sources) Impacted cerumen, bilateral; Translations: [Impacted cerumen] 04-01-2023 Episodic Other screening for suspected conditions (not mental disorders or infectious disease) (2 sources) Rising PSA following treatment for malignant neoplasm of prostate; Translations: [Rising PSA following treatment for malignant neoplasm of prostate] Onset: 07-26-2024 Episodic Other upper respiratory infections (5 sources) Acute upper respiratory infection; Translations: [Acute upper respiratory infection, unspecified] 04-27-2024 Episodic Sarah-; endo-; and myocarditis; cardiomyopathy (except that caused by tuberculosis or sexually transmitted disease) (3 sources) Cardiomyopathy; Translations: [Other cardiomyopathies] 06-25-2024 Chronic Peripheral and visceral atherosclerosis (1 source) Peripheral vascular disease, unspecified; Translations: [Peripheral vascular disease, unspecified] Onset: 11-29-2023 Chronic Past or Other Problems Problem Classification Problem Date Documented Da te Episodic/Chronic Abdominal pain (2 sources) Unspecified abdominal pain; Translations: [Periumbilical pain] Onset: 05-02-2024 Episodic Genitourinary symptoms and ill-defined conditions (1 source) Hematuria, unspecified; Translations: [Hematuria, unspecified] Onset: 04-10-2024 Episodic Nonspecific chest pain (19 sources) Atypical chest pain; Translations: [Other chest pain] Onset: 01-16-2024 12-03-2018 Episodic Other aftercare (1 source) Encounter for therapeutic drug level monitoring; Translations: [Encounter for therapeutic drug level monitoring] Onset: 10-13-2023 Episodic Unclassified (1 source) Family history of malignant neoplasm of digestive organs; Translations: [Family history of malignant neoplasm of digestive organs] Onset: 10-25-2016 Episodic Results Test Name Value Interpretation Reference Range Facility Cardiology Visit Reporton Cardiology Visit Report [facility] [address] [place] [address] OFFICE VISIT Date of Service: 09/25/24 MR#: [id number] Acct: [id number] Name: CARYL THAKUR Rep #: [id number] : 1955 Provider: Dr. Kristin Jett MD Age/Sex: 69/M Location: [facility] [place] Status: Signed HPI HPI History of Present Illness Details: This gentleman with history of anterior [place], status post percutaneous intervention to the LAD with DEBORAH, ischemic cardiomyopathy, LV apical thrombus, hypertension and dyslipidemia is here for follow- up visit. Denies any complaints. Denies any chest pains or shortness of breath. No palpitations. No orthopnea or PND. No ankle edema. He does complain of occasional epigastric burning sensation that lasts for few seconds only. Tolerating rivaroxaban well. Denies any bleeding issues. Tolerating atorvastatin well. Denies any muscle aches or pains. 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 Accompanied by: Self Is patient in pain?: No Allergies lisinopril Allergy (Unknown, Verified 09/25/24 08:59) Nausea Penicillins Allergy (Verified 09/25/24 08:59) Rash Medications ???Medication ???Instructions ???Recorded ???Confirmed ???Type lansoprazole 30 mg capsule,delayed 30 mg PO DAILY 12/02/18 09/25/24 History release multivitamin (Daily Multi-Vitamin 1 tab PO DAILY 12/21/22 09/25/24 History tablet) lutein 20 mg capsule 20 mg PO DAILY 03/24/23 09/25/24 H istory leuprolide 7.5 mg (1 month) 7.5 mg subcut .Q12 weeks 08/02/23 09/25/24 History subcutaneous syringe (Eligard) atorvastatin 80 mg tablet 40 mg (1/2 x 80 mg) PO QHS #90 tab s 01/31/24 09/25/24 Rx evolocumab 140 mg/mL subcutaneous 140 mg subcut Q2W #2 mL 01/31/24 09/25/24 Rx pen injector (Repatha SureClick) dapagliflozin propanediol 10 mg 10 mg PO QAM #90 tabs 02/08/24 Rx tablet (Farxiga) rivaroxaban 20 mg tablet (Xarelto) 20 mg PO QDAY #60 tabs 07/19/24 09/25/24 Rx clopidogrel 75 mg tablet 75 mg PO DAILY #90 tabs 05/19/25 0 09/25/24 Rx furosemide 40 mg tablet 40 mg PO DAILY #90 tabs 08/27/24 0 09/25/24 Rx metoprolol succinate 25 mg 25 mg PO DAILY #90 tabs 08/27/24 0 09/25/24 Rx tablet,extended release 24 hr spironolactone 25 mg tablet 12.5 mg (1/2 x 25 mg) PO DAILY #45 09/19/24 09/25/24 Rx tabs sacubitril 49 mg-valsartan 51 mg 1 tab PO BID #180 tabs 09/20/24 Rx tablet Have you fallen in the past year?: No PFSH Medical History Arthritis Cancer Colitis Coronary artery disease Gastric reflux History of hiatal hernia History of stress test Hypertension Hypertension Kidney stone Left ventricular apical thrombus following [place] Left ventricular systolic dysfunction (LVSD) Non-smoker Prostate cancer ST elevation (STEMI) myocardial infarction ( 07/14/23) Wears glasses Surgical History Hx of cardiac catheterization ( 07/14/23) Hx of surgical procedure Stented coronary artery (07/14/23) Family History Father Myocardial infarction Mother Cancer Social History Smoking Status: Never smoker alcohol intake: never substance use type: does not use ROS Const Const: Positive for fatigue and weakness; Negative for headache(s) or weight gain ENT ENT: Negative for headache(s), dizziness, Nosebleed/epistaxis or balance problems Cardio Chest Pain: Yes Frequency: weekly Character: other (pressure/burning) Onset: at rest Location: epigastric and mid sternal Duration: minutes (2-3mins) Palpitations: No Edema: None Muscle aches with walking: None Resp Respiratory: Negative for SOB with activity, SOB at rest or SOB orthopnea SOB lying down GI GI: Positive for heartburn; Negative nausea or vomiting Musc Musc: Positive for muscle aches/ myalgia (BLE in AM) and muscle weakness (BLE in AM); Negative for joint pain or balance problems Neuro Neuro: Positive for weakness; Negative for dizziness, lightheadedness, near syncope, syncope or headache(s) Endo Endo: Positive for fatigue Cardiology Exam Const Appearance: comfortable and no acute distress Nutritional Appearance: well nourished Neck Neck: no JVD Carotids: Negative b (more content not included)... Normal [facility] PSA,Total- Diagnosticon 04-1 PSA, DIAGNOSTIC < 0.02 Normal 0.00-4.00 [facility] Comment on above: Result Comment: This test was performed using the [employer]OOWALK tPSA method. Measured values of a patient??sample can vary depending on the testing procedure used. PSA values determined on patient samples by different testing procedures cannot be used interchangeably. If there is a change in PSA assays while monitoring therapy, sequential testing should be performed to confirm baseline values. Performed By: #### L [phone] ####[facility] [id number] [place], [place], [id number] Radiation Oncology Visiton 0 07-26-2024 Radiation Oncology Visit [facility] [address] [place] [address] OFFICE VISIT Date of Service: 07/26/24 1433 MR#: [id number] Acct: [id number] Name: CARYL THAKUR Rep #: [id number] : 1955 From: Sal Wood DO Age/Sex: 68/M Location[place] [facility] [place] Status: Signed Intake Vital Signs 01/26/24 14:03 06/25/24 08:16 07/26/24 14:35 Height 5 ft 7 in 5 ft 7 in 5 ft 7 in Weight: 175 lb 8 oz BMI 27.4 BP 101/63 Blood Pressure Location Lt brachial Position Sitting Respiration 16 Pulse 60 Pulse Source Monitor Temp 97.5 F L Temperature Source Temporal Artery Pulse Oximetry (%) 97 Oxygen Delivery Method room air Intake Visit Reasons: 6 MONTH F/U PROSTATE, PSA PRIOR Is patient in pain?: No Allergies lisinopril Allergy (Unknown, Verified 07/26/24 14:36) Nausea Penicillins Allergy (Verified 07/26/24 14:36) Rash Medications ???Medication ???Instructions ???Recorded ???Confirmed ???Type lansoprazole 30 mg capsule,delayed 30 mg PO DAILY 12/02/18 07/26/24 History release multivitamin (Daily Multi-Vitamin 1 tab PO DAILY 12/21/22 07/26/24 History tablet) lutein 20 mg capsule 20 mg PO DAILY 03/24/23 07/26/24 H istory clopidogrel 75 mg tablet 75 mg PO DAILY #90 tabs 08/02/23 0 07/26/24 Rx furosemide 40 mg tablet 40 mg PO DAILY #90 tabs 08/02/23 0 07/26/24 Rx isosorbide mononitrate 30 mg 30 mg PO DAILY #90 tabs 08/02/23 0 07/26/24 Rx tablet,extended release 24 hr Held on 08/15/23. Instructions: hypotension leuprolide 7.5 mg (1 month) 7.5 mg subcut .Q12 weeks 08/02/23 07/26/24 History subcutaneous syringe (Liquiteria) metoprolol succinate 25 mg 25 mg PO DAILY #90 tabs 08/02/23 0 07/26/24 Rx tablet,extended release 24 hr spironolactone 25 mg tablet 12.5 mg (1/2 x 25 mg) PO DAILY #45 08/02/23 07/26/24 Rx tabs atorvastatin 80 mg tablet 40 mg (1/2 x 80 mg) PO QHS #90 tab s 01/31/24 07/26/24 Rx evolocumab 140 mg/mL subcutaneous 140 mg subcut Q2W #2 mL 01/31/24 07/26/24 Rx pen injector (Meghana Nunez) dapagliflozin propanediol 10 mg 10 mg PO QAM #90 tabs 02/08/24 Rx tablet (Farxiga) sacubitril 49 mg-valsartan 51 mg 1 tab PO BID #180 tabs 06/25/24 Rx tablet rivaroxaban 20 mg tablet (Xarelto) 20 mg PO QDAY #60 tabs 07/19/24 07/26/24 Rx Have you fallen in the past year?: No PFSH PFSH Medical History Coronary artery disease Hypertension Left ventricular systolic dysfunction (LVSD) Left ventricular apical thrombus following [place] ST elevation (STEMI) myocardial infarction ( 07/14/23) Prostate cancer Wears glasses Cancer Arthritis Kidney stone History of hiatal hernia Colitis Gastric reflux Non-smoker Hypertension History of stress test Home Medications ???Medication ???Instructions ???Recorded ???Last Taken ???Type lansoprazole 30 mg capsule,delayed 30 mg PO DAILY 12/02/18 01/03/23 History release multivitamin (Daily Multi-Vitamin 1 tab PO DAILY 12/21/22 01/03/23 History tablet) lutein 20 mg capsule 20 mg PO DAILY 03/24/23 Unknown Hi story clopidogrel 75 mg tablet 75 mg PO DAILY #90 tabs 08/02/23 U nknown Rx furosemide 40 mg tablet 40 mg PO DAILY #90 tabs 08/02/23 U nknown Rx isosorbide mononitrate 30 mg 30 mg PO DAILY #90 tabs 08/02/23 U nknown Rx tablet,extended release 24 hr Held on 08/15/23. Instructions: hypotension leuprolide 7.5 mg (1 month) 7.5 mg subcut .Q12 weeks 08/02/23 Unknown History subcutaneous syringe ([employer]) metoprolol succinate 25 mg 25 mg PO DAILY #90 tabs 08/02/23 U nknown Rx tablet,extended release 24 hr spironolactone 25 mg tablet 12.5 mg (1/2 x 25 mg) PO DAILY #45 08/02/23 Unknown Rx tabs atorvastatin 80 mg tablet 40 mg (1/2 x 80 mg) PO QHS #90 tab s 01/31/24 Unknown Rx evolocumab 140 mg/mL subcutaneous 140 mg subcut Q2W #2 mL 01/31/24 Unknown Rx pen injector (Meghana Nunez) dapagliflozin propanediol 10 mg 10 mg PO QAM #90 tabs 02/08/24 Unk nown Rx tablet (Farxiga) sacubitril 49 mg-valsartan 51 mg 1 tab PO BID #180 tabs 06/25/24 Un known Rx tablet rivaroxaban 20 mg tablet (Xarelto) 20 mg PO QDAY #60 tabs 07/19/24 Unknown Rx Allergy/AdvReac Type Severity Reaction Status Date / Time lisinopril Allergy Unknown Nausea Verified 07/26/24 14:36 Penicillins Allergy Rash Verified 07/26/24 14:36 Family History Father Myocardial infarction Mother Cancer Surgical History Hx of cardiac catheterization ( 07/14/23) Stented coronary artery (07/14/23) Hx of surgical procedure Social History (more content not included)... Normal [facility] Cardiovascular stress test r eportOrdered By: Kristin Jett on 07-18-2024 Study report [facility] [address] [place] [address] MR#: [id number] Acct: [id number] Name: CARYL THAKUR Rep #: [id number] : 1955 68 From: Kristin Jett MD Primary Care: Dr. Neptali Josue, Statu s: REG CLI Referring Dr: Kristin Jett MD Sex: M C Stress Test Report Date: 07/18/2024 Procedure: Pharmacologic stress nuclear imaging study Indications: Coronary artery disease Consent: Per the patient Procedure: The patient underwent pharmacologic (Regadenoson 0.4mg ) evaluation with a peak heart rate of 76 beats per minute (50%predicted maximal heart rate) and a peak blood pressure of 110/68 mmHg. The baseline ECG demonstrated sinus rhythm. The peak pharmacologic ECG no ischemic change. There were no cardiac dysrhythmias pretest, during pharmacologic infusion, or recovery. There was no complaint of chest discomfort during pharmacologic infusion or recovery. The patient was injected with 11.5 millicuries of technetium 99m Cardiolite and subsequently rest SPECT Cardiolite nuclear imaging was obtained in the horizontal long, vertical long, and short axis views. The patient underwent pharmacologic (Regadenoson) evaluation. The patient was injected with 36.0 millicuries of technetium 99m Cardiolite and subsequently stress SPECT Cardiolite nuclear imaging was obtained in the horizontal long, vertical long, and short axis views. A gated Cardiolite study at peak stress was obtained. The examination was stopped secondary to completion of protocol. Rest and stress SPECT Cardiolite nuclear imaging status post realignment, normalization, and attenuation correction demonstrate large fixed perfusion defect of the anterior wall, apex and apical inferior wall compatible with priorinfarct. No significant sarah-infarct ischemia. Anterior and apical severe hypokinesis to akinesis. The reported LVEF is 34%. Impression: 1. Pharmacologic (Regadenoson) evaluation 2. Peak pharmacologic ECG with no ischemic changes. 3. There were no cardiac dysrhythmias pretest, during pharmacologic infusion, or recovery. 5. Large anterior, apical and inferior apical fixed defect compatible with prior infarct. 6. The gated Cardiolite study reports an LVEF of 34%. This note was generated with Aviaryation software. It may contain incorrectwords, spelling, and punctuation that were not noted in checking the note beforesigning. 07/18/24 1019 Date _ Kristin Jett MD CC: Dr. Kristin Jett MD; Dr. Neptali Josue, ~ Date Dictated: 07/18/24 1017 Date Transcribed: 07/18/24 1017 Superintendent Transportation: NARESH [place] [facility] Work Phone: Echo Complete W/ Contraston 07-18-2024 Echo Complete W/ Contrast [facility] Cardi[facility] Services [address] [place] [address] Echo Complete W/ Contrast 07/18/24 0859 MR#: [id number] Acct: [id number] Name: CARYL THAKUR Rep #: [id number] : 1955 68 From: Kristin Jett MD Attending Dr: Dr. Kristin Jett MD Status: REG CLI Ordering Dr: Kristin Jett MD Date: 07/18/24 Location: [facility] Sex: M C Admitted: Reason For Study Reason For Study: CAD/ASHD Procedure This was a 2D Doppler, Color Flow transthoracic echocardiogram. The study was technically difficult. Contrast injection was performed. Exam performed in department. Left Ventricle Normal size and thickness. Severe anterior septal hypokinesis to akinesis. Estimated LVEF 35%. Stage I diastolic dysfunction. LV apical thrombus. 1.2 x 1.2 cm. As compared to previous study from 02/08/2024, the clot size has significantly decreased. Right Ventricle Normal right ventricle. Atria The left atrium is mildly enlarged. Normal right atrium. Mitral Valve Mild (1+) mitral valve insufficiency. Tricuspid Valve Mild tricuspid valve insufficiency. Normal pulmonary artery pressure. Aortic Valve Trisinus/trileaflet aortic valve. Trivial aortic valve insufficiency. Pulmonic Valve The pulmonic valve is not well visualized. Great Vessels Mildly dilated aortic root. Pericardium/Pleural No pericardial effusion. Medication 22 gauge I.V. with prn adaptor inserted into right arm. Diluted definity 3.5ml given slow IV push to enhance endocardial definition. Patient has had Definity on previous echoes, this time they had a reaction with flank pain and chest discomfort. MMode/2D Measurements Calculations LVIDd: 5.0 cm IVSd: 0.82 cm Ao root diam: 3.9 cm LVIDs: 3.6 cm LVPWd: 0.93 cm RVDd: 4.3 cm FS: 27.0 % LAV(MOD-bp): 70.1 ml LVAd ap4: 41.9 cm2 SV(MOD-sp4): 57.7 ml LAV(MOD-bp) Indexed: 37.0 ml/m2 LVLd ap4: 8.9 cm SI(MOD-sp4): 30.4 ml/m2 LAV(MOD-sp2): 79.7 ml EDV(MOD-sp4): 159.9 ml LAV(MOD-sp4): 52.7 ml EDV(sp4-el): 166.8 ml LVAs ap4: 32.7 cm2 LVLs ap4: 8.4 cm ESV(MOD-sp4): 102.2 ml ESV(sp4-el): 107.6 ml EF(MOD-sp4): 36.1 % EF(sp4-el): 35.5 % SV(sp4-el): 59.2 ml LA A4 area: 20.4 cm2 LA dimension(2D): 3.9 cm RA A4 area: 16.3 cm2 TAPSE: 2.1 cm Time Measurements MV dec time: 0.23 sec Doppler Measurements Calculations MV E max tony: 51.6 cm/sec Lat Peak E' Tony: 6.7 cm/sec Med Peak E' Tony: 7.4 cm/sec MV A max tony: 48.5 cm/sec E/E' lat: 7.7 E/E' med: 7.0 MV E/A: 1.1 MV V2 max: 62.1 cm/sec MV P1/2t max tony: 62.1 cm/sec Ao V2 max: 115.9 cm/sec MV max P.5 mmHg MV P1/2t: 90.2 msec Ao max P.4 mmHg MV V2 mean: 36.6 cm/sec MV dec slope: 201.7 cm/sec2 Ao V2 mean: 85.2 cm/sec MV mean P.62 mmHg MVA(P1/2t): 2.4 cm2 Ao mean P.3 mmHg MV V2 VTI: 22.6 cm Ao V2 VTI: 29.4 cm AV (velocity ratio): 0.88 LV V1 max: 116.8 cm/sec MR max tony: 478.0 cm/sec PA V2 max: 97.9 cm/sec LV V1 max P.5 mmHg MR max P.4 mmHg PA V2 mean: 67.9 cm/sec LV V1 mean P.0 mmHg LV V1 mean: 81.3 cm/sec LV V1 VTI: 25.9 cm TR max tony: 259.1 cm/sec TR max P.9 mmHg ECHO/Echo Complete W/ Contrast Interpretation Summary LV apical thrombus. 1.2 x 1.2 cm. As compared to previous study from 02/08/2024, the clot size has significantly decreased. The left atrium is mildly enlarged. Mild (1+) mitral valve insufficiency. Mildly dilated aortic root. Severe anterior septal hypokinesis to akinesis. Estimated LVEF 35%. Stage I diastolic dysfunction. Ordering Physician: Kristin Jett Referring Physician: Neptali Josue Performed By: Huey Avelar RCS 07/18/24 1114 Date Kristin Jett MD CC: Dr. Kristin Jett MD; Dr. Neptali Josue, Date Dictated: 07/18/2459 Date Transcribed: 07/18/24 111 Superintendent Transportation: Signed Normal [facility] Echocardiogram study reportO rdered By: Kristin Jett on 07-18-2024 Study report [facility] [address] [facility] [place] [address] Echo Complete W/ Contrast 07/18/2459 MR#: [id number] Acct: [id number] Name: CARYL THAKUR Rep #:[id number] : 1955 68 From: Kristin Jett MD Attending Dr: Dr. Kristin Jett MD Status: REG CLI Ordering Dr: Kristin Jett MD Date: Location: [facility] Sex: M C Admitted: Reason For Study Reason For Study: CAD/ASHD Procedure This was a 2D Doppler, Color Flow transthoracic echocardiogram. The study was technically difficult. Contrast injection was performed. Exam performed in department. Left Ventricle Normal size and thickness. Severe anterior septal hypokinesis to akinesis. Estimated LVEF 35%. Stage I diastolic dysfunction. LV apical thrombus. 1.2 x 1.2 cm. As compared to previous study from 02/08/2024,the clot size has significantly decreased. Right Ventricle Normal right ventricle. Atria The left atrium is mildly enlarged. Normal right atrium. Mitral Valve Mild (1+) mitral valve insufficiency. Tricuspid Valve Mild tricuspid valve insufficiency. Normal pulmonary artery pressure. Aortic Valve Trisinus/trileaflet aortic valve. Trivial aortic valve insufficiency. Pulmonic Valve The pulmonic valve is not well visualized. Great Vessels Mildly dilated aortic root. Pericardium/Pleural No pericardial effusion. Medication 22 gauge I.V. with prn adaptor inserted into right arm. Diluted definity 3.5ml given slow IV push to enhance endocardial definition. Patient has had Definity on previous echoes, this time they had a reaction with flank pain and chest discomfort. MMode/2D Measurements & Calculations LVIDd: 5.0 cm IVSd: 0.82 cm Ao root diam: 3.9 cm LVIDs: 3.6 cm LVPWd: 0.93 cm RVDd: 4.3 cm FS: 27.0 % LAV(MOD-bp): 70.1 ml LVAd ap4: 41.9 cm2 SV(MOD-sp4): 57.7 ml LAV(MOD-bp) Indexed: 37.0 ml/m2 LVLd ap4: 8.9 cm SI(MOD-sp4): 30.4 ml/m2 LAV(MOD-sp2): 79.7 ml EDV(MOD-sp4): 159.9 ml LAV(MOD-sp4): 52.7 ml EDV(sp4-el): 166.8 ml LVAs ap4: 32.7 cm2 LVLs ap4: 8.4 cm ESV(MOD-sp4): 102.2 ml ESV(sp4-el): 107.6 ml EF(MOD-sp4): 36.1 % EF(sp4-el): 35.5 % SV(sp4-el): 59.2 ml LA A4 area: 20.4 cm2 LA dimension(2D): 3.9 cm RA A4 area: 16.3 cm2 TAPSE: 2.1 cm Time Measurements MV dec time: 0.23 sec Doppler Measurements & Calculations MV E max tony: 51.6 cm/sec Lat Peak E' Tony: 6.7 cm/sec Med Peak E' Tony: 7.4 cm/sec MV A max tony: 48.5 cm/sec E/E' lat: 7.7 E/E' med: 7.0 MV E/A: 1.1 MV V2 max: 62.1 cm/sec MV P1/2t max tony: 62.1 cm/sec Ao V2 max: 115.9 cm/sec MV max P.5 mmHg MV P1/2t: 90.2 msec Ao max P.4 mmHg MV V2 mean: 36.6 cm/sec MV dec slope: 201.7 cm/sec2 Ao V2 mean: 85.2 cm/sec MV mean P.62 mmHg MVA(P1/2t): 2.4 cm2 Ao mean P.3 mmHg MV V2 VTI: 22.6 cm Ao V2 VTI: 29.4 cm AV (velocity ratio): 0.88 LV V1 max: 116.8 cm/sec MR max tony: 478.0 cm/sec PA V2 max: 97.9 cm/sec LV V1 max P.5 mmHg MR max P.4 mmHg PA V2 mean: 67.9 cm/sec LV V1 mean P.0 mmHg LV V1 mean: 81.3 cm/sec LV V1 VTI: 25.9 cm TR max tony: 259.1 cm/sec TR max P.9 mmHg ECHO/Echo Complete W/ Contrast Interpretation Summary LV apical thrombus. 1.2 x 1.2 cm. As compared to previous study from 02/08/2024,the clot size has significantly decreased. The left atrium is mildly enlarged. Mild (1+) mitral valve insufficiency. Mildly dilated aortic root. Severe anterior septal hypokinesis to akinesis. Estimated LVEF 35%. Stage I diastolic dysfunction. Ordering Physician: Kristin Jett Referring Physician: Neptali Josue Performed By: Huey Avelar RCS 07/18/24 1114 Date _ Kristin Jett MD CC: Dr. Kristin Jett MD; Dr. Neptali Josue DO ~ Date Dictated: 07/18/2459 Date Transcribed: 07/18/24 111 Superintendent Transportation: Signed [facility] Work Phone: Stress Reporton 07-18-2024 Stress Report [facility] Cardi[facility] Services [address] [place] [address] MR#: [id number] Acct: [id number] Name: CARYL THAKUR Rep #: [id number] : 1955 68 From: Kristin Jett MD Primary Care: Dr. Neptali Josue DO Status: REG CLI Referring Dr: Kristin Jett MD Sex: M C Stress Test Report Date: 07/18/2024 Procedure: Pharmacologic stress nuclear imaging study Indications: Coronary artery disease Consent: Per the patient Procedure: The patient underwent pharmacologic (Regadenoson 0.4mg ) evaluation with a peak heart rate of 76 beats per minute (50%predicted maximal heart rate) and a peak blood pressure of 110/68 mmHg. The baseline ECG demonstrated sinus rhythm. The peak pharmacologic ECG no ischemic change. There were no cardiac dysrhythmias pretest, during pharmacologic infusion, or recovery. There was no complaint of chest discomfort during pharmacologic infusion or recovery. The patient was injected with 11.5 millicuries of technetium 99m Cardiolite and subsequently rest SPECT Cardiolite nuclear imaging was obtained in the horizontal long, vertical long, and short axis views. The patient underwent pharmacologic (Regadenoson) evaluation. The patient was injected with 36.0 millicuries of technetium 99m Cardiolite and subsequently stress SPECT Cardiolite nuclear imaging was obtained in the horizontal long, vertical long, and short axis views. A gated Cardiolite study at peak stress was obtained. The examination was stopped secondary to completion of protocol. Rest and stress SPECT Cardiolite nuclear imaging status post realignment, normalization, and attenuation correction demonstrate large fixed perfusion defect of the anterior wall, apex and apical inferior wall compatible with prior infarct. No significant sarah-infarct ischemia. Anterior and apical severe hypokinesis to akinesis. The reported LVEF is 34%. Impression: 1. Pharmacologic (Regadenoson) evaluation 2. Peak pharmacologic ECG with no ischemic changes. 3. There were no cardiac dysrhythmias pretest, during pharmacologic infusion, or recovery. 5. Large anterior, apical and inferior apical fixed defect compatible with prior infarct. 6. The gated Cardiolite study reports an LVEF of 34%. This note was generated with Aviaryation software. It may contain incorrect words, spelling, and punctuation that were not noted in checking the note before signing. 07/18/24 1019 Date Kristin Jett MD CC: Dr. Kristin Jett MD; Dr. Neptali Josue DO Date Dictated: 07/18/24 1017 Date Transcribed: 07/18/24 1017 Superintendent Transportation: NARESH Signed Normal [facility] Anion gap in Serum or Plasma Ordered By: Kristin Jett on 06-29-2024 Anion gap [Moles/Vol] 10 mmol/L 5-15 [facility] BUN/creatinine ratioOrdered By: Kristin Jett on 06-29-2024 Urea nitrogen/Creatinine [Mass ratio] 13.5 mg/mg 10-20 [facility] Bilirubin, totalOrdered By: Kristin Jett on 06-29-2024 Bilirubin [Mass/Vol] 0.57 mg/dL 0.00-1.30 [facility] CPK Total, Creatine Kinaseon 06-29-2024 CPK TOTAL 87 U/L Normal 24-195 [facility] Comment on above: Performed By: #### L 500.4050, L500.4100, L501.3620 ####[facility] [address] [place], [address] Calculated very low density lipoprotein (VLDL) cholesterol measurementOrdered By: Kristin Jett on 06-29-2024 Calculated very low density lipoprotein (VLDL) cholesterol measurement 32 mg/dL 5-40 [facility] VLDL Cholesterol 32 mg/dL 5-40 [facility] Carbon dioxide, total [Moles /volume] in Central venous bloodOrdered By: Kristin Jett on 06-29-2024 CO2 [Moles/Vol] 25.3 mmol/L 21.0-32.0 [facility] Chloride assayOrdered By: Naresh Jett on 06-29-2024 Chloride [Moles/Vol] 104 mmol/L 98-108 [facility] Comprehensive Metabolic Prof ilon 06-29-2024 Albumin [Mass/Vol] 4.0 g/dL Normal 3.4-4.8 [facility] Comment on above: Performed By: #### L 500.4050, L500.4100, L501.3620 ####[facility] [address] [place], [address] Albumin/Globulin [Mass ratio] 1.4 {ratio} Normal 0.9-2.4 [facility] Comment on above: Performed By: #### L 500.4050, L500.4100, L501.3620 ####[facility] [address] [place], [address] ALK PHOS 99 U/L Normal 40-129 [facility] Comment on above: Performed By: #### L 500.4050, L500.4100, L501.3620 ####[facility] [address] [place], [address] ALT [Catalytic activity/Vol] 14 U/L Normal <=46 [facility] Comment on above: Performed By: #### L 500.4050, L500.4100, L501.3620 ####[facility] [address] [place], [address] AST [Catalytic activity/Vol] 15 U/L Normal <=37 [facility] Comment on above: Performed By: #### L 500.4050, L500.4100, L501.3620 ####[facility] [address] [place], [address] Bilirubin [Mass/Vol] 0.57 mg/dL Normal 0.00-1.30 [facility] Comment on above: Performed By: #### L 500.4050, L500.4100, L501.3620 ####[facility] [address] [place], [address] BUN/CRE 13.5 RATIO Normal 10-20 [facility] Comment on above: Performed By: #### L 500.4050, L500.4100, L501.3620 ####[facility] [address] [place], [address] Calcium [Mass/Vol] 9.3 mg/dL Normal 7.6-11.0 [facility] Comment on above: Performed By: #### L 500.4050, L500.4100, L501.3620 ####[facility] [address] [place], [address] Chloride [Moles/Vol] 104 mmol/L Normal 98-108 [facility] Comment on above: Performed By: #### L 500.4050, L500.4100, L501.3620 ####[facility] [address] [place], [address] CO2 [Moles/Vol] 25.3 mmol/L Normal 21.0-32.0 [facility] Comment on above: Performed By: #### L 500.4050, L500.4100, L501.3620 ####[facility] [address] [place], [address] Creatinine [Mass/Vol] 0.92 mg/dL Normal 0.70-1.20 [facility] Comment on above: Performed By: #### L 500.4050, L500.4100, L501.3620 ####[facility] [address] [place], [address] GAP 10 Normal 5-15 [facility] Comment on above: Performed By: #### L 500.4050, L500.4100, L501.3620 ####[facility] [address] [place], [address] GFR/1.73 sq M.predicted among non-blacks MDRD (S/P/Bld) [Vol rate/Area] 91 mL/min/{1.73_m2} Normal >60 [facility] Comment on above: Result Comment: mL/m in/1.73m2 CKD-EPI Creatinine Equation (2020) Performed By: #### L 500.4050, L500.4100, L501.3620 ####[facility] [address] [place], [address] Globulin (S) [Mass/Vol] 2.8 g/dL Normal 2.2-4.2 [facility] Comment on above: Performed By: #### L 500.4050, L500.4100, L501.3620 ####[facility] [address] [place], [address] Glucose [Mass/Vol] 104 mg/dL High 70-99 [facility] Comment on above: Performed By: #### L 500.4050, L500.4100, L501.3620 ####[facility] [address] [place], [address] Potassium [Moles/Vol] 3.7 mmol/L Normal 3.3-5.1 [facility] Comment on above: Performed By: #### L 500.4050, L500.4100, L501.3620 ####[facility] [address] [place], [address] Sodium [Moles/Vol] 139 mmol/L Normal 133-145 [facility] Comment on above: Performed By: #### L 500.4050, L500.4100, L501.3620 ####[facility] [address] [place], [address] T PROT 6.8 g/dL Normal 5.9-8.4 [facility] Comment on above: Performed By: #### L 500.4050, L500.4100, L501.3620 ####[facility] [address] [place], [address] Urea nitrogen [Mass/Vol] 12 mg/dL Normal 4-19 [facility] Comment on above: Performed By: #### L 500.4050, L500.4100, L501.3620 ####[facility] [address] [place], [address] GFR/1.73 sq M.predicted natalie g non-blacks MDRD (S/P/Bld) [Vol rate/Area]Ordered By: Kristin Jett on 06-29-2024 Estimated GFR (MDRD) Non-Af Amer 91 >60 [facility] Comment on above: mL/min/1.73m2 CKD-EP I Creatinine Equation (2020) Glomerular filtration rate ( GFR) estimation/1.73 sq m using serum, plasma, or whole bOrdered By: Kristin Jett on 06-29-2024 GFR/1.73 sq M.predicted among non-blacks MDRD (S/P/Bld) [Vol rate/Area] 91 mL/min/{1.73_m2} >60 [facility] Comment on above: mL/min/1.73m2 CKD-EP I Creatinine Equation (2020) LDL calc ser/plasOrdered By: Kristin Jett on 06-29-2024 Cholesterol in LDL [Mass/Vol] 9 mg/dL [facility] Comment on above: Dnplwbstmm=550-064 m g/dL & Higher Ofdq=395 mg/dL or greater LDL Cholesterol, Calculated 9 mg/dL [facility] Comment on above: Fwykwycoko=901-068 m g/dL & Higher Lnfx=869 mg/dL or greater Laboratory - Chemistry and C hemistry - challengeOrdered By: Kristin Jett on 06-29-2024 AST [Catalytic activity/Vol] 15 U/L <38 [facility] Lipid Profileon 06-29-2024 CHOL:HDL 1.87 Normal [facility] [facility] Comment on above: Performed By: #### L 500.4050, L500.4100, L501.3620 ####[facility] [address] [place], [address] Cholesterol [Mass/Vol] 87 mg/dL Normal <=200 [facility] Comment on above: Result Comment: Chol esterol level, Desirable <200 mg/dL Borderline high cholesterol 200-239 mg/dL High cholesterol >=240 mg/dL Recommendations of the NCEP Adult Treatment Panel for the following risk-cutoff thresholds for the [place] population. Performed By: #### L 500.4050, L500.4100, L501.3620 ####[facility] [address] [place], [address] Cholesterol in HDL [Mass/Vol] 47 mg/dL Normal [facility] Comment on above: Result Comment: Shahnaz onal Cholesterol Education Program (NCEP) guidelines: <40 mg/dL: Low HDL-cholesterol (major risk factor for CHD) >= 60 mg/dL: High HDL-cholesterol (negative risk factor for CHD) HDL-cholesterol is affected by a number of factors, e.g. smoking, exercise, hormones, sex and age. Performed By: #### L 500.4050, L500.4100, L501.3620 ####[facility] [address] [place], [address] Cholesterol in LDL [Mass/Vol] 9 mg/dL Normal [facility] Comment on above: Result Comment: Bord gofmfp=688-985 mg/dL Higher Htwr=449 mg/dL or greater Performed By: #### L 500.4050, L500.4100, L501.3620 ####[facility] [address] [place], [address] Cholesterol in VLDL [Mass/Vol] 32 mg/dL Normal 5-40 [facility] Comment on above: Performed By: #### L 500.4050, L500.4100, L501.3620 ####[facility] [address] [place], [address] Triglyceride [Mass/Vol] 160 mg/dL Normal [facility] Comment on above: Result Comment: The drugs N-Acetylcysteine and Metamizole may falsely depress this assay. Normal range: <150 mg/dL Borderline High: 150-199 mg/dL High: 200-499 mg/dL Very High: >500 mg/dL Performed By: #### L 500.4050, L500.4100, L501.3620 ####[facility] [address] [place], [address] Potassium (Unsp spec) [Mass/ Vol]Ordered By: Kristin Jett on 06-29-2024 Potassium [Moles/Vol] 3.7 mmol/L 3.3-5.1 [facility] Potassium measurement (mass/ volume)Ordered By: Kristin Jett on 06-29-2024 Potassium (Unsp spec) [Mass/Vol] 3.7 mmol/L 3.3-5.1 [facility] Screening total cholesterol/ high density lipoprotein (HDL) cholesterol ratioOrdered By: Kristin Jett on 06-29-2024 Cholesterol.total/Chol esterol in HDL [Mass ratio] 1.87 {ratio} [facility] Serum creatinine measurement (mass/volume)Ordered By: Kristin Jett on 06-29-2024 Creatinine [Mass/Vol] 0.92 mg/dL 0.70-1.20 [facility] Serum globulin measurementOr dered By: Kristin Jett on 06-29-2024 Globulin (S) [Mass/Vol] 2.8 g/dL 2.2-4.2 [facility] Serum glucose measurement (m ass/volume)Ordered By: Kristin Jett on 06-29-2024 Glucose [Mass/Vol] 104 mg/dL High 70-99 [facility] Serum or plasma alanine moreno otransferase (ALT) measurementOrdered By: Kristin Jett on 06-29-2024 ALT [Catalytic activity/Vol] 14 U/L <47 [facility] Serum or plasma albumin keyanna urement (mass/volume)Ordered By: Kristin Jett on 06-29-2024 Albumin [Mass/Vol] 4.0 g/dL 3.4-4.8 [facility] Serum or plasma albumin/glob ulin mass ratioOrdered By: Kristin Johnie on 06-29-2024 Albumin/Globulin [Mass ratio] 1.4 {ratio} 0.9-2.4 [facility] Serum or plasma alkaline chrystal sphatase measurementOrdered By: Kristin Johnie on 06-29-2024 ALP [Catalytic activity/Vol] 99 U/L 40-129 [facility] Serum or plasma calcium keyanna urement (mass/volume)Ordered By: Kristin Jett 06-29-2024 Calcium [Mass/Vol] 9.3 mg/dL 7.6-11.0 [facility] Serum or plasma cholesterol in HDL measurement (mass/volume)Ordered By: Kristin Johnie 06-29-2024 Cholesterol in HDL [Mass/Vol] 47 mg/dL >40 [facility] Comment on above: National Cholesterol Education Program (NCEP) guidelines:<40 mg/dL: Low HDL-cholesterol (major risk factor for CHD)>= 60 mg/dL: High HDL-cholesterol (negative risk factor for CHD)HDL-cholesterol is affected by a number of factors, e.g. smoking, exercise, hormones, sex and age. Serum or plasma cholesterol measurement (mass/volume)Ordered By: Kristin Jett on 06-29-2024 Cholesterol [Mass/Vol] 87 mg/dL <201 [facility] Comment on above: Cholesterol level, D esirable <200 mg/dLBorderline high cholesterol 200-239 mg/dLHigh cholesterol >=240 mg/dLRecommendations of the NCEP Adult Treatment Panel for the following risk-cutoff thresholds for the [place] population. Serum or plasma creatine kin ase activityOrdered By: Kristin Jett on 06-29-2024 CK [Catalytic activity/Vol] 87 U/L 24-195 [facility] Serum or plasma urea nitroge n measurement (mass/volume)Ordered By: Kristin Jett on 06-29-2024 Urea nitrogen [Mass/Vol] 12 mg/dL 4-19 [facility] Sodium levelOrdered By: Genaro Jett on 06-29-2024 Sodium [Moles/Vol] 139 mmol/L 133-145 [facility] Total proteinOrdered By: Vanessa Jett on 06-29-2024 Protein [Mass/Vol] 6.8 g/dL 5.9-8.4 [facility] Triglycerides measurementOrd ered By: Kristin Jett on 06-29-2024 Triglyceride [Mass/Vol] 160 mg/dL <199 [facility] Comment on above: The drugs N-Acetylcy steine and Metamizole may falsely depress this assay. Normal range: <150 mg/dLBorderline High: 150-199 mg/dLHigh: 200-499 mg/dLVery High: >500 mg/dL Cardiology Visit Reporton Cardiology Visit Report [facility] [address] [place] [address] OFFICE VISIT Date of Service: 06/25/24 MR#: [id number] Acct: [id number] Name: CARYL THAKUR Rep #: [id number] : 1955 Provider: Dr. 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 Status post drug-eluting stents to the proximal and mid LAD. LVEF 25%. Apical akinesis. There was suspicion for an LV thrombus on his echocardiography during his index hospitalization with anterior WY. Subsequently he was treated with anticoagulants for 3 months. The second echocardiogram showed resolution of his LV thrombus. His apixaban was therefore discontinued. However on another echocardiogram done 3 months later, patient was noted to have a large apical LV thrombus. Since then, he has been continuing on his apixaban. Denies any chest pains or shortness of breath. He does however complain of occasional epigastric/retrosternal chest discomfort. According to him, this feels better with exercise. No associated shortness of breath. Denies orthopnea or PND. No ankle edema. Tolerating atorvastatin well and denies any muscle aches or pains. 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 Accompanied by: Self Is patient in pain?: No Allergies lisinopril Allergy (Unknown, Verified 06/25/24 14:19) Nausea Penicillins Allergy (Verified 06/25/24 14:19) Rash Medications ???Medication ???Instructions ???Recorded ???Confirmed ???Type lansoprazole 30 mg capsule,delayed 30 mg PO DAILY 12/02/18 06/25/24 History release multivitamin (Daily Multi-Vitamin 1 tab PO DAILY 12/21/22 06/25/24 History tablet) lutein 20 mg capsule 20 mg PO DAILY 03/24/23 06/25/24 H istory clopidogrel 75 mg tablet 75 mg PO DAILY #90 tabs 08/02/23 0 06/25/24 Rx furosemide 40 mg tablet 40 mg PO DAILY #90 tabs 08/02/23 0 06/25/24 Rx isosorbide mononitrate 30 mg 30 mg PO DAILY #90 tabs 08/02/23 0 06/25/24 Rx tablet,extended release 24 hr Held on 08/15/23. Instructions: hypotension leuprolide 7.5 mg (1 month) 7.5 mg subcut .Q12 weeks 08/02/23 06/25/24 History subcutaneous syringe (Eligard) metoprolol succinate 25 mg 25 mg PO DAILY #90 tabs 08/02/23 0 06/25/24 Rx tablet,extended release 24 hr spironolactone 25 mg tablet 12.5 mg (1/2 x 25 mg) PO DAILY #45 08/02/23 06/25/24 Rx tabs atorvastatin 80 mg tablet 40 mg (1/2 x 80 mg) PO QHS #90 tab s 01/31/24 06/25/24 Rx evolocumab 140 mg/mL subcutaneous 140 mg subcut Q2W #2 mL 01/31/24 06/25/24 Rx pen injector (Repjose alfredo Alonsoick) dapagliflozin propanediol 10 mg 10 mg PO QAM #90 tabs 02/08/24 Rx tablet (Farxiga) sacubitril 24 mg-valsartan 26 mg 1 tab PO BID #180 tabs 02/08/24 Rx tablet (Entresto) apixaban 5 mg tablet (Eliquis) 5 mg PO BID #60 tabs 05/30/2406/09 Rx Ejection fraction %: 35 Have you fallen in the past year?: No PFSH Medical History (Updated 06/25/24 @ 14:[address] Kristin Jett MD) Coronary artery disease Hypertension Left ventricular systolic dysfunction (LVSD) Left ventricular apical thrombus following [place] ST elevation (STEMI) myocardial infarction ( 07/14/23) Prostate cancer Wears glasses Cancer Arthritis Kidney stone History of hiatal hernia Colitis Gastric reflux Non-smoker Hypertension History of stress test Surgical History (Updated 06/25/24 @ 14:[address] Kristin Jett MD) Hx of cardiac catheterization ( 07/14/23) Stented coronary artery (07/14/23) Hx of surgical procedure Family History Father Myocardial infarction Mother Cancer Social History Smoking Status: Never smoker alcohol intake: never substance use type: does not use ROS Const Const: Negative for fatigue, weakness, headache(s) or weight gain ENT ENT: Negative for headache(s), dizziness, Nosebleed/epistaxis or balance problems Cardio Chest Pain: Yes (burning, pt unable to determine if related to heartburn; sometimes pressure) Frequency: daily Character: other (burning to pressure) Palpitations: No Edema: None Muscle aches with walking: None Resp Respiratory: Negative for SOB with activity, SOB at rest or SOB orthopnea SOB lying down GI GI: Negative nausea, vomiting or heartburn Musc Musc: Negative for muscle aches/ myalgia, muscle weakness, joint (more content not included)... Normal [facility] Hemoglobin A1con 02-09-2025 HbA1c (Bld) [Mass fraction] 5.8 % High 3.8-5.6 [facility] Comment on above: Result Comment: Norm al < 5.7 % Prediabetic 5.7 - 6.4 % Diabetic >or= 6.5 % Please note range changes. Performed By: #### L 501.4700, L500.4050, L500.4100 #### [facility] [address] [place], [place], [id number] Absolute neutrophil countOrd ered By: Neptali Josue on 05-18-2024 Neutrophils (Bld) [#/Vol] 3.0 10*3/uL 2.0-7.7 [facility] Albumin to globulin ratioOrd ered By: Neptali Josue on 05-18-2024 Albumin/Globulin [Mass ratio] 0.9 {ratio} 0.9-2.4 [facility] Basophil percentageOrdered B y: Neptali Josue on 05-18-2024 Basophils/100 WBC (Bld) 0.7 % 0-1 [facility] Bilirubin, totalOrdered By: Neptali Josue on 05-18-2024 Bilirubin [Mass/Vol] 0.40 mg/dL 0.20-1.00 [facility] Comment on above: For patients on eltr ombopag therapy, use of Dimension [place] TBIL is not recommended. Blood urea nitrogen (BUN)/cr eatinine ratioOrdered By: Neptali Josue on 05-18-2024 Urea nitrogen/Creatinine [Mass ratio] 13.2 mg/mg 10-20 [facility] CBC W/Diff, Automatedon Absolute Lymph 1.67 X10 3/uL Normal 0.83-4.51 [facility] Comment on above: Performed By: #### L 100.0100, L500.4050, L501.5200, L300.3900, L501.9985, L300.4310, L501.9520 ####[facility] [address] [place], [address] Absolute Neut 3.0 X10 3/uL Normal 2.0-7.7 [facility] Comment on above: Performed By: #### L 100.0100, L500.4050, L501.5200, L300.3900, L501.9985, L300.4310, L501.9520 ####[facility] [address] [place], [address] Basophils/100 WBC (Bld) 0.7 % Normal 0-1 [facility] Comment on above: Performed By: #### L 100.0100, L500.4050, L501.5200, L300.3900, L501.9985, L300.4310, L501.9520 ####[facility] [address] [place], [address] Eosinophils/100 WBC (Bld) 7.3 % High 0-5 [facility] Comment on above: Performed By: #### L 100.0100, L500.4050, L501.5200, L300.3900, L501.9985, L300.4310, L501.9520 ####[facility] [address] [place], [address] Erythrocyte distribution width (RBC) [Ratio] 13.0 % Normal 11.6-14.6 [facility] Comment on above: Performed By: #### L 100.0100, L500.4050, L501.5200, L300.3900, L501.9985, L300.4310, L501.9520 ####[facility] [address] [place], [address] Hematocrit (Bld) [Volume fraction] 43.7 % Normal 40-54 [facility] Comment on above: Performed By: #### L 100.0100, L500.4050, L501.5200, L300.3900, L501.9985, L300.4310, L501.9520 ####[facility] [address] [place], [address] Hemoglobin (Bld) [Mass/Vol] 14.6 g/dL Normal 13.0-16.5 [facility] Comment on above: Performed By: #### L 100.0100, L500.4050, L501.5200, L300.3900, L501.9985, L300.4310, L501.9520 ####[facility] [address] [place], [address] IG% 0.300 Normal 0.0-0.9 [facility] Comment on above: Result Comment: IG% - Immature Granulocytes (promyelocytes, myelocytes and metamyelocytes) > 1% indicates that a LEFT SHIFT is Present. Performed By: #### L 100.0100, L500.4050, L501.5200, L300.3900, L501.9985, L300.4310, L501.9520 ####[facility] [address] [place], [address] Lymphocytes/100 WBC (Bld) 29.0 % Normal 19-41 [facility] Comment on above: Performed By: #### L 100.0100, L500.4050, L501.5200, L300.3900, L501.9985, L300.4310, L501.9520 ####[facility] [address] [place], [address] MCH (RBC) [Entitic mass] 29.7 pg Normal 27.0-32.0 [facility] Comment on above: Performed By: #### L 100.0100, L500.4050, L501.5200, L300.3900, L501.9985, L300.4310, L501.9520 ####[facility] [address] [place], [address] MCHC (RBC) [Mass/Vol] 33.4 g/dL Normal 32-36 [facility] Comment on above: Performed By: #### L 100.0100, L500.4050, L501.5200, L300.3900, L501.9985, L300.4310, L501.9520 ####[facility] [address] [place], [address] MCV (RBC) [Entitic vol] 89.0 fL Normal 80-94 [facility] Comment on above: Performed By: #### L 100.0100, L500.4050, L501.5200, L300.3900, L501.9985, L300.4310, L501.9520 ####[facility] [address] [place], [address] Monocytes/100 WBC (Bld) 10.9 % High 0-10 [facility] Comment on above: Performed By: #### L 100.0100, L500.4050, L501.5200, L300.3900, L501.9985, L300.4310, L501.9520 ####[facility] [address] [place], [address] Neutrophils/100 WBC (Bld) 51.8 % Normal 47-70 [facility] Comment on above: Performed By: #### L 100.0100, L500.4050, L501.5200, L300.3900, L501.9985, L300.4310, L501.9520 ####[facility] [address] [place], [address] Nucleated RBC (Bld) [#/Vol] 0 10*3/uL Normal 0-5 [facility] Comment on above: Performed By: #### L 100.0100, L500.4050, L501.5200, L300.3900, L501.9985, L300.4310, L501.9520 ####[facility] [address] [place], [address] Platelet mean volume (Bld) [Entitic vol] 10.0 fL Normal 6.2-12.0 [facility] Comment on above: Performed By: #### L 100.0100, L500.4050, L501.5200, L300.3900, L501.9985, L300.4310, L501.9520 ####[facility] [address] [place], [address] Platelets (Bld) [#/Vol] 208 10*3/uL Normal 150-450 [facility] Comment on above: Performed By: #### L 100.0100, L500.4050, L501.5200, L300.3900, L501.9985, L300.4310, L501.9520 ####[facility] [address] [place], [address] RBC (Bld) [#/Vol] 4.91 10*6/uL Normal 4.6-6.2 [facility] Comment on above: Performed By: #### L 100.0100, L500.4050, L501.5200, L300.3900, L501.9985, L300.4310, L501.9520 ####[facility] [address] [place], [address] RDW SD 42.1 fl Normal 35.1-43.9 [facility] Comment on above: Performed By: #### L 100.0100, L500.4050, L501.5200, L300.3900, L501.9985, L300.4310, L501.9520 ####[facility] [address] [place], [address] WBC (Bld) [#/Vol] 5.8 10*3/uL Normal 4.4-11.0 [facility] Comment on above: Performed By: #### L 100.0100, L500.4050, L501.5200, L300.3900, L501.9985, L300.4310, L501.9520 ####[facility] [address] [place], [address] Carbon dioxide measurementOr dered By: Neptali Josue on 05-18-2024 CO2 [Moles/Vol] 28.0 mmol/L 21.0-32.0 [facility] Chloride measurementOrdered By: Neptali Josue on 05-18-2024 Chloride [Moles/Vol] 104 mmol/L 98-107 [facility] Comprehensive Metabolic Prof ilon 05-18-2024 Albumin [Mass/Vol] 3.4 g/dL Normal 3.2-5.0 [facility] Comment on above: Performed By: #### L 501.4700, L500.4050, L500.4100 #### [facility] [address] [place], [address] Albumin/Globulin [Mass ratio] 0.9 {ratio} Normal 0.9-2.4 [facility] Comment on above: Performed By: #### L 501.4700, L500.4050, L500.4100 #### [facility] [address] [place], [address] ALK P 102 U/L Normal 45-117 [facility] Comment on above: Performed By: #### L 501.4700, L500.4050, L500.4100 #### [facility] [address] [place], [address] ALT [Catalytic activity/Vol] 22 U/L Normal 16-61 [facility] Comment on above: Performed By: #### L 501.4700, L500.4050, L500.4100 #### [facility] [address] [place], [address] AST [Catalytic activity/Vol] 19 U/L Normal 15-37 [facility] Comment on above: Performed By: #### L 501.4700, L500.4050, L500.4100 #### [facility] [address] [place], [address] Bilirubin [Mass/Vol] 0.40 mg/dL Normal 0.20-1.00 [facility] Comment on above: Result Comment: For patients on eltrombopag therapy, use of Dimension [place] TBIL is not recommended. Performed By: #### L 501.4700, L500.4050, L500.4100 #### [facility] [address] [place], [address] BUN/CRE 13.2 RATIO Normal 10-20 [facility] Comment on above: Performed By: #### L 501.4700, L500.4050, L500.4100 #### [facility] [address] [place], [address] CA,Total 9.1 mg/dL Normal 8.5-10.1 [facility] Comment on above: Performed By: #### L 501.4700, L500.4050, L500.4100 #### [facility] [address] [place], [address] Chloride [Moles/Vol] 104 mmol/L Normal 98-107 [facility] Comment on above: Performed By: #### L 501.4700, L500.4050, L500.4100 #### [facility] [address] [place], [address] CO2 [Moles/Vol] 28.0 mmol/L Normal 21.0-32.0 [facility] Comment on above: Performed By: #### L 501.4700, L500.4050, L500.4100 #### [facility] [address] [place], [address] Creatinine [Mass/Vol] 1.06 mg/dL Normal 0.70-1.30 [facility] Comment on above: Result Comment: The validity of the calculated GFR GFRAA in patients over 70 years has not been determined. Clinical correlation is essential. Performed By: #### L 501.4700, L500.4050, L500.4100 #### [facility] [address] [place], [address] EST GFR - AA 89 mL/min Normal >60 [facility] Comment on above: Result Comment: Afri can German GFR Calc Performed By: #### L 501.4700, L500.4050, L500.4100 #### [facility] [address] [place], [address] GAP 9 Normal 5-15 [facility] Comment on above: Performed By: #### L 501.4700, L500.4050, L500.4100 #### [facility] [address] [place], [address] GFR/1.73 sq M.predicted among non-blacks MDRD (S/P/Bld) [Vol rate/Area] 74 mL/min/{1.73_m2} Normal >60 [facility] Comment on above: Result Comment: Non- GFR Calc Performed By: #### L 501.4700, L500.4050, L500.4100 #### [facility] [address] [place], [address] Globulin (S) [Mass/Vol] 3.7 g/dL Normal 2.2-4.2 [facility] Comment on above: Performed By: #### L 501.4700, L500.4050, L500.4100 #### [facility] [address] [place], [address] Glucose [Mass/Vol] 110 mg/dL High 74-106 [facility] Comment on above: Result Comment: Fast ing Glucose result from 100 to 125 mg/dL suggests IMPAIRED HOMEOSTASIS per A.D.A. criteria. Performed By: #### L 501.4700, L500.4050, L500.4100 #### [facility] [address] [place], [address] Potassium [Moles/Vol] 3.8 mmol/L Normal 3.5-5.1 [facility] Comment on above: Performed By: #### L 501.4700, L500.4050, L500.4100 #### [facility] [address] [place], [address] Sodium [Moles/Vol] 141 mmol/L Normal 136-145 [facility] Comment on above: Performed By: #### L 501.4700, L500.4050, L500.4100 #### [facility] [address] [place], [address] T PROT 7.1 g/dL Normal 6.4-8.2 [facility] Comment on above: Performed By: #### L 501.4700, L500.4050, L500.4100 #### [facility] [address] [place], [address] Urea nitrogen [Mass/Vol] 14 mg/dL Normal 7-18 [facility] Comment on above: Performed By: #### L 501.4700, L500.4050, L500.4100 #### [facility] [address] [place], [address] Eosinophil percentageOrdered By: Neptali Josue on 05-18-2024 Eosinophils/100 WBC (Bld) 7.3 % High 0-5 [facility] Erythrocyte distribution wid th ratioOrdered By: Neptali Josue on 05-18-2024 Erythrocyte distribution width (RBC) [Ratio] 13.0 % 11.6-14.6 [facility] Erythrocyte distribution wid th standard deviationOrdered By: Neptali Josue on 05-18-2024 Erythrocyte distribution width (RBC) [Entitic vol] 42.1 fL 35.1-43.9 [facility] Estimated glomerular filtrat ion rate (GFR) AmericanOrdered By: Neptali Josue on 05-18-2024 Estimated GFR (MDRD) Amer 89 mL/min >60 [facility] Comment on above: GFR Calc Glomerular filtration rate ( GFR) estimationOrdered By: Neptali Josue on 05-18-2024 Estimated GFR (MDRD) Non-Af Amer 74 mL/min >60 [facility] Comment on above: Non- GFR Calc Glucose measurementOrdered B y: Neptali Josue on 05-18-2024 Glucose [Mass/Vol] 110 mg/dL High 74-106 [facility] Comment on above: Fasting Glucose resu lt from 100 to 125 mg/dL suggests IMPAIRED HOMEOSTASIS per A.D.A. criteria. Hematocrit Auto (Bld) [Volum e fraction]Ordered By: Neptali Josue on 05-18-2024 Hematocrit (Bld) [Volume fraction] 43.7 % 40-54 [facility] Hemoglobin A1c percentageOrd ered By: Neptali Josue on 05-18-2024 HbA1c (Bld) [Mass fraction] 5.8 % High 3.8-5.6 [facility] Comment on above: Normal < 5.7 % Predi abetic 5.7 - 6.4 % Diabetic >or= 6.5 % Please note range changes. Hemoglobin measurementOrdere d By: Neptali Josue on 05-18-2024 Hemoglobin (Bld) [Mass/Vol] 14.6 g/dL 13.0-16.5 [facility] Immature granulocytes/100 WB C Auto (Bld)Ordered By: Neptali Josue on 05-18-2024 Immature granulocytes/100 WBC (Bld) 0.300 % 0.0-0.9 [facility] Comment on above: IG% - Immature Granu locytes (promyelocytes, myelocytes and metamyelocytes) > 1% indicates that a LEFT SHIFT is Present. International normalized rat io (INR) calculationOrdered By: Neptali Josue on 05-18-2024 INR Coag (Bld) [Relative time] 1.1 {INR} [facility] Laboratory - Chemistry and C hemistry - challengeOrdered By: Neptali Josue on 05-18-2024 AST [Catalytic activity/Vol] 19 U/L 15-37 [facility] Lymphocytes Auto (Unsp spec) [#/Vol]Ordered By: Neptali Josue on 05-18-2024 Lymphocytes (Bld) [#/Vol] 1.67 10*3/uL 0.83-4.51 [facility] Lymphocytes/100 WBC Auto (Un sp spec)Ordered By: Neptali Josue on 05-18-2024 Lymphocytes/100 WBC (Bld) 29.0 % 19-41 [facility] MCV (mean corpuscular volume ) determinationOrdered By: Neptali Josue on 05-18-2024 MCV (RBC) [Entitic vol] 89.0 fL 80-94 [facility] Magnesiumon 05-18-2024 Magnesium [Mass/Vol] 2.1 mg/dL Normal 1.6-2.6 [facility] Comment on above: Performed By: #### L 501.4700, L500.4050, L500.4100 #### [facility] Laboratory [facility] [place], [address] Magnesium measurementOrdered By: Neptali Josue on 05-18-2024 Magnesium [Mass/Vol] 2.1 mg/dL 1.6-2.6 [facility] Mean corpuscular hemoglobin (MCH) determinationOrdered By: Neptali Josue on 05-18-2024 MCH (RBC) [Entitic mass] 29.7 pg 27.0-32.0 [facility] Mean corpuscular hemoglobin concentration (MCHC) determinationOrdered By: Neptali Josue on 05-18-2024 MCHC (RBC) [Mass/Vol] 33.4 g/dL 32-36 [facility] Mean platelet volume determi nationOrdered By: Neptali Josue on 05-18-2024 Platelet mean volume (Bld) [Entitic vol] 10.0 fL 6.2-12.0 [facility] Monocyte percentageOrdered B y: Neptali Josue on 05-18-2024 Monocytes/100 WBC (Bld) 10.9 % High 0-10 [facility] Neutrophil percentageOrdered By: Neptali Josue on 05-18-2024 Neutrophils/100 WBC (Bld) 51.8 % 47-70 [facility] Nucleated red blood cell per centageOrdered By: Neptali Josue on 05-18-2024 Nucleated RBC/100 WBC (Bld) [Ratio] 0 % 0-5 [facility] Partial Thromboplast Timeon 05-18-2024 aPTT Coag (Bld) [Time] 27.5 s Normal 24.1-36.2 [facility] Comment on above: Performed By: #### L 501.4700, L500.4050, L500.4100 #### [facility] Laboratory [address] [place], [address] Platelet countOrdered By: Joey Josue on 05-18-2024 Platelets (Bld) [#/Vol] 208 10*3/uL 150-450 [facility] Potassium measurementOrdered By: Neptali Josue on 05-18-2024 Potassium [Moles/Vol] 3.8 mmol/L 3.5-5.1 [facility] Prothrombin Time w/INRon INR Coag (PPP) [Relative time] 1.1 {INR} Normal [facility] Comment on above: Performed By: #### L 100.0100, L500.4050, L501.5200, L300.3900, L501.9985, L300.4310, L501.9520 ####[facility] [address] [place], [address] PT Coag (PPP) [Time] 14.2 s Normal 11.7-14.9 [facility] Comment on above: Performed By: #### L 100.0100, L500.4050, L501.5200, L300.3900, L501.9985, L300.4310, L501.9520 ####[facility] [address] [place], [address] Prothrombin timeOrdered By: Neptali Josue on 05-18-2024 PT Coag (PPP) [Time] 14.2 s 11.7-14.9 [facility] RBC Auto (Bld) [#/Vol]Ordere d By: Neptali Josue on 05-18-2024 RBC (Bld) [#/Vol] 4.91 10*6/uL 4.6-6.2 [facility] Serum anion gap measurementO rdered By: Neptali Josue on 05-18-2024 Anion gap [Moles/Vol] 9 mmol/L 5-15 [facility] Serum globulin measurementOr dered By: Neptali Josue on 05-18-2024 Globulin (S) [Mass/Vol] 3.7 g/dL 2.2-4.2 [facility] Serum or plasma alanine moreno otransferase (ALT) measurementOrdered By: Neptali Josue on 05-18-2024 ALT [Catalytic activity/Vol] 22 U/L 16-61 [facility] Serum or plasma albumin keyanna urement (mass/volume)Ordered By: Neptali Josue on 05-18-2024 Albumin [Mass/Vol] 3.4 g/dL 3.2-5.0 [facility] Serum or plasma alkaline chrystal sphatase measurementOrdered By: Neptali Josue on 05-18-2024 ALP [Catalytic activity/Vol] 102 U/L 45-117 [facility] Serum or plasma calcium keyanna urement (mass/volume)Ordered By: Neptali Josue on 05-18-2024 Calcium [Mass/Vol] 9.1 mg/dL 8.5-10.1 [facility] Serum or plasma creatinine m easurement (mass/volume)Ordered By: Neptali Josue on 05-18-2024 Creatinine [Mass/Vol] 1.06 mg/dL 0.70-1.30 [facility] Comment on above: The validity of the calculated GFR & GFRAA in patients over 70 years has not been determined. Clinical correlation is essential. Serum or plasma urea nitroge n measurement (mass/volume)Ordered By: Neptali Josue on 05-18-2024 Urea nitrogen [Mass/Vol] 14 mg/dL 7-18 [facility] Sodium levelOrdered By: Neptali Josue on 05-18-2024 Sodium [Moles/Vol] 141 mmol/L 136-145 [facility] TSH QnOrdered By: Neptali kaur on 05-18-2024 Thyroid Stimulating Hormone (TSH) 1.300 uIU/mL 0.358-3.74 0 [facility] Thyroid Stim Hormone (TSH)on 05-18-2024 TSH 1.300 uIU/mL Normal 0.358-3.74 0 [facility] Comment on above: Performed By: #### L 501.4700, L500.4050, L500.4100 #### [facility] Laboratory [address] [place], [place], [address] Total proteinOrdered By: Nkechi Josue on 05-18-2024 Protein [Mass/Vol] 7.1 g/dL 6.4-8.2 [facility] White blood cell (WBC) count Ordered By: Neptali Josue on 05-18-2024 WBC (Bld) [#/Vol] 5.8 10*3/uL 4.4-11.0 [facility] aPTT Coag (PPP) [Time]Ordere d By: Neptali Josue on 05-18-2024 aPTT Coag (Bld) [Time] 27.5 s 24.1-36.2 [facility] Diagnostic total prostate sp ecific antigen (PSA) measurementOrdered By: Deandre Davison on 05-03-2024 Prostate Specific Antigen Total < 0.01 ng/mL 0.0-4.0 [facility] Comment on above: This test was perfor med using the TPSA assay method for the[employer] chemistry system. Values obtained with differentassay methods cannot be used interchangably.When changing PSA assays in the course of monitoring apatient, additional sequential testing should be carriedout to confirm baseline values. PSA,Total- Diagnosticon 04-12 PSA, DIAGNOSTIC < 0.01 Normal 0.0-4.0 [facility] Comment on above: Result Comment: This test was performed using the TPSA assay method for the [employer] chemistry system. Values obtained with different assay methods cannot be used interchangably. When changing PSA assays in the course of monitoring a patient, additional sequential testing should be carried out to confirm baseline values. Performed By: #### L 501.9940 #### [facility] Laboratory [address] [place], [place], [id number] Urgent Care Visit Reporton 0 04-27-2024 Urgent Care Visit Report [facility] [address], [address] [place] [address] OFFICE VISIT Date of Service: 04/27/24 MR#: [id number] Acct: [id number] Name: CARYL THAKUR Rep #: [id number] : 1955 Provider: SARAH Peter Age/Sex: 68/M Location: [facility] Status: Signed Intake Vital Signs 01/31/24 12:59 04/27/24 09:33 Height 5 ft 7 in BP 124/60 H Blood Pressure Location Rt brachial Position Sitting Respiration 15 Pulse 58 L Pulse Source NIBP Temp 98.3 F Temp Source Oral Pulse Oximetry (%) 98 Oxygen Delivery Method room air Intake Visit Reasons: Cough Chief Complaint: cough Edger Machine 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 denies HENDRICK[place], ST, BA, congestion, fever. pt is not concerned, family would like him evaluated based on [place] in July 2023 [facility] Medical History Left ventricular systolic dysfunction (LVSD) Left ventricular apical thrombus following [place] Coronary artery disease Hypertension ST elevation (STEMI) myocardial infarction ( 07/14/23) Prostate cancer Wears glasses Cancer Arthritis Kidney stone History of hiatal hernia Colitis Gastric reflux Non-smoker Hypertension History of stress test Surgical History Hx of cardiac catheterization ( 07/14/23) Stented coronary artery (07/14/23) Hx of surgical procedure Family History Father Myocardial infarction Mother Cancer Social History Smoking Status: Never smoker alcohol intake: never substance use type: does not use HPI HPI Chief Complaint: cough Details: CARYL THAKUR, is a 68 M who presents to the office today for complaint of cough and congestion for the past week. Patient states that he feels fine otherwise however his family wanted him checked out as he had a heart attack last year. He denies hemoptysis, shortness of breath or difficulty breathing. No fever, chills, sweats. No nausea, vomiting or diarrhea. No loss of taste or smell. No other associated symptoms or alleviating/aggravating factors. ROS Const Constitutional: No other (6 system ROS completed with pertinent findings in the HPI otherwise normal.) Exam Const General: cooperative and well developed HENOH Head: normal to inspection and atraumatic Ears: hearing grossly normal bilaterally Nose: nasal discharge clear Face and sinus: normal facial exam Mouth: oral mucosae normal Throat: abnormal tonsil bilaterally hypertrophy 1+ Resp Effort Inspection: normal respiratory effort and no audible wheezes Auscultation: Bilateral: Clear to Auscultation Cardio Palpation: normal PMI Rate: regular rate Rhythm: regular rhythm Neuro General: patient alert and CN's II-XI intact bilaterally Psych Appearance: grossly normal Mental Status: mental status grossly normal Coding Level of Care Code Off vis,new,level 3 Diagnoses Acute upper respiratory infection J06.9 Assessment and Plan Assessment and Plan (1) Acute upper respiratory infection: Status: Acute Plan: Encouraged to get plenty of rest, drink lots of clear liquids, and use Tylenol or Ibuprofen (unless contraindicated) for fever and comfort. Patient also educated on other symptomatic management techniques. To be seen in 7-10 days if no improvement; sooner if worsening of symptoms. Patient advised of potential red flags and when appropriate to report to the ED. Patient verbalized understanding and agreement with all the above. Clinical Quality Measures Falls Risk Screening/Assistive Devices Have you fallen in the past year?: No 04/27/24 1005 Date Adolfo Kline Signature: Date (if applicable) CC: Normal [facility] CREATININE FINGERSTICKon CREATININE WB < 1.0 Normal 0.70-1.30 [facility] Comment on above: Performed By: #### L 9100.0200 #### [facility] Laboratory [address] [place], [place], [address] EGFR WB > 60.0000 Normal >60 [facility] Comment on above: Performed By: #### L 9100.0200 #### [facility] Laboratory [address] [place], [place], [address] CT Abd/Pelvis W/WO Contrasto n 04-03-2024 CT Abd/Pelvis W/WO Contrast [facility] Imaging Services [address] [place], [place] [address] CT Abd/Pelvis W/WO Contrast MR#: [id number] Acct: [id number] Name: CARYL THAKUR Rep #: [id number] : 1955 M 68 From: Irwin Parra MD PCP: Dr. Neptali Josue DO Status: REG CLI Study: CT Abd/Pelvis W/WO Contrast Date of Exam: 03/12 08/02 Exam# [id number] Ordering Dr: Neptali Josue DO :[id number] STUDY: CT ABDOMEN AND PELVIS WITH AND WITHOUT CONTRAST REASON FOR EXAM: Male, 68 years old. Abdominal pain, hematuria RADIATION DOSAGE (If Supplied By Facility): CTDIvol = ( 20.16 ) mGy, DLP = ( 1696.29 ) mGycm TECHNIQUE: Transaxial images were obtained from the dome of the diaphragm to the symphysis pubis without oral contrast. IV 100mL Isovue-300 was administered. Sagittal and coronal images were reconstructed. Individualized dose optimization techniques were used for this CT. COMPARISON: None. FINDINGS: The visualized lung bases are unremarkable aside from dependent atelectasis.. The visualized portions of the heart are within normal limits. Normal liver. Normal gallbladder and extrahepatic biliary system. Normal spleen. Normal pancreas. Normal bilateral adrenal glands. No obstructive uropathy, or suspicious solid renal lesion, there are punctate nonobstructing renal stones. Normal visualized stomach. Nondistended fluid-filled small bowel loops are noted consistent with ileus. There are scattered colonic diverticula. In the mid sigmoid colon there is subtle submucosal thickening of the sigmoid colon with pericolonic inflammatory stranding consistent with acute focal diverticulitis. No perforation or abscess is noted. Appendix not visualized Normal abdominal aorta. Normal inferior vena cava. Normal retroperitoneum. Normal urinary bladder. Normal abdominal wall. There are diffuse degenerative changes of the visualized lumbar spine, and pelvis. CT/CT Abd/Pelvis W/WO Contrast IMPRESSION: Acute sigmoid diverticulitis without perforation or abscess Small bowel ileus Nonobstructing nephrolithiasis Electronically Signed: Federico Parra MD at 16:25 EST , CC: Dr. Neptali Josue, Superintendent Transportation: Signed Normal [facility] Creatinine measurement at be dsideOrdered By: Neptali Josue on 04-03-2024 Bedside Creatinine < 1.0 mg/dL 0.70-1.30 [facility] EGFROrdered By: Neptali fermin on 04-03-2024 Bedside Estimated GFR (eGFR) > 60.0000 mL/min >60 [facility] Bilirubin Test strip Ql (U)O rdered By: Neptali Josue on 03-12-2024 Bilirubin Ql (U) Negative Negative [facility] Glucose Ql (U)Ordered By: Joey Josue on 03-12-2024 Glucose (U) [Mass/Vol] 1000 mg/dL High Normal [facility] Ketones Test strip Ql (U)Ord ered By: Neptali Josue on 03-12-2024 Ketones Ql (U) Negative Negative [facility] Nitrite Test strip Ql (U)Ord ered By: Neptlai Josue on 03-12-2024 Nitrite Ql (U) Negative Negative [facility] Protein Test strip Ql (U)Ord ered By: Neptali Josue on 03-12-2024 Protein Ql (U) 15 mg/dl High Negative [facility] Urinalysis, Routine (Dipstic k)on 03-12-2024 BILIRUBIN URINE Negative Normal Negative [facility] Comment on above: Order Comment: Urine , Random Performed By: #### L 400.2010 #### [facility] Laboratory [address] [place], [address] Clarity (U) Sl. Cloudy Normal Clear [facility] Comment on above: Order Comment: Urine , Random Performed By: #### L 400.2010 #### [facility] Laboratory [address] [place], [address] Color (U) Yellow Normal Yellow [facility] Comment on above: Order Comment: Urine , Random Performed By: #### L 400.2010 #### [facility] Laboratory [address] [place], [address] GLUCOSE, UR 1000 mg/dl Abnormal Normal [facility] Comment on above: Order Comment: Urine , Random Performed By: #### L 400.2010 #### [facility] Laboratory [address] [place], [address] KETONE UR Negative Normal Negative [facility] Comment on above: Order Comment: Urine , Random Performed By: #### L 400.2010 #### [facility] Laboratory [address] [place], [address] LEUK ESTERASE Negative Normal Negative [facility] Comment on above: Order Comment: Urine , Random Performed By: #### L 400.2010 #### [facility] Laboratory [address] [place], [address] Nitrite Ql (U) Negative Normal Negative [facility] Comment on above: Order Comment: Urine , Random Performed By: #### L 400.2010 #### [facility] Laboratory [address] [place], [address] OCCULT BLOOD-UR 50 /ul Abnormal Negative [facility] Comment on above: Order Comment: Urine , Random Performed By: #### L 400.2010 #### [facility] Laboratory [address] [place], [address] pH UR 5.0 Normal 5.0 - 8.0 [facility] Comment on above: Order Comment: Urine , Random Performed By: #### L 400.2010 #### [facility] Laboratory [address] [place], [address] PROT DIPSTX 15 mg/dl Abnormal Negative [facility] Comment on above: Order Comment: Urine , Random Performed By: #### L 400.2010 #### [facility] Laboratory [address] [place], [address] SP.GR. DIPSTX 1.025 Normal 1.002-1.03 0 [facility] Comment on above: Order Comment: Urine , Random Performed By: #### L 400.2010 #### [facility] Laboratory [address] [place], [address] UROBILI Normal Normal Normal [facility] Comment on above: Order Comment: Urine , Random Performed By: #### L 400.2010 #### [facility] [address] [place], [address] Urine blood detectionOrdered By: Neptali Josue on 03-12-2024 Urine Occult Blood 50 /ul High Negative [facility] Urine clarityOrdered By: Nkechi Josue on 03-12-2024 Clarity (U) Sl. Cloudy Clear [facility] Urine color determinationOrd ered By: Neptali Josue on 03-12-2024 Color (U) Yellow Yellow [facility] Urine leukocyte esterase det ection by dipstickOrdered By: Neptali Josue on 03-12-2024 Leukocyte esterase Test strip Ql (U) Negative Negative [facility] Urine pHOrdered By: Neptali culp on 03-12-2024 pH (U) 5.0 [pH] 5.0 - 8.0 [facility] Urine specific gravity measu rementOrdered By: Neptali Josue on 03-12-2024 Specific gravity (U) [Rel density] 1.025 1.002-1.03 0 [facility] Urobilinogen Ql (U)Ordered B y: Neptali Josue on 03-12-2024 Urine Urobilinogen Normal mg/dl Normal [facility] Echo Limited w/Contraston Echo Limited w/Contrast [facility] [address] [place] [address] Echo Limited w/Contrast 02/08/24 0810 MR#: [id number] Acct: [id number] Name: CARYL THAKUR Rep #: [id number] : 1955 68 From: Kristin Jett MD Attending Dr: Chelo Cabrales NP-C Status: REG C Ordering Dr: Chelo Cabrales TIE TAMPER TIE TAMPER-C Date: 02/08/24 Location: [facility] Sex: M C Admitted: Reason For Study: Left Ventricular Systolic Dysfunction Procedure This was a limited 2D transthoracic echocardiogram. Contrast injection was performed. Exam performed in department. Left Ventricle Normal LV size. Mild concentric left ventricular hypertrophy. Anterior septal and apical severe hypokinesis to akinesis. An approximately 2 x 2 cm pedunculated apical thrombus noted. LVEF estimated at 35%. Right Ventricle Normal right ventricle. Atria The left and right atria are normal. Mitral Valve The mitral valve is structurally normal. No prolapse or stenosis seen. Trivial mitral valve insufficiency. Tricuspid Valve Trivial tricuspid valve insufficiency. Aortic Valve Trisinus/trileaflet aortic valve. Pulmonic Valve The pulmonic valve is not well visualized. Great Vessels The aortic root is not well visualized. Medication 22 gauge I.V. with prn adaptor inserted into right arm. Diluted definity 3ml given slow IV push to enhance endocardial definition. MMode/2D Measurements Calculations LVIDd: 4.0 cm IVSd: 1.1 cm LVAd ap4: 46.3 cm2 LVIDs: 3.3 cm LVPWd: 1.2 cm LVLd ap4: 9.0 cm RVDd: 4.0 cm FS: 19.0 % EDV(MOD-sp4): 192.1 ml EDV(sp4-el): 202.4 ml LVAs ap4: 31.3 cm2 LVLs ap4: 7.7 cm ESV(MOD-sp4): 104.0 ml ESV(sp4-el): 107.5 ml EF(MOD-sp4): 45.9 % EF(sp4-el): 46.9 % SV(MOD-sp4): 88.1 ml SV(sp4-el): 95.0 ml SI(MOD-sp4): 46.4 ml/m2 Doppler Measurements Calculations MR max tony: 440.7 cm/sec MR max P.7 mmHg ECHO/Echo Limited w/Contrast Interpretation Summary Anterior septal and apical severe hypokinesis to akinesis. An approximately 2 x 2 cm pedunculated apical thrombus noted. LVEF estimated at 35%. Ordering Physician: Chelo Cabrales Referring Physician: Chelo Cabrales Performed By: Huey Avelar RCS 02/08/24903 Date Kristin Jett MD CC: TIE TAMPER-C Chelo Cabrales; Dr. Neptali Josue DO Date Dictated: 02/08/24809 Date Transcribed: 02/08/24903 Superintendent Transportation: Signed Normal [facility] Cardiology Visit Reporton Cardiology Visit Report [facility] [address] [place] [address] OFFICE VISIT Date of Service: 01/31/24 MR#: [id number] Acct: [id number] Name: CARYL THAKUR Rep #: [id number] : 1955 Provider: SARAH Mccauley Age/Sex: 68/M Location: [facility] Status: Signed HPI HPI History of Present Illness Details: Caryl Thakur is a 68 year old male who presents to the office today for a cardiovascular follow-up visit. He presented to the emergency room on 07/14/2023 with complaints of chest pain. He was at [facility] with a friend when he had a sudden onset of chest pain in the center of his chest. He notes diaphoresis and shortness of breath. Prehospital EKG showed ST elevation anteriorly with inferior depression. He underwent emergent cardiac cath, which demonstrated 100% stenosis of his proximal LAD, 70% stenosis of his proximal OM1, 60% stenosis in his proximal RCA, and 70% stenosis in his distal RCA. He did undergo a successful DEBORAH to the mid LAD, and successful PTCA/DEBORAH to his proximal LAD. His left ventricular systolic function was noted to be 35 to 40%. His echocardiogram from 07/14/2023 demonstrated an ejection fraction of 45%. He has a history of hypertension. Pt has been having issues with muscle aches at night. He cut his statin back. He does sometimes have chest heaviness, he thinks that this is similar to what he has had for years. It is not brought on by anything in particular. Recent stress test demonstrated previous infarct with mild periinfarct ischemia. He does not have any worsening SOB. He denies dizziness, lightheadedness, syncopal or near syncopal episodes, and headaches. He continues to be active with swimming. Intake Vital Signs 11/07/23 13:05 01/26/24 14:03 01/31/24 12:58 01/31/24 12:59 Height 5 ft 7 in 5 ft 7 in 5 ft 7 in 5 ft 7 in Weight: 173 lb 1 oz 172 lb BMI 27.1 26.9 BP 122/73 H 103/70 Blood Pressure Location Rt brachial Lt brachial Position Sitting Sitting Respiration 16 18 Pulse 62 62 Pulse Source Monitor Monitor Temp 97.3 F L Temperature Source Temporal Artery Pulse Oximetry (%) 96 98 Oxygen Delivery Method room air Intake Visit Reasons: 3 M FU Edger Machine Helper Required: No Is patient in pain?: No Allergies lisinopril Allergy (Unknown, Verified 01/31/24 12:59) Nausea Penicillins Allergy (Verified 01/31/24 12:59) Rash Medications ???Medication ???Instructions ???Recorded ???Confirmed ???Type lansoprazole 30 mg capsule,delayed 30 mg PO DAILY 12/02/18 01/31/24 History release multivitamin (Daily Multi-Vitamin 1 tab PO DAILY 12/21/22 01/31/24 History tablet) lutein 20 mg capsule 20 mg PO DAILY 03/24/23 01/31/24 History clopidogrel 75 mg tablet 75 mg PO DAILY #90 tabs 08/02/23 01/31/24 Rx furosemide 40 mg tablet 40 mg PO DAILY #90 tabs 08/02/23 01/31/24 Rx isosorbide mononitrate 30 mg 30 mg PO DAILY #90 tabs 08/02/23 01/31/24 Rx tablet,extended release 24 hr leuprolide 7.5 mg (1 month) 7.5 mg subcut .Q12 weeks 08/02/23 01/31/24 History subcutaneous syringe (Eligard) metoprolol succinate 25 mg 25 mg PO DAILY #90 tabs 08/02/23 01/31/24 Rx tablet,extended release 24 hr potassium chloride 20 mEq 20 meq PO DAILYCM #90 tabs 08/02/23 01/31/24 Rx tablet,extended release(part/cryst) spironolactone 25 mg tablet 12.5 mg (1/2 x 25 mg) PO DAILY #45 08/02/23 01/31/24 Rx tabs sacubitril 24 mg-valsartan 26 mg 1 tab PO BID #60 tabs 11/07/23 01/26/24 Rx tablet (Entresto) atorvastatin 80 mg tablet 40 mg (1/2 x 80 mg) PO QHS #90 tabs 01/31/24 01/31/24 Rx evolocumab 140 mg/mL subcutaneous 140 mg subcut Q2W #2 mL 01/31/24 01/31/24 Rx pen injector (Meghana Nunez) Have you fallen in the past year?: No Nurse's Note: patient does not know if he still taking Entresto or not [facility] Medical History Left ventricular systolic dysfunction (LVSD) Left ventricular apical thrombus following [place] Coronary artery disease Hypertension ST elevation (STEMI) myocardial infarction ( 07/14/23) Prostate cancer Wears glasses Cancer Arthritis Kidney stone History of hiatal hernia Colitis Gastric reflux Non-smoker Hypertension History of stress test Surgical History Hx of cardiac catheterization ( 07/14/23) Stented coronary artery (07/14/23) Hx of surgical procedure Family History Father Myocardial infarction Mother Cancer Social History Smoking Status: Never smoker alcohol intake: never substance use type: does not use ROS Const Const: Negative for weakness, fever(s), headache(s), (more content not included)... Normal [facility] PSA,Total- Diagnosticon 01-09 PSA, DIAGNOSTIC < 0.01 Normal 0.0-4.0 [facility] Comment on above: Result Comment: This test was performed using the TPSA assay method for the [employer] chemistry system. Values obtained with different assay methods cannot be used interchangably. When changing PSA assays in the course of monitoring a patient, additional sequential testing should be carried out to confirm baseline values. Performed By: #### L 501.9940 ####[facility] [id number] [place], [address] Radiation Oncology Visiton 1 Radiation Oncology Visit [facility] [address] [place] [address] OFFICE VISIT Date of Service: 01/26/24 1402 MR#: [id number] Acct: [id number] Name: KESHAWN,CARYL LINARES Rep #: [id number] : 1955 From: Sal Wood DO Age/Sex: 68/M Location: [facility] Status: Signed Intake Vital Signs 07/28/23 14:04 11/07/23 13:05 01/26/24 14:03 Height 5 ft 7 in 5 ft 7 in 5 ft 7 in Weight: 173 lb 1 oz BMI 27.1 BP 122/73 H Blood Pressure Location Rt brachial Position Sitting Respiration 16 Pulse 62 Pulse Source Monitor Temp 97.3 F L Temperature Source Temporal Artery Pulse Oximetry (%) 96 Oxygen Delivery Method room air Intake Visit Reasons: 6 MONTH F/U PROSTATE Is patient in pain?: No Allergies lisinopril Allergy (Unknown, Verified 01/26/24 14:08) Nausea Penicillins Allergy (Verified 01/26/24 14:08) Rash Medications ???Medication ???Instructions ???Recorded ???Confirmed ???Type lansoprazole 30 mg capsule,delayed 30 mg PO DAILY 12/02/18 01/26/24 History release multivitamin (Daily Multi-Vitamin 1 tab PO DAILY 12/21/22 01/26/24 History tablet) lutein 20 mg capsule 20 mg PO DAILY 03/24/23 01/26/24 History atorvastatin 80 mg tablet 80 mg PO QHS #90 tabs 08/02/23 01/26/24 Rx clopidogrel 75 mg tablet 75 mg PO DAILY #90 tabs 08/02/23 01/26/24 Rx furosemide 40 mg tablet 40 mg PO DAILY #90 tabs 08/02/23 01/26/24 Rx isosorbide mononitrate 30 mg 30 mg PO DAILY #90 tabs 08/02/23 01/26/24 Rx tablet,extended release 24 hr leuprolide 7.5 mg (1 month) 7.5 mg subcut .Q12 weeks 08/02/23 01/26/24 History subcutaneous syringe (EliShiny Adsd) metoprolol succinate 25 mg 25 mg PO DAILY #90 tabs 08/02/23 01/26/24 Rx tablet,extended release 24 hr potassium chloride 20 mEq 20 meq PO DAILYCM #90 tabs 08/02/23 01/26/24 Rx tablet,extended release(part/cryst) spironolactone 25 mg tablet 12.5 mg (1/2 x 25 mg) PO DAILY #45 08/02/23 01/26/24 Rx tabs evolocumab 140 mg/mL subcutaneous 140 mg subcut Q2W #2 mL 11/07/23 01/26/24 Rx pen injector (Repatha SureClick) sacubitril 24 mg-valsartan 26 mg 1 tab PO BID #60 tabs 11/07/23 01/26/24 Rx tablet (Entresto) Have you fallen in the past year?: No PFSH PFSH Medical History Left ventricular systolic dysfunction (LVSD) Left ventricular apical thrombus following [place] Coronary artery disease Hypertension ST elevation (STEMI) myocardial infarction ( 07/14/23) Prostate cancer Wears glasses Cancer Arthritis Kidney stone History of hiatal hernia Colitis Gastric reflux Non-smoker Hypertension History of stress test Home Medications ???Medication ???Instructions ???Recorded ???Last Taken ???Type lansoprazole 30 mg capsule,delayed 30 mg PO DAILY 12/02/18 01/03/23 History release multivitamin (Daily Multi-Vitamin 1 tab PO DAILY 12/21/22 01/03/23 History tablet) lutein 20 mg capsule 20 mg PO DAILY 03/24/23 Unknown History atorvastatin 80 mg tablet 80 mg PO QHS #90 tabs 08/02/23 Unknown Rx clopidogrel 75 mg tablet 75 mg PO DAILY #90 tabs 08/02/23 Unknown Rx furosemide 40 mg tablet 40 mg PO DAILY #90 tabs 08/02/23 Unknown Rx isosorbide mononitrate 30 mg 30 mg PO DAILY #90 tabs 08/02/23 Unknown Rx tablet,extended release 24 hr leuprolide 7.5 mg (1 month) 7.5 mg subcut .Q12 weeks 08/02/23 Unknown History subcutaneous syringe (Eligard) metoprolol succinate 25 mg 25 mg PO DAILY #90 tabs 08/02/23 Unknown Rx tablet,extended release 24 hr potassium chloride 20 mEq 20 meq PO DAILYCM #90 tabs 08/02/23 Unknown Rx tablet,extended release(part/cryst) spironolactone 25 mg tablet 12.5 mg (1/2 x 25 mg) PO DAILY #45 08/02/23 Unknown Rx tabs evolocumab 140 mg/mL subcutaneous 140 mg subcut Q2W #2 mL 11/07/23 Unknown Rx pen injector (Repatha SureClick) sacubitril 24 mg-valsartan 26 mg 1 tab PO BID #60 tabs 11/07/23 Unknown Rx tablet (Entresto) Allergy/AdvReac Type Severity Reaction Status Date / Time lisinopril Allergy Unknown Nausea Verified 01/26/24 14:08 Penicillins Allergy Rash Verified 01/26/24 14:08 Family History Father Myocardial infarction Mother Cancer Surgical History Hx of cardiac catheterization ( 07/14/23) Stented coronary artery (07/14/23) Hx of surgical procedure Social History Smoking Status: Never smoker alcohol intake: never substance use type: does not use Diagnosis: Caryl Thakur is a 68 year-old male diagnosed with 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 Normal [facility] Stress Reporton 12-26-2023 Stress Report [facility] [address] [place] [address] MR#: [id number] Acct: [id number] Name: CARYL THAKUR Rep #: [id number] : 1955 68 From: Kristin Jett MD Primary Care: Dr. Neptali Josue, Status: PRE CLI Referring Dr: Chelo Cabrales TIE TAMPER TIE TAMPER-C Sex: M C Stress Test Report Date: 12/23/2023 Procedure: Exercise tolerance test/imaging study Indications: CAD Consent: Per the patient Procedure: The patient exercised on a Jayant protocol for 8 minutes achieving a peak heart rate of 142 bpm (93% predicted maximal heart rate) with a peak blood pressure 122/62 mmHg and a peak MET capacity of 10.1 METs. The baseline ECG demonstrated sinus rhythm. The peak exercise ECG demonstrated no ischemic changes. No significant cardiac dysrhythmias pretest, during exercise or in recovery. The functional capacity was considered good. There was no complaint of chest discomfort during exercise or recovery. The examination was discontinued secondary to target heart rate being achieved. The patient was injected with 11.8 mCi of technetium 99m Cardiolite and subsequently rest SPECT Cardiolite nuclear imaging was obtained in the horizontal long, vertical long, and short axis views. Post-exercise, the patient was injected with 34.3 mCi of technetium 99m Cardiolite and subsequently stress SPECT Cardiolite nuclear imaging was obtained in the horizontal long, vertical long, and short axis views. A gated Cardiolite study at peak stress was obtained. Rest and stress SPECT Cardiolite nuclear imaging status post realignment, normalization, and attenuation correction, demonstrates a large fixed apical and anterior defect consistent with prior infarct. The gated Cardiolite study demonstrates apical akinesis with mid to distal anterior akinesis. The reported LVEF is 39%. Impression: 1. Technically adequate (percent predicted maximal heart rate greater than 85%) exercise tolerance test 2. Peak exercise ECG 3. There were no cardiac dysrhythmias pretest, during exercise, or recovery 4. Rest and stress SPECT Cardiolite nuclear imaging demonstrate prior anterior apical infarct with minimal sarah-infarct ischemia. 5. The gated Cardiolite study reports an LVEF of 39%. This note was generated with [employer] dictation software. It may contain incorrect words, spelling, and punctuation that were not noted in checking the note before signing. 12/26/23 1201 Date Kristin Jett MD CC: VIBHA Cabrales; Dr. Neptali Josue, DO Date Dictated: 12/26/23 1156 Date Transcribed: 12/26/23 1156 Superintendent Transportation: NARESH Signed Normal [facility] Bilirubin, Directon 11-10-19 Bilirubin.direct [Mass/Vol] 0.18 mg/dL Normal 0.00-0.30 [facility] Comment on above: Order Comment: PER P T-CARSON CABRALES ORDER PER MEDITECT-LIVER CAN'T BE ORDERED-TESTS OVERLAP-DIRECTED TO ORDER DBIL INSTEAD Performed By: #### L 501.4650, L500.4050, L500.4100 #### [facility] [address] [place], [address] Comprehensive Metabolic Prof ilon 11-10-2023 Albumin [Mass/Vol] 3.2 g/dL Normal 3.2-5.0 [facility] Comment on above: Order Comment: PER Megan CABRALES ORDER PER MEDITECT-LIVER CAN'T BE ORDERED-TESTS OVERLAP-DIRECTED TO ORDER DBIL INSTEAD Performed By: #### L 501.4700, L500.4050, L500.4100 #### [facility] [address] [place], [address] Albumin/Globulin [Mass ratio] 0.9 {ratio} Normal 0.9-2.4 [facility] Comment on above: Order Comment: PER Megan CABRALES ORDER PER MEDITECT-LIVER CAN'T BE ORDERED-TESTS OVERLAP-DIRECTED TO ORDER DBIL INSTEAD Performed By: #### L 501.4700, L500.4050, L500.4100 #### [facility] [address] [place], [address] ALK P 87 U/L Normal 45-117 [facility] Comment on above: Order Comment: PER Megan CABRALES ORDER PER MEDITECT-LIVER CAN'T BE ORDERED-TESTS OVERLAP-DIRECTED TO ORDER DBIL INSTEAD Performed By: #### L 501.4700, L500.4050, L500.4100 #### [facility] [address] [place], [address] ALT [Catalytic activity/Vol] 26 U/L Normal 16-61 [facility] Comment on above: Order Comment: PER Megan CABRALES ORDER PER MEDITECT-LIVER CAN'T BE ORDERED-TESTS OVERLAP-DIRECTED TO ORDER DBIL INSTEAD Performed By: #### L 501.4700, L500.4050, L500.4100 #### [facility] [address] [place], [address] AST [Catalytic activity/Vol] 29 U/L Normal 15-37 [facility] Comment on above: Order Comment: PER Megan CABRALES ORDER PER MEDITECT-LIVER CAN'T BE ORDERED-TESTS OVERLAP-DIRECTED TO ORDER DBIL INSTEAD Result Comment: Slig ht Hemolysis, Result may be falsely increased. Performed By: #### L 501.4700, L500.4050, L500.4100 #### [facility] [address] [place], [address] Bilirubin [Mass/Vol] 0.70 mg/dL Normal 0.20-1.00 [facility] Comment on above: Order Comment: PER Megan CABRALES ORDER PER MEDITECT-LIVER CAN'T BE ORDERED-TESTS OVERLAP-DIRECTED TO ORDER DBIL INSTEAD Result Comment: For patients on eltrombopag therapy, use of Dimension [place] TBIL is not recommended. Performed By: #### L 501.4700, L500.4050, L500.4100 #### [facility] [address] [place], [address] BUN/CRE 15.8 RATIO Normal 10-20 [facility] Comment on above: Order Comment: PER Megan CABRALES ORDER PER MEDITECT-LIVER CAN'T BE ORDERED-TESTS OVERLAP-DIRECTED TO ORDER DBIL INSTEAD Performed By: #### L 501.4700, L500.4050, L500.4100 #### [facility] [address] [place], [address] CA,Total 9.0 mg/dL Normal 8.5-10.1 [facility] Comment on above: Order Comment: PER Megan CABRALES ORDER PER MEDITECT-LIVER CAN'T BE ORDERED-TESTS OVERLAP-DIRECTED TO ORDER DBIL INSTEAD Performed By: #### L 501.4700, L500.4050, L500.4100 #### [facility] [address] [place], [address] Chloride [Moles/Vol] 109 mmol/L High 98-107 [facility] Comment on above: Order Comment: PER Megan CABRALES ORDER PER MEDITECT-LIVER CAN'T BE ORDERED-TESTS OVERLAP-DIRECTED TO ORDER DBIL INSTEAD Performed By: #### L 501.4700, L500.4050, L500.4100 #### [facility] [address] [place], [address] CO2 [Moles/Vol] 27.0 mmol/L Normal 21.0-32.0 [facility] Comment on above: Order Comment: PER Megan CABRALES ORDER PER MEDITECT-LIVER CAN'T BE ORDERED-TESTS OVERLAP-DIRECTED TO ORDER DBIL INSTEAD Performed By: #### L 501.4700, L500.4050, L500.4100 #### [facility] [address] [place], [address] Creatinine [Mass/Vol] 1.14 mg/dL Normal 0.70-1.30 [facility] Comment on above: Order Comment: PER Megan CABRALES ORDER PER MEDITECT-LIVER CAN'T BE ORDERED-TESTS OVERLAP-DIRECTED TO ORDER DBIL INSTEAD Result Comment: The validity of the calculated GFR GFRAA in patients over 70 years has not been determined. Clinical correlation is essential. Performed By: #### L 501.4700, L500.4050, L500.4100 #### [facility] [address] [place], [address] EST GFR - AA 82 mL/min Normal >60 [facility] Comment on above: Order Comment: PER Megan CABRALES ORDER PER MEDITECT-LIVER CAN'T BE ORDERED-TESTS OVERLAP-DIRECTED TO ORDER DBIL INSTEAD Result Comment: Afri can German GFR Calc Performed By: #### L 501.4700, L500.4050, L500.4100 #### [facility] [address] [place], [address] GAP 5 Normal 5-15 [facility] Comment on above: Order Comment: PER Megan CABRALES ORDER PER MEDITECT-LIVER CAN'T BE ORDERED-TESTS OVERLAP-DIRECTED TO ORDER DBIL INSTEAD Performed By: #### L 501.4700, L500.4050, L500.4100 #### [facility] [address] [place], [address] GFR/1.73 sq M.predicted among non-blacks MDRD (S/P/Bld) [Vol rate/Area] 68 mL/min/{1.73_m2} Normal >60 [facility] Comment on above: Order Comment: PER P PB CABRALES ORDER PER MEDITECT-LIVER CAN'T BE ORDERED-TESTS OVERLAP-DIRECTED TO ORDER DBIL INSTEAD Result Comment: Non- GFR Calc Performed By: #### L 501.4700, L500.4050, L500.4100 #### [facility] [address] [place], [address] Globulin (S) [Mass/Vol] 3.6 g/dL Normal 2.2-4.2 [facility] Comment on above: Order Comment: PER P PB CABRALES ORDER PER MEDITECT-LIVER CAN'T BE ORDERED-TESTS OVERLAP-DIRECTED TO ORDER DBIL INSTEAD Performed By: #### L 501.4700, L500.4050, L500.4100 #### [facility] [address] [place], [address] Glucose [Mass/Vol] 109 mg/dL High 74-106 [facility] Comment on above: Order Comment: PER P PB CABRALES ORDER PER MEDITECT-LIVER CAN'T BE ORDERED-TESTS OVERLAP-DIRECTED TO ORDER DBIL INSTEAD Result Comment: Fast ing Glucose result from 100 to 125 mg/dL suggests IMPAIRED HOMEOSTASIS per A.D.A. criteria. Performed By: #### L 501.4700, L500.4050, L500.4100 #### [facility] [address] [place], [address] Potassium [Moles/Vol] 4.0 mmol/L Normal 3.5-5.1 [facility] Comment on above: Order Comment: PER P PB CABRALES ORDER PER MEDITECT-LIVER CAN'T BE ORDERED-TESTS OVERLAP-DIRECTED TO ORDER DBIL INSTEAD Result Comment: Slig ht Hemolysis, Result may be falsely increased. Performed By: #### L 501.4700, L500.4050, L500.4100 #### [facility] [address] [place], [address] Sodium [Moles/Vol] 141 mmol/L Normal 136-145 [facility] Comment on above: Order Comment: PER Megan CABRALES ORDER PER MEDITECT-LIVER CAN'T BE ORDERED-TESTS OVERLAP-DIRECTED TO ORDER DBIL INSTEAD Performed By: #### L 501.4700, L500.4050, L500.4100 #### [facility] [address] [place], [address] T PROT 6.8 g/dL Normal 6.4-8.2 [facility] Comment on above: Order Comment: PER Megan CABRALES ORDER PER MEDITECT-LIVER CAN'T BE ORDERED-TESTS OVERLAP-DIRECTED TO ORDER DBIL INSTEAD Performed By: #### L 501.4700, L500.4050, L500.4100 #### [facility] [address] [place] [place], [address] Urea nitrogen [Mass/Vol] 18 mg/dL Normal 7-18 [facility] Comment on above: Order Comment: PER Megan CABRALES ORDER PER MEDITECT-LIVER CAN'T BE ORDERED-TESTS OVERLAP-DIRECTED TO ORDER DBIL INSTEAD Performed By: #### L 501.4700, L500.4050, L500.4100 #### [facility] [address] [place], [address] Lipid Profileon 11-10-2023 Cholesterol [Mass/Vol] 150 mg/dL Normal 200 [facility] Comment on above: Order Comment: PER Megan CABRALES ORDER PER MEDITECT-LIVER CAN'T BE ORDERED-TESTS OVERLAP-DIRECTED TO ORDER DBIL INSTEAD Result Comment: <200 mg/dL Desirable 200-240 mg/dL Borderline >240 mg/dL High Risk Performed By: #### L 501.4700, L500.4050, L500.4100 #### [facility] [address] [place], [address] Cholesterol in HDL [Mass/Vol] 40 mg/dL Normal [facility] Comment on above: Order Comment: PER Megan CABRALES ORDER PER MEDITECT-LIVER CAN'T BE ORDERED-TESTS OVERLAP-DIRECTED TO ORDER DBIL INSTEAD Result Comment: The drugs N-Acetylcysteine and Metamizole may falsely depress this assay. Reference Range HDL <40 mg/dL Low HDL Cholesterol HDL >or= 60 mg/dL High HDL Cholesterol Performed By: #### L 501.4700, L500.4050, L500.4100 #### [facility] [address] [place], [address] Cholesterol in LDL [Mass/Vol] 74 mg/dL Normal 0-130 [facility] Comment on above: Order Comment: PER Megan CABRALES [facility]T BE ORDERED-TESTS OVERLAP-DIRECTED TO ORDER DBIL INSTEAD Performed By: #### L 501.4700, L500.4050, L500.4100 #### [facility] [address] [place], [address] Cholesterol in VLDL [Mass/Vol] 36 mg/dL Normal 5-40 [facility] Comment on above: Order Comment: PER Megan CABRALES [facility] BE ORDERED-TESTS OVERLAP-DIRECTED TO ORDER DBIL INSTEAD Performed By: #### L 501.4700, L500.4050, L500.4100 #### [facility] [address] [place], [address] Triglyceride [Mass/Vol] 179 mg/dL Normal [facility] Comment on above: Order Comment: PER Megan CABRALES ORDER PER MEDITECT-LIVER CAN'T BE ORDERED-TESTS OVERLAP-DIRECTED TO ORDER DBIL INSTEAD Result Comment: The drugs N-Acetylcysteine and Metamizole may falsely depress this assay. Serum Triglycerides Reference Interval Normal <150 mg/dL Borderline high 150 - 199 mg/dL High 200 - 499 mg/dL Very High > or = 500 mg/dL Performed By: #### L 501.4700, L500.4050, L500.4100 #### [facility] [address] [place], [address] Ankle Brachial Indexon 11-06 Ankle Brachial Index [facility] [address] [place] [address] Ankle Brachial Index 11/07/23 0942 MR#: [id number] Acct: [id number] Name: CARYL THAKUR Rep #: [id number] : 1955 68 From: William Hernandez MD Attending Dr: Dr. Neptali Josue, Status: REG CLI Ordering Dr: Neptali Josue DO Date: 11/07/23 Location: [facility] Sex: M C Admitted: Reason For Study: PVD Procedure A bilateral lower extremity continuous wave Doppler with analog waveform analysis and ankle brachial indexes. Left Segmental Pressures Left brachial= 118mmHg. Left posterior tibial artery = 146mmHg. Left dorsalis pedis artery = 137mmHg. Left digit = 89 mmHg. Right Segmental Pressures Right brachial= 118mmHg. Right posterior tibial artery = 158mmHg. Right dorsalis pedis artery = 132mmHg. Right digit = 99 mmHg. Indices The right ankle brachial index by the posterior tibial artery is 1.34. The right ankle brachial index by the dorsalis pedis is 1.12. The right digital-brachial index is 0.84. The left ankle brachial index by the posterior tibial artery is 1.24. The left ankle brachial index by the dorsalis pedis is 1.16. The left digital-brachial index is 0.75. VL/Ankle Brachial Index Interpretation Summary Right ANDI 1.34, normal. TBI and Doppler/PVR waveforms of the right leg normal at rest. Left ANDI 1.24, normal. TBI and Doppler/PVR waveforms of the left leg normal at rest. Ordering Physician: Neptali Josue Referring Physician: NEPTALI JOSUE DO Performed By: Fara Guerrero RDCS/RVT 11/07/23 1457 Date William Hernandez MD CC: Dr. Neptali Josue DO Date Dictated: 11/07/2342 Date Transcribed: 11/07/231456 Superintendent Transportation: Signed Normal [facility] Cardiology Visit Reporton Cardiology Visit Report [facility] [address] [place] [address] OFFICE VISIT Date of Service: 11/07/23 MR#: [id number] Acct: [id number] Name: CARYL THAKUR Rep #: [id number] : 1955 Provider: VIBHA galo Age/Sex: 68/M Location: [facility] Status: Signed HPI HPI History of Present Illness Details: This is a 68 year old male who presents to the office today for a cardiovascular hospital follow-up visit. He presented to the emergency room on 07/14/2023 with complaints of chest pain. He was at [facility] with a friend when he had a sudden onset of chest pain in the center of his chest. He notes diaphoresis and shortness of breath. Prehospital EKG showed ST elevation anteriorly with inferior depression. He underwent emergent cardiac cath, which demonstrated 100% stenosis of his proximal LAD, 70% stenosis of his proximal OM1, 60% stenosis in his proximal RCA, and 70% stenosis in his distal RCA. He did undergo a successful DEBORAH to the mid LAD, and successful PTCA/DEBORAH to his proximal LAD. His left ventricular systolic function was noted to be 35 to 40%. His echocardiogram from 07/14/2023 demonstrated an ejection fraction of 45%. He has a history of hypertension. From a cardiac standpoint, the patient is doing well. He denies any palpitations, chest pain, pressure or heaviness. He denies SOB, Orthopnea, and PND. He does not have bleeding issues; no blood in urine, stool or nosebleeds. He does acknowledge slight decrease in energy level. He denies myalgias, or claudication. He does not have edema, or sudden weight gain. He denies dizziness, lightheadedness, syncopal or near syncopal episodes, and headaches. He continues with cardiac rehab. Intake Vital Signs 08/02/23 13:56 11/02/23 08:33 11/07/23 13:05 Height 5 ft 7 in 5 ft 7 in 5 ft 7 in Weight: 167 lb BMI 26.2 BP 115/77 Blood Pressure Location Lt brachial Position Sitting Respiration 16 Pulse 62 Pulse Source Monitor Pulse Oximetry (%) 97 Oxygen Delivery Method room air Intake Visit Reasons: 3 M FU Accompanied by: Self Is patient in pain?: No Allergies lisinopril Allergy (Unknown, Verified 11/08/23 09:19) Nausea Penicillins Allergy (Verified 11/08/23 09:19) Rash Medications ???Medication ???Instructions ???Recorded ???Confirmed ???Type lansoprazole 30 mg capsule,delayed 30 mg PO DAILY 12/02/18 11/08/23 History release multivitamin (Daily Multi-Vitamin 1 tab PO DAILY 12/21/22 11/08/23 History tablet) lutein 20 mg capsule 20 mg PO DAILY 03/24/23 11/08/23 History atorvastatin 80 mg tablet 80 mg PO QHS #90 tabs 08/02/23 11/08/23 Rx clopidogrel 75 mg tablet 75 mg PO DAILY #90 tabs 08/02/23 11/08/23 Rx furosemide 40 mg tablet 40 mg PO DAILY #90 tabs 08/02/23 11/08/23 Rx isosorbide mononitrate 30 mg 30 mg PO DAILY #90 tabs 08/02/23 11/08/23 Rx tablet,extended release 24 hr leuprolide 7.5 mg (1 month) 7.5 mg subcut .Q12 weeks 08/02/23 11/08/23 History subcutaneous syringe (EliShiny Adsd) metoprolol succinate 25 mg 25 mg PO DAILY #90 tabs 08/02/23 11/08/23 Rx tablet,extended release 24 hr potassium chloride 20 mEq 20 meq PO DAILYCM #90 tabs 08/02/23 11/08/23 Rx tablet,extended release(part/cryst) spironolactone 25 mg tablet 12.5 mg (1/2 x 25 mg) PO DAILY #45 08/02/23 11/08/23 Rx tabs evolocumab 140 mg/mL subcutaneous 140 mg subcut Q2W #2 mL 11/07/23 11/07/23 Rx pen injector (Repatha SureClick) sacubitril 24 mg-valsartan 26 mg 1 tab PO BID #60 tabs 11/07/23 11/07/23 Rx tablet (Entresto) Ejection fraction %: 35 Have you fallen in the past year?: No PFSH Medical History Left ventricular systolic dysfunction (LVSD) Left ventricular apical thrombus following [place] Coronary artery disease Hypertension ST elevation (STEMI) myocardial infarction ( 07/14/23) Prostate cancer Wears glasses Cancer Arthritis Kidney stone History of hiatal hernia Colitis Gastric reflux Non-smoker Hypertension History of stress test Surgical History Hx of cardiac catheterization ( 07/14/23) Stented coronary artery (07/14/23) Hx of surgical procedure Family History Father Myocardial infarction Mother Cancer Social History Smoking Status: Never smoker alcohol intake: never substance use type: does not use ROS Const Const: Positive for fatigue (slight); Negative for weakness, fever(s), headache(s), chills, frequent falls, weight gain or weight loss Eyes Eyes: Negative for blind spots, loss of peripheral vision, transient loss of vision, blurry vision, change in vision, double vis (more content not included)... Normal [facility] Echo Limited w/Contraston Echo Limited w/Contrast [facility] [place] [address] Echo Limited w/Contrast 11/01/23 1417 MR#: [id number] Acct: [id number] Name: CARYL THAKUR Rep #: [id number] : 1955 68 From: Kristin Jett MD Attending Dr: Chelo Cabrales TIE TAMPER-C Status: REG C LI Ordering Dr: Chelo Cabrales NP TIE TAMPER-C Date: 11/01/23 Location: [facility] Sex: M C Admitted: Reason For Study: ATRIAL THROMBOSIS Procedure This was a limited 2D transthoracic echocardiogram. The study was technically limited. Limited views were obtained. Exam performed in department. Left Ventricle Normal LV size. Anterior and apical akinesis. Estimated LVEF 35 to 40%. No LV thrombus noted. Right Ventricle Normal right ventricle. Atria The left and right atria are normal. Mitral Valve Mild mitral annular calcification. Tricuspid Valve Normal tricuspid valve. Aortic Valve Mild diffuse aortic valve thickening. Pulmonic Valve The pulmonic valve is not well visualized. Great Vessels Mildly dilated aortic root. Pericardium/Pleural No pericardial effusion. Medication 22 gauge I.V. with prn adaptor inserted into right arm. Diluted definity 2.5ml given slow IV push to enhance endocardial definition. MMode/2D Measurements Calculations LVIDd: 5.0 cm IVSd: 0.82 cm Ao root diam: 3.7 cm LVIDs: 3.6 cm LVPWd: 0.98 cm RVDd: 3.4 cm FS: 28.1 % LAV(MOD-bp): 60.2 ml LVAd ap4: 34.4 cm2 SV(MOD-sp4): 56.3 ml LAV(MOD-bp) Indexed: 32.2 ml/m2 LVLd ap4: 9.1 cm LAV(MOD-sp2): 61.6 ml EDV(MOD-sp4): 105.2 ml LAV(MOD-sp4): 61.1 ml EDV(sp4-el): 110.0 ml LVAs ap4: 21.5 cm2 LVLs ap4: 7.7 cm ESV(MOD-sp4): 48.8 ml ESV(sp4-el): 51.0 ml EF(MOD-sp4): 53.6 % EF(sp4-el): 53.6 % SV(sp4-el): 59.0 ml LA A4 area: 20.2 cm2 LA dimension(2D): 4.6 cm RA A4 area: 12.5 cm2 ECHO/Echo Limited w/Contrast Interpretation Summary Anterior and apical akinesis. Estimated LVEF 35 to 40%. No LV thrombus noted. Mild mitral annular calcification. Mild diffuse aortic valve thickening. Ordering Physician: Chelo Cabrales Referring Physician: Neptali Josue Performed By: Jessi Lino, JOHN, RVT 11/02/23 0956 Date Kristin Jett MD CC: TIE TAMPERIleana Cabrales; Dr. Neptali Josue DO Date Dictated: 11/01/23 1417 Date Transcribed: 11/02/23 3261 Superintendent Transportation: Signed Normal [facility] PSA,Total- Diagnosticon PSA, DIAGNOSTIC < 0.01 Normal 0.0-4.0 [facility] Comment on above: Result Comment: This test was performed using the TPSA assay method for the [employer] chemistry system. Values obtained with different assay methods cannot be used interchangably. When changing PSA assays in the course of monitoring a patient, additional sequential testing should be carried out to confirm baseline values. Performed By: #### L [id number] ####[facility] [address] [place], [address] Liver Profileon 10-06-2023 Albumin [Mass/Vol] 3.6 g/dL Normal 3.2-5.0 [facility] Comment on above: Performed By: #### L 500.3400, L503.0105 #### [facility] Laboratory [address] [place], [address] ALK P 87 U/L Normal 45-117 [facility] Comment on above: Performed By: #### L 500.3400, [id number] #### [facility] [address] [place], [address] ALT [Catalytic activity/Vol] 29 U/L Normal 16-61 [facility] Comment on above: Performed By: #### L 500.3400, L503.0105 #### [facility] [address] [place], [address] AST [Catalytic activity/Vol] 25 U/L Normal 15-37 [facility] Comment on above: Performed By: #### L 500.3400, L503.0105 #### [facility] [address] [place], [address] Bilirubin [Mass/Vol] 0.70 mg/dL Normal 0.20-1.00 [facility] Comment on above: Result Comment: For patients on eltrombopag therapy, use of Dimension [place] TBIL is not recommended. Performed By: #### L 500.3400, L503.0105 #### [facility] [address] [place], [address] Bilirubin.direct [Mass/Vol] 0.18 mg/dL Normal 0.00-0.30 [facility] Comment on above: Performed By: #### L 500.3400, L503.0105 #### [facility] [address] [place], [address] Globulin (S) [Mass/Vol] 3.9 g/dL Normal 2.2-4.2 [facility] Comment on above: Performed By: #### L 500.3400, [id number] #### [facility] [address] [place], [address] T PROT 7.5 g/dL Normal 6.4-8.2 [facility] Comment on above: Performed By: #### L 500.3400, [id number] #### [facility] [address] [place], [address] Vitamin B12on 10-06-2023 Cobalamin (Vitamin B12) [Mass/Vol] 498 pg/mL Normal 211-911 [facility] Comment on above: Performed By: #### L 500.3400, [id number] #### [facility] [address] [place], [address] Lipoprotein a [Mass/Vol]Orde red By: Neptali Josue on 07-20-2023 Lipoprotein a [Moles/Vol] 200.0 nmol/L <75.0 [facility] Comment on above: Note: Values greater than or equal to 75.0 nmol/L may indicate an independent risk factor for CHD, but must be evaluated with caution when applied to non- populations due to the influence of genetic factors on Lp(a) across ethnicities.Performed at: [address] [id number] Director: Jose Coello PhD, Phone: [phone] Absolute lymphocyte countOrd ered By: Neptali Josue on 07-18-2023 Lymphocytes Auto (Unsp spec) [#/Vol] 1.28 10*3/uL 0.83-4.51 [facility] Automated lymphocyte count a s percentage of total leukocytesOrdered By: Neptali Josue on 07-18-2023 Lymphocytes/100 WBC Auto (Unsp spec) 18.1 % 19-41 [facility] Basophil percentageOrdered B y: Neptali Josue on 07-18-2023 Basophils/100 WBC (Bld) 0.4 % 0-1 [facility] Chloride [Moles/Vol] 106 mmol/L 98-107 [facility] Eosinophils/100 WBC (Bld) 4.2 % 0-5 [facility] Glucose [Mass/Vol] 90 mg/dL 74-106 [facility] Hemoglobin (Bld) [Mass/Vol] 12.7 g/dL 13.0-16.5 [facility] Monocytes/100 WBC (Bld) 13.6 % 0-10 [facility] Neutrophils (Bld) [#/Vol] 4.5 10*3/uL 2.0-7.7 [facility] Neutrophils/100 WBC (Bld) 63.4 % 47-70 [facility] Potassium [Moles/Vol] 3.5 mmol/L 3.5-5.1 [facility] Sodium [Moles/Vol] 138 mmol/L 136-145 [facility] WBC (Bld) [#/Vol] 7.1 10*3/uL 4.4-11.0 [facility] Determination of erythrocyte mean corpuscular volume (MCV)Ordered By: Neptali Josue on 07-18-2023 MCV (RBC) [Entitic vol] 89.7 fL 80-94 [facility] Erythrocyte distribution wid th ratioOrdered By: Neptali Josue on 07-18-2023 Erythrocyte distribution width (RBC) [Ratio] 14.5 % 11.6-14.6 [facility] Erythrocyte distribution wid th standard deviationOrdered By: Neptali Josue on 07-18-2023 Erythrocyte distribution width (RBC) [Entitic vol] 47.0 fL 35.1-43.9 [facility] Hematocrit Auto (Bld) [Volum e fraction]Ordered By: Neptali Josue on 07-18-2023 Hematocrit (Bld) [Volume fraction] 37.4 % 40-54 [facility] Immature granulocytes/100 WB C Auto (Bld)Ordered By: Neptali Josue on 07-18-2023 Immature granulocytes/100 WBC (Bld) 0.300 % 0.0-0.9 [facility] Comment on above: IG% - Immature Granu locytes (promyelocytes, myelocytes and metamyelocytes) > 1% indicates that a LEFT SHIFT is Present. Laboratory - Chemistry and C hemistry - challengeOrdered By: Neptali Josue on 07-18-2023 CO2 [Moles/Vol] 25.0 mmol/L 21.0-32.0 [facility] Urea nitrogen/Creatinine [Mass ratio] 19.3 mg/mg 10-20 [facility] Laboratory - Hematology and Cell countsOrdered By: Neptali Josue on 07-18-2023 MCH (RBC) [Entitic mass] 30.5 pg 27.0-32.0 [facility] MCHC (RBC) [Mass/Vol] 34.0 g/dL 32-36 [facility] Nucleated RBC/100 WBC (Bld) [Ratio] 0 % 0-5 [facility] Platelet mean volume (Bld) [Entitic vol] 10.2 fL 6.2-12.0 [facility] Platelets (Bld) [#/Vol] 208 10*3/uL 150-450 [facility] No Panel InformationOrdered By: Neptali Josue on 07-18-2023 Estimated GFR (MDRD) Amer 78 mL/min >60 [facility] Comment on above: GFR Calc Estimated GFR (MDRD) Non-Af Amer 65 mL/min >60 [facility] Comment on above: Non- GFR Calc RBC Auto (Bld) [#/Vol]Ordere d By: Neptali Josue on 07-18-2023 RBC (Bld) [#/Vol] 4.17 10*6/uL 4.6-6.2 [facility] Serum or plasma calcium keyanna urement (mass/volume)Ordered By: Neptali Josue on 07-18-2023 Calcium [Mass/Vol] 8.7 mg/dL 8.5-10.1 [facility] Serum or plasma creatinine m easurement (mass/volume)Ordered By: Neptali Josue on 07-18-2023 Creatinine [Mass/Vol] 1.19 mg/dL 0.70-1.30 [facility] Comment on above: The validity of the calculated GFR & GFRAA in patients over 70 years has not been determined. Clinical correlation is essential. Serum or plasma urea nitroge n measurement (mass/volume)Ordered By: Neptali Josue on 07-18-2023 Urea nitrogen [Mass/Vol] 23 mg/dL 7-18 [facility] Thin prep Papanicolaou smear with manual screeningOrdered By: Neptali Josue on 07-18-2023 Thin prep Papanicolaou smear with manual screening 7 5-15 [facility] Absolute lymphocyte countOrd ered By: Meredith Sosa on 07-16-2023 Lymphocytes Auto (Unsp spec) [#/Vol] 0.79 10*3/uL 0.83-4.51 [facility] Automated lymphocyte count a s percentage of total leukocytesOrdered By: Meredith Sosa on 07-16-2023 Lymphocytes/100 WBC Auto (Unsp spec) 8.3 % 19-41 [facility] Basophil percentageOrdered B y: Meredith Sosa on 07-16-2023 Basophils/100 WBC (Bld) 0.2 % 0-1 [facility] Chloride [Moles/Vol] 109 mmol/L 98-107 [facility] Eosinophils/100 WBC (Bld) 0.7 % 0-5 [facility] Glucose [Mass/Vol] 114 mg/dL 74-106 [facility] Comment on above: Fasting Glucose resu lt from 100 to 125 mg/dL suggests IMPAIRED HOMEOSTASIS per A.D.A. criteria. Hemoglobin (Bld) [Mass/Vol] 12.1 g/dL 13.0-16.5 [facility] Monocytes/100 WBC (Bld) 12.0 % 0-10 [facility] Neutrophils (Bld) [#/Vol] 7.5 10*3/uL 2.0-7.7 [facility] Neutrophils/100 WBC (Bld) 78.4 % 47-70 [facility] Potassium [Moles/Vol] 3.5 mmol/L 3.5-5.1 [facility] Sodium [Moles/Vol] 140 mmol/L 136-145 [facility] WBC (Bld) [#/Vol] 9.6 10*3/uL 4.4-11.0 [facility] Determination of erythrocyte mean corpuscular volume (MCV)Ordered By: Meredithjorge Sosa on 07-16-2023 MCV (RBC) [Entitic vol] 87.1 fL 80-94 [facility] Erythrocyte distribution wid th ratioOrdered By: [facility] on 07-16-2023 Erythrocyte distribution width (RBC) [Ratio] 14.4 % 11.6-14.6 [facility] Erythrocyte distribution wid th standard deviationOrdered By: [facility] on 07-16-2023 Erythrocyte distribution width (RBC) [Entitic vol] 45.1 fL 35.1-43.9 [facility] Hematocrit Auto (Bld) [Volum e fraction]Ordered By: [facility] Ian on 07-16-2023 Hematocrit (Bld) [Volume fraction] 35.1 % 40-54 [facility] Immature granulocytes/100 WB C Auto (Bld)Ordered By: [facility] on 07-16-2023 Immature granulocytes/100 WBC (Bld) 0.400 % 0.0-0.9 [facility] Comment on above: IG% - Immature Granu locytes (promyelocytes, myelocytes and metamyelocytes) > 1% indicates that a LEFT SHIFT is Present. Laboratory - Chemistry and C hemistry - challengeOrdered By: Meredith Sosa on 07-16-2023 CO2 [Moles/Vol] 26.0 mmol/L 21.0-32.0 [facility] Urea nitrogen/Creatinine [Mass ratio] 14.4 mg/mg 10-20 [facility] Laboratory - Hematology and Cell countsOrdered By: Meredithjorge Sosa on 07-16-2023 MCH (RBC) [Entitic mass] 30.0 pg 27.0-32.0 [facility] MCHC (RBC) [Mass/Vol] 34.5 g/dL 32-36 [facility] Nucleated RBC/100 WBC (Bld) [Ratio] 0 % 0-5 [facility] Platelet mean volume (Bld) [Entitic vol] 9.5 fL 6.2-12.0 [facility] Platelets (Bld) [#/Vol] 153 10*3/uL 150-450 [facility] No Panel InformationOrdered By: Meredith Sosa on 07-16-2023 Estimated Creatinine Clearance Calc 81.40 ml/min [facility] Estimated GFR (MDRD) Amer 108 mL/min >60 [facility] Comment on above: GFR Calc Estimated GFR (MDRD) Non-Af Amer 89 mL/min >60 [facility] Comment on above: Non- GFR Calc RBC Auto (Bld) [#/Vol]Ordere d By: Meredith Sosa on 07-16-2023 RBC (Bld) [#/Vol] 4.03 10*6/uL 4.6-6.2 [facility] Serum or plasma calcium keyanna urement (mass/volume)Ordered By: Meredith Sosa on 07-16-2023 Calcium [Mass/Vol] 8.0 mg/dL 8.5-10.1 [facility] Serum or plasma creatinine m easurement (mass/volume)Ordered By: Meredith Sosa on 07-16-2023 Creatinine [Mass/Vol] 0.90 mg/dL 0.70-1.30 [facility] Comment on above: The validity of the calculated GFR & GFRAA in patients over 70 years has not been determined. Clinical correlation is essential. Serum or plasma urea nitroge n measurement (mass/volume)Ordered By: Meredith Sosa on 07-16-2023 Urea nitrogen [Mass/Vol] 13 mg/dL 7-18 [facility] Thin prep Papanicolaou smear with manual screeningOrdered By: Meredith Sosa on 07-16-2023 Thin prep Papanicolaou smear with manual screening 5 5-15 [facility] Basophil percentageOrdered B y: Kristin Jett on 07-15-2023 Bilirubin [Mass/Vol] 0.80 mg/dL 0.20-1.00 [facility] Comment on above: For patients on eltr ombopag therapy, use of Dimension [place] TBIL is not recommended. Chloride [Moles/Vol] 110 mmol/L 98-107 [facility] Glucose [Mass/Vol] 134 mg/dL 74-106 [facility] Comment on above: Fasting Glucose resu lt greater than or equal to 126 mg/dL suggests DIABETES MELLITUS per A.D.A. criteria. Hemoglobin (Bld) [Mass/Vol] 13.2 g/dL 13.0-16.5 [facility] Potassium [Moles/Vol] 4.1 mmol/L 3.5-5.1 [facility] Protein [Mass/Vol] 6.2 g/dL 6.4-8.2 [facility] Sodium [Moles/Vol] 142 mmol/L 136-145 [facility] WBC (Bld) [#/Vol] 12.7 10*3/uL 4.4-11.0 [facility] Determination of erythrocyte mean corpuscular volume (MCV)Ordered By: Kristinlobito Jett on 07-15-2023 MCV (RBC) [Entitic vol] 86.8 fL 80-94 [facility] Erythrocyte distribution wid th ratioOrdered By: [facility] on 07-15-2023 Erythrocyte distribution width (RBC) [Ratio] 14.5 % 11.6-14.6 [facility] Erythrocyte distribution wid th standard deviationOrdered By: [facility] on 07-15-2023 Erythrocyte distribution width (RBC) [Entitic vol] 44.8 fL 35.1-43.9 [facility] Hematocrit Auto (Bld) [Volum e fraction]Ordered By: Kristin Johnie on 07-15-2023 Hematocrit (Bld) [Volume fraction] 38.2 % 40-54 [facility] Laboratory - Chemistry and C hemistry - challengeOrdered By: Kristin Johnie on 07-15-2023 Albumin/Globulin [Mass ratio] 0.9 {ratio} 0.9-2.4 [facility] ALP [Catalytic activity/Vol] 64 U/L 45-117 [facility] ALT [Catalytic activity/Vol] 114 U/L 16-61 [facility] CO2 [Moles/Vol] 23.0 mmol/L 21.0-32.0 [facility] Globulin (S) [Mass/Vol] 3.2 g/dL 2.2-4.2 [facility] Urea nitrogen/Creatinine [Mass ratio] 11.1 mg/mg 10-20 [facility] Laboratory - Chemistry and C hemistry - challengeOrdered By: Meredith Sosa on 07-15-2023 Natriuretic peptide B (Bld) [Mass/Vol] 117.0 pg/mL 0-100 [facility] Laboratory - Hematology and Cell countsOrdered By: Kristin Jett on 07-15-2023 MCH (RBC) [Entitic mass] 30.0 pg 27.0-32.0 [facility] MCHC (RBC) [Mass/Vol] 34.6 g/dL 32-36 [facility] Platelet mean volume (Bld) [Entitic vol] 9.6 fL 6.2-12.0 [facility] Platelets (Bld) [#/Vol] 200 10*3/uL 150-450 [facility] No Panel InformationOrdered By: Kristin Jett on 07-15-2023 Estimated Creatinine Clearance Calc 67.99 ml/min [facility] Estimated GFR (MDRD) Amer 88 mL/min >60 [facility] Comment on above: GFR Calc Estimated GFR (MDRD) Non-Af Amer 72 mL/min >60 [facility] Comment on above: Non- GFR Calc RBC Auto (Bld) [#/Vol]Ordere d By: Kristin Jett on 07-15-2023 RBC (Bld) [#/Vol] 4.40 10*6/uL 4.6-6.2 [facility] Serum or plasma calcium keyanna urement (mass/volume)Ordered By: Kristin Jett on 07-15-2023 Calcium [Mass/Vol] 8.5 mg/dL 8.5-10.1 [facility] Serum or plasma creatinine m easurement (mass/volume)Ordered By: Kristin Jett on 07-15-2023 Creatinine [Mass/Vol] 1.08 mg/dL 0.70-1.30 [facility] Comment on above: The validity of the calculated GFR & GFRAA in patients over 70 years has not been determined. Clinical correlation is essential. Serum or plasma urea nitroge n measurement (mass/volume)Ordered By: Kristin Jett on 07-15-2023 Urea nitrogen [Mass/Vol] 12 mg/dL 7-18 [facility] Thin prep Papanicolaou smear with manual screeningOrdered By: Kristin Jett on 07-15-2023 Thin prep Papanicolaou smear with manual screening 3.0 g/dL 3.2-5.0 [facility] Thin prep Papanicolaou smear with manual screening 929 U/L 15-37 [facility] Thin prep Papanicolaou smear with manual screening 9 5-15 [facility] Absolute lymphocyte countOrd ered By: Yared Whaley on 07-14-2023 Lymphocytes Auto (Unsp spec) [#/Vol] 3.06 10*3/uL 0.83-4.51 [facility] Activated partial thrombopla stin time (aPTT) in platelet poor plasma by coagulation aOrdered By: Yared Whaley on 07-14-2023 aPTT Coag (PPP) [Time] 23.3 s 24.1-36.2 [facility] Automated lymphocyte count a s percentage of total leukocytesOrdered By: Yared Whaley on 07-14-2023 Lymphocytes/100 WBC Auto (Unsp spec) 40.2 % 19-41 [facility] Basophil percentageOrdered B y: Alpesh Jackson on 07-14-2023 Basophil percentage 2.8 mg/dL 2.5-4.9 [facility] Basophil percentageOrdered B y: Yared Whaley on 07-14-2023 Basophils/100 WBC (Bld) 0.7 % 0-1 [facility] Eosinophils/100 WBC (Bld) 5.4 % 0-5 [facility] Hemoglobin (Bld) [Mass/Vol] 14.8 g/dL 13.0-16.5 [facility] Monocytes/100 WBC (Bld) 11.4 % 0-10 [facility] Neutrophils (Bld) [#/Vol] 3.2 10*3/uL 2.0-7.7 [facility] Neutrophils/100 WBC (Bld) 41.9 % 47-70 [facility] WBC (Bld) [#/Vol] 7.6 10*3/uL 4.4-11.0 [facility] Determination of erythrocyte mean corpuscular volume (MCV)Ordered By: Yared Whaley on 07-14-2023 MCV (RBC) [Entitic vol] 85.9 fL 80-94 [facility] Erythrocyte distribution wid th ratioOrdered By: Yared Whaley on 07-14-2023 Erythrocyte distribution width (RBC) [Ratio] 13.9 % 11.6-14.6 [facility] Erythrocyte distribution wid th standard deviationOrdered By: Yared Whaley on 07-14-2023 Erythrocyte distribution width (RBC) [Entitic vol] 42.5 fL 35.1-43.9 [facility] Hematocrit Auto (Bld) [Volum e fraction]Ordered By: Yared Whaley on 07-14-2023 Hematocrit (Bld) [Volume fraction] 42.7 % 40-54 [facility] Immature granulocytes/100 WB C Auto (Bld)Ordered By: Yared Whaley on 07-14-2023 Immature granulocytes/100 WBC (Bld) 0.400 % 0.0-0.9 [facility] Comment on above: IG% - Immature Granu locytes (promyelocytes, myelocytes and metamyelocytes) > 1% indicates that a LEFT SHIFT is Present. Laboratory - Chemistry and C hemistry - challengeOrdered By: Alpesh Jackson on 07-14-2023 Magnesium [Mass/Vol] 2.2 mg/dL 1.6-2.6 [facility] Laboratory - CoagulationOrde red By: Yared Whaley on 07-14-2023 INR Coag (Bld) [Relative time] 1.0 {INR} [facility] PT Coag (PPP) [Time] 13.0 s 11.7-14.9 [facility] Laboratory - Hematology and Cell countsOrdered By: Yared Whaley on 07-14-2023 MCH (RBC) [Entitic mass] 29.8 pg 27.0-32.0 [facility] MCHC (RBC) [Mass/Vol] 34.7 g/dL 32-36 [facility] Nucleated RBC/100 WBC (Bld) [Ratio] 0 % 0-5 [facility] Platelet mean volume (Bld) [Entitic vol] 9.4 fL 6.2-12.0 [facility] Platelets (Bld) [#/Vol] 228 10*3/uL 150-450 [facility] No Panel InformationOrdered By: Alpesh Jackson on 07-14-2023 Activated Clotting Time 239 sec 74-137 [facility] No Panel InformationOrdered By: Yared Whaley on 07-14-2023 Troponin I High Sensitivity 7 pg/mL 3.0-78.0 [facility] Comment on above: Please Note: [place] t Units and Gender Specific Reference Ranges. For more information see Policy Stat Procedure [place] High Sensitivity Troponin (TNIH) and attachments. RBC Auto (Bld) [#/Vol]Ordere d By: Yared Whaley on 07-14-2023 RBC (Bld) [#/Vol] 4.97 10*6/uL 4.6-6.2 [facility] Basophil percentageOrdered B y: Cate Guzman on 07-11-2023 Basophil percentage < 0.01 ng/mL 0.0-4.0 [facility] Comment on above: This test was perfor med using the TPSA assay method for theDimension chemistry system. Values obtained with differentassay methods cannot be used interchangably.When changing PSA assays in the course of monitoring apatient, additional sequential testing should be carriedout to confirm baseline values. Basophil percentageOrdered B y: Sal Wood on 04-28-2023 Basophil percentage < 1.0 mg/dL 0.70-1.30 [facility] No Panel InformationOrdered By: Sal Wood on 04-28-2023 Bedside Estimated GFR (eGFR) > 60.0000 mL/min >60 [facility] No Panel InformationOrdered By: Cate Guzman on 03-02-2023 Prostate Specific Antigen Total 3.16 ng/mL 0.0-4.0 [facility] Comment on above: This test was perfor med using the TPSA assay method for theDimension chemistry system. Values obtained with differentassay methods cannot be used interchangably.When changing PSA assays in the course of monitoring apatient, additional sequential testing should be carriedout to confirm baseline values. Basophil percentageOrdered B y: Deandre Davison on 01-06-2023 Chloride [Moles/Vol] 109 mmol/L 98-107 [facility] Glucose [Mass/Vol] 97 mg/dL 74-106 [facility] Potassium [Moles/Vol] 3.9 mmol/L 3.5-5.1 [facility] Sodium [Moles/Vol] 140 mmol/L 136-145 [facility] WBC (Bld) [#/Vol] 10.6 10*3/uL 4.4-11.0 [facility] Blood erythrocytes count (nu mber/volume)Ordered By: Deandre Davison on 01-06-2023 RBC (Bld) [#/Vol] 4.67 10*6/uL 4.6-6.2 [facility] Blood hemoglobin measurement (mass/volume)Ordered By: Deandre Davison on 01-06-2023 Hemoglobin (Bld) [Mass/Vol] 14.5 g/dL 13.0-16.5 [facility] Blood platelet mean volumeOr dered By: Deandre Davison on 01-06-2023 Platelet mean volume (Bld) [Entitic vol] 10.2 fL 6.2-12.0 [facility] Determination of erythrocyte mean corpuscular volume (MCV)Ordered By: Deandre Davison on 01-06-2023 MCV (RBC) [Entitic vol] 88.9 fL 80-94 [facility] Hematocrit Auto (Bld) [Volum e fraction]Ordered By: Deandre Davison on 01-06-2023 Hematocrit (Bld) [Volume fraction] 41.5 % 40-54 [facility] Laboratory - Chemistry and C hemistry - challengeOrdered By: Deandre Davison on 01-06-2023 CO2 [Moles/Vol] 26.0 mmol/L 21.0-32.0 [facility] Urea nitrogen/Creatinine [Mass ratio] 12.7 mg/mg 10-20 [facility] Laboratory - Hematology and Cell countsOrdered By: Deandre Davison on 01-06-2023 Erythrocyte distribution width (RBC) [Entitic vol] 40.9 fL 35.1-43.9 [facility] Erythrocyte distribution width (RBC) [Ratio] 12.6 % 11.6-14.6 [facility] MCH (RBC) [Entitic mass] 31.0 pg 27.0-32.0 [facility] Auto (RBC) [Mass/Vol]Or dered By: Deandre Davison on 01-06-2023 MCHC (RBC) [Mass/Vol] 34.9 g/dL 32-36 [facility] No Panel InformationOrdered By: Deandre Davison on 01-06-2023 Estimated Creatinine Clearance Calc 65.70 ml/min [facility] Estimated GFR (MDRD) Amer 94 mL/min >60 [facility] Comment on above: GFR Calc Estimated GFR (MDRD) Non-Af Amer 77 mL/min >60 [facility] Comment on above: Non- GFR Calc Platelets bldOrdered By: Tamir Davison on 01-06-2023 Platelets (Bld) [#/Vol] 156 10*3/uL 150-450 [facility] Serum or plasma calcium keyanna urement (mass/volume)Ordered By: Deandre Davison on 01-06-2023 Calcium [Mass/Vol] 7.6 mg/dL 8.5-10.1 [facility] Serum or plasma creatinine m easurement (mass/volume)Ordered By: Deandre Davison on 01-06-2023 Creatinine [Mass/Vol] 1.02 mg/dL 0.70-1.30 [facility] Comment on above: The validity of the calculated GFR & GFRAA in patients over 70 years has not been determined. Clinical correlation is essential. Serum or plasma urea nitroge n measurement (mass/volume)Ordered By: Deandre Davison on 01-06-2023 Urea nitrogen [Mass/Vol] 13 mg/dL 7-18 [facility] Thin prep Papanicolaou smear with manual screeningOrdered By: Deandre Davison on 01-06-2023 Thin prep Papanicolaou smear with manual screening 5 5-15 [facility] Basophil percentageOrdered B y: Deandre Davison on 11-22-2022 Creatinine [Mass/Vol] 1.0 mg/dL 0.70-1.30 [facility] No Panel InformationOrdered By: Deandre Davison on 11-22-2022 Bedside Estimated GFR (eGFR) > 60.0000 mL/min >60 [facility] Basophil percentageOrdered B y: Deandre Davison on 10-13-2022 Creatinine [Mass/Vol] 1.0 mg/dL 0.70-1.30 [facility] No Panel InformationOrdered By: Deandre Davison on 10-13-2022 Bedside Estimated GFR (eGFR) > 60.0000 mL/min >60 [facility] Laboratory - Chemistry and C hemistry - challengeOrdered By: Neptali Josue on 07-02-2022 Cobalamin (Vitamin B12) [Mass/Vol] 557 pg/mL 211-911 [facility] No Panel InformationOrdered By: Neptali Josue on 07-02-2022 Prostate Specific Antigen Total 6.02 ng/mL 0.0-4.0 [facility] Comment on above: This test was perfor med using the TPSA assay method for [employer] chemistry system. Values obtained with differentassay methods cannot be used interchangably.When changing PSA assays in the course of monitoring apatient, additional sequential testing should be carriedout to confirm baseline values. Absolute lymphocyte counton 02-16-2022 Lymphocytes Auto (Unsp spec) [#/Vol] 2.82 10*3/uL 0.83-4.51 [facility] Work Phone: Basophil percentageon 2021 Basophils/100 WBC (Bld) 0.5 % 0-1 [facility] Work Phone: Bilirubin [Mass/Vol] 0.80 mg/dL 0.20-1.00 [facility] Work Phone: Comment on above: For patients on eltr ombopag therapy, use of Dimension [place] TBIL is not recommended. Chloride [Moles/Vol] 106 mmol/L 98-107 [facility] Work Phone: Cholesterol [Mass/Vol] 179 mg/dL <200 [facility] Work Phone: Comment on above: <200 mg/dL Desirable 200-240 mg/dL Borderline >240 mg/dL High Risk Eosinophils/100 WBC (Bld) 4.8 % 0-5 [facility] Work Phone: Glucose [Mass/Vol] 83 mg/dL 74-106 [facility] Work Phone: Neutrophils (Bld) [#/Vol] 3.6 10*3/uL 2.0-7.7 [facility] Work Phone: Neutrophils/100 WBC (Bld) 46.4 % 47-70 [facility] Work Phone: Potassium [Moles/Vol] 4.0 mmol/L 3.5-5.1 [facility] Work Phone: Protein [Mass/Vol] 7.6 g/dL 6.4-8.2 [facility] Work Phone: Sodium [Moles/Vol] 140 mmol/L 136-145 [facility] Work Phone: [phone] Triglyceride [Mass/Vol] 129 mg/dL <199 [facility] Work Phone: [phone] Comment on above: The drugs N-Acetylcy steine and Metamizole may falsely depress this assay.Serum Triglycerides Reference Interval Normal <150 mg/dL Borderline high 150 - 199 mg/dL High 200 - 499 mg/dL Very High > or = 500 mg/dL WBC (Bld) [#/Vol] 7.7 10*3/uL 4.4-11.0 [facility] Work Phone: [phone] Blood erythrocytes count (nu mber/volume)on 02-16-2022 RBC (Bld) [#/Vol] 5.89 10*6/uL 4.6-6.2 [facility] Work Phone: Blood hemoglobin measurement (mass/volume)on 02-16-2022 Hemoglobin (Bld) [Mass/Vol] 17.8 g/dL 13.0-16.5 [facility] Work Phone: Blood lymphocytes/100 leukoc yteson 02-16-2022 Lymphocytes/100 WBC (Bld) 36.8 % 19-41 [facility] Work Phone: Blood monocytes/100 leukocyt eson 02-16-2022 Monocytes/100 WBC (Bld) 10.8 % 0-10 [facility] Work Phone: Blood platelet mean volumeon 02-16-2022 Platelet mean volume (Bld) [Entitic vol] 10.7 fL 6.2-12.0 [facility] Work Phone: Determination of erythrocyte mean corpuscular volume (MCV)on 02-16-2022 MCV (RBC) [Entitic vol] 87.3 fL 80-94 [facility] Work Phone: Hematocrit Auto (Bld) [Volum e fraction]on 02-16-2022 Hematocrit (Bld) [Volume fraction] 51.4 % 40-54 [facility] Work Phone: [phone] Laboratory - Chemistry and C hemistry - challengeon 02-16-2022 ALP [Catalytic activity/Vol] 81 U/L 45-117 [facility] Work Phone: ALT [Catalytic activity/Vol] 30 U/L 16-61 [facility] Work Phone: [phone] CO2 [Moles/Vol] 30.0 mmol/L 21.0-32.0 [facility] Work Phone: [phone] Globulin (S) [Mass/Vol] 4.0 g/dL 2.2-4.2 [facility] Work Phone: [phone] Urea nitrogen/Creatinine [Mass ratio] 11.3 mg/mg 10-20 [facility] Work Phone: [phone] Laboratory - Hematology and Cell countson 02-16-2022 Erythrocyte distribution width (RBC) [Entitic vol] 39.7 fL 35.1-43.9 [facility] Work Phone: [phone] Erythrocyte distribution width (RBC) [Ratio] 12.5 % 11.6-14.6 [facility] Work Phone: [phone] Immature granulocytes/100 WBC (Bld) 0.700 % 0.0-0.9 [facility] Work Phone: [phone] Comment on above: IG% - Immature Granu locytes (promyelocytes, myelocytes and metamyelocytes) > 1% indicates that a LEFT SHIFT is Present. MCH (RBC) [Entitic mass] 30.2 pg 27.0-32.0 [facility] Work Phone: Nucleated RBC/100 WBC (Bld) [Ratio] 0 % 0-5 [facility] Work Phone: MCHC Auto (RBC) [Mass/Vol]on 02-16-2022 MCHC (RBC) [Mass/Vol] 34.6 g/dL 32-36 [facility] Work Phone: No Panel Informationon 02-16 Estimated GFR (MDRD) Amer 90 mL/min >60 [facility] Work Phone: Comment on above: GFR Calc Estimated GFR (MDRD) Non-Af Amer 74 mL/min >60 [facility] Work Phone: Comment on above: Non- GFR Calc Prostate Specific Antigen Screen 5.64 ng/mL 0.00-4.00 [facility] Work Phone: Comment on above: This test was perfor med using the TPSA assay method for [employer] chemistry system. Values obtained with differentassay methods cannot be used interchangably.When changing PSA assays in the course of monitoring apatient, additional sequential testing should be carriedout to confirm baseline values. Platelets bldon 02-16-2022 Platelets (Bld) [#/Vol] 211 10*3/uL 150-450 [facility] Work Phone: Serum or plasma albumin keyanna urement (mass/volume)on 02-16-2022 Albumin [Mass/Vol] 3.6 g/dL 3.2-5.0 [facility] Work Phone: Serum or plasma albumin/glob ulin mass ratioon 02-16-2022 Albumin/Globulin [Mass ratio] 0.9 {ratio} 0.9-2.4 [facility] Work Phone: Serum or plasma calcium keyanna urement (mass/volume)on 02-16-2022 Calcium [Mass/Vol] 8.7 mg/dL 8.5-10.1 [facility] Work Phone: Serum or plasma cholesterol in HDL measurement (mass/volume)on 02-16-2022 Cholesterol in HDL [Mass/Vol] 49 mg/dL >40 [facility] Work Phone: Comment on above: The drugs N-Acetylcy steine and Metamizole may falsely depress this assay. Reference Range HDL <40 mg/dL Low HDL Cholesterol HDL >or= 60 mg/dL High HDL Cholesterol Serum or plasma cholesterol in VLDL measurement (mass/volume)on 02-16-2022 Cholesterol in VLDL [Mass/Vol] 26 mg/dL 5-40 [facility] Work Phone: Serum or plasma creatinine m easurement (mass/volume)on 02-16-2022 Creatinine [Mass/Vol] 1.06 mg/dL 0.70-1.30 [facility] Work Phone: Comment on above: The validity of the calculated GFR & GFRAA in patients over 70 years has not been determined. Clinical correlation is essential. Serum or plasma low density lipoprotein (LDL) cholesterol measurement (mass/volume)on 02-16-2022 Cholesterol in LDL [Mass/Vol] 104 mg/dL 0-130 [facility] Work Phone: Serum or plasma urea nitroge n measurement (mass/volume)on 02-16-2022 Urea nitrogen [Mass/Vol] 12 mg/dL 7-18 [facility] Work Phone: Thin prep Papanicolaou smear with manual screeningon 02-16-2022 Thin prep Papanicolaou smear with manual screening 21 U/L 15-37 [facility] Work Phone: Thin prep Papanicolaou smear with manual screening 4 5-15 [facility] Work Phone: Whole blood hemoglobin A1c/t otal hemoglobin ratio (mass fraction)on 02-16-2022 HbA1c (Bld) [Mass fraction] 5.5 % 3.8-5.6 [facility] Work Phone: Comment on above: Normal < 5.7 % Predi abetic 5.7 - 6.4 % Diabetic >or= 6.5 % Please note range changes. HISTORY PHYSICALon 7 HISTORY PHYSICAL HNO ID: [id number] thor: Cortes RamirezService: GastroenterologyAuthor Type: PhysicianType: HANDPFiled: 10/25/2016 10:04 AMNote Text:PROCEDURAL SEDATION HISTORY AND PHYSICAL EXAMSERVICE DATE: 10/25/2016SERVICE TIME: 10:04 AMSUBJECTIVEHPI: This is a 61 year old male who presents with GERD and a familyhistory of colon cancerPAST ANESTHESIA HISTORY: No history of adverse eventPAST MEDICAL HISTORYDiagnosis Date- Esophageal reflux- Esophagitis, unspecified- Family history of malignant neoplasm of gastrointestinal tract- HTN (hypertension)- Internal hemorrhoids without mention of complication- Irritable bowel syndrome- Regional enteritis of large intestine (HCC)- Stricture and stenosis of esophagus- Urinary calculus, unspecified Renal stonesPAST SURGICAL [id number]: COLONOSCOP W/ OR W/O BRS SPEC Comment: Colonoscopy09/08/11: COLONOSCOP W/ OR W/O BRS SPEC Comment: repeat 5 years12/14/11: EGD W/O BRS W/BALLOON DILA Comment: with bxNo date: PAST SURGICAL HISTORY OF Comment: TESTICULAR SURGERY AGE 5Prior to Admission medications as of 10/25/16 0925Medication Sig Last Dose Takingpantoprazole (PROTONIX) 40 mg tablet Take 1 tablet by mouth once daily.(may use generic) 10/24/2016 at Unknown time Yeslisinopril 10 mg ORAL tablet Take 10 mg by mouth once daily. Take one(1)tablet daily. 10/24/2016 at Unknown time YesALLERGIESAllergen Reactions- Penicillins RashOBJECTIVEPHYSICAL EXAM: The remainder of the physical exam is noncontributory.AIRWAY: Airway Visualization of Uvula: YesMouth opening greater than 2 fingerbreadths: YesNeck Full Range of Motion: YesLUNGS: Lungs clear to auscultation, Good diaphragmatic excursionCARDIAC: Normal S1 and S2; no rubs, murmurs, or gallopsASSESSMENT/PLANASA Class: ASA Class:: Patient with mild systemic diseaseActive Problems: * No active hospital problems. *Provisional Diagnosis/Treatment Plan: GERD and a family history of coloncancer/EGD and colonoscopySEDATION GOAL: ModerateSIGNATURE: Cortes Ramirez MD PATIENT NAME: Caryl Jackson: October 25, 2016 : 10:04 AM PAGER: Normal [facility] NURSING PROGon 10-25-2016 NURSING PROG HNO ID: [id number] thor: Reina RayaRnDARIO Salcidoervice: NursingAuthor Type: Registered NurseType: Nursing Progress NoteFiled: 10/25/2016 11:13 AMNote Text:Patient did not experience a fall prior to discharge.Patient did not experience a burn prior to discharge.Reina Ballesteros RN [facility] NURSING PROG HNO ID: [id number] thor: Glenn Mathews Rn: (none)Author Type: Registered NurseType: Nursing Progress NoteFiled: 10/25/2016 10:27 AMNote Text:Patient did not experience a fall within the Intraoperative area.Patient did not experience a burn within the Intraoperative area.Anai Rodas RN [facility] NURSING PROG HNO ID: [id number] thor: May Nair Rnice: (none)Author Type: Registered NurseType: Nursing Progress NoteFiled: 10/25/2016 10:23 AMNote Text:Discharge Instructions were reviewed pre-operatively with the patient.All questions and concerns were addressed.Talia Christianson RN [facility] NURSING PROG HNO ID: [id number] thor: Glenn Nair Rn: (none)Author Type: Registered NurseType: Nursing Progress NoteFiled: 10/25/2016 10:24 AMNote Text:[facility] PRE-OP NURSING HAND OFF NOTESBAR Hand off given to Mary Khan RN and Anai Rodas RN.Hand off was communicated verbally and at the patient's bedside and allquestions were answered. FALLS/BURNSPatient did not experience a fall within the Preoperative area.Patient did not experience a burn within the Preoperative area.Talia Christianson RN [facility] NURSING PROG HNO ID: [id number] thor: Glenn Nair Rn: (none)Author Type: Registered NurseType: Nursing Progress NoteFiled: 10/25/2016 9:58 AMNote Text:[facility] PRE-OP NURSING HAND OFF NOTESBAR Hand off given to Anai Rodas RN.Hand off was communicated verbally and at the patient's bedside and allquestions were answered. FALLS/BURNSPatient did not experience a fall within the Preoperative area.Patient did not experience a burn within the Preoperative area.Viry Nair RN [facility] PT EDon 10-25-2016 PT ED HNO ID: [id number] thor: Reina Machado (Rn) DARIO Ballesteroservice: NursingAuthor Type: Registered NurseType: Patient EducationFiled: 10/25/2016 10:57 AMNote Text:AMBULATORY PATIENT EDUCATIONTOPIC: Survival Skills: GI PROCEDURES: EGDColonoscopyREADINESS TO LEARNCOGNITIVE ABILITY: Alert and orientedMOTIVATION TO LEARN: EagerFAMILY SUPPORT: High - Very involved in pt careINSTRUCTION PROVIDED TO: Patient and SpousePATIENT LEARNS BEST BY: Multiple MethodsFACTORS AFFECTING LEARNING: NonePHYSICAL LIMITATIONS AFFECTING LEARNING: NoneLEARNING RESPONSEDIAGNOSIS: EGD: Polyps in the gastric fundus, otherwise normal. Normalcolonoscopy.METHOD OF INSTRUCTION: Written instruction - handoutsVerbal instructionPATIENT / FAMILY RESPONSE: Verbalizes understanding of: INFECTIONMANAGEMENT-Signs and symptoms of an infection and importance ofcontacting the physicianPHYSICAL RESTRICTIONS-Physical restrictions and recommendations afterdischarge from the hospitalPOST-PROCEDURE INSTRUCTIONS-Correct actions to take to reduce postprocedure complicationsPATIENT SAFETY PRINCIPLESWORSENING CONDITION-Signs and symptoms of a worsening condition thatwarrant a call to the physicianFOLLOW-UP PLAN: Complete - No need for follow-upSUPPLEMENTAL MATERIAL: Procedure discharge instructionsPatient's medication list and discharge instructions were reviewed withand given to patient and/or caregiver. Patient and/or caregiver given theopportunity to ask questions and verbalized their understanding ofcontent.REFERRAL (RECOMMENDATION): NoneElectronically Signed By: Reina Ballesteros RN In Department:AMBULATORY SURGERY [facility] SURGICAL PATHOLOGYon 017 SURGICAL PATHOLOGY ADDENDUM PRESENT [facility]: [id number] Physician: CORTES RAMIREZ MD FINAL DIAGNOSIS1. Gastric polyp, biopsy (A) - Fundic gland polyp. 2. Gastric antrum, biopsy (B) - Gastric antral/ body mucosa with chronicinactive gastritis. - See comment. 3. 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 - Squamous epithelium with mild reactive epithelial changes. COMMENT2. Results of an immunohistochemical stain for H. pylori will be reportedin an addendum. JJ/glw 10/27/2016 Anai Ruelas M.D.(Electronic Signature) SPECIME N SUBMITTEDA: GASTRIC POLYP, BIOPSY B: ANTRUM, BIOPSY C: DISTAL ESOPHAGUS, BIOPSY ADDENDUM Date Ordered: 10/27/2016 Date Reported: 10/28/2016 2. Given the background of chronic gastritis, a Helicobacter pyloriimmunostain was performed on block B1 and is negative for Helicobacterpylori organisms.Laboratory Developed Test (LDT) Disclaimer:Positive and negative controls stain appropriately. Performancecharacteristics of immunohistochemical, immunofluorescent and chromogenicin-situ hybridization tests have been determined by [facility] Abdulaziz [facility] Pathology and Laboratory Medicine [place] [facility] oswaldo manner consistent with CLIA requirements. One or more of these tests havenot been cleared or approved by the FDA. [facility] is regulated under CLIA asqualified to perform high-complexity testing. These tests are used forclinical purposes. They should not be regarded as investigational or forresearch.Addendum Pathologist: Anai Ruelas M.D.Electronic Signature CLINICAL DATAGERD without esophagitis [K21.9], Family history of colon cancer in mother[Z80.0]GROSS DESCRIPTIONA. Received in formalin is one piece of correa, soft tissue measuring 0.4 x0.2 x 0.2 cm. Totally submitted in one cassette.B. Received in formalin are multiple pieces of correa, soft tissue aggregatingto 1.0 x 0.2 x 0.1 cm. Totally submitted in one cassette.C. Received in formalin are multiple pieces of correa, soft tissue aggregatingto 0.6 x 0.2 x 0.2 cm. Totally submitted in one cassette.Gross examination performed at [facility], [address] [place] [address] [id number] 10/26/2016 10:56:27 AMPatient ID #: [id number] of Report: 10/27/2016Date of Procedure: 10/25/2016Date of Receipt: 10/25/2016Submitted by: CORTES RAMIREZ MDLocation: [id number] [place] [address]. Normal [facility] Comment on above: Performed By: #### P ATHS ####[facility] [address] [place], [place] [id number] Vital Signs Date Time Vital Sign Value Performing Clinician Juany sykes 09-25-2024 08:19-0400 Body mass index (BMI) [Ratio] 27.2 kg/m2 Dr. Neptali Josue DO Work Phone: [facility] 09-25-2024 08:19-0400 Body weight 78.[address] Neptali Josue DO Work Phone: [facility] 09-25-2024 08:19-0400 Diastolic blood pressure 78 mm[Hg] Dr. Neptali Josue DO Work Phone: [facility] 09-25-2024 08:19-0400 Heart rate 58 /min Dr. Neptali Josue DO Work Phone: [facility] 09-25-2024 08:19-0400 Respiratory rate 18 /min Dr. Neptali Josue DO Work Phone: [facility] 09-25-2024 08:19-0400 Systolic blood pressure 113 mm[Hg] Dr. Neptali Josue DO Work Phone: [facility] 07-26-2024 14:35-0400 Body height 170.[address] Neptali Josue DO Work Phone: [facility] 07-26-2024 14:35-0400 Body mass index (BMI) [Ratio] 27.4 kg/m2 Dr. Neptali Josue DO Work Phone: [facility] 07-26-2024 14:35-0400 Body temperature 97.5 [degF] Dr. Neptali Josue DO Work Phone: [facility] 07-26-2024 14:35-0400 Body weight 79.[address] Neptali Josue DO Work Phone: [facility] 07-26-2024 14:35-0400 Diastolic blood pressure 63 mm[Hg] Dr. Neptali Josue DO Work Phone: [facility] 07-26-2024 14:35-0400 Heart rate 60 /min Dr. Neptali Josue DO Work Phone: [facility] 07-26-2024 14:35-0400 Respiratory rate 16 /min Dr. Neptali Josue DO Work Phone: [facility] 07-26-2024 14:35-0400 SaO2% (BldA) [Mass fraction] 97 % Dr. Neptali Josue DO Work Phone: [facility] 07-26-2024 14:35-0400 Systolic blood pressure 101 mm[Hg] Dr. Neptali Josue DO Work Phone: [facility] 06-25-2024 08:16-0400 Body height 170.[address] Neptali Josue DO Work Phone: [facility] 06-25-2024 08:16-0400 Body mass index (BMI) [Ratio] 27.3 kg/m2 Dr. Neptali Josue DO Work Phone: [facility] 06-25-2024 08:16-0400 Body weight 79.[address] Neptali Josue DO Work Phone: [facility] 06-25-2024 08:16-0400 Diastolic blood pressure 74 mm[Hg] Dr. Neptali Josue DO Work Phone: [facility] 06-25-2024 08:16-0400 Heart rate 67 /min Dr. Neptali Josue DO Work Phone: [facility] 06-25-2024 08:16-0400 Respiratory rate 16 /min Dr. Neptali Josue DO Work Phone: [facility] 06-25-2024 08:16-0400 Systolic blood pressure 112 mm[Hg] Dr. Neptali Josue DO Work Phone: [facility] 04-27-2024 09:33-0500 Body temperature 98.3 [degF] Dr. Neptali Josue DO Work Phone: [facility] 04-27-2024 09:33-0500 Diastolic blood pressure 60 mm[Hg] Dr. Neptali Josue DO Work Phone: [facility] 04-27-2024 09:33-0500 Heart rate 58 /min Dr. Neptali Josue DO Work Phone: [facility] 04-27-2024 09:33-0500 Respiratory rate 15 /min Dr. Neptali Josue DO Work Phone: [facility] 04-27-2024 09:33-0500 SaO2% (BldA) [Mass fraction] 98 % Dr. Neptali Josue DO Work Phone: [facility] 04-27-2024 09:33-0500 Systolic blood pressure 124 mm[Hg] Dr. Neptali Josue DO Work Phone: [facility] 08-03-2023 14:09-0400 Body mass index (BMI) [Ratio] 28 kg/m2 Dr. Neptali Josue Work Phone: [facility] 08-03-2023 14:08-0400 Body height 170.[address] Neptali Josue Work Phone: [facility] 08-03-2023 14:08-0400 Body weight 81.[address] Neptali Josue Work Phone: [facility] 08-03-2023 13:16-0400 Diastolic blood pressure 68 mm[Hg] Dr. Neptali Josue Work Phone: [facility] 08-03-2023 13:16-0400 Heart rate 73 /min Dr. Neptali Josue Work Phone: [facility] 08-03-2023 13:16-0400 SaO2% (BldA) [Mass fraction] 94 % Dr. Neptali Josue Work Phone: [facility] 08-03-2023 13:16-0400 Systolic blood pressure 103 mm[Hg] Dr. Neptali Josue Work Phone: [facility] 08-02-2023 13:54-0400 Body mass index (BMI) [Ratio] 26.6 kg/m2 Dr. Neptali Josue Work Phone: [facility] 08-02-2023 13:54-0400 Body weight 77.[address] Neptali Josue Work Phone: [facility] 08-02-2023 13:54-0400 Diastolic blood pressure 68 mm[Hg] Dr. Neptali Josue Work Phone: [facility] 08-02-2023 13:54-0400 Heart rate 65 /min Dr. Neptali Josue Work Phone: [facility] 08-02-2023 13:54-0400 Respiratory rate 18 /min Dr. Neptali Josue Work Phone: [facility] 08-02-2023 13:54-0400 SaO2% (BldA) [Mass fraction] 98 % Dr. Neptali Josue Work Phone: [facility] 08-02-2023 13:54-0400 Systolic blood pressure 104 mm[Hg] Dr. Neptali Josue Work Phone: [facility] 07-28-2023 14:04-0400 Body mass index (BMI) [Ratio] 26.6 kg/m2 Dr. Neptali Josue Work Phone: [facility] 07-28-2023 14:04-0400 Body temperature 97.6 [degF] Dr. Neptali Josue Work Phone: [facility] 07-28-2023 14:04-0400 Body weight 77.[address] Neptali Josue Work Phone: [facility] 07-28-2023 14:04-0400 Diastolic blood pressure 57 mm[Hg] Dr. Neptali Josue Work Phone: [facility] 07-28-2023 14:04-0400 Heart rate 66 /min Dr. Neptali Josue Work Phone: [facility] 07-28-2023 14:04-0400 Respiratory rate 18 /min Dr. Neptali Josue Work Phone: [facility] 07-28-2023 14:04-0400 SaO2% (BldA) [Mass fraction] 95 % Dr. Neptali Josue Work Phone: [facility] 07-28-2023 14:04-0400 Systolic blood pressure 93 mm[Hg] Dr. Neptali Josue Work Phone: [facility] 07-16-2023 10:24-0400 Diastolic blood pressure 64 mm[Hg] Dr. Neptali Josue Work Phone: [facility] 07-16-2023 10:24-0400 Heart rate 84 /min Dr. Neptali Josue Work Phone: [facility] 07-16-2023 10:24-0400 Respiratory rate 14 /min Dr. Neptali Josue Work Phone: [facility] 07-16-2023 10:24-0400 SaO2% (BldA) [Mass fraction] 97 % Dr. Neptali Josue Work Phone: [facility] 07-16-2023 10:24-0400 Systolic blood pressure 89 mm[Hg] Dr. Neptali Josue Work Phone: [facility] 07-16-2023 08:00-0400 Body temperature 97.8 [degF] Dr. Neptali Josue Work Phone: [facility] 07-16-2023 05:23-0400 Body mass index (BMI) [Ratio] 28.2 kg/m2 Dr. Neptali Josue Work Phone: [facility] 07-16-2023 05:23-0400 Body weight 81.[address] Neptali Josue Work Phone: [facility] 07-15-2023 21:00-0400 Inhaled oxygen flow rate 1 L/min Dr. Neptali Josue Work Phone: [facility] 07-15-2023 15:00-0400 Diastolic blood pressure 68 mm[Hg] Dr. Neptali Josue Work Phone: [facility] 07-15-2023 15:00-0400 Heart rate 74 /min Dr. Neptali Josue Work Phone: [facility] 07-15-2023 15:00-0400 Inhaled oxygen flow rate 3 L/min Dr. Neptali Josue Work Phone: [facility] 07-15-2023 15:00-0400 Respiratory rate 17 /min Dr. Neptali Josue Work Phone: [facility] 07-15-2023 15:00-0400 SaO2% (BldA) [Mass fraction] 92 % Dr. Neptali Josue Work Phone: [facility] 07-15-2023 15:00-0400 Systolic blood pressure 108 mm[Hg] Dr. Neptali Josue Work Phone: [facility] 07-15-2023 11:15-0400 Body height 170.[address] Neptali Josue Work Phone: [facility] 07-15-2023 11:15-0400 Body weight 81.[address] Neptali Josue Work Phone: [facility] 07-15-2023 10:00-0400 Body temperature 97.7 [degF] Dr. Neptali Josue Work Phone: [facility] 07-15-2023 05:15-0400 Body mass index (BMI) [Ratio] 28.3 kg/m2 Dr. Neptali Josue Work Phone: [facility] 07-14-2023 17:09-0400 Diastolic blood pressure 68 mm[Hg] Dr. Neptali Josue Work Phone: [facility] 07-14-2023 17:09-0400 Systolic blood pressure 92 mm[Hg] Dr. Neptali Josue Work Phone: [facility] 07-14-2023 17:02-0400 Body temperature 96 [degF] Dr. Neptali Josue Work Phone: [facility] 07-14-2023 17:02-0400 Heart rate 66 /min Dr. Neptali Josue Work Phone: [facility] 07-14-2023 17:02-0400 Respiratory rate 18 /min Dr. Neptali Josue Work Phone: [facility] 07-14-2023 17:02-0400 SaO2% (BldA) [Mass fraction] 95 % Dr. Neptali Josue Work Phone: [facility] 07-14-2023 16:58-0400 Inhaled oxygen flow rate 4 L/min Dr. Neptali Josue Work Phone: [facility] 07-14-2023 16:48-0400 Body height 170.[address] Neptali Josue Work Phone: [facility] 07-14-2023 16:48-0400 Body mass index (BMI) [Ratio] 30.2 kg/m2 Dr. Neptali Josue Work Phone: [facility] 07-14-2023 16:48-0400 Body weight 87.[address] Neptali Josue Work Phone: [facility] 06-22-2023 08:12-0400 Body mass index (BMI) [Ratio] 27.4 kg/m2 Dr. Neptali Josue Work Phone: [facility] 06-22-2023 08:12-0400 Body temperature 97.1 [degF] Dr. Neptali Josue Work Phone: [facility] 06-22-2023 08:12-0400 Body weight 79.[address] Neptali Josue Work Phone: [facility] 06-22-2023 08:12-0400 Diastolic blood pressure 75 mm[Hg] Dr. Neptali Josue Work Phone: [facility] 06-22-2023 08:12-0400 Heart rate 80 /min Dr. Neptali Josue Work Phone: [facility] 06-22-2023 08:12-0400 Respiratory rate 18 /min Dr. Neptali Josue Work Phone: [facility] 06-22-2023 08:12-0400 SaO2% (BldA) [Mass fraction] 96 % Dr. Neptali Josue Work Phone: [facility] 06-22-2023 08:12-0400 Systolic blood pressure 110 mm[Hg] Dr. Neptali Josue Work Phone: [facility] 06-15-2023 08:53-0500 Body mass index (BMI) [Ratio] 27.2 kg/m2 Dr. Neptali Josue Work Phone: [facility] 06-15-2023 08:53-0500 Body temperature 98.2 [degF] Dr. Neptali Josue Work Phone: [facility] 06-15-2023 08:53-0500 Body weight 78.[address] Neptali Josue Work Phone: [facility] 06-15-2023 08:53-0500 Diastolic blood pressure 73 mm[Hg] Dr. Neptali Josue Work Phone: [facility] 06-15-2023 08:53-0500 Heart rate 69 /min Dr. Neptali Josue Work Phone: [facility] 06-15-2023 08:53-0500 Respiratory rate 16 /min Dr. Neptali Josue Work Phone: [facility] 06-15-2023 08:53-0500 SaO2% (BldA) [Mass fraction] 96 % Dr. Neptali Josue Work Phone: [facility] 06-15-2023 08:53-0500 Systolic blood pressure 121 mm[Hg] Dr. Neptali Josue Work Phone: [facility] 06-08-2023 09:12-0500 Body mass index (BMI) [Ratio] 27.6 kg/m2 Dr. Neptali Josue Work Phone: [facility] 06-08-2023 09:12-0500 Body temperature 98.1 [degF] Dr. Neptali Josue Work Phone: [facility] 06-08-2023 09:12-0500 Body weight 80.[address] Neptali Josue Work Phone: [facility] 06-08-2023 09:12-0500 Diastolic blood pressure 72 mm[Hg] Dr. Neptali Josue Work Phone: [facility] 06-08-2023 09:12-0500 Heart rate 67 /min Dr. Neptali Josue Work Phone: [facility] 06-08-2023 09:12-0500 Respiratory rate 16 /min Dr. Neptali Josue Work Phone: [facility] 06-08-2023 09:12-0500 SaO2% (BldA) [Mass fraction] 96 % Dr. Neptali Josue Work Phone: [facility] 06-08-2023 09:12-0500 Systolic blood pressure 121 mm[Hg] Dr. Neptali Josue Work Phone: [facility] 05-30-2023 09:02-0500 Body mass index (BMI) [Ratio] 28 kg/m2 Dr. Neptali Josue Work Phone: [facility] 05-30-2023 09:02-0500 Body temperature 97.3 [degF] Dr. Neptali Josue Work Phone: [facility] 05-30-2023 09:02-0500 Body weight 81.[address] Neptali Josue Work Phone: [facility] 05-30-2023 09:02-0500 Diastolic blood pressure 83 mm[Hg] Dr. Neptali Josue Work Phone: [facility] 05-30-2023 09:02-0500 Heart rate 69 /min Dr. Neptali Josue Work Phone: [facility] 05-30-2023 09:02-0500 Respiratory rate 16 /min Dr. Neptali Josue Work Phone: [facility] 05-30-2023 09:02-0500 SaO2% (BldA) [Mass fraction] 96 % Dr. Neptali Josue Work Phone: [facility] 05-30-2023 09:02-0500 Systolic blood pressure 136 mm[Hg] Dr. Neptali Josue Work Phone: [facility] 05-25-2023 08:37-0500 Body mass index (BMI) [Ratio] 27.7 kg/m2 Dr. Neptali Josue Work Phone: [facility] 05-25-2023 08:37-0500 Body temperature 97.1 [degF] Dr. Neptali Josue Work Phone: [facility] 05-25-2023 08:37-0500 Body weight 80.[address] Nepatli Josue Work Phone: [facility] 05-25-2023 08:37-0500 Diastolic blood pressure 74 mm[Hg] Dr. Neptali Josue Work Phone: [facility] 05-25-2023 08:37-0500 Heart rate 64 /min Dr. Neptali Josue Work Phone: [facility] 05-25-2023 08:37-0500 Respiratory rate 18 /min Dr. Neptali Josue Work Phone: [facility] 05-25-2023 08:37-0500 SaO2% (BldA) [Mass fraction] 96 % Dr. Neptali Josue Work Phone: [facility] 05-25-2023 08:37-0500 Systolic blood pressure 125 mm[Hg] Dr. Neptali Josue Work Phone: [facility] 05-18-2023 08:28-0500 Body mass index (BMI) [Ratio] 28.2 kg/m2 Dr. Neptali Josue Work Phone: [facility] 05-18-2023 08:28-0500 Body temperature 97 [degF] Dr. Neptali Josue Work Phone: [facility] 05-18-2023 08:28-0500 Body weight 81.[address] Neptali Josue Work Phone: [facility] 05-18-2023 08:28-0500 Diastolic blood pressure 78 mm[Hg] Dr. Neptali Josue Work Phone: [facility] 05-18-2023 08:28-0500 Heart rate 64 /min Dr. Neptali Josue Work Phone: [facility] 05-18-2023 08:28-0500 Respiratory rate 16 /min Dr. Neptali Josue Work Phone: [facility] 05-18-2023 08:28-0500 SaO2% (BldA) [Mass fraction] 95 % Dr. Neptali Josue Work Phone: [facility] 05-18-2023 08:28-0500 Systolic blood pressure 130 mm[Hg] Dr. Neptali Josue Work Phone: [facility] 05-11-2023 08:37-0500 Body mass index (BMI) [Ratio] 28.2 kg/m2 Dr. Neptali Josue Work Phone: [facility] 05-11-2023 08:37-0500 Body temperature 97.5 [degF] Dr. Neptali Josue Work Phone: [facility] 05-11-2023 08:37-0500 Body weight 81.[address] Neptali Josue Work Phone: [facility] 05-11-2023 08:37-0500 Diastolic blood pressure 86 mm[Hg] Dr. Neptali Josue Work Phone: [facility] 05-11-2023 08:37-0500 Heart rate 68 /min Dr. Neptali Josue Work Phone: [facility] 05-11-2023 08:37-0500 Respiratory rate 16 /min Dr. Neptali Josue Work Phone: [facility] 05-11-2023 08:37-0500 SaO2% (BldA) [Mass fraction] 95 % Dr. Neptali Josue Work Phone: [facility] 05-11-2023 08:37-0500 Systolic blood pressure 150 mm[Hg] Dr. Neptali Josue Work Phone: [facility] 04-01-2023 12:36-0500 Body height 170.[address] Neptali Josue Work Phone: [facility] 04-01-2023 12:36-0500 Body mass index (BMI) [Ratio] 28.4 kg/m2 Dr. Neptali Josue Work Phone: [facility] 04-01-2023 12:36-0500 Body temperature 97.9 [degF] Dr. Neptali Josue Work Phone: [facility] 04-01-2023 12:36-0500 Body weight 82.[address] Neptali Josue Work Phone: [facility] 04-01-2023 12:36-0500 Diastolic blood pressure 86 mm[Hg] Dr. Neptali Josue Work Phone: [facility] 04-01-2023 12:36-0500 Heart rate 68 /min Dr. Neptali Josue Work Phone: [facility] 04-01-2023 12:36-0500 Respiratory rate 15 /min Dr. Neptali Josue Work Phone: [facility] 04-01-2023 12:36-0500 SaO2% (BldA) [Mass fraction] 97 % Dr. Neptali Josue Work Phone: [facility] 04-01-2023 12:36-0500 Systolic blood pressure 150 mm[Hg] Dr. Neptali Josue Work Phone: [facility] 03-24-2023 13:42-0500 Body mass index (BMI) [Ratio] 28.4 kg/m2 Dr. Neptali Josue Work Phone: [facility] 03-24-2023 13:42-0500 Body temperature 98.5 [degF] Dr. Neptali Josue Work Phone: [facility] 03-24-2023 13:42-0500 Body weight 82.[address] Neptali Josue Work Phone: [facility] 03-24-2023 13:42-0500 Diastolic blood pressure 84 mm[Hg] Dr. Neptali Josue Work Phone: [facility] 03-24-2023 13:42-0500 Heart rate 75 /min Dr. Neptali Josue Work Phone: [facility] 03-24-2023 13:42-0500 Respiratory rate 18 /min Dr. Neptali Josue Work Phone: [facility] 03-24-2023 13:42-0500 SaO2% (BldA) [Mass fraction] 96 % Dr. Neptali Josue Work Phone: [facility] 03-24-2023 13:42-0500 Systolic blood pressure 155 mm[Hg] Dr. Neptali Josue Work Phone: [facility] 01-06-2023 12:17-0400 Body temperature 98.6 [degF] Dr. Neptali Josue Work Phone: [facility] 01-06-2023 12:17-0400 Diastolic blood pressure 80 mm[Hg] Dr. Neptali Josue Work Phone: [facility] 01-06-2023 12:17-0400 Heart rate 70 /min Dr. Neptali Josue Work Phone: [facility] 01-06-2023 12:17-0400 Respiratory rate 18 /min Dr. Neptali Josue Work Phone: [facility] 01-06-2023 12:17-0400 SaO2% (BldA) [Mass fraction] 98 % Dr. Neptali Josue Work Phone: [facility] 01-06-2023 12:17-0400 Systolic blood pressure 137 mm[Hg] Dr. Neptali Josue Work Phone: [facility] 01-05-2023 16:35-0400 Body weight 82.[address] Neptali Josue Work Phone: [facility] 01-05-2023 09:26-0400 Body height 170.[address] Neptali Josue Work Phone: [facility] 01-05-2023 09:26-0400 Body mass index (BMI) [Ratio] 27.2 kg/m2 Dr. Neptali Josue Work Phone: [facility] Encounters Encounter Date Encounter Type Care Provider Facility Start: 09-25-2024 End: 09-25-[address] Kristin Jett MD -[facility] Work Phone: Start: 09-25-2024 End: 09-25-[address] Neptali Josue DO Work Phone: [facility] Work Phone: Start: 07-26-2024 End: 07-26-[address] Sal Wood DO [facility] Work Phone: Start: 07-26-2024 End: 07-26-2024 ambulatory Sal Wood Facility:[facility] Start: 07-26-[address] Sal Ellsworth on [facility] Start: 07-18-2024 ambulatory Kristin Jett Facility:[facility] Start: 07-18-2024 Non-patient / Non-visit [facility]. Kristin aguila MD -[facility] Start: 07-18-2024 End: 07-18-[address] Neptali Josue DO Work Phone: [facility] Work Phone: Start: 07-18-2024 End: 07-18-[address] Kristin Jett MD -[facility] Work Phone: Start: 07-18-2024 End: 07-18-2024 ambulatory [facility] Facility:[facility] Start: 06-29-2024 End: 06-29-[address] Neptali Josue DO Work Phone: [facility] Work Phone: Start: 06-29-2024 End: 06-29-[address] Kristin Jett MD -Laboratory Work Phone: Start: 06-29-2024 End: 06-29-2024 ambulatory [facility] Facility:[facility] Start: 06-25-2024 End: 06-25-[address] Kristin Jett MD -[facility] Work Phone: Start: 06-25-2024 End: 06-25-2024 ambulatory [facility] Facility:[facility] Start: 05-18-2024 End: 05-18-[address] Neptali Josue DO -Laboratory Work Phone: Start: 05-18-2024 End: 05-18-2024 ambulatory Neptali Josue Facility:[facility] Start: 05-03-2024 End: 05-03-[address] Deandre Davison MD -Laboratory Work Phone: Start: 05-03-2024 End: 05-03-2024 ambulatory Neptali Josue Facility:[facility] Start: 04-27-2024 End: 04-27-2024 Patient encounter procedure Adolfo SMITH -[facility] Work Phone: Start: 04-27-2024 End: 04-27-2024 ambulatory Neptali Josue Facility:[facility] Start: 04-03-2024 End: 04-03-[address] Neptali Josue DO -Cat Scan, [facility] Work Phone: Start: 04-03-2024 End: 04-03-2024 ambulatory Neptali Josue Facility:[facility] Start: 03-12-2024 End: 03-12-[address] Neptali Josue DO -Laboratory, Specimen Work Phone: Start: 03-12-2024 End: 03-12-2024 ambulatory Neptali Malachi Facility:[facility] Start: 02-08-2024 ambulatory Chelo Cabrales [facility] Facili ty:[facility] Start: 02-08-2024 ambulatory Kristin Johnie Facility:[facility] Start: 02-08-2024 End: 02-08-2024 ambulatory Chelo Cabrales [employer] Facility:[facility] Start: 01-31-2024 End: 01-31-2024 ambulatory Maryanne SMITH Facility:[facility] Start: 01-26-2024 End: 01-26-2024 ambulatory Sal Wood Facility:[facility] Start: 12-28-2023 ambulatory Chelo Cabrales [facility] Facili ty:[facility] Start: 12-26-2023 ambulatory Chelo Cabrales [facility] [employer] Facili ty:[facility] Start: 12-23-2023 ambulatory Chelo Cabrales [facility] Facili ty:[facility] Start: 12-23-2023 End: 12-23-2023 ambulatory Chelo Cabrales [employer] Facility:[facility] Start: 12-21-2023 ambulatory Kristin Johnie Facility:[facility] Start: 11-11-2023 End: 12-10-2023 ambulatory Kristin Johnie Facility:[facility] Start: 11-09-2023 End: 11-10-2023 ambulatory Chelo Cabrales [employer] Facility:[facility] Start: 11-07-2023 End: 11-07-2023 ambulatory Chelo Cabrales [employer] Facility:[facility] Start: 11-07-2023 ambulatory William Hernandez Facility:[facility] Start: 11-07-2023 End: 11-07-2023 ambulatory [facility] Facility:[facility] Start: 11-02-2023 ambulatory Chelo Cabrales [employer] Facili ty:[facility] Start: 11-01-2023 ambulatory Kristin Johnie Facility:[facility] Start: 11-01-2023 End: 11-01-2023 ambulatory Chelo Cabrales NP Facility:[facility] Start: 10-17-2023 End: 10-17-2023 ambulatory Neptali Josue Facility:[facility] Start: 10-07-2023 End: 10-09-2023 ambulatory Kirstin Johnie Facility:[facility] Start: 10-06-2023 End: 10-06-2023 ambulatory Neptali Josue Facility:[facility] Start: 08-03-2023 End: 08-03-[address] Neptali Josue Work Phone: [facility] Work Phone: Start: 08-03-2023 End: 08-03-[address] Neptali Josue Work Phone: [facility]-Cardiac Rehab Work Phone: Start: 08-02-2023 End: 08-02-[address] Neptali Josue Work Phone: [facility] Work Phone: Start: 07-28-2023 End: 07-28-[address] Neptali Josue Work Phone: [facility] Work Phone: Start: 07-20-2023 End: 07-20-[address] Neptali Josue Work Phone: [facility] Work Phone: Start: 07-20-2023 End: 07-20-[address] Neptali Josue Work Phone: [facility]-Leila Durant [facility] Start: 07-20-2023 Non-patient / Non-visit Dr. Joey Josue Work Phone: [facility] Start: 07-18-2023 End: 07-18-[address] Neptali Josue Work Phone: [facility] Work Phone: Start: 07-18-2023 End: 07-18-[address] [facility]ali [facility] Start: 07-16-2023 Non-patient / Non-visit Dr. Joey Josue Work Phone: [facility] Start: 07-15-2023 Non-patient / Non-visit Dr. Joey Josue Work Phone: [facility] Work Phone: Start: 07-15-2023 Non-patient / Non-visit Dr. Joey Josue Work Phone: [facility] Start: 07-14-2023 Non-patient / Non-visit Dr. Joey Josue Work Phone: [facility] Start: 07-14-2023 End: 07-16-2023 Evaluation and management of inpatient Dr. Neptali Josue [facility] Work [facility] Start: 07-11-2023 End: 07-11-[address] Neptali Josue Work Phone: [facility] Work Phone: Start: 07-11-2023 End: 07-11-[address] Neptali Josue Work Phone: [facility]-Laboratory Work Phone: Start: 06-22-2023 Non-patient / Non-visit Dr. Joey Josue Work Phone: [facility] Work Phone: Start: 06-22-[address] Neptali Josue Work Phone: [facility]-Radiation Oncology Start: 06-22-2023 End: 06-22-[address] Neptali Josue Work Phone: [facility] Work Phone: Start: 06-15-2023 End: 06-15-[address] Neptali Josue Work Phone: [facility] Work Phone: Start: 06-08-2023 End: 06-08-[address] Neptali Josue Work Phone: [facility] Work Phone: Start: 05-30-2023 End: 05-30-[address] Neptali Josue Work Phone: [facility] Work Phone: Start: 05-25-2023 End: 05-25-[address] Neptali Josue Work Phone: [facility] Work Phone: Start: 05-18-2023 End: 05-18-[address] Neptali Josue Work Phone: [facility] Work Phone: Start: 05-11-2023 End: 05-11-[address] Neptali Josue Work Phone: [facility] Work Phone: Start: 05-06-2023 Non-patient / Non-visit Dr. Joey Josue Work Phone: [facility] Start: 05-05-2023 Non-patient / Non-visit Dr. Joey Josue Work Phone: [facility] Start: 04-28-2023 Non-patient / Non-visit Dr. Joey Josue Work Phone: [facility] Start: 04-28-[address] Neptali Josue Work Phone: [facility]-Radiation Oncology Start: 04-28-2023 End: 04-28-[address] Neptali Josue Work Phone: [facility] Work Phone: Start: 04-28-2023 End: 04-28-[address] Neptali Josue Work Phone: [facility] Work Phone: Start: 04-01-2023 End: 04-01-[address] Neptali Josue Work Phone: [facility] Work Phone: Start: 03-24-2023 End: 03-24-[address] Neptali Josue Work Phone: [facility] Work Phone: Start: 03-18-2023 Non-patient / Non-visit Dr. Joey Josue Work Phone: [facility] Work Phone: Start: 03-02-2023 End: 03-02-[address] Neptali Josue Work Phone: [facility] Work Phone: Start: 03-02-2023 End: 03-02-[address] Neptali Josue Work Phone: [facility]-Leila Durant [facility] Start: 01-05-2023 End: 01-06-2023 Evaluation and management of inpatient Dr. Neptali Josue Work Phone: [facility]-Medical Surgical 3 Work Phone: Start: 12-28-2022 End: 12-28-2022 Non-patient / Non-visit Dr. Neptali Josue Work Phone: [facility] Work Phone: Start: 11-22-2022 End: 11-22-2022 ambulatory [facility] Work Phone: Start: 11-22-2022 End: 11-22-2022 Patient encounter procedure [facility]-Cat Scan, [facility] Work Phone: Start: 11-16-2022 End: 11-16-2022 ambulatory [facility] Work Phone: Start: 11-16-2022 End: 11-16-2022 Patient encounter procedure [facility]-Nuclear Medicine, [facility] Work Phone: Start: 11-01-2022 End: 11-01-2022 Patient encounter procedure [facility]-Laboratory, Specimen Work Phone: Start: 10-13-2022 End: 10-13-2022 ambulatory [facility] Work Phone: Start: 10-13-2022 End: 10-13-2022 Patient encounter procedure [facility]-MRI - [facility] Work Phone: Start: 07-02-2022 End: 07-02-2022 Patient encounter procedure [facility]-LaboratoryLeila [facility] Start: 02-16-2022 End: 02-16-2022 ambulatory [facility] Work Phone: Start: 02-16-2022 End: 02-16-2022 Patient encounter procedure [facility]-Laboratory, Leila Blanco [facility] Start: 10-25-2016 End: 10-25-2016 Ambulatory [facility] Procedures Date Procedure Procedure Detail Performing Clinician Start: 07-26-2024 Assay of prostate sp ecific antigen total Dr. Neptali Josue DO Work Phone: Comment on above: This test was perfor med using the [employer] tPSA method. Measured values of a patient sample can vary depending on the testing procedure used. PSA values determined on patient samples by different testing procedures cannot be used interchangeably. If there is a change in PSA assays while monitoring therapy, sequential testing should be performed to confirm baseline values. Start: 07-18-2024 Cardiovascular stres s test using pharmacologic stress agent Dr. Neptali Josue DO Work Phone: Start: 04-03-2024 Computed tomography of abdomen and pelvis with contrast Dr. Neptali Josue DO Work Phone: Start: 07-15-2023 Plain chest X-ray Dr. Richar Josue Work Phone: Start: 07-14-2023 Plain chest X-ray Dr. Richar Josue Work Phone: Start: 04-28-2023 MRI of pelvis with contrast Dr. Neptali Josue Work Phone: Start: 03-29-2023 Positron emission tomography with computed tomography Dr. Neptali Josue Work Phone: Start: 11-22-2022 Computed tomography of abdomen and pelvis with contrast Start: 11-16-2022 Radionuclide whole b araseli bone study Start: 10-13-2022 MRI of pelvis with contrast Start: 07-02-2022 Plain x-ray of pelvi s and lower extremity Plan of Treatment Date Care Activity Detail Author Start: 10-29-2024 ambulatory Ambulatory Facility:[facility] Start: 07-23-2023 Blood chemistry [facility] Start: 07-22-2023 Blood chemistry [facility] Start: 07-21-2023 Blood chemistry [facility] Start: 07-20-2023 Blood chemistry [facility] Start: 07-19-2023 Blood chemistry [facility] Start: 07-18-2023 Blood chemistry [facility] Start: 07-17-2023 Electrocardiographic procedure [facility] Start: 07-17-2023 Blood chemistry [facility] Start: 07-16-2023 Patient discharge [facility] Start: 07-16-2023 Electrocardiographic procedure [facility] Start: 07-16-2023 Blood chemistry [facility] Start: 07-14-2023 Notification of physician [facility] Start: 07-14-2023 End: 07-14-2023 [facility] Start: 07-14-2023 Following clinical pathway protocol [facility] Start: 07-14-2023 Ambulation without limitation [facility] Start: 07-14-2023 Cardiac monitoring [facility] Start: 07-14-2023 Cardiac rehabilitation - phase 1 [facility] Start: 07-14-2023 Cardiac rehabilitation - phase 2 [facility] Start: 07-14-2023 Notification of physician [facility] Start: 07-14-2023 Oxygen therapy [facility] Start: 07-14-2023 Patient discharge [facility] Start: 07-14-2023 Taking patient vital signs [facility] Start: 07-14-2023 Vascular disease risk assessment [facility] Start: 07-14-2023 Vital signs measurements [facility] Start: 07-14-2023 [facility] Start: 07-14-2023 Admission procedure [facility] Start: 07-14-2023 Catheterization of left heart [facility] Start: 07-14-2023 Hospital admission, emergency, from emergency room, medical nature [facility] Start: 07-14-2023 [facility] Start: 07-14-2023 Plain chest X-ray Chest 1 View (Portable) [facility] Start: 07-14-2023 XR Chest Single view [facility] Start: 07-14-2023 Blood chemistry [facility] Start: 07-14-2023 Troponin I measurement [facility] Start: 07-14-2023 Patient referral [facility] Work Phone: Start: 07-14-2023 Patient referral to dietitian [facility] Start: 01-06-2023 Patient discharge [facility] Start: 01-05-2023 Following clinical pathway protocol [facility] Start: 01-05-2023 Application of intermittent pneumatic compression device [facility] Start: 01-05-2023 Deep breathing and coughing exercises [facility] Start: 01-05-2023 Incentive spirometry [facility] Start: 01-05-2023 Maintenance therapy [facility] Start: 01-05-2023 Measuring intake and output [facility] Start: 01-05-2023 Provision of activity privileges [facility] Start: 01-05-2023 Taking patient vital signs [facility] Start: 01-05-2023 Vital signs measurements [facility] Start: 01-05-2023 [facility] Start: 01-05-2023 Admission procedure [facility] Start: 01-05-2023 Anes xtrprtl lwr abd w/urinary tract rad prstect ANESTH REMOVAL OF PROSTATE [facility] Start: 01-05-2023 Cystolithotomy cystotomy w/rmvl calculus REMOVAL OF BLADDER STONE [facility] Start: 01-05-2023 Laps prostect retropubic rad w/nrv sparing robot LAPS SURG [id number] RPBIC RAD [facility] Anion gap measurement [facility] Anion gap measurement [facility] Anion gap measurement [facility] Anion gap measurement [facility] Anion gap measurement [facility] Anion gap measurement [facility] Anion gap measurement [facility] Anion gap measurement [facility] Anion gap measurement [facility] BUN/Creatinine ratio [facility] BUN/Creatinine ratio [facility] BUN/Creatinine ratio [facility] BUN/Creatinine ratio [facility] BUN/Creatinine ratio [facility] BUN/Creatinine ratio [facility] BUN/Creatinine ratio [facility] BUN/Creatinine ratio [facility] BUN/Creatinine ratio [facility] Calcium [Mass/volume ] in Serum or Plasma [facility] Calcium [Mass/volume ] in Serum or Plasma [facility] Calcium [Mass/volume ] in Serum or Plasma [facility] Calcium [Mass/volume ] in Serum or Plasma [facility] Calcium [Mass/volume ] in Serum or Plasma [facility] Calcium [Mass/volume ] in Serum or Plasma [facility] Calcium [Mass/volume ] in Serum or Plasma [facility] Calcium [Mass/volume ] in Serum or Plasma [facility] Calcium [Mass/volume ] in Serum or Plasma [facility] Carbon dioxide, tota l [Moles/volume] in Serum or Plasma [facility] Carbon dioxide, tota l [Moles/volume] in Serum or Plasma [facility] Carbon dioxide, tota l [Moles/volume] in Serum or Plasma [facility] Carbon dioxide, tota l [Moles/volume] in Serum or Plasma [facility] Carbon dioxide, tota l [Moles/volume] in Serum or Plasma [facility] Carbon dioxide, tota l [Moles/volume] in Serum or Plasma [facility] Carbon dioxide, tota l [Moles/volume] in Serum or Plasma [facility] Carbon dioxide, tota l [Moles/volume] in Serum or Plasma [facility] Carbon dioxide, tota l [Moles/volume] in Serum or Plasma [facility] Chloride [Moles/volu me] in Serum or Plasma [facility] Chloride [Moles/volu me] in Serum or Plasma [facility] Chloride [Moles/volu me] in Serum or Plasma [facility] Chloride [Moles/volu me] in Serum or Plasma [facility] Chloride [Moles/volu me] in Serum or Plasma [facility] Chloride [Moles/volu me] in Serum or Plasma [facility] Chloride [Moles/volu me] in Serum or Plasma [facility] Chloride [Moles/volu me] in Serum or Plasma [facility] Chloride [Moles/volu me] in Serum or Plasma [facility] Creatinine [Moles/vo lume] in Serum or Plasma [facility] Creatinine [Moles/vo lume] in Serum or Plasma [facility] Creatinine [Moles/vo lume] in Serum or Plasma [facility] Creatinine [Moles/vo lume] in Serum or Plasma [facility] Creatinine [Moles/vo lume] in Serum or Plasma [facility] Creatinine [Moles/vo lume] in Serum or Plasma [facility] Creatinine [Moles/vo lume] in Serum or Plasma [facility] Creatinine [Moles/vo lume] in Serum or Plasma [facility] Creatinine [Moles/vo lume] in Serum or Plasma [facility] Erythrocyte mean cor puscular volume determination [facility] Erythrocyte mean cor puscular volume determination [facility] Erythrocyte mean cor puscular volume determination [facility] Erythrocyte mean cor puscular volume determination [facility] Erythrocyte mean cor puscular volume determination [facility] Erythrocyte mean cor puscular volume determination [facility] Erythrocyte mean cor puscular volume determination [facility] Erythrocyte mean cor puscular volume determination [facility] Glucose [Mass/volume ] in Serum or Plasma [facility] Glucose [Mass/volume ] in Serum or Plasma [facility] Glucose [Mass/volume ] in Serum or Plasma [facility] Glucose [Mass/volume ] in Serum or Plasma [facility] Glucose [Mass/volume ] in Serum or Plasma [facility] Glucose [Mass/volume ] in Serum or Plasma [facility] Glucose [Mass/volume ] in Serum or Plasma [facility] Glucose [Mass/volume ] in Serum or Plasma [facility] Glucose [Mass/volume ] in Serum or Plasma [facility] Hematocrit [Volume F raction] of Blood [facility] Hematocrit [Volume F raction] of Blood [facility] Hematocrit [Volume F raction] of Blood [facility] Hematocrit [Volume F raction] of Blood [facility] Hematocrit [Volume F raction] of Blood [facility] Hematocrit [Volume F raction] of Blood [facility] Hematocrit [Volume F raction] of Blood [facility] Hematocrit [Volume F raction] of Blood [facility] Hemoglobin [Mass/vol ume] in Blood [facility] Hemoglobin [Mass/vol ume] in Blood [facility] Hemoglobin [Mass/vol ume] in Blood [facility] Hemoglobin [Mass/vol ume] in Blood [facility] Hemoglobin [Mass/vol ume] in Blood [facility] Hemoglobin [Mass/vol ume] in Blood [facility] Hemoglobin [Mass/vol ume] in Blood [facility] Hemoglobin [Mass/vol ume] in Blood [facility] Leukocytes [#/volume] in Blood [facility] Leukocytes [#/volume] in Blood [facility] Leukocytes [#/volume] in Blood [facility] Leukocytes [#/volume] in Blood [facility] Leukocytes [#/volume] in Blood [facility] Leukocytes [#/volume] in Blood [facility] [facility] Leukocytes [#/volume] in Blood [facility] Leukocytes [#/volume] in Blood [facility] Lipid 1996 panel - S stacy or Plasma [facility] Mean corpuscular hem oglobin concentration determination [facility] Mean corpuscular hem oglobin concentration determination [facility] Mean corpuscular hem oglobin concentration determination [facility] Mean corpuscular hem oglobin concentration determination [facility] Mean corpuscular hem oglobin concentration determination [facility] Mean corpuscular hem oglobin concentration determination [facility] Mean corpuscular hem oglobin concentration determination [facility] Mean corpuscular hem oglobin concentration determination [facility] Mean corpuscular hem oglobin determination [facility] Mean corpuscular hem oglobin determination [facility] Mean corpuscular hem oglobin determination [facility] Mean corpuscular hem oglobin determination [facility] Mean corpuscular hem oglobin determination [facility] Mean corpuscular hem oglobin determination [facility] Mean corpuscular hem oglobin determination [facility] Mean corpuscular hem oglobin determination [facility] Measurement of renal function [facility] Measurement of renal function [facility] Measurement of renal function [facility] Measurement of renal function [facility] Measurement of renal function [facility] Measurement of renal function [facility] Measurement of renal function [facility] Measurement of renal function [facility] Measurement of renal function [facility] Neutrophil count [facility] Neutrophil count [facility] Neutrophil count [facility] Neutrophil count [facility] Neutrophil count [facility] Neutrophil count [facility] Neutrophil count [facility] Neutrophil count [facility] Neutrophil percent d ifferential count [facility] Neutrophil percent d ifferential count [facility] Neutrophil percent d ifferential count [facility] Neutrophil percent d ifferential count [facility] Neutrophil percent d ifferential count [facility] Neutrophil percent d ifferential count [facility] Neutrophil percent d ifferential count [facility] Neutrophil percent d ifferential count [facility] NM Heart Views W str ess and W radionuclide IV [facility] Patient Education Heart Attack D c Exercising After a Heart Attack Heart Attack Meds Heart Attack: Leaving the Hospital Heart Attack: Back at Home [facility] Work Phone: Patient referral [facility] Work Phone: Platelets [#/volume] in Blood [facility] Platelets [#/volume] in Blood [facility] Platelets [#/volume] in Blood [facility] Platelets [#/volume] in Blood [facility] Platelets [#/volume] in Blood [facility] Platelets [#/volume] in Blood [facility] Platelets [#/volume] in Blood [facility] Platelets [#/volume] in Blood [facility] Potassium [Moles/vol ume] in Serum or Plasma [facility] Potassium [Moles/vol ume] in Serum or Plasma [facility] Potassium [Moles/vol ume] in Serum or Plasma [facility] Potassium [Moles/vol ume] in Serum or Plasma [facility] Potassium [Moles/vol ume] in Serum or Plasma [facility] Potassium [Moles/vol ume] in Serum or Plasma [facility] Potassium [Moles/vol ume] in Serum or Plasma [facility] Potassium [Moles/vol ume] in Serum or Plasma [facility] Potassium [Moles/vol ume] in Serum or Plasma [facility] Red blood cell count [facility] Red blood cell count [facility] Red blood cell count [facility] Red blood cell count [facility] Red blood cell count [facility] Red blood cell count [facility] Red blood cell count [facility] Red blood cell count [facility] Red cell distributio n width determination [facility] Red cell distributio n width determination [facility] Red cell distributio n width determination [facility] Red cell distributio n width determination [facility] Red cell distributio n width determination [facility] Red cell distributio n width determination [facility] Red cell distributio n width determination [facility] Red cell distributio n width determination [facility] Sodium [Moles/volume ] in Serum or Plasma [facility] Sodium [Moles/volume ] in Serum or Plasma [facility] Sodium [Moles/volume ] in Serum or Plasma [facility] Sodium [Moles/volume ] in Serum or Plasma [facility] Sodium [Moles/volume ] in Serum or Plasma [facility] Sodium [Moles/volume ] in Serum or Plasma [facility] Sodium [Moles/volume ] in Serum or Plasma [facility] Sodium [Moles/volume ] in Serum or Plasma [facility] Sodium [Moles/volume ] in Serum or Plasma [facility] Urea nitrogen [Mass/ volume] in Serum or Plasma [facility] Urea nitrogen [Mass/ volume] in Serum or Plasma [facility] Urea nitrogen [Mass/ volume] in Serum or Plasma [facility] Urea nitrogen [Mass/ volume] in Serum or Plasma [facility] Urea nitrogen [Mass/ volume] in Serum or Plasma [facility] Urea nitrogen [Mass/ volume] in Serum or Plasma [facility] Urea nitrogen [Mass/ volume] in Serum or Plasma [facility] Urea nitrogen [Mass/ volume] in Serum or Plasma [facility] Urea nitrogen [Mass/ volume] in Serum or Plasma [facility] Immunizations Immunization Date Immunization Notes Care Provider Fa cility 05-27-2020 [facility] 04-29-2020 Covid ([facility] Payers Date Payer Category Payer Self-pay [id number] 2023 Medicare [id number] 2023 Unknown [id number] 2015 Private Health Insurance CIGNA [id number] 2011 Private Health Insurance AETNA [id number] Unknown [id number] 2.16.8 40.1.308063.3.579.2.462 Unknown [id number] 2.16.8 40.1.113263.3.579.2.462 Unknown [id number] 2.16.8 40.1.063585.3.579.2.462 Unknown [id number] 2.16.8 40.1.441087.3.579.2.462 Unknown [id number] 2.16.8 40.1.406810.3.579.2.462 Unknown [id number] 2.16.8 40.1.694770.3.579.2.462 Unknown [id number] 2.16.8 40.1.555629.3.579.2.462 Unknown [id number] 2.16.8 40.1.680628.3.579.2.462 Unknown [id number] 2.16.8 40.1.968819.3.579.2.462 Unknown [id number] 2.16.8 40.1.797639.3.579.2.462 Unknown [id number] 2.16.8 40.1.069300.3.579.2.462 Unknown [id number] 2.16.8 40.1.320220.3.579.2.462 Unknown [id number] 2.16.8 40.1.511024.3.579.2.462 Unknown [id number] 2.16.8 40.1.015881.3.579.2.462 Unknown [id number] 2.16.8 40.1.405426.3.579.2.462 Unknown [id number] 2.16.8 40.1.443399.3.579.2.462 Unknown [id number] 2.16.8 40.1.580047.3.579.2.462 Unknown [id number] 2.16.8 40.1.354286.3.579.2.462 Unknown [id number] 2.16.8 40.1.718627.3.579.2.462 Unknown [id number] 2.16.8 40.1.055540.3.579.2.462 Unknown [id number] 2.16.8 40.1.104688.3.579.2.462 Unknown [id number] 2.16.8 40.1.086368.3.579.2.462 Unknown [id number] 2.16.8 40.1.356596.3.579.2.462 Unknown [id number] 2.16.8 40.1.667517.3.579.2.462 Unknown [id number] 2.16.8 40.1.537725.3.579.2.462 Unknown [id number] 2.16.8 40.1.033952.3.579.2.462 Unknown [id number] 2.16.8 40.1.361477.3.579.2.462 Unknown [id number] 2.16.8 40.1.040912.3.579.2.462 Unknown [id number] 2.16.8 40.1.852575.3.579.2.462 Unknown [id number] 2.16.8 40.1.331598.3.579.2.462 Unknown [id number] 2.16.8 40.1.335975.3.579.2.462 Unknown [id number] 2.16.8 40.1.371180.3.579.2.462 Unknown [id number] 2.16.8 40.1.934103.3.579.2.462 Unknown [id number] 2.16.8 40.1.062854.3.579.2.462 Unknown [id number] 2.16.8 40.1.270101.3.579.2.462 Social History Date Type Detail Facility Start: 12-02-2018 End: 08-03-2023 Tobacco smoking status MTIS Unknown if ever smoked [facility] Start: 1955 Sex Assigned At Male [facility] Start: 08-03-2023 Tobacco smoking stat us NHIS Never smoked tobacco (finding) [facility] Start: 07-05-2024 End: 07-24-2024 Sex Male (finding) [facility] Medical Equipment Procedure Code Equipment Code Equipment Origin al Text Equipment Identifier Dates BINDU,CANDISSHIRLEY CASAS FDA Start: 01-05-2023 BINDU,CANDISSHIRLEY DUARTESHIRLEY FDA Start: 01-05-2023 BINDU,CANDISSHIRLEY DUARTE FDA Start: 01-05-2023 BINDU,TYRON DUARTE FDA Start: 01-05-2023 Drug-eluting coronary artery stent, ajm-[id number] lymer-coated ()[id number] FDA Start: 07-14-2023 Drug-eluting coronary artery stent, ine-[id number]-at lymer-coated ()[id number] FDA Start: 07-14-2023 BINDU,CANDISSHIRLEY CASAS FDA Start: 01-05-2023 CLIP,TYRON [place] DUARTESHIRLEY FDA Start: 01-05-2023 BINDU,TYRON [place] DUARTESHIRLEY FDA Start: 01-05-2023 BINDU,TYRON [place] DUARTESHIRLEY FDA Start: 01-05-2023 CLIP,TYRON MCPHERSON GERALDSHIRLEY FDA Start: 01-05-2023 BINDU,TYRON MCPHERSON GERALDSHIRLEY FDA Start: 01-05-2023 BINDU,TYRON MCPHERSON GERALD FDA Start: 01-05-2023 Goals Date Patient Goal Desired Activity /State Functional Status Date Assessment Result Facility 07-16-2023 Functional status [facility] Work Phone: 07-15-2023 Functional status Assist with Urinal [facility] Work Phone: 01-06-2023 Functional status [facility] Work Phone: Mental Status Date Assessment Result Facility 07-16-2023 Cognitive function Voice/Name [facility] Work Phone: 07-15-2023 Cognitive function Voice/Name [facility] Work Phone: 07-14-2023 Cognitive function Voice/Name [facility] Work Phone: 01-06-2023 Cognitive function Voice/Name [facility] Work Phone: Clinical Notes 07-14-2023 to 09-25-2024 Note Date & Type Note Facility 09-25-2024 Progress note [facility] 09-25-2024 Progress note Note Date/Time September 25, 2024 9:28am [facility] [address] [place] [address] OFFICE VISIT Date of Service: 09/25/24 MR#: [id number] Acct: [id number] Name: CARYL THAKUR Rep #: [id number] : 1955 Provider: Dr. Genaro Jett MD Age/Sex: 69/M Location: [facility] Status: Signed HPI HPI History of Present Illness Details: This gentleman with history of anterior WY, status post percutaneous intervention to the LAD with DEBORAH, ischemic cardiomyopathy, LV apical thrombus, hypertension and dyslipidemia is here for follow-up visit. Denies any complaints. Denies any chest pains or shortness of breath. No palpitations. No orthopnea or PND. No ankle edema. He does complain of occasional epigastricburning sensation that lasts for few seconds only. Tolerating rivaroxaban well. Denies any bleeding issues. Tolerating atorvastatin well. Denies any muscle aches or pains. 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 Accompanied by: Self Is patient in pain?: No Allergies lisinopril Allergy (Unknown, Verified 09/25/24 08:59) Nausea Penicillins Allergy (Verified 09/25/24 08:59) Rash Medications ?Medication ?Instructions ?Recorded ?Confirmed ?Type lansoprazole 30 mg capsule,delayed 30 mg PO DAILY 11/1009/25/24 History release multivitamin (Daily Multi-Vitamin 1 tab PO DAILY 12/2109/25/24 History tablet) lutein 20 mg capsule 20 mg PO DAILY 03/24/2309/09 History leuprolide 7.5 mg (1 month) 7.5 mg subcut .Q12 weeks 0 08/02/23 09/25/24 History subcutaneous syringe (EliShiny Adsd) atorvastatin 80 mg tablet 40 mg (1/2 x 80 mg) PO QHS # 90 tabs 01/31/24 09/25/24 Rx evolocumab 140 mg/mL subcutaneous 140 mg subcut Q2W #2 mL 01/31/24 09/25/24 Rx pen injector (Meghana Nunez) dapagliflozin propanediol 10 mg 10 mg PO QAM #90 tabs 02/08/24 09/25/24 Rx tablet (Farxiga) rivaroxaban 20 mg tablet (Xarelto) 20 mg PO QDAY #60 t abs 07/19/24 09/25/24 Rx clopidogrel 75 mg tablet 75 mg PO DAILY #90 tabs 08/0909/25/24 Rx furosemide 40 mg tablet 40 mg PO DAILY #90 tabs 08/0909/25/24 Rx metoprolol succinate 25 mg 25 mg PO DAILY #90 tabs 09/25/24 Rx tablet,extended release 24 hr spironolactone 25 mg tablet 12.5 mg (1/2 x 25 mg) PO D AILY #45 09/19/24 09/25/24 Rx tabs sacubitril 49 mg-valsartan 51 mg 1 tab PO BID #180 tab s 09/20/24 09/25/24 Rx tablet Have you fallen in the past year?: No PFSH Medical History Arthritis Cancer Colitis Coronary artery disease Gastric reflux History of hiatal hernia History of stress test Hypertension Hypertension Kidney stone Left ventricular apical thrombus following [place] Left ventricular systolic dysfunction (LVSD) Non-smoker Prostate cancer ST elevation (STEMI) myocardial infarction (~07/14/23) Wears glasses Surgical History Hx of cardiac catheterization (~07/14/23) Hx of surgical procedure Stented coronary artery (07/14/23) Family History Father Myocardial infarction Mother Cancer Social History Smoking Status: Never smoker alcohol intake: never substance use type: does not use ROS Const Const: Positive for fatigue and weakness; Negative for headache(s) or weight gain ENT ENT: Negative for headache(s), dizziness, Nosebleed/epistaxis or balance problems Cardio Chest Pain: Yes Frequency: weekly Character: other (pressure/burning) Onset: at rest Location: epigastric and mid sternal Duration: minutes (2-3mins) Palpitations: No Edema: None Muscle aches with walking: None Resp Respiratory: Negative for SOB with activity, SOB at rest or SOB orthopneaundefinedSOB lying down GI GI: Positive for heartburn; Negative nausea or vomiting Musc Musc: Positive for muscle aches/ myalgia (BLE in AM) and muscle weakness (BLE [place]); Negative for joint pain or balance problems Neuro Neuro: Positive for weakness; Negative for dizziness, lightheadedness, near syncope, syncope or headache(s) Endo Endo: Positive for fatigue Cardiology Exam Const Appearance: comfortable and no acute distress Nutritional Appearance: well nourished Neck Neck: no JVD Carotids: Negative bruit Chest Auscultation: Bilateral: Clear to Auscultation Cardio Rate: regular rate Rhythm: regular rhythm Heart sounds: S1 normal and S2 normal Neuro General: patient alert, patient awake and patient oriented x3 Extremities Lower Extremity Edema: None: Bilateral Supplemental Info Supplemental Information Echo Complete w/Contrast 07/18/2024 Interpretation Summary LV apical thrombus. 1.2 x 1.2 cm. As compared to previous study from 02/08/2024,the clot size has significantly decreased. The left atrium is mildly enlarged. Mild (1+) mitral valve insufficiency. Mildly dilated aortic root. Severe anterior septal hypokinesis to akinesis. Estimated LVEF 35%. Stage I diastolic dysfunction. Echocardiogram 02/08/2024: Interpretation Summary Anterior septal and apical severe hypokinesis to akinesis. An approximately 2 x 2 cm pedunculated apical thrombus noted. LVEF estimated at 35%. Echocardiogram 11/02/2023: Interpretation Summary Anterior and apical akinesis. Estimated LVEF 35 to 40%. No LV thrombus noted. Mild mitral annular calcification. Mild diffuse aortic valve thickening. Echocardiogram 07/14/2023: Interpretation Summary There is a large sized apical, septal, and anteroseptal wall motion abnormality with hypokinesis to akinesis of the segments. The left ventricular ejection fraction is 45 %. Cannot exclude small apical LV thrombus. Mild (1+) mitral valve insufficiency. Mild tricuspid valve insufficiency. Right ventricular systolic pressure estimated to be 54 mmHg. Cardiac catheterization 07/14/2023: CONCLUSIONS 100% Prox LAD 70% Prox OM1 60% Prox, 70% distal RCA LVEF 35-40%. Apical akinesis Successful PTCA/DEBORAH Prox LAD using [place] 3.0x26 mm, optimized proximally using 3.5 mm balloon Successful DEBORAH Mid LAD using [place] 3.0x8 mm Stress Test Report 07/18/2024: Procedure: Pharmacologic stress nuclear imaging study Indications: Coronary artery disease Consent: Per the patient Procedure: The patient underwent pharmacologic (Regadenoson 0.4mg ) evaluation with a peak heart rate of 76 beats per minute (50%predicted maximal heart rate) and a peak blood pressure of 110/68 mmHg. The baseline ECG demonstrated sinus rhythm. The peak pharmacologic ECG no ischemic change. There were no cardiac dysrhythmias pretest, during pharmacologic infusion, or recovery. There was no complaint of chest discomfort during pharmacologic infusion or recovery. The patient was injected with 11.5 millicuries of technetium 99m Cardiolite and subsequently rest SPECT Cardiolite nuclear imaging was obtained in the horizontal long, vertical long, and short axis views. The patient underwent pharmacologic (Regadenoson) evaluation. The patient was injected with 36.0 millicuries of technetium 99m Cardiolite and subsequently stress SPECT Cardiolite nuclear imaging was obtained in the horizontal long, vertical long, and short axis views. A gated Cardiolite study at peak stress was obtained. The examination was stopped secondary to completion of protocol. Rest and stress SPECT Cardiolite nuclear imaging status post realignment, normalization, and attenuation correction demonstrate large fixed perfusion defect of the anterior wall, apex and apical inferior wall compatible with priorinfarct. No significant sarah-infarct ischemia. Anterior and apical severe hypokinesis to akinesis. The reported LVEF is 34%. Impression: 1. Pharmacologic (Regadenoson) evaluation 2. Peak pharmacologic ECG with no ischemic changes. 3. There were no cardiac dysrhythmias pretest, during pharmacologic infusion, or recovery. 5. Large anterior, apical and inferior apical fixed defect compatible with prior infarct. 6. The gated Cardiolite study reports an LVEF of 34%. Stress Test 12/27/2023: Impression: 1. Technically adequate (percent predicted maximal heart rate greater than 85%)exercise tolerance test 2. Peak exercise ECG 3. There were no cardiac dysrhythmias pretest, during exercise, or recovery 4. Rest and stress SPECT Cardiolite nuclear imaging demonstrate prior anterior apical infarct with minimal sarah-infarct ischemia. 5. The gated Cardiolite study reports an LVEF of 39%. Assessment and Plan Assessment and Plan (1) Coronary artery disease: Status: Chronic Comment: Status post anterior WY. Status post DEBORAH to the proximal and mid LAD. Plan: Recent Lexiscan stress Myoview negative for ischemia. As it has been more than 1 year since his percutaneous intervention with DEBORAH to the proximal LAD, DC clopidogrel. Start enteric-coated aspirin 81 mg daily. On rivaroxaban for LV apical thrombus. Continue beta-blockers. Risk factor modification. (2) Stented coronary artery: Status: Chronic Comment: PTCA/DEBORAH Prox LAD using [place] 3.0x26 mm and DEBORAH Mid LAD using [place] 3.0x 8 mm 07/14/23 Plan: DC clopidogrel. Enteric-coated aspirin 81 mg daily. Rivaroxaban. 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 For lifelong anticoagulation as patient had recurrence of his LV apical thrombus after his anticoagulation was discontinued. Will repeat limited 2D echo to evaluate for persistence of thrombus versus resorption. (4) Ischemic cardiomyopathy: Status: Chronic Plan: Beta-blockers, dapagliflozin, spironolactone. Increase Entresto to 97/103 mg twice daily. Refer to EP for evaluation for ICD. (5) Hypertension: Status: Chronic Plan: Beta-blockers, Entresto, spironolactone. (6) Dyslipidemia: Status: Chronic Plan: Decrease atorvastatin to 20 mg daily. Repeat lipid profile in 3 months. Plan Details Follow Up: 6 Months Coding Level of Care Code Off vis,est,level 4 Diagnoses Coronary artery disease I25.10 Stented coronary artery Z95.5 Left ventricular apical thrombus following [place] I23.6 Ischemic cardiomyopathy I25.5 Hypertension I10 Dyslipidemia E78.5 Coding Level of Care Code Off vis,est,level 4 Diagnoses Coronary artery disease I25.10 Stented coronary artery Z95.5 Left ventricular apical thrombus following [place] I23.6 Ischemic cardiomyopathy I25.5 Hypertension I10 Dyslipidemia E78.5 Clinical Quality Measures Falls Risk Screening/Assistive Devices Have you fallen in the past year?: No 09/25/24 0928 <Electronically signed by Kristin Jett MD> Date _ Kristin Jett MD Cosigner Signature: Date (if applicable) CC: Dr. Neptali Josue, DO ~ [employer] Work Phone: 1(906) 300-298303-17-2025 Evaluation note* Diagnosis Onset Date Resolution Status Admit Date Coronary artery disease chronic M arch 2024 1:51pm Dyslipidemia chronic June 25, 2024 1:51pm Hypertension chronic June 25, 2024 1:51pm Ischemic cardiomyopathy chronic M arch 2024 1:51pm Left ventricular apical thrombus following [place] chronic June 1:51pm Stented coronary artery July 14, 2023 chronic June 25, 2024 1:51pm 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 A pril 2024 2:01pm Coronary artery disease chronic J une 2024 8:53am Dyslipidemia chronic September 25, 025 8:53am Hypertension chronic September 25 025 8:53am Ischemic cardiomyopathy chronic J une 2024 8:53am Left ventricular apical thrombus following [place] chronic September 25, 2024 8:53am Stented coronary artery July 14, 2023 chronic September 25, 2024 8:53am [facility] Work Phone: [phone]) 124-215601-17-2025 Evaluation note* Diagnosis Onset Date Resolution Status Admit Date Acute upper respiratory infection acute April 27 9:27am Coronary artery disease chronic M arch 2024 1:51pm Dyslipidemia chronic June 25, 2024 1:51pm Hypertension chronic June 25, 2024 1:51pm Ischemic cardiomyopathy chronic M arch 2024 1:51pm Left ventricular apical thrombus following [place] chronic June 1:51pm Stented coronary artery July 14, 2023 chronic June 25, 2024 1:51pm [facility] Work Phone: [phone]) 643-843104-06-2024 Progress note Author Kristin Jett [facility] July 16, 2023 10:09am Note Date/Time July 16, 2023 10:0 9am [facility] Medical Records Department [address] [place] [address] Progress Note - Cardiology 07/16/23 1004 MR#: [id number] Acct: [id number] Name: CARYL THAKUR Rep #:[id number] : 1955 67 From: Kristin Jett MD PCP: Dr. Neptali Josue, DO Status:ADM IN Location: ICU ICU03-1 Subjective Subjective Feels good. Denies any chest pains or shortness of breath. No palpitations. No orthopnea or PND. Objective Data Vital Signs: Vital Signs Temp Pulse Resp BP Pulse Ox O2 Del Method O2 Flow Rate 98 F 73 25 H 103/68 94 Room Air 1 07/16/23 04:00 07/16/23 08:00 07/16/23 07:00 07/16/23 08:00 07/16/23 07:00 07/16/23 07:00 07/15/23 21:00 Oxygen Flow Rate (L/min) 1 Oxygen Delivery Method Room Air Weight: 179 lb 10.828 oz Body Mass Index (BMI) 28.2 Intake & Output: Intake and Output for Last 24 Hours 07/14/23 07/15/23 07/16/23 23:59 23:59 23:59 Intake Total 1345.2 / 1345.2 1000 / 1000 Output Total 550 / 550 2250 / 2250 600 / 600 Balance 795.2 / 795.2 -1250 / -1250 -600 / -600 Lab / Micro Data 07/16/23 05:20 07/16/23 05:20 Labs: Laboratory Results - last 24 hr 07/15/23 04:00: WBC 12.7 H, RBC 4.40 L, Hgb 13.2, Hct 38.2 L, MCV 86.8, MCH 30.0, MCHC 34.6, RDW Std Deviation 44.8 H, RDW Coeff of Alvaro 14.5, Plt Count 200,MPV 9.6, B-Natriuretic Peptide 117.0 H 07/16/23 05:20: WBC 9.6, RBC 4.03 L, Hgb 12.1 L, Hct 35.1 L, MCV 87.1, MCH 30.0,MCHC 34.5, RDW Std Deviation 45.1 H, RDW Coeff of Alvaro 14.4, Plt Count 153, MPV 9.5, Immature Gran % (Auto) 0.400, Neut % (Auto) 78.4 H, Lymph % (Auto) 8.3 L, Ralls % (Auto) 12.0 H, Eos % (Auto) 0.7, Baso % (Auto) 0.2, Absolute Neuts (auto)7.5, Absolute Lymphs (auto) 0.79 L, Nucleated RBC % 0, Sodium 140, Potassium 3.5, Chloride 109 H, Carbon Dioxide 26.0, Anion Gap 5, BUN 13, Creatinine 0.90, Estim Creat Clear Calc 81.40, Est GFR (MDRD) Af Amer 108, Est GFR (MDRD) Non-Af 89, BUN/Creatinine Ratio 14.4, Glucose 114 H, Calcium 8.0 L Cardiology Labs/Tests 07/15/23 04:00: WBC 12.7 H, RBC 4.40 L, Hgb 13.2, Hct 38.2 L, MCV 86.8, MCH 30.0, MCHC 34.6, Plt Count 200, MPV 9.6, B-Natriuretic Peptide 117.0 H 07/16/23 05:20: WBC 9.6, RBC 4.03 L, Hgb 12.1 L, Hct 35.1 L, MCV 87.1, MCH 30.0,MCHC 34.5, Plt Count 153, MPV 9.5, Immature Gran % (Auto) 0.400, Neut % (Auto) 78.4 H, Lymph % (Auto) 8.3 L, Ralls % (Auto) 12.0 H, Eos % (Auto) 0.7, Baso % (Auto) 0.2, Absolute Neuts (auto) 7.5, Nucleated RBC % 0, Sodium 140, Potassium 3.5, Chloride 109 H, Carbon Dioxide 26.0, Anion Gap 5, BUN 13, Creatinine 0.90, Est GFR (MDRD) Af Amer 108, Est GFR (MDRD) Non-Af 89, BUN/Creatinine Ratio 14.4,Glucose 114 H, Calcium 8.0 L Rhythm: EKG: ECG with evolutionary changes from his anterior WY. ECHO: Stress Test: Cardiac Cath: PCI: CT Surgery: Holter monitor: EPS: PPM: CXR: Chest CT Scan: Radiography Diagnostic Testing: Radiology Impression Echocardiogram 07/14/23 18:40 Interpretation Summary There is a large sized apical, septal, and anteroseptal wall motion abnormality with hypokinesis to akinesis of the segments. The left ventricular ejection fraction is 45 %. Cannot exclude small apical LV thrombus. Mild (1+) mitral valve insufficiency. Mild tricuspid valve insufficiency. Right ventricular systolic pressure estimated to be 54 mmHg. Ordering Physician: Kristin Jett Referring Physician: Neptali Josue Performed By: Huey Avelar RCS Chest X-Ray 07/15/23 09:35 IMPRESSION: Early right upper lobe infiltrate. Electronically Signed: Varinder Maurice MD at 10:12 EDT , Assessment & Plan Assessment/Plan (1) ST elevation (STEMI) myocardial infarction: QUALIFIERS: Involved coronary artery: LAD coronary artery Qualified Code(s): I21.02 - ST elevation (STEMI) myocardial infarction involvingleft anterior descending coronary artery PLAN: Status post drug-eluting stents to the proximal and mid LAD. Stable. Continue clopidogrel. Started on apixaban for possible LV apical thrombus. (2) Coronary artery disease: PLAN: See #1 above. Apixaban, clopidogrel, beta-blockers, ARB, statins and nitrates (3) Left ventricular apical thrombus following [place]: PLAN: Possible LV apical thrombus with apical akinesis. Started on apixaban. Discussed with patient. Risks benefits of apixaban explained. Understands and agrees. (4) Left ventricular systolic dysfunction (LVSD): PLAN: Apical akinesis on echocardiogram. Overall left ventricular systolic ejection fraction estimated at 45%. Beta-blockers. Changed to metoprolol extended release 25 mg once daily. Continue losartan. Start on Aldactone. (5) Hypertension: PLAN: Beta-blockers, ARB, nitrates, Aldactone (6) Prostate cancer: PLAN: As per oncology. PLAN: Plan Monitor blood pressure after first dose of Aldactone. If no significant drop inblood pressure, may discharge home later today. Recommend checking basic metabolic panel in 2 to 3 days. Follow-up in the office in 2 to 3 weeks. 07/16/23 1009 <Electronically signed by Kristin Jett MD> Cosigner Signature (if applicable): CC: ~ Signed [facility] Work Phone: [phone]) 443-258204-05-2024 Progress note Author Meredith Sosa [facility] July 15, 2023 3:25pm Note Date/Time July 15, 2023 2:50 pm [facility] Medical Records Department [address] [place] [id number] Progress Note 07/15/23 1439 MR#: [id number] Acct: [id number] Name: CARYL THAKUR Rep #:[id number] : 1955 67 From: Meredith Sosa MD PCP: Dr. Neptali Josue, DO Status:ADM IN Location: ICU ICU03-1 Subjective Subjective Patient seen and examined. HE still complained of mild chest pain. He denied anyfever, chills, nausea, vomiting or any other symptoms. He had a stent inserted. Review of systems is otherwise negative. Review of systems is otherwise negative. Objective Data Objective Data Vital Signs: Vital Signs Temp Pulse Resp BP Pulse Ox O2 Del Method O2 Flow Rate 97.7 F L 69 14 95/63 96 Nasal Cannula 3 07/15/23 10:00 07/15/23 12:00 07/15/23 12:00 07/15/23 12:00 07/15/23 12:00 07/15/23 12:00 07/15/23 12:00 Oxygen Flow Rate (L/min) 3 Oxygen Delivery Method Nasal Cannula Weight: 180 lb 8.937 oz Body Mass Index (BMI) 28.3 Intake & Output: Intake and Output for Last 24 Hours 07/13/23 07/14/23 07/15/23 23:59 23:59 23:59 Intake Total 1345.2 / 1345.2 1000 / 1000 Output Total 550 / 550 950 / 950 Balance 795.2 / 795.2 50 / 50 Lab / Micro Data 07/15/23 04:00 07/15/23 04:00 Labs: Laboratory Results - last 24 hr 07/14/23 16:25: WBC 7.6, RBC 4.97, Hgb 14.8, Hct 42.7, MCV 85.9, MCH 29.8, MCHC 34.7, RDW Std Deviation 42.5, RDW Coeff of Alvaro 13.9, Plt Count 228, MPV 9.4, Immature Gran % (Auto) 0.400, Neut % (Auto) 41.9 L, Lymph % (Auto) 40.2, Ralls % (Auto) 11.4 H, Eos % (Auto) 5.4 H, Baso % (Auto) 0.7, Absolute Neuts (auto) 3.2,Absolute Lymphs (auto) 3.06, Nucleated RBC % 0, PT 13.0, INR 1.0, APTT 23.3 L, Sodium 141, Potassium 3.0 L, Chloride 109 H, Carbon Dioxide 23.0, Anion Gap 9, BUN 11, Creatinine 1.07, Estim Creat Clear Calc 70.78, Est GFR (MDRD) Af Amer 88, Est GFR (MDRD) Non-Af 73, BUN/Creatinine Ratio 10.3, Glucose 123 H, Calcium 9.5, Phosphorus 2.8, Magnesium 2.2, Troponin I High Sens 7 07/14/23 17:17: Activated Clotting Time 163 H 07/14/23 18:05: Activated Clotting Time 239 H 07/15/23 04:00: WBC 12.7 H, RBC 4.40 L, Hgb 13.2, Hct 38.2 L, MCV 86.8, MCH 30.0, MCHC 34.6, RDW Std Deviation 44.8 H, RDW Coeff of Alvaro 14.5, Plt Count 200,MPV 9.6, Sodium 142, Potassium 4.1, Chloride 110 H, Carbon Dioxide 23.0, Anion Gap 9, BUN 12, Creatinine 1.08, Estim Creat Clear Calc 67.99, Est GFR (MDRD) Af Amer 88, Est GFR (MDRD) Non-Af 72, BUN/Creatinine Ratio 11.1, Glucose 134 H, Calcium 8.5, Total Bilirubin 0.80, AST 929 H, ALT 114 H, Alkaline Phosphatase 64, B-Natriuretic Peptide 117.0 H, Total Protein 6.2 L, Albumin 3.0 L, Globulin 3.2, Albumin/Globulin Ratio 0.9 Radiography Diagnostic Testing: Radiology Impression Chest X-Ray 07/14/23 16:40 IMPRESSION: No radiographic evidence of acute cardiopulmonary disease. Electronically Signed: Noah Donovan MD at 17:29 EDT Reading Location ID and State: [facility] / [place] , Service support , Echocardiogram 07/14/23 18:40 Interpretation Summary There is a large sized apical, septal, and anteroseptal wall motion abnormality with hypokinesis to akinesis of the segments. The left ventricular ejection fraction is 45 %. Cannot exclude small apical LV thrombus. Mild (1+) mitral valve insufficiency. Mild tricuspid valve insufficiency. Right ventricular systolic pressure estimated to be 54 mmHg. Ordering Physician: Kristin Jett Referring Physician: Neptali Josue Performed By: Huey Avelar RCS Chest X-Ray 07/15/23 09:35 IMPRESSION: Early right upper lobe infiltrate. Electronically Signed: Varinder Maurice MD at 10:12 EDT , Physical Exam Const alert, oriented x3 and well nourished General Appearance: cooperative and well developed HEENT normocephalic, head/scalp atraumatic, moist oral mucous membranes and oropharynxnormal Eyes PERRL and EOMs intact bilaterally Neck no lymphadenopathy and supple Lymph Lymphatic: no lymphadenopathy noted and no lymphedema noted Resp normal respiratory effort, normal air movement and clear to auscultation bilaterally Cardio regular rate, regular rhythm, S1 normal heart sound, S2 normal heart sound and no murmurs GI normal to inspection, nondistended, normoactive bowel sounds, soft to palpation and non-tender Extremity normal capillary refill, no clubbing, cyanosis or edema and no calf tenderness General Extremity: no tenderness to palpation of joints or extremities Skin General Skin Exam: no breakdown Neuro CN's II-XII intact bilaterally, no focal motor deficits, no sensory deficits noted and deep tendon reflexes 2+ bilaterally Motor Exam: strength 5/5 throughout and general weakness Psych thought process normal, cooperative and affect normal Appearance: appropriate Assessment & Plan Assessment/Plan (1) Coronary artery disease: (2) Hypertension: (3) ST elevation (STEMI) myocardial infarction: QUALIFIERS: Involved coronary artery: LAD coronary artery Qualified Code(s): I21.02 - ST elevation (STEMI) myocardial infarction involvingleft anterior descending coronary artery PLAN: Plan #STEMI * admitted with a complaint of chest pain. He was found to have STEMI * on aspirin, metoprolol and high intensity statin. * he had cardiac cath with PCI to proximal and mid LAD and DEBORAH. * on metoprolol and losartan. * 2D echo ordered: * cardiology on board. 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 #Prostate cancer s/p radiation: Stable. Hypertension: On amlodipine and losartan. #DVT prophylaxis: on eliquis Disposition: for likely dc tomorrow. Charges/Coding Visit Charges Inpatient E&M: 82939 Subs Hosp L2 07/15/23 1525 <Electronically signed by Meredith Sosa MD> Meredith Sosa MD Cosigner Signature (if applicable): CC: ~ Signed [facility] Work Phone: [phone]) [phone] Progress note Author [facility] July 15, 2023 10:35am Note Date/Time July 15, 2023 10:3 5am [facility] Medical Records Department [address] [place] [address] Progress Note 07/15/23 103 MR#: [id number] Acct: [id number] Name: CARYL THAKUR Rep #:[id number] : 1955 67 From: Kristin Jett MD PCP: Dr. Neptali Josue, DO Status:ADM IN Location: ICU ICU03-1 Progress Note Possible small LV apical thrombus on echocardiogram. Will start on apixaban. 07/15/23 1035 <Electronically signed by Kristin Jett MD> Kristin Jett MD Cosigner Signature (if applicable): CC: ~ Signed [facility] Work Phone: [phone] Progress note Author [facility]in [facility] July 15, 2023 9:34am Note Date/Time July 15, 2023 9:34 am [facility] Medical Records Department [address] [place] [address] Progress Note - Cardiology 07/15/23 0931 MR#: [id number] Acct: [id number] Name: CARYL THAKUR Rep #:[id number] : 1955 67 From: Kristin Jett MD PCP: Dr. Neptali Josue, DO Status:ADM IN Location: ICU ICU03-1 Subjective Subjective Some chest pain overnight. Mild according to patient. No shortness of breath. Objective Data Vital Signs: Vital Signs Temp Pulse Resp BP Pulse Ox O2 Del Method O2 Flow Rate 97.8 F 73 15 108/72 93 Nasal Cannula 5 07/15/23 06:00 07/15/23 08:41 07/15/23 06:00 07/15/23 06:00 07/15/23 08:09 07/15/23 08:09 07/15/23 08:09 Oxygen Flow Rate (L/min) 5 Oxygen Delivery Method Nasal Cannula Weight: 180 lb 8.937 oz Body Mass Index (BMI) 28.3 Intake & Output: Intake and Output for Last 24 Hours 07/13/23 07/14/23 07/15/23 23:59 23:59 23:59 Intake Total 1345.2 / 1345.2 500 / 500 Output Total 550 / 550 950 / 950 Balance 795.2 / 795.2 -450 / -450 Lab / Micro Data 07/15/23 04:00 07/15/23 04:00 Labs: Laboratory Results - last 24 hr 07/14/23 16:25: WBC 7.6, RBC 4.97, Hgb 14.8, Hct 42.7, MCV 85.9, MCH 29.8, MCHC 34.7, RDW Std Deviation 42.5, RDW Coeff of Alvaro 13.9, Plt Count 228, MPV 9.4, Immature Gran % (Auto) 0.400, Neut % (Auto) 41.9 L, Lymph % (Auto) 40.2, Ralls % (Auto) 11.4 H, Eos % (Auto) 5.4 H, Baso % (Auto) 0.7, Absolute Neuts (auto) 3.2,Absolute Lymphs (auto) 3.06, Nucleated RBC % 0, PT 13.0, INR 1.0, APTT 23.3 L, Sodium 141, Potassium 3.0 L, Chloride 109 H, Carbon Dioxide 23.0, Anion Gap 9, BUN 11, Creatinine 1.07, Estim Creat Clear Calc 70.78, Est GFR (MDRD) Af Amer 88, Est GFR (MDRD) Non-Af 73, BUN/Creatinine Ratio 10.3, Glucose 123 H, Calcium 9.5, Phosphorus 2.8, Magnesium 2.2, Troponin I High Sens 7 07/14/23 17:17: Activated Clotting Time 163 H 07/14/23 18:05: Activated Clotting Time 239 H 07/15/23 04:00: WBC 12.7 H, RBC 4.40 L, Hgb 13.2, Hct 38.2 L, MCV 86.8, MCH 30.0, MCHC 34.6, RDW Std Deviation 44.8 H, RDW Coeff of Alvaro 14.5, Plt Count 200,MPV 9.6, Sodium 142, Potassium 4.1, Chloride 110 H, Carbon Dioxide 23.0, Anion Gap 9, BUN 12, Creatinine 1.08, Estim Creat Clear Calc 67.99, Est GFR (MDRD) Af Amer 88, Est GFR (MDRD) Non-Af 72, BUN/Creatinine Ratio 11.1, Glucose 134 H, Calcium 8.5, Total Bilirubin 0.80, AST 929 H, ALT 114 H, Alkaline Phosphatase 64, Total Protein 6.2 L, Albumin 3.0 L, Globulin 3.2, Albumin/Globulin Ratio 0.9 Cardiology Labs/Tests 07/14/23 16:25: WBC 7.6, RBC 4.97, Hgb 14.8, Hct 42.7, MCV 85.9, MCH 29.8, MCHC 34.7, Plt Count 228, MPV 9.4, Immature Gran % (Auto) 0.400, Neut % (Auto) 41.9 L, Lymph % (Auto) 40.2, Ralls % (Auto) 11.4 H, Eos % (Auto) 5.4 H, Baso % (Auto) 0.7, Absolute Neuts (auto) 3.2, Nucleated RBC % 0, PT 13.0, INR 1.0, APTT 23.3 L, Sodium 141, Potassium 3.0 L, Chloride 109 H, Carbon Dioxide 23.0, Anion Gap 9,BUN 11, Creatinine 1.07, Est GFR (MDRD) Af Amer 88, Est GFR (MDRD) Non-Af 73, BUN/Creatinine Ratio 10.3, Glucose 123 H, Calcium 9.5, Phosphorus 2.8, Magnesium2.2 07/15/23 04:00: WBC 12.7 H, RBC 4.40 L, Hgb 13.2, Hct 38.2 L, MCV 86.8, MCH 30.0, MCHC 34.6, Plt Count 200, MPV 9.6, Sodium 142, Potassium 4.1, Chloride 110H, Carbon Dioxide 23.0, Anion Gap 9, BUN 12, Creatinine 1.08, Est GFR (MDRD) Af Amer 88, Est GFR (MDRD) Non-Af 72, BUN/Creatinine Ratio 11.1, Glucose 134 H, Calcium 8.5, Total Bilirubin 0.80 Rhythm: EKG: Sinus rhythm. ST changes resolved. ECHO: Stress Test: Cardiac Cath: PCI: CT Surgery: Holter monitor: EPS: PPM: CXR: Chest CT Scan: Radiography Diagnostic Testing: Radiology Impression Chest X-Ray 07/14/23 16:40 IMPRESSION: No radiographic evidence of acute cardiopulmonary disease. Electronically Signed: Noah Donovan MD at 17:29 EDT Reading Location ID and State: [facility] [place] , Service support , Physical Exam Narrative Comfortable. Lying flat in the bed. No apparent distress. Heart sounds 1 and 2 normal. No murmurs or rubs noted. Chest clear to auscultation bilaterally. Alert oriented x 3. No ankle edema. Assessment & Plan Assessment/Plan (1) ST elevation (STEMI) myocardial infarction: QUALIFIERS: Involved coronary artery: LAD coronary artery Qualified Code(s): I21.02 - ST elevation (STEMI) myocardial infarction involvingleft anterior descending coronary artery PLAN: Patient was taken emergently to the cardiac catheterization lab. Coronaryangiography revealed totally occluded proximal LAD. Successful revascularization was performed with balloon angioplasty and drug-eluting stent to the proximal LAD. Also noted to have about 70% lesion in the mid LAD. That was also intervened upon with a drug-eluting stent. Excellent results were noted. Continue aspirin lifelong. Brilinta for at least 1 year. Residual chest discomfort. Apical LAD was totally occluded with no reflow. Also slow flow in the diagonal branch. Start on nitrates. (2) Coronary artery disease: PLAN: See #1 above. Aspirin, ticagrelor, beta-blockers, ACEI. Statins. (3) Hypertension: PLAN: Beta-blockers, VAISHNAVI inhibitors. (4) Prostate cancer: PLAN: As per oncology. 07/15/23 0934 <Electronically signed by Kristin Jett MD> Cosigner Signature (if applicable): CC: ~ Signed [facility] Work Phone: [phone] Discharge summary Author Yared Whaley [facility] July 14, 2023 10:29pm Note Date/Time July 14, 2023 5:05 pm [facility] Medical Records Department [address] [place] [address] Emergency Department Summary 07/14/23 MR#: [id number] Acct: [id number] Name: CARYL THAKUR Rep #:[id number] : 1955 67 From: Yared Matthews PCP: Dr. Neptali Josue, DO Status:ADM IN Location: ICU ICU03-1 HPI History of Present Illness Chief Complaint: Chest Pain Informant: patient and EMS Narrative Narrative: 67-year-old male presenting to the emergency room as a prehospital STEMI. Patient Ch[employer]le for lunch. He was at [employer] with a friend when he had a sudden onset of chest pain in the center of his chest. He notes diaphoresis andshortness of breath. Prehospital EKG showed ST elevation anteriorly with inferior depression. He received aspirin Brilinta and 4000 units heparin. Fluid bolus was started as he was hypotensive. Nitroglycerin was held. He is got a history of prostate cancer treated last fall. Not currently undergoing treatment. Patient denies any known coronary artery disease. He does note a history of hypertension. [facility] Medical History Arthritis Cancer Colitis Gastric reflux History of hiatal hernia History of stress test Hypertension Kidney stone Non-smoker Wears glasses Home Medications lansoprazole 30 mg capsule,delayed release 30 mg PO DAILY 12/02/18 [History Last Taken 01/03/23] amlodipine 5 mg tablet 5 mg PO DAILY 12/21/22 [History Last Taken 01/03/23] multivitamin (Daily Multi-Vitamin tablet) 1 tab PO DAILY 12/21/22 [History Last Taken 01/03/23] lutein 20 mg capsule 20 mg PO DAILY 03/24/23 [History Last Taken Unknown] losartan 50 mg tablet 50 mg PO DAILY 05/25/23 [History Last Taken Unknown] aspirin 81 mg chewable tablet 1 tab PO DAILY 07/14/23 [History Last Taken Unknown] Allergy/AdvReac Type Severity Reaction Status Date / Time lisinopril Allergy Unknown Nausea Verified 07/14/23 16:39 Penicillins Allergy Rash Verified 07/14/23 16:39 Family History Father Myocardial infarction Mother Cancer Surgical History Hx of surgical procedure Social History Smoking Status: Never smoker alcohol intake: never substance use type: does not use ROS ROS ED ROS Narrative Patient appears in significant mount of pain. Constitutional Constitutional ED: Denies chills, fever(s) or weight loss Eyes Eyes: Denies change in vision or diplopia ENT ENT ED: Denies ear pain, rhinorrhea or sore throat Cardiovascular Cardiovascular: Reports chest pain; Denies orthopnea, palpitations or racing heartbeat Respiratory/Chest Respiratory/Chest: Reports dyspnea; Denies cough or orthopnea Gastrointestinal Gastrointestinal: Denies abdominal pain, diarrhea, nausea or vomiting Genitourinary Genitourinary ED: Denies dysuria, hematuria or urinary frequency Musculoskeletal Musculoskeletal: Denies arthralgias or myalgias Integumentary Reports other Details: Diaphoresis ; Denies abscess or rash Neurologic Neurologic: Denies headache(s) or weakness Psychiatric Psychiatric: Denies anxiety, depression, suicidal ideation or suicidal thoughts Endocrine Endocrinology: Denies polydipsia, polyphagia or polyuria Allergic/Immunologic Allergic/Immunologic ED: Denies mouth swelling, tongue swelling or urticaria EXAM Physical Exam Narrative Exam Narrative: Patient appears in pain Const Vital Signs: 07/14/23 16:39 07/14/23 16:39 07/14/23 16:46 Temperature Temperature Source Pulse Rate 48 L Respiratory Rate 18 18 Respiratory Effort Normal Non-Labored Blood Pressure 148/120 H 148/120 H Blood Pressure Mean 129 Pulse Ox Oxygen Delivery Method Nasal Cannula Oxygen Flow Rate (L/min) 2 07/14/23 16:48 07/14/23 16:45 07/14/23 16:47 Temperature 96 F L Temperature Source Temporal Pulse Rate 68 Respiratory Rate 22 H Respiratory Effort Blood Pressure 148/120 H 98/57 L Blood Pressure Mean 129 70 Pulse Ox 91 Oxygen Delivery Method Nasal Cannula Nasal Cannula Oxygen Flow Rate (L/min) 3 4 07/14/23 16:58 07/14/23 17:02 07/14/23 17:09 Temperature 96 F L Temperature Source Pulse Rate 67 66 Respiratory Rate 21 H 18 Respiratory Effort Blood Pressure 89/67 L 92/68 92/68 Blood Pressure Mean 74 76 76 Pulse Ox 96 95 Oxygen Delivery Method Nasal Cannula Oxygen Flow Rate (L/min) 4 Positive well nourished and well developed General Appearance ED: well developed HEENT Reports normocephalic, head/scalp atraumatic and moist mucous membranes Eyes PERRL and EOMs intact bilaterally Neck no lymphadenopathy, supple and no JVD Resp normal respiratory effort and clear to auscultation bilaterally Cardio regular rate, regular rhythm and no murmurs GI normal to inspection, nondistended, normoactive bowel sounds and non-tender Palpation: soft Back/Spine no CVA tenderness and normal ROM Extremity normal to inspection General Extremety ED: Negative for edema General Extremity: Negative for edema Neuro oriented x3 and CN's II-XII intact bilaterally Sensorium / Orientation: alert Motor Exam: strength 5/5 throughout Psych mental status grossly normal Mood & Affect: Negative for depressed or tearful Skin no rashes or lesions noted and no wounds Skin Narrative: Diaphoretic pale Heart Score History: Highly Suspicious ECG: Significant ST-Depression Age: >/= 65 years Risk Factors: 1 or 2 Risk Factors Score: 7 MDM MDM MDM Narrative Medical decision making narrative: Prehospital STEMI team was called. I met the patient in the resuscitation bay. Patient will fluid boluses were ordered. My independent interpretation of the chest x-ray is No acute process normal mediastinal silhouette. Patient receivedmorphine and Zofran for pain. I spoke with on-call interventionalists Dr. Jett. Blood work was ordered. [employer] P[employer]it[employer] Helper was ready patient was transferred to the [facility] P[employer]it[employer] [facility]. History & Record Review Discussion w/independent historian: EMS personnel, Patient and Significant other Lab Data Attestation: I reviewed the patient's lab results. Labs: Laboratory Results - last 24 hr 07/14/23 16:25 WBC 7.6 RBC 4.97 Hgb 14.8 Hct 42.7 MCV 85.9 MCH 29.8 MCHC 34.7 RDW Std Deviation 42.5 RDW Coeff of Alvaro 13.9 Plt Count 228 MPV 9.4 Immature Gran % (Auto) 0.400 Neut % (Auto) 41.9 L Lymph % (Auto) 40.2 Ralls % (Auto) 11.4 H Eos % (Auto) 5.4 H Baso % (Auto) 0.7 Absolute Neuts (auto) 3.2 Absolute Lymphs (auto) 3.06 Nucleated RBC % 0 PT 13.0 INR 1.0 APTT 23.3 L Sodium 141 Potassium 3.0 L Chloride 109 H Carbon Dioxide 23.0 Anion Gap 9 BUN 11 Creatinine 1.07 Estim Creat Clear Calc 70.78 Est GFR (MDRD) Af Amer 88 Est GFR (MDRD) Non-Af 73 BUN/Creatinine Ratio 10.3 Glucose 123 H Calcium 9.5 Troponin I High Sens 7 Radiography Diagnostic Testing: Clinical Impression(s) from Imaging Studies Chest X-Ray 07/14/23 16:40 IMPRESSION: No radiographic evidence of acute cardiopulmonary disease. Electronically Signed: Noah Donovan MD at 17:29 EDT Reading Location ID and State: [facility] / [place] , [place] , EKG Initial EKG: Attestation: I personally reviewed and interpreted this EKG as follows: Comments: Sinus bradycardia with a ventricular rate of 52 bpm. ConcerningST segments inferiorly and elevation anteriorly. Management Discussion w/another healthcare provider: Hospitalist and Patient Resource Coordinator (Dr. Jett) Critical Care Time Critical Care Time: Yes Critical care time (excluding procedures): Including time spent:, Discussing w/Patient &/or Family/Fireboat Operator, Discussing w/Consultants, Arranging Admission or Transfer, Performing Direct Patient Care at Bedside and - (20 minutes) Discharge Plan Dx/Rx/DC Orders Clinical Impression: ST elevation (STEMI) myocardial infarction, Hypertension Disposition Disposition: [facility] Care [facility] Discharge Date/Time: 07/14/23 17:14 What to do if you have Problems For any increased pain, shortness of breath, bleeding, nausea or vomiting, chestpain, or any unexpected problems, contact your Primary Care Provider. Call [facility] ([phone]) or report to the closest Emergency Room. Call 911 if necessary. 07/14/232228 <Electronically signed by Yared Whaley DO> Cosigner Signature (if applicable): CC: Dr. Neptali Josue DO ~ Signed [facility] Work Phone: [phone]) 269-194104-04-2024 History and physical note Author Alpesh Jackson [facility] July 14, 2023 9:52pm Note Date/Time July 14, 2023 5:17 pm [facility] Medical Records Department [address] [place] [address] H&P Exam - Hospitalist 07/14/23 1715 MR#: [id number] Acct: [id number] Name: CARYL THAKUR Rep #:[id number] : 1955 67 From: Alpesh Hoff PCP: Dr. Neptali Josue DO Status:ADM IN Location: ICU ICU03-1 HPI - General General Date of Admission: 07/14/23 Date of Service: 07/14/23 Chief Complaint: Chest pressure with prehospital STEMI alert HPI Narrative CARYL THAKUR, is a 67 M came to ED by EMS for prehospital STEMI alert. Prior to that patient was eating lunch at [employer] but did not feel well. After that, hewent to [employer] with his friend where he felt chest pressure/tightness at midsternal, localized without radiation, severe and acute in onset. Did not feel similar chest pain in the past although he had mild chest pain and [place] was ruled out. Patient also had associated shortness of breath, feeling dizzy and diaphoresis but no fainting or passing out. There was no aggravating or relieving factor. Patient states he does swimming for 20 minutes every day. Heis not a smoker. In ED, initially BP was 148/120, heart rate 48/min. Later on his blood pressuredropped to 98/57, 89/67 and 92/68. Most recent blood pressure is 115/82 and heart rate 69/min Prehospital EKG shows ST elevation in V1 to V4 with depressions in inferior leads.Repeat EKG in ED also shows ST elevation V1 to V4 and aVL with reciprocal ST depression in inferior leads, sinus bradycardia at 52 bpm. Prehospital STEMIalert was called and patient was taken to [facility] and he had urgent cardiac cath. Coronary angiogram showed totally occluded proximal LAD for which successful revascularization with PTCA/DEBORAH of the proximal LAD. 70% lesion found in the mid LAD. Also required PCI. Subsequently patient admitted to ICU. In ICU patient feels better but he complains of mild upper abdominal discomfort. Shortness of breath and chest pressure is relieved [facility] Medical History Arthritis Cancer Colitis Gastric reflux History of hiatal hernia History of stress test Hypertension Kidney stone Non-smoker Wears glasses Home Medications lansoprazole 30 mg capsule,delayed release 30 mg PO DAILY 12/02/18 [History Last Taken 01/03/23] amlodipine 5 mg tablet 5 mg PO DAILY 12/21/22 [History Last Taken 01/03/23] multivitamin (Daily Multi-Vitamin tablet) 1 tab PO DAILY 12/21/22 [History Last Taken 01/03/23] lutein 20 mg capsule 20 mg PO DAILY 03/24/23 [History Last Taken Unknown] losartan 50 mg tablet 50 mg PO DAILY 05/25/23 [History Last Taken Unknown] aspirin 81 mg chewable tablet 1 tab PO DAILY 07/14/23 [History Last Taken Unknown] Allergy/AdvReac Type Severity Reaction Status Date / Time lisinopril Allergy Unknown Nausea Verified 07/14/23 16:39 Penicillins Allergy Rash Verified 07/14/23 16:39 Family History Father Myocardial infarction Mother Cancer Surgical History Hx of surgical procedure Social History Smoking Status: Never smoker alcohol intake: never substance use type: does not use ROS ROS Narrative Constitutional: Reports fatigue and weakness. No fever. HEENT: Reports systems reviewed and no addt'l complaints, except as documented Respiratory/Chest: No COPD or chronic lung disease. Non-smoker. Respiratory discrimination CVS: As described in HPI Gastrointestinal: Sometimes he gets constipation and abdominal discomfort, chronic from prostate cancer radiation. 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 Denies coffee ground emesis, hematemesis or vomiting Genitourinary: History of prostate cancer status postradiation. Denies burning urination or new urinary tract symptoms Musculoskeletal: Denies acute joint pain or limited range of motion. No acute injury Neurologic: Denies seizure-like symptoms. skin: No ulcer. No rash Endocrinology: Reports systems reviewed and no addt'l complaints, except as documented Hematologic/Lymphatic: Reports systems reviewed and no addt'l complaints, exceptas documented Rest 14 ROS are negative except as mentioned in HPI Vital Signs Vital Signs Vital Signs: 07/14/23 16:39 07/14/23 16:39 07/14/23 16:46 Temperature Temperature Source Pulse Rate 48 L Respiratory Rate 18 18 Respiratory Effort Normal Non-Labored Blood Pressure 148/120 H 148/120 H Blood Pressure Mean 129 Pulse Ox Oxygen Delivery Method Nasal Cannula Oxygen Flow Rate (L/min) 2 07/14/23 16:48 07/14/23 16:45 07/14/23 16:47 Temperature 96 F L Temperature Source Temporal Pulse Rate 68 Respiratory Rate 22 H Respiratory Effort Blood Pressure 148/120 H 98/57 L Blood Pressure Mean 129 70 Pulse Ox 91 Oxygen Delivery Method Nasal Cannula Nasal Cannula Oxygen Flow Rate (L/min) 3 4 07/14/23 16:58 07/14/23 17:02 07/14/23 17:09 Temperature 96 F L Temperature Source Pulse Rate 67 66 Respiratory Rate 21 H 18 Respiratory Effort Blood Pressure 89/67 L 92/68 92/68 Blood Pressure Mean 74 76 76 Pulse Ox 96 95 Oxygen Delivery Method Nasal Cannula Oxygen Flow Rate (L/min) 4 Weight Weight: 193 lb 1.999 oz Body Mass Index (BMI) 30.2 Physical Exam Narrative General: Alert, Oriented x3, Cooperative HEENT: Atraumatic, PERRLA, EOMI, Normocephalic Oral: Oral mucosa dry. No Gingival or Mucosal Lesions/ Ulcerations Neck: Supple, No JVD, Negative Carotid Bruits Chest wall/Lungs: Air entry diminished in bilateral lung bases. No crepitation/rhonchi Cardiovascular: Regular rate, Regular Rhythm, Normal S1, Normal S2, No M/G/R Abdomen: Bowel Sounds Present/hypoactive, Soft, Non Tender, Non-Distended : No dysuria. No renal angle tenderness. No suprapubic tenderness. Extremities: No edema, Capillary Refill Less than 3 Seconds Skin: No rashes, No breakdown Musculoskeletal: No Tenderness to Palpation of Joints or Extremities Neurological: Cranial nerves II-XII grossly intact, DTR 2+/4. No acute focal neurological deficit. Psych/Mental Status: Flat affect. Results Lab / Micro Data 07/14/23 16:25 07/14/23 16:25 Labs: Laboratory Results - last 24 hr 07/14/23 16:25: WBC 7.6, RBC 4.97, Hgb 14.8, Hct 42.7, MCV 85.9, MCH 29.8, MCHC 34.7, RDW Std Deviation 42.5, RDW Coeff of Alvaro 13.9, Plt Count 228, MPV 9.4, Immature Gran % (Auto) 0.400, Neut % (Auto) 41.9 L, Lymph % (Auto) 40.2, Ralls % (Auto) 11.4 H, Eos % (Auto) 5.4 H, Baso % (Auto) 0.7, Absolute Neuts (auto) 3.2,Absolute Lymphs (auto) 3.06, Nucleated RBC % 0, PT 13.0, INR 1.0, APTT 23.3 L Assessment & Plan Assessment/Plan (1) ST elevation (STEMI) myocardial infarction: QUALIFIERS: Involved coronary artery: LAD coronary artery Qualified Code(s): I21.02 - ST elevation (STEMI) myocardial infarction involvingleft anterior descending coronary artery PLAN: Plan This is a 87-year-old gentleman being admitted for anterior wall STEMI. 1. Anterior wall STEMI: Patient had successful revascularization of proximal andmid LAD with PTCA/DEBORAH. Heart rate and blood pressure is stabilized. Patient onbaby aspirin, Integrilin drip, Brilinta, low-dose metoprolol and losartan and high intensity atorvastatin. 2D echo tomorrow a.m. fasting profile tomorrow AM. First troponin was normal. 2. Mild hypokalemia: Potassium replacement ordered. Serum magnesium and phosphorus ordered. 3. 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 Clinically abdomen is soft and nontender. 4. Prostate cancer status postradiation: Clinically seems in remission. 5. Hypertension: Home medication shows patient on amlodipine and losartan. He restarted on losartan low-dose 25 mg daily and metoprolol 12.5 mg twice daily. 6. DVT prophylaxis: Patient was on heparin drip prior to taken to [facility]. Currently on Integrilin. Lovenox 40 mg subcu daily after 24 hours of cardiac cath. Living will/advanced directive/end of life care: Patient does have living will or advanced directive. After discussion of benefits/risks procedures involved with full code, DNR CC arrest and DNR CC, the patient opted for full code. Patient does want artificial life support including intubation, tube feed, ventilator and/chest compression, central venous catheter, vasopressor and DC shock if needed Total time spent in [id number] encounter in discussion of advanced directive 17 minutes. Laboratory Results 07/14/23 16:25: WBC 7.6, RBC 4.97, Hgb 14.8, Hct 42.7, MCV 85.9, MCH 29.8, MCHC 34.7, RDW Std Deviation 42.5, RDW Coeff of Alvaro 13.9, Plt Count 228, MPV 9.4, Immature Gran % (Auto) 0.400, Neut % (Auto) 41.9 L, Lymph % (Auto) 40.2, Ralls % (Auto) 11.4 H, Eos % (Auto) 5.4 H, Baso % (Auto) 0.7, Absolute Neuts (auto) 3.2,Absolute Lymphs (auto) 3.06, Nucleated RBC % 0, PT 13.0, INR 1.0, APTT 23.3 L, Sodium 141, Potassium 3.0 L, Chloride 109 H, Carbon Dioxide 23.0, Anion Gap 9, BUN 11, Creatinine 1.07, Estim Creat Clear Calc 70.78, Est GFR (MDRD) Af Amer 88, Est GFR (MDRD) Non-Af 73, BUN/Creatinine Ratio 10.3, Glucose 123 H, Calcium 9.5, Troponin I High Sens 7 07/14/23 17:17: Activated Clotting Time 163 H 07/14/23 18:05: Activated Clotting Time 239 H Charges/Coding Visit Charges Inpatient E&M: 70524 Init Hosp L3 Procedures Hospitalists Procedures: 76935 Advncd Care Plan 30 Min 07/14/23 2152 <Electronically signed by Alpesh Jackson MD> Cosigner Signature (if applicable): CC: Dr. Neptali Josue DO; Dr. Alpesh Jackson MD~ Signed [facility] Work Phone: 1(292) 666-387104-04-2024 Consult note Author Kristin Jett [facility] July 14, 2023 6:19pm Note Date/Time July 14, 2023 6:19 pm [facility] Medical Records Department [address] [place] [address] Consultation - Cardiology 07/14/23 1815 MR#: [id number] Acct: [id number] Name: CARYL THAKUR Rep #:[id number] : 1955 67 From: Kristin Jett MD PCP: Dr. Neptali Josue, DO Status:ADM IN Location: ICU ICU03-1 Assessment & Plan Assessment/Plan (1) ST elevation (STEMI) myocardial infarction: PLAN: Patient was taken emergently to the cardiac catheterization lab. Coronaryangiography revealed totally occluded proximal LAD. Successful revascularization was performed with balloon angioplasty and drug-eluting stent to the proximal LAD. Also noted to have about 70% lesion in the mid LAD. That was also intervened upon with a drug-eluting stent. Excellent results were noted. Continue aspirin lifelong. Brilinta for at least 1 year. (2) Coronary artery disease: PLAN: See #1 above. Aspirin, ticagrelor, beta-blockers, ACEI. Statins. (3) Hypertension: PLAN: Beta-blockers, VAISHNAVI inhibitors. (4) Prostate cancer: PLAN: As per oncology. HPI Consult Data Date of Consult: 07/14/23 HPI Narrative Reason for Consultation: STEMI HPI Narrative: This gentleman has past medical history significant for hypertension and prostate cancer. He started having anterior chest discomfort early this evening. EMS was called. An EKG done in the field showed changes compatible with acute anterior myocardial infarction. Subsequently a STEMI alert was called. Patient denies any radiation of the discomfort to the arm neck or jaw. Denies any associated shortness of breath. Denies any previous history of cardiac disease. [facility] Medical History Arthritis Cancer Colitis Gastric reflux History of hiatal hernia History of stress test Hypertension Kidney stone Non-smoker Wears glasses Home Medications lansoprazole 30 mg capsule,delayed release 30 mg PO DAILY 12/02/18 [History Last Taken 01/03/23] amlodipine 5 mg tablet 5 mg PO DAILY 12/21/22 [History Last Taken 01/03/23] multivitamin (Daily Multi-Vitamin tablet) 1 tab PO DAILY 12/21/22 [History Last Taken 01/03/23] lutein 20 mg capsule 20 mg PO DAILY 03/24/23 [History Last Taken Unknown] losartan 50 mg tablet 50 mg PO DAILY 05/25/23 [History Last Taken Unknown] aspirin 81 mg chewable tablet 1 tab PO DAILY 07/14/23 [History Last Taken Unknown] Allergy/AdvReac Type Severity Reaction Status Date / Time lisinopril Allergy Unknown Nausea Verified 07/14/23 16:39 Penicillins Allergy Rash Verified 07/14/23 16:39 Family History Father Myocardial infarction Mother Cancer Surgical History Hx of surgical procedure Social History Smoking Status: Never smoker alcohol intake: never substance use type: does not use Physical Exam Narrative Appears moderately distressed. Heart sounds 1 and 2 are noted. Chest examination shows decreased breath sounds at bases. Alert oriented x 3. No ankle edema. Risk Stratification Risk Stratification Applicable: No Objective Data Vital Signs: Vital Signs Temp Pulse Resp BP Pulse Ox O2 Del Method O2 Flow Rate 96 F L 66 18 92/68 95 Nasal Cannula 4 07/14/23 17:02 07/14/23 17:02 07/14/23 17:02 07/14/23 17:09 07/14/23 17:02 07/14/23 16:58 07/14/23 16:58 Oxygen Flow Rate (L/min) 4 Oxygen Delivery Method Nasal Cannula Weight: 193 lb 1.999 oz Body Mass Index (BMI) 30.2 Intake & Output: Intake and Output for Last 24 Hours 07/12/23 07/13/23 07/14/23 23:59 23:59 23:59 Intake Total 66.6 / 66.6 Balance 66.6 / 66.6 Lab / Micro Data 07/14/23 16:25 07/14/23 16:25 Labs: Laboratory Results - last 24 hr 07/14/23 16:25: WBC 7.6, RBC 4.97, Hgb 14.8, Hct 42.7, MCV 85.9, MCH 29.8, MCHC 34.7, RDW Std Deviation 42.5, RDW Coeff of Alvaro 13.9, Plt Count 228, MPV 9.4, Immature Gran % (Auto) 0.400, Neut % (Auto) 41.9 L, Lymph % (Auto) 40.2, Ralls % (Auto) 11.4 H, Eos % (Auto) 5.4 H, Baso % (Auto) 0.7, Absolute Neuts (auto) 3.2,Absolute Lymphs (auto) 3.06, Nucleated RBC % 0, PT 13.0, INR 1.0, APTT 23.3 L, Sodium 141, Potassium 3.0 L, Chloride 109 H, Carbon Dioxide 23.0, Anion Gap 9, BUN 11, Creatinine 1.07, Estim Creat Clear Calc 70.78, Est GFR (MDRD) Af Amer 88, Est GFR (MDRD) Non-Af 73, BUN/Creatinine Ratio 10.3, Glucose 123 H, Calcium 9.5, Troponin I High Sens 7 Cardiology Labs/Tests 07/14/23 16:25: WBC 7.6, RBC 4.97, Hgb 14.8, Hct 42.7, MCV 85.9, MCH 29.8, MCHC 34.7, Plt Count 228, MPV 9.4, Immature Gran % (Auto) 0.400, Neut % (Auto) 41.9 L, Lymph % (Auto) 40.2, Ralls % (Auto) 11.4 H, Eos % (Auto) 5.4 H, Baso % (Auto) 0.7, Absolute Neuts (auto) 3.2, Nucleated RBC % 0, PT 13.0, INR 1.0, APTT 23.3 L, Sodium 141, Potassium 3.0 L, Chloride 109 H, Carbon Dioxide 23.0, Anion Gap 9,BUN 11, Creatinine 1.07, Est GFR (MDRD) Af Amer 88, Est GFR (MDRD) Non-Af 73, BUN/Creatinine Ratio 10.3, Glucose 123 H, Calcium 9.5 Rhythm: EKG: ECG done in the emergency room changes consistent with acute anterior ST elevation myocardial infarction. ECHO: Stress Test: Cardiac Cath: PCI: CT Surgery: Holter monitor: EPS: PPM: CXR: Chest CT Scan: Radiography Diagnostic Testing: Radiology Impression Chest X-Ray 07/14/23 16:40 IMPRESSION: No radiographic evidence of acute cardiopulmonary disease. Electronically Signed: Noah Donovan MD at 17:29 EDT Reading Location ID and State: [facility] / [place] , [facility] , 07/14/23 1819 <Electronically signed by Kristin Jett MD> Cosigner Signature (if applicable): CC: Dr. Kristin Jett MD; Dr. Neptali Josue DO~ Signed [facility] Work Phone: Discharge summary Author Meredith Sosa [facility] July 16, 2023 11:02am Note Date/Time July 16, 2023 10:2 7am [facility] Medical Records Department [address] [place] [address] Instructions for Home/Discharge Instructions 07/16/23 1024 MR#: [id number] Acct: [id number] Name: CARYL THAKUR Rep #:[id number] : 1955 67 From: Meredith Sosa MD PCP: Dr. Neptali Josue DO Status:ADM IN Discharge Instructions Diet Discharge Diet: Low fat / Low cholesterol Activity Discharge Activity: Return to Normal Activity Weight Bearing Status: Weight bearing as tolerated Dressing / Incision Call your doctor if you observe: Fever of 101 or Higher, Shortness of breath, Dizziness, Swelling in the ankles and Chest pain Follow Up Care Test Results: Test results from this visit will be discussed in further detail at your follow- up appointment, if applicable. Discharge Plan Admission Admit Date/Time: 07/14/23 17:16 Primary Reason for Your Visit: stemi Attending Provider: Meredith Sosa Primary Care Provider: Neptali Josue Consulting Providers: Alpesh Jackson Instructions Patient Instructions: Heart Attack Dc, Exercising After a Heart Attack, Heart Attack Meds, Heart Attack: Leaving the Hospital, Heart Attack: Back at Home Discharge Orders/Prescriptions Prescriptions: New furosemide 40 mg Tablet 40 mg PO DAILY Qty: 30 2RF atorvastatin 80 mg Tablet 80 mg PO QHS Qty: 30 2RF isosorbide mononitrate 30 mg Tablet Extended Release 24 Hr 30 mg PO DAILY Qty: 30 2RF clopidogrel 75 mg Tablet 75 mg PO DAILY Qty: 30 2RF losartan 25 mg Tablet 25 mg PO DAILY Qty: 30 2RF metoprolol succinate 25 mg Tablet Extended Release 24 Hr 25 mg PO DAILY Qty: 30 2RF spironolactone 25 mg Tablet 12.5 mg PO DAILY Qty: 30 2RF potassium chloride 20 mEq Tablet,Er Particles/Crystals 20 meq PO DAILYCM Qty: 30 2RF Eliquis 5 mg Tablet 5 mg PO BID Qty: 60 2RF Continued lutein 20 mg capsule 20 mg PO DAILY Rx Instructions: give with meal/snack lansoprazole 30 MG capsule,delayed release(DR/EC) 30 mg PO DAILY Patient Comments: TAKE 1 CAPSULE BY MOUTH EVERY DAY multivitamin [Daily Multi-Vitamin] Tablet 1 tab PO DAILY Discontinued losartan 50 mg tablet 50 mg PO DAILY amlodipine 5 mg tablet 5 mg PO DAILY aspirin 81 mg tablet,chewable 1 tab PO DAILY Referrals / Follow Up: Kristin Jett MD [Med Staff - Active Staff] - Within 2 Weeks Neptali Josue DO [Primary Care Provider] - Within 2 Weeks Disposition Disposition (needs filled in before D/C Order can be placed): Home, Self Care 07/16/23 1027<Electronically signed by Meredith Sosa MD>Meredith Sosa MD CC: Dr. Neptali Josue DO; Dr. Alpesh Jackson MD ~ Signed ADDENDUM by Dr. Meredith Sosa MD on 07/16/23 at 1102 to see PCP for BMP check in 2-3 days to monitor electrolytes and kidney function. 07/16/23 1102<Electronically signed by Meredith Sosa MD>Meredith Sosa MD cc: Dr. Neptali Josue DO; Dr. Alpesh Jackson MD ~* Signed [facility] Work Phone: Evaluation noteNo assessment information available [facility] Work Phone: Evaluation note* Diagnosis Onset Date Resolution Status Prostate cancer acute [facility] Work Phone: Evaluation note* Diagnosis Onset Date Resolution Status Prostate cancer acute 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 Bilateral impacted cerumen a cute [facility] Work Phone: Evaluation note* Diagnosis Onset Date Resolution Status 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 Bilateral impacted cerumen a cute 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 ST elevation (STEMI) myocardial infarction acute Hypertension chronic [facility] Work Phone: Evaluation note* Diagnosis Onset Date Resolution Status 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 Bilateral impacted cerumen a cute 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 Coronary artery disease acut e Prostate cancer acute ST elevation (STEMI) myocardial infarction acute Hypertension chronic [facility] Work Phone: Evaluation note* Diagnosis Onset Date Resolution Status 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 Bilateral impacted cerumen a cute 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 Coronary artery disease acut e Left ventricular apical thrombus following [place] acute Left ventricular systolic dysfunction (LVSD) acute Prostate cancer acute ST elevation (STEMI) myocardial infarction acute Hypertension chronic [facility] Work Phone: Evaluation note* Diagnosis Onset Date Resolution Status 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 Bilateral impacted cerumen a cute 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 ST elevation (STEMI) myocardial infarction acute [facility] Work Phone: Evaluation note* Diagnosis Onset Date Resolution Status Bilateral impacted cerumen a cute 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 ST elevation (STEMI) myocardial infarction acute [facility] Work Phone: Evaluation note* Diagnosis Onset Date Resolution Status 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 acute Left ventricular apical thrombus following [place] acute Left ventricular systolic dysfunction (LVSD) acute ST elevation (STEMI) myocardial infarction acute Biochemically recurrent osmar gnant neoplasm of prostate acute Left ventricular apical thrombus following [place] acute Left ventricular systolic dysfunction (LVSD) acute Stented coronary artery July 14, 2023 a [facility] Work Phone: Reason for referral (narrative)No reason for referral [facility] Work [facility]: Summary Purpose Family History No Family History Records Found Relationship Condition Age at Onset Recorded Date/T chente father Myocardial infarction Unknown mother Malignant neoplasm Unknown Advance Directives No Advanced Directives Records Found Advance Directive Response Recorded Date/ Time Living Will Yes December 02 4:34am Power of Proof Press Operator No December 02 4:34am Advance Directive Response Recorded Date/ Time Living Will Yes December 02 5:34am Power of Proof Press Operator No December 02 5:34am Advance Directive Response Recorded Date/ Time Name of Medical Power of Proof Press Operator CRISTINA THAKUR January 05, 2023 3:35pm Living Will Yes January 05, 2023 3:35pm Power of Proof Press Operator Yes December 3:35pm Advance Directive Response Recorded Date/ Time Name of Medical Power of Proof Press Operator elan thakur July 14, 2023 4:48pm Living Will Yes July 14, 2023 4:48pm Power of Proof Press Operator Yes July 13 4:48pm Advance Directive Response Recorded Date/ Time Name of Medical Power of Proof Press Operator Cristina Thakur ( ) July 14, 2023 7:19pm Living Will Yes July 14, 2023 7:19pm Power of Proof Press Operator Yes July 13 7:19pm Advance Directive Response Recorded Date/ Time Name of Medical Power of Proof Press Operator Cristina Thakur ( ) July 14, 2023 7:19pm Advance Directives on File Yes August 03, 2023 1:24pm Living Will Yes August 03, 2023 1:24pm Power of Proof Press Operator Yes August 02 1:24pm Advance Directive Response Recorded Date/ Time Living Will Yes August 03, 2023 1:24pm Do you have a Healthcare Power of Proof Press Operator? Yes August 03, 2023 1:24pm Living Will Yes January 05, 2023 4:35pm Do you have a Healthcare Power of Proof Press Operator? 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 ACCOUNTING MANAGER nee Amb Documentation CONSULT - PROSTATE CLOGGED RT EAR PROSTATE CA MALIGNANT NEOPLASM OF PROSTATE Reason for Visit Prostate cancer Biochemically recurrent malignant neoplasm of prostate Bilateral impacted cerumen Chief Complaint Amb Documentation CONSULT - PROSTATE CLOGGED RT EAR PROSTATE CA OTV OTV OTV OTV OTV OTV OTV MALIGNANT NEOPLASM OF PROSTATE Amb Documentation STEMI Reason for Visit Biochemically recurr ent malignant neoplasm of prostate Bilateral impacted cerumen 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 neoplasm of prostate ST elevation (STEMI) myocardial infarction Hypertension Chief Complaint Amb Documentation CONSULT - PROSTATE CLOGGED RT EAR PROSTATE CA OTV OTV OTV OTV OTV OTV OTV MALIGNANT NEOPLASM OF PROSTATE Amb Documentation STEMI STEMI STEMI STEMI Reason for Visit Biochemically recurr ent malignant neoplasm of prostate Bilateral impacted cerumen 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 neoplasm of prostate Coronary artery disease Prostate cancer ST elevation (STEMI) myocardial infarction Hypertension Chief Complaint Amb Documentation CONSULT - PROSTATE CLOGGED RT EAR PROSTATE CA OTV OTV OTV OTV OTV OTV OTV MALIGNANT NEOPLASM OF PROSTATE Amb Documentation STEMI STEMI STEMI STEMI STEMI Reason for Visit Biochemically recurr ent malignant neoplasm of prostate Bilateral impacted cerumen 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 neoplasm of prostate Coronary artery disease Left ventricular apical thrombus following [place] Left ventricular systolic dysfunction (LVSD) Prostate cancer ST elevation (STEMI) myocardial infarction Hypertension Chief Complaint CONSULT - PROSTATE CLOGGED RT EAR PROSTATE CA OTV OTV OTV OTV OTV OTV OTV MALIGNANT NEOPLASM OF PROSTATE Amb Documentation STEMI STEMI STEMI STEMI STEMI STEMI Reason for Visit Biochemically recurr ent malignant neoplasm of prostate Bilateral impacted cerumen 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 neoplasm of prostate ST elevation (STEMI) myocardial infarction Chief Complaint CLOGGED RT EAR PROSTATE CA OTV OTV OTV OTV OTV OTV OTV MALIGNANT NEOPLASM OF PROSTATE Amb Documentation STEMI STEMI STEMI STEMI STEMI STEMI Reason for Visit Bilateral impacted c erumen 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 neoplasm of prostate ST elevation (STEMI) myocardial infarction Chief Complaint PROSTATE CA OTV OTV OTV OTV OTV OTV OTV MALIGNANT NEOPLASM OF PROSTATE Amb Documentation STEMI STEMI STEMI STEMI STEMI STEMI 1 MONTH F/U POST RT S/P [facility] 07/15 STEMI, PTCA, PCI w/coronary stenting Reason for Visit Biochemically recurr ent malignant neoplasm of prostate 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 neoplasm of prostate Left ventricular apical thrombus following [place] Left ventricular systolic dysfunction (LVSD) ST elevation (STEMI) myocardial infarction Biochemically recurrent malignant neoplasm of prostate Left ventricular apical thrombus following [place] Left ventricular systolic dysfunction (LVSD) Stented coronary artery Chief Complaint Admit Date ABD PAIN, EPISODIC HERMATURIA,HX PROSTAT E CA W/RAD April 03, 2024 1:42pm Cough April 27, 2024 9 :27am 2 ORDERING DOCTORS May 18, 2024 9 :46am 6 M FU June 25, 2024 1:5 1pm INT LAB ORDERS June 29, 2024 9:3 7am Reason for Visit Admit Date Acute upper respiratory infection Januar y 2024 9:27am Coronary artery disease June 25, 2024 1:51pm Dyslipidemia June 25, 2024 1:5 1pm Hypertension June 25, 2024 1:5 1pm Ischemic cardiomyopathy June 25, 2024 1:51pm Left ventricular apical thrombus followi ng [place] June 25, 2024 1:51pm Stented coronary artery June 25, 2024 1:51pm Chief Complaint Admit Date ABD PAIN, EPISODIC HERMATURIA,HX PROSTAT E CA W/RAD April 03, 2024 1:42pm Cough April 27, 2024 9 :27am 2 ORDERING DOCTORS May 18, 2024 9 :46am 6 M FU June 25, 2024 1:5 1pm INT LAB ORDERS June 29, 2024 9:3 7am CAD ASHD July 18, 2024 6:48 am CAD ASHD July 18, 2024 10:1 7am Chief Complaint Admit Date 6 M FU June 25, 2024 1:5 1pm INT LAB ORDERS June 29, 2024 9:3 7am CAD ASHD July 18, 2024 6:48 am CAD ASHD July 18, 2024 10:1 7am MALIGNANT NEOPLASM OF PROSTATE July 2:00pm 6 MONTH F/U PROSTATE, PSA PRIOR July 262024 2:01pm 3 M FU September 25, 2024 8:53 am Reason for Visit Admit Date Coronary artery disease June 25, 2024 1:51pm Dyslipidemia June 25, 2024 1:5 1pm Hypertension June 25, 2024 1:5 1pm Ischemic cardiomyopathy June 25, 2024 1:51pm Left ventricular apical thrombus followi ng [place] June 25, 2024 1:51pm Stented coronary artery June 25, 2024 1:51pm Biochemically recurrent malignant neopla sm of prostate July 26, 2024 2:01pm Coronary artery disease September 25, 2024 8:53am Dyslipidemia September 25, 2024 8:53 am Hypertension September 25, 2024 8:53 am Ischemic cardiomyopathy September 25, 2024 8:53am Left ventricular apical thrombus followi ng [place] September 25, 2024 8:53am Stented coronary artery September 25, 2024 8:53am Additional Source Comments (unrecognized sect ion and content) No Status Records FoundNo Status Records Found INFORMATION SOURCE (unrecogn ized section and content) DATE CREATED AUTHOR 10/05/2017 [facility] DATE CREATED AUTHOR AUTHOR'S ORGANIZ ATION 09/26/2024 [facility] Goals (unrecognized section and content) Goals may be documented in a n alternate sectionGoals may be documented in an alternate sectionGoals may be documented in an alternate sectionGoals may be documented in an alternate sectionGoals may be documented in an alternate sectionGoals may be documented in an alternate sectionGoals may be documented in an alternate sectionGoals may be documented in an alternate section Care Teams (unrecognized sec tion and content) Team Status: Active Member Role Status Dates Dr. Neptali Josue DO Family Provider Active Dr. Neptali Josue DO Primary Care Provider Active Team Status: Inactive Member Role Status Dates Dr. Neptali Josue DO Primary Care Prov ider, Attending Provider, Referring Provider Active Team Status: Inactive Member Role Status Dates Dr. Neptali Josue DO Primary Care Provider Active Dr. Deandre Davison MD Attending Provider, Referr ing Provider Active Team Status: Active Member Role Status Dates Dr. Neptali Josue DO Primary Care Provider Active Dr. Arcadio Avila MD Attending Provider Active Dr. Deandre Davison MD Referring Provider Active Team Status: Inactive Member Role Status Dates Dr. Neptali Josue DO Primary Care Provider Active Cate Urenaing Attending Provider Active Team Status: Inactive Member Role Status Dates Dr. Neptali Josue DO Primary Care Provider Active Dr. Deandre Davison MD Admit Provid er, Attending Provider, Referring Provider Active Team Status: Inactive Member Role Status Dates Dr. Neptali Josue DO Primary Care Provider Active Dr. Sal Wood DO Attending Provider Active Dr. Deandre Davison MD Referring Provider Active Team Status: Active Member Role Status Dates Dr. Neptali Josue DO Primary Care Provider Active Iris Blackmon Attending Provider Active Team Status: Inactive Member Role Status Dates Dr. Neptali Josue DO Primary Care Provider, Referrin g Provider Active Adolfo Bloom PA, PA Attending Provider Active Team Status: Active Member Role Status Dates Dr. Neptali Malachi , DO Primary Care Provider Active Dr. Sal Wood , DO Attending Provider Active Team Status: Active Member Role Status Dates Dr. Neptali Josue , DO Primary Care Provider Active Dr. Sal Wood , DO Attending Provider, Referring P rovider Active Team Status: Inactive Member Role Status Dates Dr. Neptali Josue , DO Primary Care Provider Active Dr. Sal Wood , DO Attending Provider, Referring P rovider Active Team Status: Active Member Role Status Dates Dr. Neptali Josue , DO Primary Care Provider Active Cate Guzman Attending Provider Active Team Status: Active Member Role Status Dates Dr. Neptali Josue , DO Primary Care Provider Active Dr. Kristin Jett MD Referring Provider Active Dr. Yared Whaley DO Emergency Provider Active Dr. Alpesh Jackson MD Admit Provider, Attending Provi jason Active Team Status: Active Member Role Status Dates Dr. Neptali Josue , DO Primary Care Provider Active Dr. Kristin Jett MD Attending Provider, Referring Pr ovider Active Dr. Yared Whaley DO Emergency Provider Active Dr. Alpesh Jackson MD Admit Provider, Other Provider Active Team Status: Active Member Role Status Dates Dr. Neptali Josue DO Primary Care Provider Active Dr. Kristin Jett MD Attending Provider, Referring Pr ovider Active Dr. Yared Whaley DO Emergency Provider Active Dr. Alpesh Jackson MD Admit Provider, Other Provider Active Dr. Meredith Sosa MD Other Provider Active Team Status: Active Member Role Status Dates Dr. Neptali Josue DO Primary Care Provider Active Dr. Kristin Jett MD Referring Provider Active Dr. Yared Whaley DO Emergency Provider Active Dr. Alpesh Jackson MD Admit Provider, Other Provider Active Dr. Meredith Sosa MD Attending Provider, Other Prov ider Active Team Status: Active Member Role Status Dates Dr. Neptali Josue , DO Primary Care Provider Active Dr. Kristin Jett MD Referring Provider Active Dr. Yared Whaley DO Emergency Provider Active Dr. Alpesh Jackson MD Admit Provider, Other Provider Active Dr. Meredith Sosa MD Attending Provider Active Team Status: Inactive Member Role Status Dates Dr. Neptali Josue , DO Primary Care Provider Active Dr. Kristin Jett MD Referring Provider Active Dr. Yared Whaley DO Emergency Provider Active Dr. Alpesh Jackson MD Admit Provider, Other Provider Active Dr. Meredith Sosa MD Attending Provider Active Team Status: Active Member Role Status Dates Dr. Neptali Josue DO Primary Care Provider Active Dr. Yared Whaley DO Emergency Provider Active Dr. Alpesh Jackson MD Admit Provider, Other Provider Active Dr. Meredith Sosa MD Attending Provider, Other Prov ider Active Team Status: Active Member Role Status Dates Dr. Neptali Josue DO Primary Care Provider Active Dr. Kristin Jett MD Attending Provider Active Team Status: Inactive Member Role Status Dates Dr. Neptali Josue DO Primary Care Provider, Attendin g Provider Active Team Status: Active Member Role Status Dates Dr. Neptali Josue DO Primary Care Provider, Attendin g Provider Active Team Status: Inactive Member Role Status Dates Dr. Neptali Josue DO Primary Care Provider, Referrin g Provider Active Dr. Sal Wood DO Attending Provider Active Team Status: Inactive Member Role Status Dates Dr. Neptali Josue DO Primary Care Provider, Referrin g Provider Active Chelo Cabrales TIE TAMPER, TIE TAMPER-C Attending Provider Active Team Status: Inactive Member Role Status Dates Dr. Neptali Josue DO Primary Care Provider Active Dr. Kristin Jett MD Attending Provider, Referring Pr ovider Active Team Status: Active Member Role Status Dates Dr. Neptali Josue DO Primary Care Provider Active Team Status: Inactive Member Role Status Dates Dr. Neptali Josue DO Primary Care Provider Active Start: March 12, 2024 End: March 12, 2024 Dr. Neptali Josue DO Attending Provider Active Start: March 12, 2024 End: March 12, 2024 Dr. Neptali Josue DO Referring Provider Active Start: March 12, 2024 End: March 12, 2024 Team Status: Inactive Member Role Status Dates Dr. Neptali Josue DO Primary Care Provider Active Start: April 03, 2024 End: April 03, 2024 Dr. Neptali Josue DO Attending Provider Active Start: April 03, 2024 End: April 03, 2024 Dr. Neptali Josue DO Referring Provider Active Start: April 03, 2024 End: April 03, 2024 Team Status: Inactive Member Role Status Dates Dr. Neptali Josue DO Primary Care Provider Active Start: April 27, 2024 End: April 27, 2024 Dr. Neptali Josue DO Referring Provider Active Start: April 27, 2024 End: April 27, 2024 Adolfo SMITH PA Attending Provider Active Sta rt: April 27, 2024 End: April 27, 2024 Team Status: Inactive Member Role Status Dates Dr. Neptali Josue DO Primary Care Provider Active Start: May 03, 2024 End: May 03, 2024 Dr. Deandre Davison MD Attending Provider Active Start: May 03, 2024 End: May 03, 2024 Dr. Deandre Davison MD Referring Provider Active Start: May 03, 2024 End: May 03, 2024 Team Status: Inactive Member Role Status Dates Dr. Neptali Josue DO Primary Care Provider Active Start: May 18, 2024 End: May 18, 2024 Dr. Neptali Josue DO Attending Provider Active Start: May 18, 2024 End: May 18, 2024 Dr. Neptali Josue DO Referring Provider Active Start: May 18, 2024 End: May 18, 2024 Caryl Guerrero TIE TAMPER, TIE TAMPER-C Other Provider Active Start : May 18, 2024 End: May 18, 2024 Team Status: Inactive Member Role Status Dates Dr. Neptali Josue DO Primary Care Provider Active Start: June 25, 2024 End: June 25, 2024 Dr. Neptali Josue DO Referring Provider Active Start: June 25, 2024 End: June 25, 2024 Dr. Kristin Jett MD Attending Provider Active Start: June 25, 2024 End: June 25, 2024 Team Status: Inactive Member Role Status Dates Dr. Neptali Josue DO Primary Care Provider Active Start: June 29, 2024 End: June 29, 2024 Dr. Kristin Jett MD Attending Provider Active Start: June 29, 2024 End: June 29, 2024 Dr. Kristin Jett MD Referring Provider Active Start: June 29, 2024 End: June 29, 2024 Team Status: Inactive Member Role Status Dates Dr. Neptali Josue DO Primary Care Provider Active Start: July 18, 2024 End: July 18, 2024 Dr. Kristin Jett MD Attending Provider Active Start: July 18, 2024 End: July 18, 2024 Dr. Kristin Jett MD Referring Provider Active Start: July 18, 2024 End: July 18, 2024 Team Status: Active Member Role Status Dates Dr. Neptali Josue DO Primary Care Provider Active Start: July 18, 2024 Dr. Kristin Jett MD Attending Provider Active Start: July 18, 2024 Dr. Kristin Jett MD Referring Provider Active Start: July 18, 2024 Dr. Kristin Jett MD Other Provider Active Star t: July 18, 2024 Team Status: Active Member Role Status Dates Dr. Npetali Josue DO Primary Care Provider Active Start: July 26, 2024 Dr. Sal Wood DO Attending Provider Active Start: July 26, 2024 Dr. Sal Wood DO Referring Provider Active Start: July 26, 2024 Team Status: Inactive Member Role Status Dates Dr. Neptali Josue DO Primary Care Provider Active Start: July 26, 2024 End: July 26, 2024 Dr. Neptali Josue DO Referring Provider Active Start: July 26, 2024 End: July 26, 2024 Dr. Sal Wood DO Attending Provider Active Start: July 26, 2024 End: July 26, 2024 Team Status: Inactive Member Role Status Dates Dr. Neptali Josue DO Primary Care Provider Active Start: September 25, 2024 End: September 25, 2024 Dr. Neptali Josue DO Referring Provider Active Start: September 25, 2024 End: September 25, 2024 Dr. Kristin Jett MD Attending Provider Active Start: September 25, 2024 End: September 25, 2024 FOR RECORDS PERTAINING TO PATIENTS WHO ARE [...] BE BASED ON THE PRIMARY CLINICAL RECORDS. [facility], [facility]. provides no warranty or guarantee of the accuracy or completeness of information in this document.
== END | disposition home or self-care (01) ==
LOC: LAB 09:20
PROVIDERS: PCP Family Medicine; Referring Provider Internal Medicine Cardiovascular Disease; Visit Provider Internal Medicine Cardiovascular Disease
DX: I10 Essential (primary) hypertension (principal)
CPT/HCPCS: 36415; 80048

== ENCOUNTER → 2024-10-29 | Outpatient (CLI) | payer MEDICARE, BC, SELFPAY ==
[2023-11-02 08:33] VITALS: BMI 26.4
--- NOTE | 2024-10-29 15:08 | ECHOL_ITS ---
Reason For Study Reason For Study: LV THROMBUS Procedure This was a limited 2D transthoracic echocardiogram. The study was technically difficult. No Definity use on echo. Exam performed in department. Left Ventricle Normal LV size. Apical akinesis. Estimated LVEF 40-45%. Grade 1 diastolic dysfunction. 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 No echo contrast was used on account of allergic reaction previously. Right Ventricle Normal right ventricle. Atria The left and right atria are normal. Mitral Valve Trivial mitral valve insufficiency. Tricuspid Valve Trivial tricuspid valve insufficiency. Normal pulmonary artery pressure. Aortic Valve Trisinus/trileaflet aortic valve. Pulmonic Valve The pulmonic valve is not well visualized. Great Vessels The aortic root is not well visualized. Pericardium/Pleural No pericardial effusion. Medication Patient denied the use of Definity due to prior reaction (flank/chest pain) on previous use with echo. MMode/2D Measurements & Calculations LVIDd: 4.2 cm IVSd: 1.0 cm LAV(MOD- bp): 37.4 ml LVIDs: 3.1 cm LVPWd: 0.98 cm FS: 25.5 % LAV(MOD- bp) Indexed: 19.7 ml/m2 LAV(MOD- sp2): 42.5 ml LAV(MOD- sp4): 28.3 ml SV(MOD- sp4): 40.3 ml LVAd ap4: 29.4 cm2 LVAd ap2: 29.2 cm2 LVLd ap4: 8.2 cm LVLd ap2: 8.2 cm SI(MOD- sp4): 21.2 ml/m2 EDV(MOD-sp4): 84.4 ml EDV(MOD-sp2): 82.2 ml EDV(sp4-el): 89.5 ml EDV(sp2-el): 88.7 ml LVAs ap4: 20.2 cm2 LVAs ap2: 20.0 cm2 LVLs ap4: 7.3 cm LVLs ap2: 7.4 cm ESV(MOD-sp4): 44.1 ml ESV(MOD-sp2): 42.5 ml ESV(sp4-el): 47.0 ml ESV(sp2-el): 46.3 ml EF(MOD-sp4): 47.7 % EF(MOD-sp2): 48.2 % EF(sp4-el): 47.5 % SV(MOD-sp2): 39.6 ml SV(sp4-el): 42.5 ml LA A4 area: 12.6 cm2 SI(MOD-sp2): 20.8 ml/m2 LA dimension(2D): 3.9 cm TAPSE: 2.3 cm RA A4 area: 13.5 cm2 Doppler Measurements & Calculations Lat Peak E' Eduard: 7.0 cm/sec Med Peak E' Eduard: 7.4 cm/sec TR max eduard: 203.9 cm/sec TR max P.6 mmHg ECHO/Echo, Limited Study Interpretation Summary Apical akinesis. Estimated LVEF 40-45%. Grade 1 diastolic dysfunction. 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 Markedly decreased in size as compared to previous study. No echo contrast was used on account of allergic reaction previously. Recommend cardiac MRI for further evaluation of the LV apex and possible thromb us. Ordering Physician: Kristin Jett Referring Physician: Mckinley Ly Performed By: Mirela Wilson RDCS
== END | disposition home or self-care (01) ==
LOC: CVS 15:07
PROVIDERS: PCP Family Medicine; Referring Provider Physician Assistant Medical; Visit Provider Physician Assistant Medical
DX: I23.6 Thrombosis of atrium, auricular appendage, and ventricle as current complications following acute myocardial infarction (principal)
CPT/HCPCS: 93308

== ENCOUNTER → 2024-11-06 | Outpatient (CLI) | payer MEDICARE, BC, SELFPAY ==
[2023-11-02 08:33] VITALS: BMI 26.4
[2024-11-06 09:45] LABS: PSA,Total- Diagnostic < 0.02 ng/mL (0.00-4.00)
[2024-11-06 10:32] LABS: AST(SGOT) 26 U/L (<=37); Alanine Aminotransfer ALT/SGPT 14 U/L (<=46); Albumin, Serum 4.0 g/dL (3.4-4.8); Alkaline Phosphatase 108 U/L (40-129); Bilirubin, Direct 0.15 mg/dL (0.00-0.30); Cholesterol 83 mg/dL (<=200); Globulin 2.7 g/dL (2.2-4.2); Low Density Lipoprotein Calc. -5 mg/dL; Triglycerides 215 mg/dL; Very Low Density Lipoprotein 43 mg/dL (5-40); cholesterol:hdl ratio screen 1.85
== END | disposition home or self-care (01) ==
PROVIDERS: Nurse Practitioner Family; PCP Family Medicine; Referring Provider Urology; Visit Provider Urology
DX: R73.01 Impaired fasting glucose (principal); R97.20 Elevated prostate specific antigen [PSA]; I25.10 Atherosclerotic heart disease of native coronary artery without angina pectoris
CPT/HCPCS: 36415; 80061; 80076; 83036; 84153